=== PATIENT | male | born 1945 | race Caucasian/White ===

== ENCOUNTER 2016-09-25 14:49 | Emergency (ER) | payer OTHER ==
--- NOTE | 2016-09-25 14:59 | CPEKG ---
Heart Rate: 70 RR Interval: 857 P-R Interval: 128 QRSD Interval: 78 QT Interval: 392 QTC Interval: 423 P [place]: -23 QRS [place]: -27 T Wave [place]: -24 EKG Severity - BORDERLINE ECG - EKG Impression: SINUS RHYTHM Electronically Signed By: Francisco Armstrong 25-Sep-2016 16:04:28
[2016-09-25 15:03] VITALS: PULSE 71; TEMP 98.2
[2016-09-25 15:18] LABS: % IMMATURE GRANULYOCYTES 0.6 % (0.0-1.1); ABSOLUTE IMMATURE GRANULOCYTES 0.08 10^3/uL (0.00-0.10); ADD DIFF? NO; ADD MORPH? NO; ADD SCAN? NO; ATYPICAL LYMPHOCYTE FLAG 0 (0-99); FRAGMENT RBC FLAG 0 (0-99); HEMATOCRIT 48.2 % (40.0-51.0); LEFT SHIFT FLG 0 (0-99); LIPEMIA HEMOLYSIS FLAG 80 (0-99); MEAN CELL HEMOGLOBIN 28.7 pg (27.9-34.1); MEAN CELL HEMOGLOBIN CONCENTR. 33.2 g/dL (32.4-36.7); MEAN CELL VOLUME 86.4 fL (81.5-99.8); MEAN PLATELET VOLUME 11.6 fL (8.7-11.7); PLATELET CLUMPS FLAG 10 (0-99); PLATELET COUNT 186 10^3/uL (150-400); RED BLOOD CELL COUNT 5.58 10^6/uL (4.40-6.38); RED CELL DISTRIBUTION WIDTH 13.3 % (11.5-15.2)
[2016-09-25 15:51] LABS: ANION GAP 14 mEq/L (8-16); CALCIUM 9.2 mg/dL (8.5-10.4); CARBON DIOXIDE 22 mEq/l (22-31); CHLORIDE 100 mEq/L (97-110); CREATININE 2.5 mg/dL (0.7-1.3); GLOMERULAR FILTRATION RATE 26; GLUCOSE 184 mg/dL (70-100); POTASSIUM 4.5 mEq/L (3.5-5.2); SODIUM 136 mEq/L (134-144)
[2016-09-25 16:02] LABS: TROPONIN I 0.025 ng/mL (0-0.034)
--- NOTE | 2016-09-25 16:06 | EDPHY ---
H & P Stated Complaint: DYSPNEA Time Seen by Provider: 09/25/16 15:09 HPI/ROS: CHIEF COMPLAINT: Dyspnea, upper trapezius pain, fever, chills, nausea HISTORY OF PRESENT ILLNESS: The patient presents to the ED with complaints of mild dyspnea, upper thoracic pain, subjective fevers, chills and nausea. The patient's symptoms all began fairly abruptly at 1 o'clock this afternoon. The patient reports he has had this happen episodically 5-10 times over the past 10 years. He reports that he has sought a diagnosis of these symptoms but reportedly no obvious etiology has been found. The patient's past medical history is most significant significant for coronary artery disease with a stent last year. The patient does have a history of chronic BPH. He denies any dysuria but does have chronic frequency. He denies an acute cough, he denies focal numbness or weakness. He denies fall or trauma. The patient complains of a moderate pain in his upper thoracic spine which is reproducible. REVIEW OF SYSTEMS: A comprehensive 10 point review of systems is otherwise negative aside from elements mentioned in the history of present illness. Source: Patient Exam Limitations: No limitations - Personal History Current Tetanus Diphtheria and Acellular Pertussis (TDAP): Yes - Medical/Surgical History Hx Asthma: Yes Hx Chronic Respiratory Disease: Yes Hx Diabetes: Yes Hx Cardiac Disease: No Hx Renal Disease: No Hx Cirrhosis: No Hx Alcoholism: No Hx HIV/AIDS: No Hx Splenectomy or Spleen Trauma: No Other PMH: Cervical disc disease, DM, empysema, gout, htn, hyperlipidemia, ptsd , BPH, TIA CVA, OA, STENTS,CAD, BELLS PALSY. - Social History Smoking Status: Former smoker - Physical Exam Exam: General Appearance: Alert, no distress Eyes: Pupils equal and round no pallor or injection ENT, Mouth: Mucous membranes moist Respiratory: There are no retractions, lungs are clear to auscultation Cardiovascular: Regular rate and rhythm Gastrointestinal: Abdomen is soft and nontender, no masses, bowel sounds normal Neurological: A&O, normal motor function, normal sensory exam, normal cranial nerves Skin: Warm and dry, no rashes Musculoskeletal: Tenderness to palpation noted in the upper thoracic spine Extremities: symmetrical, full range of motion Constitutional: Initial Vital Signs Temperature (C) 36.8 C 09/25/16 15:00 Heart Rate 71 09/25/16 15:00 Respiratory Rate 20 09/25/16 15:00 Blood Pressure 124/80 H 09/25/16 15:00 O2 Sat (%) 97 09/25/16 15:00 O2 Delivery Mode Room Air O2 (L/minute) 2 Allergies/Adverse Reactions: glipizide Allergy (Intermediate, Verified 04/18/16 10:02) Other-Enter Comments lisinopril Allergy (Intermediate, Verified 04/18/16 10:02) Other-Enter Comments Home Medications: Medication Instructions Recorded Acetaminophen [Tylenol ES 500 mg 500 - 1,000 mg PO TID PRN 03/29/16 (*)] Albuterol [Proventil Inhaler HFA 2 puffs IH Q4 PRN 03/29/16 (*)] Aspirin [Aspirin 81mg (*)] 81 mg PO DAILY 03/29/16 Budesonide/Formoterol 160/4.5 2 puffs IH BID 03/29/16 [Symbicort 160-4.5 Mcg Inh (*)] Carboxymethylcellulose 1% [Refresh 1 drops EACHEYE QID PRN 03/29/16 Celluvisc (*)] Cholecalciferol Vit D3 [Vitamin D3 1,000 units PO DAILY 03/29/16 (*)] Clopidogrel Bisulfate [Plavix (*)] 75 mg PO DAILY 03/29/16 Cyanocobalamin [Vitamin B12 (*)] 1,000 mcg PO BID 03/29/16 Herbals/Supplements -Info Only 1 ea PO DAILY 03/29/16 Lidocaine HCl [Lidocaine HCl 4% 1 angelika TP BID PRN 03/29/16 Topical Soln (*)] Losartan Potassium [Cozaar 25 mg 25 mg PO DAILY 03/29/16 (*)] Metoprolol Tartrate [Lopressor 25 25 mg PO BID 03/29/16 mg (*)] Nitroglycerin [Nitrostat 0.4 mg 0.4 mg SL Q5M PRN 03/29/16 (*)] PARoxetine HCL [Paxil 30mg (*)] 30 mg PO DAILY 03/29/16 Tamsulosin HCl [Flomax 0.4 MG (*)] 0.4 mg PO BIDMEAL 03/29/16 Vanicream [Vanicream (*)] 1 angelika TP PRN PRN 07/21/16 Allopurinol [Allopurinol 300 MG 300 mg PO DAILY #0 tab 04/01/16 (RX)] Atorvastatin Calcium [Lipitor 40 80 mg PO DAILY #0 tab 04/01/16 mg (*)] levOFLOXACIN [levAQUIN (*)] 750 mg PO Q2D #2 tab 04/01/16 predniSONE [Deltasone] 20 mg PO DAILY #2 tablet 04/01/16 predniSONE [prednisone 20mg (RX)] 3 tab PO DAILY #15 tab 04/18/16 Medical Decision Making - Diagnostics EKG Interpretation: EKG: Complete interpretation has been separately recorded in the [email or web address] archive. Summary impression: Sinus rhythm Imaging: Chest x-ray PA lateral: Images reviewed by myself, negative for pneumonia, emphysema is noted. ED Course/Re-evaluation: The patient presents to the ED with a diverse constellation of symptoms including thoracic pain, chills, diaphoresis and generalized weakness. Additionally patient has had some mild abdominal pain. The patient reports he has had episodic bouts of the symptoms over the years without obvious working diagnosis. Patient was noted to be afebrile in the emergency department. The patient has a normal EKG. The patient's troponin is normal. The patient is noted to have chronic renal failure with a baseline creatinine of 2.5. The patient's urinalysis demonstrates no evidence of an obvious infection. The patient's laboratory studies are within normal limits. The patient had multiple examinations by myself in the ED. He remains afebrile. The patient has no obvious disease noted on his chest x-ray. At this point time I do feel the patient can safely be discharged home. I am see no obvious emergent explanation of his symptoms. He has no vital sign abnormalities, has a normal neurologic examination, benign abdominal examination and an unremarkable EKG and cardiac tests. - Data Points Laboratory Results: Laboratory Results 09/25/16 15:00 09/25/16 15:00 09/25/16 09/25/16 17:35 15:00 WBC 13.14 H 10^3/uL (3.80-9.50) RBC 5.58 10^6/uL (4.40-6.38) Hgb 16.0 g/dL (13.7-17.5) Hct 48.2 % (40.0-51.0) MCV 86.4 fL (81.5-99.8) MCH 28.7 pg (27.9-34.1) MCHC 33.2 g/dL (32.4-36.7) RDW 13.3 % (11.5-15.2) Plt Count 186 10^3/uL (150-400) MPV 11.6 fL (8.7-11.7) Neut % (Auto) 72.9 % (39.3-74.2) Lymph % (Auto) 15.2 % (15.0-45.0) [place] % (Auto) 7.8 % (4.5-13.0) Eos % (Auto) 2.5 % (0.6-7.6) Baso % (Auto) 1.0 % (0.3-1.7) Nucleat RBC Rel Count 0.0 % (0.0-0.2) Absolute Neuts (auto) 9.57 H 10^3/uL (1.70-6.50) Absolute Lymphs (auto) 2.00 10^3/uL (1.00-3.00) Absolute Monos (auto) 1.03 H 10^3/uL (0.30-0.80) Absolute Eos (auto) 0.33 10^3/uL (0.03-0.40) Absolute Basos (auto) 0.13 H 10^3/uL (0.02-0.10) Absolute Nucleated RBC 0.00 10^3/uL (0-0.01) Immature Gran % 0.6 % (0.0-1.1) Immature Gran # 0.08 10^3/uL (0.00-0.10) Sodium 136 mEq/L (134-144) Potassium 4.5 mEq/L (3.5-5.2) Chloride 100 mEq/L (97-110) Carbon Dioxide 22 mEq/l (22-31) Anion Gap 14 mEq/L (8-16) BUN 27 H mg/dL (7-23) Creatinine 2.5 H mg/dL (0.7-1.3) Estimated GFR 26 Glucose 184 H mg/dL (70-100) Calcium 9.2 mg/dL (8.5-10.4) Troponin I 0.025 ng/mL (0-0.034) Urine Color YELLOW Urine Appearance CLEAR Urine pH 5.0 (5.0-7.5) Ur Specific [place] 1.015 (1.002-1.030) Urine Protein NEGATIVE (NEGATIVE) Urine Ketones NEGATIVE (NEGATIVE) Urine Blood NEGATIVE (NEGATIVE) Urine Nitrate NEGATIVE (NEGATIVE) Urine Bilirubin NEGATIVE (NEGATIVE) Urine Urobilinogen NEGATIVE EU (0.2-1.0) Ur Leukocyte Esterase NEGATIVE (NEGATIVE) Ur Culture Indicated? NOT INDICATED (NI) Urine Glucose NEGATIVE (NEGATIVE) Departure - Departure Disposition: Home, Routine, Self-Care Clinical Impression: Chills, Dehydration Condition: Good Instructions: Chronic Kidney Disease (ED) Additional Instructions: 1. Please return to the ED for worsening symptoms, high fever, difficulty breathing or other concerns. 2. Workup in the emergency department today demonstrates no evidence of a heart attack, pneumonia, abnormality of your blood testing or other obvious explanation of your symptoms. 3. Please follow up as scheduled with your primary care provider for a recheck in the next 1-2 days.
--- NOTE | 2016-09-25 16:07 | DX ---
CHEST, AP and Lateral HISTORY: Weakness, dyspnea COMPARISON: April 18, 2016 FINDINGS: Inspiratory phase is decreased. Chronic or recurrent perihilar bronchial wall thickening an d moderately prominent lung volumes are again present and suggest underlying COPD/airways disease. Th ere is no focal infiltrate or consolidation. There is no adenopathy or mass lesion. There is no pleur al effusion or pneumothorax. Bones are unremarkable for age. EKG leads overlie the chest. Impression: COPD/emphysema. No evidence for pneumonia.
[2016-09-25 17:52] LABS: COLOR YELLOW; LEUKOCYTE ESTERASE,URINE NEGATIVE (NEGATIVE); NITRITE,URINE NEGATIVE (NEGATIVE)
[2016-09-25 18:21] VITALS: BP 132/88; RESP 18; O2SAT 94
== END 2016-09-25 18:21 | disposition home or self-care (01) ==
LOC: EDUNIT#
DX: E86.0 Dehydration (principal); R68.83 Chills (without fever); J45.909 Unspecified asthma, uncomplicated; E11.9 Type 2 diabetes mellitus without complications; I10 Essential (primary) hypertension; I25.10 Atherosclerotic heart disease of native coronary artery without angina pectoris; Z79.82 Long term (current) use of aspirin; Z87.891 Personal history of nicotine dependence; Z86.73 Personal history of transient ischemic attack (TIA), and cerebral infarction without residual deficits; Z95.5 Presence of coronary angioplasty implant and graft

== ENCOUNTER 2017-04-09 12:58 | Emergency (ER) | payer OTHER ==
[2017-04-09 13:08] VITALS: BP 104/81; PULSE 67; RESP 24; TEMP 97.5; O2SAT 97
== END 2017-04-09 14:11 | disposition left against medical advice (07) ==
DX: Z53.21 Procedure and treatment not carried out due to patient leaving prior to being seen by health care provider (principal)

== ENCOUNTER 2017-04-13 14:25 | Inpatient (IN) | payer OTHER ==
--- NOTE | 2017-04-13 14:51 | EDPHY ---
H & P Stated Complaint: here recently, c/o recurrent sx: dizzy, RAZO, SOB, sweats, neck & back pain HPI/ROS: HPI CHIEF COMPLAINT: Multiple complaints HISTORY OF PRESENT ILLNESS: This patient is 71-year-old male significant past medical history for coronary artery disease with stent, chronic kidney disease, baseline creatinine 2.5, hypertension, COPD not on oxygen, history of a CVA, TIA , carotid artery occlusion presents emergency room with multiple complaints. He states for the past 3-5 years he has had chronic neck pain back pain and arm pain. Additionally ports chronic shortness of breath. He does have underlying COPD, emphysema and asthma however does not wear oxygen. He is an avid marijuana smoker. He states also he has felt very lightheaded recently. The reason that he came into the emergency room is a combination of all these things which includes shortness of breath, lightheadedness and chronic pain. He denies any new chest pain. Denies nausea vomiting. He does report diaphoresis earlier today. States he has had this constellation of symptoms multiple times over the past few years and nobody can tell him what is wrong. Past Medical History: Chronic kidney disease, diabetes, coronary artery disease , hypertension, COPD, CVA, TIA, carotid disease Past Surgical History: PTCA Social History: Denies daily use of tobacco or alcohol, does smoke marijuana Family History: Noncontributory ROS REVIEW OF SYSTEMS: A comprehensive 10 point review of systems is otherwise negative aside from elements mentioned in the history of present illness. Exam Constitutional appears well nontoxic, triage nursing summary reviewed, vital signs reviewed, awake/alert. Eyes normal conjunctivae and sclera, EOMI, PERRLA. HENT normal inspection, atraumatic, moist mucus membranes, no epistaxis, neck supple/ no meningismus, no raccoon eyes. Respiratory clear to auscultation bilaterally, normal breath sounds, no respiratory distress, no wheezing. Cardiovascular rate normal, regular rhythm, no murmur, no edema, distal pulses normal. Gastrointestinal soft, non-tender, no rebound, no guarding, normal bowel sounds, no distension, no pulsatile mass. Genitourinary no CVA tenderness. Musculoskeletal no midline vertebral tenderness, full range of motion, no calf swelling, no tenderness of extremities, no meningismus, good pulses, neurovascularly intact. Skin pink, warm, & dry, no rash, skin atraumatic. Neurologic awake, alert and oriented x 3, AAOx3, moves all 4 extremities equally, motor intact, sensory intact, CN II-XII intact, normal cerebellar, normal vision, normal speech. Psychiatric normal mood/affect. Heme/Lymph/Immune no lymphadenopathy. 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 Re-evaluation: EKG interpretation by me on record in [employer] system. Impression time of EKG 153, sinus rhythm 57 borderline T-wave abnormalities lead to 3 AVF. Otherwise unremarkable EKG no other acute ischemic change appreciated. Specifically no ST elevation. I did compare his EKG to old EKG dated 09/25/2016 and it is unremarkable no acute new changes. 1720: On re-examination at this time this patient tells me feels much better. He states the great improvement was from the DuoNeb breathing treatment. Tells me his pain is well controlled. On re-examination he denies any significant chest pain or shortness of breath. He states that he feels well enough to go home. I did review his blood work, x-ray and EKG with him. I did explain that he has emphysematous changes COPD on his x-ray. I do recommend he has close follow up with pulmonology. I do recommend that he may need supplemental oxygen to make him feel better. He has not had an oxygen requirement here but is on 2 L nasal cannula feeling better. Denies chest pain at this time. Plan will be to repeat troponin EKG at these are normal and he remained stable and feels well I will allow her to go home. However return precautions given specifically understands return emergency room if develops worsening shortness of breath, chest pain. ED x-ray chest two view: COPD. No infiltrate. Image interpreted by myself. EKG interpretation by me on record in [employer] system. Impression time of EKG 184, this is sinus rhythm rate of 54, borderline T-wave abnormality seen in lead 3 AVF. Flattening in lead 2. Otherwise unremarkable EKG. Unchanged from previous EKG today. And unchanged from previous EKG noted 09/25/2016 1939: I did go reassess this patient at [facility] RNs request. The patient reports to me that he is feeling dehydrated and dizzy and having generalized weakness. The patient is requesting to be admitted to the hospital. Patient does not feel safe going home. Given this I will allow him to be admitted to the hospital. Reason for admission is debility, generalized weakness. I have no evidence that he is having acute event. Specifically no cardiac event. Spoke with Dr. Mondragon who agrees to admit this patient. Reason for admission generalized weakness, and dyspnea. Source: Patient - Personal History Current Tetanus/Diphtheria Vaccine: Unsure Current Tetanus Diphtheria and Acellular Pertussis (TDAP): Unsure - Medical/Surgical History Hx Asthma: Yes Hx Chronic Respiratory Disease: Yes Hx Diabetes: Yes Hx Cardiac Disease: No Hx Renal Disease: No Hx Cirrhosis: No Hx Alcoholism: No Hx HIV/AIDS: No Hx Splenectomy or Spleen Trauma: No Other PMH: Cervical disc disease, DM, empysema, gout, htn, hyperlipidemia, ptsd , BPH, TIA CVA, OA, STENTS,CAD, BELLS PALSY. - Social History Smoking Status: Former smoker Constitutional: Initial Vital Signs Temperature (C) 36.3 C 04/13/17 14:30 Heart Rate 66 04/13/17 14:30 Respiratory Rate 16 04/13/17 14:30 Blood Pressure 122/96 H 04/13/17 14:30 O2 Sat (%) 98 04/13/17 14:30 O2 Delivery Mode Room Air Allergies/Adverse Reactions: glipizide Allergy (Intermediate, Verified 04/13/17 14:30) Other-Enter Comments lisinopril Allergy (Intermediate, Verified 04/13/17 14:30) Other-Enter Comments Home Medications: Medication Instructions Recorded Albuterol [Proventil Inhaler HFA 2 puffs IH Q4 PRN 03/29/16 (*)] Aspirin [Aspirin 81mg (*)] 81 mg PO DAILY 03/29/16 Budesonide/Formoterol 160/4.5 2 puffs IH BID 03/29/16 [Symbicort 160-4.5 Mcg Inh (*)] Carboxymethylcellulose 1% [Refresh 1 drops EACHEYE QID PRN 03/29/16 Celluvisc (*)] Cholecalciferol Vit D3 [Vitamin D3 1,000 units PO DAILY 03/29/16 (*)] Clopidogrel Bisulfate [Plavix (*)] 75 mg PO DAILY 03/29/16 Cyanocobalamin [Vitamin B12 (*)] 1,000 mcg PO BID 03/29/16 Lidocaine HCl [Lidocaine HCl 4% 1 angelika TP BID PRN 03/29/16 Topical Soln (*)] Losartan Potassium [Cozaar 25 mg 25 mg PO DAILY 03/29/16 (*)] Metoprolol Tartrate [Lopressor 25 25 mg PO BID 03/29/16 mg (*)] PARoxetine HCL [Paxil 30mg (*)] 30 mg PO DAILY 03/29/16 Tamsulosin HCl [Flomax 0.4 MG (*)] 0.4 mg PO BIDMEAL 03/29/16 Vanicream [Vanicream (*)] 1 angelika TP PRN PRN 03/29/16 Atorvastatin Calcium [Lipitor 40 80 mg PO DAILY #0 tab 04/01/16 mg (*)] Medical Decision Making - Diagnostics Imaging Results: Imaging Impressions Chest X-Ray 04/13/17 15:03 Impression: Query COPD/emphysema with no superimposed acute abnormality identified. - Data Points Laboratory Results: Laboratory Results 04/13/17 14:45 04/13/17 14:45 04/13/17 04/13/17 04/13/17 18:45 14:45 14:45 WBC RBC Hgb Hct MCV MCH MCHC RDW Plt Count MPV Neut % (Auto) Lymph % (Auto) [place] % (Auto) Eos % (Auto) Baso % (Auto) Nucleat RBC Rel Count Absolute Neuts (auto) Absolute Lymphs (auto) Absolute Monos (auto) Absolute Eos (auto) Absolute Basos (auto) Absolute Nucleated RBC Immature Gran % Immature Gran # PT 15.9 SEC H SEC (12.0-15.0) INR 1.27 H (0.83-1.16) APTT 31.4 SEC SEC (23.0-38.0) D-Dimer < 0.27 ug/mLFEU ug/mLFEU (0.00-0.50) Sodium 138 mEq/L mEq/L (134-144) Potassium 4.3 mEq/L mEq/L (3.5-5.2) Chloride 107 mEq/L mEq/L (97-110) Carbon Dioxide 15 mEq/l L mEq/l (22-31) Anion Gap 16 mEq/L mEq/L (8-16) BUN 39 mg/dL H mg/dL (7-23) Creatinine 2.4 mg/dL H mg/dL (0.7-1.3) Estimated GFR 27 Glucose 166 mg/dL H mg/dL (70-100) Calcium 10.0 mg/dL mg/dL (8.5-10.4) Magnesium 1.9 mg/dL mg/dL (1.6-2.3) Total Bilirubin 1.0 mg/dL mg/dL (0.1-1.4) Conjugated Bilirubin 0.4 mg/dL mg/dL (0.0-0.5) Unconjugated Bilirubin 0.6 mg/dL mg/dL (0.0-1.1) AST 31 IU/L IU/L (17-59) ALT 49 IU/L IU/L (21-72) Alkaline Phosphatase 52 IU/L IU/L (38-126) Creatine Kinase 193 IU/L IU/L (0-224) CK-MB (CK-2) Fraction 3.69 ng/mL H ng/mL (0-3.19) CK-MB (CK-2) % 1.9 % % (0.0-4.0) Creatine Kinase Interp NEGATIVE (NEGATIVE) Troponin I 0.016 ng/mL ng/mL 0.014 ng/mL ng/mL (0-0.034) (0-0.034) NT-Pro-B Natriuret Pep 270 pg/mL H pg/mL (0-125) Total Protein 7.4 g/dL g/dL (6.3-8.2) Albumin 4.4 g/dL g/dL (3.5-5.0) Lipase 255.0 IU/L IU/L (23-300) 04/13/17 14:45 WBC 12.98 10^3/uL H 10^3/uL (3.80-9.50) RBC 5.85 10^6/uL 10^6/uL (4.40-6.38) Hgb 17.0 g/dL g/dL (13.7-17.5) Hct 49.9 % % (40.0-51.0) MCV 85.3 fL fL (81.5-99.8) MCH 29.1 pg pg (27.9-34.1) MCHC 34.1 g/dL g/dL (32.4-36.7) RDW 13.7 % % (11.5-15.2) Plt Count 181 10^3/uL 10^3/uL (150-400) MPV 11.8 fL H fL (8.7-11.7) Neut % (Auto) 74.2 % % (39.3-74.2) Lymph % (Auto) 16.2 % % (15.0-45.0) [place] % (Auto) 6.2 % % (4.5-13.0) Eos % (Auto) 1.5 % % (0.6-7.6) Baso % (Auto) 1.1 % % (0.3-1.7) Nucleat RBC Rel Count 0.0 % % (0.0-0.2) Absolute Neuts (auto) 9.65 10^3/uL H 10^3/uL (1.70-6.50) Absolute Lymphs (auto) 2.10 10^3/uL 10^3/uL (1.00-3.00) Absolute Monos (auto) 0.80 10^3/uL 10^3/uL (0.30-0.80) Absolute Eos (auto) 0.19 10^3/uL 10^3/uL (0.03-0.40) Absolute Basos (auto) 0.14 10^3/uL H 10^3/uL (0.02-0.10) Absolute Nucleated RBC 0.00 10^3/uL 10^3/uL (0-0.01) Immature Gran % 0.8 % % (0.0-1.1) Immature Gran # 0.10 10^3/uL 10^3/uL (0.00-0.10) PT INR APTT D-Dimer Sodium Potassium Chloride Carbon Dioxide Anion Gap BUN Creatinine Estimated GFR Glucose Calcium Magnesium Total Bilirubin Conjugated Bilirubin Unconjugated Bilirubin AST ALT Alkaline Phosphatase Creatine Kinase CK-MB (CK-2) Fraction CK-MB (CK-2) % Creatine Kinase Interp Troponin I NT-Pro-B Natriuret Pep Total Protein Albumin Lipase Medications Given: Discontinued Medications Albuterol/Ipratropium (Duoneb) 3 ml IH EDNOW ONE Stop: 04/13/17 15:13 Last Admin: 04/13/17 15:21 Dose: 3 ml Sodium Chloride (Ns) 1,000 mls @ 0 mls/hr IV ONCE ONE; Wide Open PRN Reason: Protocol Stop: 04/13/17 15:04 Last Admin: 04/13/17 15:09 Dose: 1,000 mls Morphine Sulfate (Morphine) 4 mg IVP EDNOW ONE Stop: 04/13/17 15:04 Last Admin: 04/13/17 15:10 Dose: 4 mg Ondansetron HCl (Zofran) 4 mg IVP EDNOW ONE Stop: 04/13/17 15:04 Last Admin: 04/13/17 15:09 Dose: 4 mg Departure - Departure Disposition: [facility] Inpatient Acute Clinical Impression: Dyspnea Qualifiers: Dyspnea type: unspecified Qualified Code(s): R06.00 - Dyspnea, unspecified Condition: Good Instructions: Emphysema (ED), COPD (Chronic Obstructive Pulmonary Disease) (ED) Additional Instructions: 1. Return immediately to the emergency room if develops worsening symptoms includes chest pain, shortness of breath or you do not feel well. 2. I do recommend he follow up with pulmonology please call their for a follow- up appointment. Referrals: CATHLEEN BOYD MD [Other] - As per Instructions Can Ferraro MD [Medical Doctor] - As per Instructions
[2017-04-13] MEDS ORDERED: NS 1,000 ML IV ONE ×2 (15:03→19:38)
[2017-04-13] MEDS ORDERED: ONDANSETRON 4 MG/2 ML VIAL IVP ONE (15:03)
[2017-04-13] MEDS ORDERED: IPRATROPIUM/ALBUTEROL 3 ML DEYVIAL IH ONE (15:12)
[2017-04-13 15:26] LABS: % IMMATURE GRANULYOCYTES 0.8 % (0.0-1.1); ADD DIFF? NO; ADD MORPH? NO; ADD SCAN? NO; ATYPICAL LYMPHOCYTE FLAG 0 (0-99); FRAGMENT RBC FLAG 0 (0-99); HEMATOCRIT 49.9 % (40.0-51.0); LEFT SHIFT FLG 0 (0-99); LIPEMIA HEMOLYSIS FLAG 90 (0-99); MEAN CELL HEMOGLOBIN 29.1 pg (27.9-34.1); MEAN CELL HEMOGLOBIN CONCENTR. 34.1 g/dL (32.4-36.7); MEAN CELL VOLUME 85.3 fL (81.5-99.8); MEAN PLATELET VOLUME 11.8 fL (8.7-11.7); PLATELET CLUMPS FLAG 0 (0-99); PLATELET COUNT 181 10^3/uL (150-400); RED BLOOD CELL COUNT 5.85 10^6/uL (4.40-6.38); RED CELL DISTRIBUTION WIDTH 13.7 % (11.5-15.2)
[2017-04-13 15:27] LABS: ALANINE AMINOTRANSFERASE 49 IU/L (21-72); ALBUMIN 4.4 g/dL (3.5-5.0); ALKALINE PHOSPHATASE 52 IU/L (38-126); ANION GAP 16 mEq/L (8-16); ASPARTATE AMINOTRANSFERASE 31 IU/L (17-59); BILIRUBIN-CONJUGATED 0.4 mg/dL (0.0-0.5); BILIRUBIN-UNCONJUGATED 0.6 mg/dL (0.0-1.1); CARBON DIOXIDE 15 mEq/l (22-31); CHLORIDE 107 mEq/L (97-110); CREATININE 2.4 mg/dL (0.7-1.3); GLOMERULAR FILTRATION RATE 27; GLUCOSE 166 mg/dL (70-100); MAGNESIUM 1.9 mg/dL (1.6-2.3); POTASSIUM 4.3 mEq/L (3.5-5.2); SODIUM 138 mEq/L (134-144); TOTAL PROTEIN 7.4 g/dL (6.3-8.2)
--- NOTE | 2017-04-13 15:36 | CPEKG ---
Heart Rate: 57 RR Interval: 1053 P-R Interval: 152 QRSD Interval: 80 QT Interval: 428 QTC Interval: 417 P [place]: 67 QRS [place]: -24 T Wave [place]: -19 EKG Severity - BORDERLINE ECG - EKG Impression: SINUS RHYTHM EKG Impression: BORDERLINE LEFT AXIS DEVIATION EKG Impression: BORDERLINE T ABNORMALITIES, INFERIOR LEADS Electronically Signed By: Vick Wray 16-Apr-2017 06:11:25
[2017-04-13 15:38] LABS: INR 1.27 (0.83-1.16); PROTIME(PATIENT) 15.9 SEC (12.0-15.0)
[2017-04-13 15:39] LABS: APTT 31.4 SEC (23.0-38.0); TROPONIN I 0.014 ng/mL (0-0.034)
[2017-04-13 15:43] LABS: CK-MB INTERPRETATION NEGATIVE (NEGATIVE); CREATINE KINASE-MB FRACTION 3.69 ng/mL (0-3.19)
--- NOTE | 2017-04-13 18:47 | CPEKG ---
Heart Rate: 54 RR Interval: 1111 P-R Interval: 156 QRSD Interval: 76 QT Interval: 436 QTC Interval: 414 P [place]: 59 QRS [place]: -32 T Wave [place]: -21 EKG Severity - BORDERLINE ECG - EKG Impression: SINUS RHYTHM EKG Impression: LEFT AXIS DEVIATION EKG Impression: BORDERLINE T ABNORMALITIES, INFERIOR LEADS Electronically Signed By: Vick Wray 16-Apr-2017 06:11:18
[2017-04-13] MEDS ORDERED: ONDANSETRON DISINTEGRATING 4 MG TAB PO PRN (21:00)
[2017-04-13] MEDS ORDERED: ONDANSETRON 4 MG/2 ML VIAL IVP PRN (21:00)
[2017-04-13] MEDS ORDERED: PROMETHAZINE HCL 25 MG/ML INJ IVP PRN (21:00)
[2017-04-13] MEDS ORDERED: oxyCODONE IR 5 MG TAB PO PRN (21:00)
[2017-04-13] MEDS ORDERED: ALBUTEROL 3 ML DEYVIAL IH PRN (21:00)
[2017-04-13] MEDS: IPRATROPIUM/ALBUTEROL 3 ML DEYVIAL IH SCH (22:21)
[2017-04-13 22:35] LABS: C-REACTIVE PROTEIN 6.2 mg/L (<10.0)
[2017-04-13] MEDS ORDERED: CARBOXYMETHYLCELLULOSE 1% 0.4 ML DROPERETTE EACHEYE PRN (22:36)
[2017-04-13] MEDS ORDERED: VANICREAM CREAM TP PRN (22:36)
[2017-04-13] MEDS ORDERED: ALBUTEROL 200 PUFFS/18 GM MDI IH PRN (22:36)
[2017-04-13 22:40] LABS: SEDIMENTATION RATE 5 MM/HR (0-20)
[2017-04-13] MEDS ORDERED: D10W 250 ML PRN HYPOGLYCEMIA IV (22:51)
[2017-04-13] MEDS ORDERED: D50W 25 GM/50 ML SYR IVP PRN (22:51)
[2017-04-13 23:00] LABS: COLOR YELLOW; LEUKOCYTE ESTERASE,URINE NEGATIVE (NEGATIVE); NITRITE,URINE NEGATIVE (NEGATIVE)
--- NOTE | 2017-04-13 23:44 | GHP ---
[f rep st] HISTORY AND PHYSICAL DATE OF ADMISSION: 04/13/2017 CHIEF COMPLAINT: Generalized weakness, sweats, dizziness. HISTORY: This is a 71-year-old man, who has a past medical history that includes coronary artery di sease, status post stenting, chronic kidney disease, and COPD, who presents with complaints of gener alized weakness, diaphoresis, dehydration, and dizziness. The patient notes he has had ongoing issu es with all of these symptoms in various combinations for about the last 3 years. He states he has been seen in this ER, as well as at the [facility] and several other [place] [facility], and has had 6 hosp ital admissions for these symptoms without any clear etiology. He notes that initially on arrival i n the ER, after receiving some fluids, he felt better, but then the symptoms came back worse than be fore. He does note that the main issues that he experiences are dizziness, along with what he descr ibes as a cold sweat. He will often have neck and back pain and sometimes leg cramping along with t his. He does have some anxiety that contributes to this. He notes that these bouts occur at least every several months and are debilitating, but even in between, he does not feel completely back to normal and notes that he has had issues with ongoing chronic and significant fatigue and shortness o f breath. He states at least on some of these occasions, his blood pressure has been lower than his usual bloo d pressure. He has not had any chest pain. He has not had any cough. He has not had fevers that pradeep aguilar is aware of. He has not had any recent changes in his medications. He has not had an actual nenita ting, although he has come close to fainting and felt his symptoms improve when he lays down on the ground. PAST MEDICAL HISTORY: 1. Coronary artery disease, status post stenting. 2. Chronic kidney disease. Baseline creatinine around 2.2. 3. COPD. 4. Hypertension. 5. Diabetes. 6. Hyperlipidemia. 7. Arthritis. 8. Gout. 9. PTSD. 10. BPH. 11. TIA. PAST SURGICAL HISTORY: Include stents and detached retina repair. FAMILY HISTORY: Brother with an IA at age 69. Father with 3 CVAs beginning somewhere in his late 5 0s. Mother with diabetes and coronary artery disease. SOCIAL HISTORY: Patient has been twice. He is currently single. He lives with 2 roommate s. He smoked for approximately 12 pack years tobacco, but has been smoking marijuana since 1966 paul ly. He denies alcohol use. He is a [employer] . He has 1 daughter. He is originally from [place]. REVIEW OF SYSTEMS: The 10-point review of systems obtained negative except as per HPI. HOME MEDICATIONS: 1. Vitamin B12. 2. Albuterol. 3. Vanicream. 4. Flomax. 5. Paxil. 6. Metoprolol. 7. Losartan. 8. Clopidogrel. 9. Cholecalciferol. 10. Carboxymethylcellulose. 11. Symbicort. 12. Atorvastatin. 13. Aspirin. 14. Apixaban. ALLERGIES: Include glipizide and lisinopril. PHYSICAL EXAMINATION: VITAL SIGNS: BP 144/80, heart rate 62, respiratory rate 18, O2 sat 94% on 3 L, temperature is 36.3. GENERAL APPEARANCE: This is an obese male. He is awake and aler t. He is in no acute distress. EYES: Anicteric. HENT: Oropharynx is clear. He has significant soft tissue around his neck. CARDIOVASCULAR: Regular rate and rhythm, no MRG. PULMONARY: CTA apolinar aterally, though somewhat distant breath sounds. ABDOMEN: Obese, soft, nontender, nondistended. E XTREMITIES: No clubbing, cyanosis, or edema. SKIN: Warm, dry, well perfused. NEURO/PSYCH: Orien kaylee and appropriate, pleasant. CLINICAL DATA: Labs reviewed. Significant for white blood cell count of 12.98, hematocrit 49.9, pl atelets of 181. Coags notable for an INR of 1.27. Chemistry: BUN of 39 and creatinine of 2.4, glu cose of 166. ProBNP 270. Troponin is 0.014. Chest x-ray, personally reviewed and interpreted, shows COPD without any acute findings. No pneumon ia. EKG, personally reviewed and interpreted, shows sinus rhythm, borderline left axis deviation, inferi or T-wave inversions. ASSESSMENT AND PLAN: This is a 71-year-old man with multiple medical issues including coronary yvrose ry disease, chronic kidney disease, diabetes and chronic obstructive pulmonary disease, who presents with multiple complaints including generalized weakness, diaphoresis, concerns for dehydration, and near-syncope. 1. Generalized malaise, fatigue, dizziness, etc. Patient presents with a constellation of sort of nonspecific complaints. He notes this has been going on on-and-off for the last 3 years. Initial w orkup is relatively benign including vital signs and initial lab studies. Unclear if this could rep resent some sort of recurrent vasovagal type episode, especially given near-syncope that improves wi th lying down and association with cold sweats. Also could consider some sort of more insidious pro cess like adrenal insufficiency, low vitamin B12, hypothyroidism. I will check a.m. cortisol, as we ll as B12 and TSH. He does have a chronic leukocytosis, so another consideration would be for some kind of occult blood malignancy, though he does not have any other abnormal cell counts persistently . I will obtain a manual diff in the morning. Another consideration would be possibly for untreate d sleep apnea as he does have body habitus that would certainly be suggestive of this. I will obtai n a nocturnal oximetry study tonight and did recommend a formal sleep study. Will also obtain an ec hocardiogram. 2. Coronary artery disease. Again, patient is status post PCI of the 1st diagonal of the LAD. Thi s was performed in 2016. Will monitor on telemetry and obtain serial troponins and an echocardiogra m. I do not suspect that his presentation is consistent with acute coronary syndrome, though again, it is so nonspecific, it is hard to tell. 3. Leukocytosis. Again as per above, this has been a chronic issue for him. Will obtain a manual diff in the morning. Consider hematology consultation if this is abnormal. 4. Acute kidney injury on chronic kidney disease. Does seem to have a usual baseline creatinine cl oser to 2.2 and presenting with it elevated to 2.4 with concurrent developed elevation of BUN to 39. He does state that he feels he is dehydrated and perhaps that is accurate. Will continue IV fluid s overnight. Will hold his losartan for now. 5. Hypertension. Blood pressure here has been well controlled. Will continue metoprolol, but hold his losartan given acute kidney injury as above. 6. Benign prostatic hypertrophy. Continue Flomax. This could be causing some of the patient's sym ptoms, though again, he has not been hypotensive here. Will monitor for any bouts of hypotension th at might coincide with his symptoms. 7. Chronic obstructive pulmonary disease, without real evidence of acute exacerbation. He does not have any significant wheeze or hypoxia on exam. Will treat with DuoNeb, albuterol p.r.n., and Symb icort. 8. Diabetes. He is not currently on any hypoglycemic agents. Will check hemoglobin A1c and monito r his sugars while in-house. Query if this could be contributing to his presenting symptoms; perhap s he is having intermittent hypoglycemic episodes. 9. Obesity. Recommend lifestyle modification. 10. Disposition. Observation status. Patient likely need less than 48 hours stay for evaluation a nd management of above. Patient is new to my care. Old records reviewed and summarized as per HPI and past medical history. Care plan reviewed with ER physician, including plans for workup of multiple somewhat nonspecific complaints. /[id number]/STEPHANIEL
[2017-04-14] MEDS: BUDESONIDE/FORMOTEROL 160/4.5 60 PUFFS/MDI IH SCH ×3 (00:30→21:29)
[2017-04-14] MEDS: IPRATROPIUM/ALBUTEROL 3 ML DEYVIAL IH SCH ×4 (05:17→21:29)
[2017-04-14] MEDS: ACETAMINOPHEN 325 MG TAB PO PRN ×2 (05:28→21:02)
[2017-04-14] MEDS: NS 1,000 ML IV SCH ×2 (05:31→15:25)
[2017-04-14 08:11] LABS: % IMMATURE GRANULYOCYTES 0.6 % (0.0-1.1); ABSOLUTE IMMATURE GRANULOCYTES 0.08 10^3/uL (0.00-0.10); ADD DIFF? NO; ADD MORPH? NO; ADD SCAN? NO; ATYPICAL LYMPHOCYTE FLAG 0 (0-99); FRAGMENT RBC FLAG 0 (0-99); HEMATOCRIT 45.2 % (40.0-51.0); HEMOGLOBIN 14.9 g/dL (13.7-17.5); LEFT SHIFT FLG 0 (0-99); LIPEMIA HEMOLYSIS FLAG 80 (0-99); MEAN CELL HEMOGLOBIN 28.8 pg (27.9-34.1); MEAN CELL VOLUME 87.3 fL (81.5-99.8); MEAN PLATELET VOLUME 11.2 fL (8.7-11.7); PLATELET CLUMPS FLAG 0 (0-99); PLATELET COUNT 135 10^3/uL (150-400); RED BLOOD CELL COUNT 5.18 10^6/uL (4.40-6.38); RED CELL DISTRIBUTION WIDTH 13.9 % (11.5-15.2)
[2017-04-14 08:34] LABS: ANION GAP 11 mEq/L (8-16); CALCIUM 8.8 mg/dL (8.5-10.4); CARBON DIOXIDE 18 mEq/l (22-31); CHLORIDE 109 mEq/L (97-110); CREATININE 2.2 mg/dL (0.7-1.3); GLOMERULAR FILTRATION RATE 30; GLUCOSE 143 mg/dL (70-100); MAGNESIUM 1.8 mg/dL (1.6-2.3); POTASSIUM 4.8 mEq/L (3.5-5.2); SODIUM 138 mEq/L (134-144)
[2017-04-14 08:46] LABS: TROPONIN I 0.014 ng/mL (0-0.034)
[2017-04-14] MEDS ORDERED: LOSARTAN POTASSIUM 25 MG TAB PO SCH (09:00)
[2017-04-14 09:04] LABS: CORTISOL-AM 4.4 ug/dL (4.5-22.7)
[2017-04-14] MEDS: INSULIN LISPRO 100 UNIT/ML SC SCH ×3 (09:05→18:18)
[2017-04-14] MEDS: ASPIRIN 81 MG CHEWABLE TAB PO SCH (09:06)
[2017-04-14] MEDS: CLOPIDOGREL BISULFATE 75 MG TAB PO SCH (09:06)
[2017-04-14] MEDS: CHOLECALCIFEROL VIT D3 1,000 UNITS TAB PO SCH (09:06)
[2017-04-14] MEDS: TAMSULOSIN HCL 0.4 MG CAP PO SCH (09:06)
[2017-04-14] MEDS: CYANO/VITAMIN B12 1000 MCG TAB PO SCH ×2 (09:07→21:01)
[2017-04-14] MEDS: ATORVASTATIN CALCIUM 40 MG TAB PO SCH (09:07)
[2017-04-14] MEDS: METOPROLOL TARTRATE 25 MG TAB PO SCH ×2 (09:07→21:00)
[2017-04-14 09:40] LABS: LARGE PLATELETS PRESENT; PLATELET ESTIMATE DECREASED (ADEQ)
--- NOTE | 2017-04-14 16:11 | ECHO ---
[id number] + + [address] : : [place] [address] : : [phone] + + Adult Echocardiographic Report + -----+ :Name: DIANE KNOX HStudy Date: 04/14/2017 01:39 PM : : Hospital Admission Number: [id number] Location : 385: :: 1945 Gender: Male Height: 69 in : :Age: 71 yrs Race: WH Weight: 231 lb : :Reason For Study: Chronic fatigue/SOB/question CHF : : BSA: 2.2 meters2 : :History: stent : + -----+ MMode/2D Measurements \T\ Calculations IVSd: 0.83 cm LVIDd: 5.3 cm EDV(Teich): 134.4 ml Ao root diam: 3.8 cm LVPWd: 0.86 cm LA dimension: 4.5 cm Normal Measurement Values: + + :LVIDd (3.5-5.7cm) IVSd (0.6-1.1cm) LVPWd (0.6-1.1cm) Aortic Root (2.0-3.7cm)Left Atrium (1.5-4.0cm): :LV Vol(d) (76-115ml) LV Vol(s) (29-48ml) Ejec Fraction (50-65%)PV Tyson (0.6- 1.2m/s) TV Tyson (0.4-1.0m/s) : :MV E Tyson (0.8-1.0m/s)MV A Tyson (0.3-1.0m/s)LVOT Tyson (0.7-1.2m/s) Asc Ao Tyson ( 0.9-1.8m/s) : + + Doppler Measurements \T\ Calculations MV E max tyson: 72.6 cm/sec Ao V2 max: 116.7 cm/sec MV A max tyson: 62.7 cm/sec Ao max P.5 mmHg MV E/A: 1.2 Left Ventricle The left ventricle is normal in size. There is normal left ventricular wall thickness. Ejection Fraction = 70-75%. Left ventricular systolic function is normal. There is Doppler evidence for diastolic dysfunction. No regional wall motion abnormalities noted. Right Ventricle The right ventricle is normal in size and function. The right ventricular systolic function is normal. Atria The left atrium is mildly dilated. Right atrial size is normal. Mitral Valve The mitral valve is normal in structure and function. There is mild mitral regurgitation. Tricuspid Valve Normal tricuspid valve. There is trace tricuspid regurgitation. Aortic Valve The aortic valve is trileaflet. The aortic valve opens well. There is no aortic stenosis. There is no aortic insufficiency. Pulmonic Valve The pulmonic valve is not well visualized. There is no pulmonic valvular regurgitation. Great Vessels The aortic root is normal size. Pericardium/Pleural There is no pericardial effusion. There is a fat pad seen. Conclusion A complete two-dimensional transthoracic echocardiogram was performed (2D, M-mode, Doppler and color flow Doppler). (1) Left ventricular systolic ejection fraction was normal (70-75%) - normal wall motion (2) No left ventricular hypertrophy (3) Diastolic dysfunction was present (4) Normal right ventricular size and function (5) Mild dilation to the left atrium with normal right atrial dimensions (6) Mild mitral regurgitation (7) Trileaflet aortic valve without sclerosis or appreciable insufficiency (8) Physiologic tricuspid regurgitation (9) Poor visualization of the pulmonic valve (10) In comparison to prior echocardiogram from 2016, there has been improvement in LVEF noted (from 50% to current 75%). Final Reading Physician: Pina Mena signed on 04/14/2017 04:10 PM Ordering Physician: Jean-Pierre Mondragon Performed By: Brigitte Steele, MARY ELLENCS
--- NOTE | 2017-04-14 19:38 | HOSPPROG ---
Hospitalist Progress Note Assessment/Plan: The patient is a male with PMH CKD, COPD, DM who was admitted for generalized weakness and dizziness. He has been admitted multiple times to hospitals throughout the [place] area for the same issue over the last 3 years with no known cause of symptoms. ASSESSMENT/PLAN: Generalized weakness, persistent Dizziness, improved CKD, baseline creatinine 2.2 COPD CAD, status post stent Non anion gap Metabolic Acidosis, mild Hypertension Diabetes mellitus type 2 Hyperlipidemia Arthritis Gout PTSD BPH History of TIA -labs have been unremarkable, except for a slightly low cortisol this morning. -symptoms seem to be improving with IV fluid hydration. Patient is still weak today, observe overnight. -a.m. cortisol was slightly low today. Suspect adrenal insufficiency. Would recommend ACTH stimulation test. -Reviewed labs and tests w/ pt. -Hemoglobin A1c level pending. -Query RTA - check UAG, urine pH. VTE prophylaxis: SCDs Code Status: Full code Status: Changing from obs to Inpatient for greater than 2 midnight stay. [facility] in [facility] 1-2 days. ____ SUBJECTIVE: Today the patient feels about 30 to 40% better after having received IV fluids. OBJECTIVE: Physical Exam: General: The patient is an obese male who is alert and in no acute distress. HEENT: normocephalic, extraocular movements intact, conjunctivae clear. Mucous membranes moist. Neck: trachea midline, no visible masses. CV: +S1/S2, RRR, no MRG. Resp: unlabored, CTAB no RRW. Abd: soft and nondistended. Bowel sounds present. Musculoskeletal: Normal muscle tone/bulk. Neuro: cranial nerves II XII grossly intact. Intact gross motor and sensory function. Psych: Appropriate mood and appropriate affect. Skin: No pallor. No petechiae. Heme/lymph: No peripheral edema at bilateral lower extremity. Labs/Imaging/Other Tests: Personally reviewed/interpreted. Echo: LVEF 70-75%, diastolic dysfunction. CXR: Hyperinflated lungs, no pneumonia. EKG: no acute ischemia. Objective: Vital Signs Temp Pulse Resp BP Pulse Ox 36.5 C 65 18 119/59 L 95 04/14/17 16:00 04/14/17 16:00 04/14/17 16:00 04/14/17 16:00 04/14/17 16:00 Laboratory Results 04/14/17 06:00 04/14/17 06:00 04/13/17 04/14/17 04/15/17 05:59 05:59 05:59 Intake Total 2400 1200 Output Total 775 1000 Balance 1625 200 PT 15.9 SEC (12.0-15.0) H 04/13/17 14:45 INR 1.27 (0.83-1.16) H 04/13/17 14:45 ICD10 Worksheet Patient Problems: Problems Problem Status Onset Dyspnea Acute Chest pain Acute Chronic Disease Mgmt/Transitional Care Acute Exacerbation of asthma Acute History of coronary artery disease Acute Pneumonia Acute Renal insufficiency Acute
[2017-04-14 21:49] LABS: RANDOM URINE POTASSIUM 26.3 mEq/L (0.5-35.0)
[2017-04-15 02:40] LABS: HEMOGLOBIN A1C 7.4 % (4.0-6.0)
[2017-04-15] MEDS: NS 1,000 ML IV SCH (05:34)
[2017-04-15 05:41] LABS: HEMATOCRIT 46.3 % (40.0-51.0); HEMOGLOBIN 15.3 g/dL (13.7-17.5); MEAN CELL HEMOGLOBIN 28.9 pg (27.9-34.1); MEAN CELL VOLUME 87.4 fL (81.5-99.8); RED BLOOD CELL COUNT 5.3 10^6/uL (4.40-6.38); RED CELL DISTRIBUTION WIDTH 13.7 % (11.5-15.2)
[2017-04-15] MEDS: IPRATROPIUM/ALBUTEROL 3 ML DEYVIAL IH SCH ×2 (05:53→11:44)
[2017-04-15 05:58] LABS: ANION GAP 9 mEq/L (8-16); CALCIUM 9.3 mg/dL (8.5-10.4); CARBON DIOXIDE 18 mEq/l (22-31); CHLORIDE 108 mEq/L (97-110); GLOMERULAR FILTRATION RATE 33; GLUCOSE 127 mg/dL (70-100); MAGNESIUM 1.9 mg/dL (1.6-2.3); POTASSIUM 4.6 mEq/L (3.5-5.2); SODIUM 135 mEq/L (134-144)
[2017-04-15] MEDS ORDERED: COSYNTROPIN 0.25 MG/2 ML SYRINGE IVP ONE (06:00)
[2017-04-15 06:25] LABS: CORTISOL-AM 10.8 ug/dL (4.5-22.7)
[2017-04-15] MEDS: INSULIN LISPRO 100 UNIT/ML SC SCH ×2 (08:54→12:33)
[2017-04-15] MEDS ORDERED: MAGNESIUM OXIDE 400 MG TAB PO SCH (09:00)
[2017-04-15] MEDS: METOPROLOL TARTRATE 25 MG TAB PO SCH (09:05)
[2017-04-15] MEDS: CYANO/VITAMIN B12 1000 MCG TAB PO SCH (09:06)
[2017-04-15] MEDS: CHOLECALCIFEROL VIT D3 1,000 UNITS TAB PO SCH (09:06)
[2017-04-15] MEDS: ATORVASTATIN CALCIUM 40 MG TAB PO SCH (09:06)
[2017-04-15] MEDS: TAMSULOSIN HCL 0.4 MG CAP PO SCH (09:06)
[2017-04-15] MEDS: CLOPIDOGREL BISULFATE 75 MG TAB PO SCH (09:06)
[2017-04-15] MEDS: ASPIRIN 81 MG CHEWABLE TAB PO SCH (09:06)
[2017-04-15 11:14] VITALS: BP 146/79; TEMP 98.3; O2SAT 94
--- NOTE | 2017-04-15 11:21 | PDDCSUM ---
Discharge Summary Discharge Summary: DISCHARGE SUMMARY FOLLOW-UP ITEMS: Repeat creatinine BUN and lytes and CBC prior to follow-up appointment DATE OF ADMISSION: 04/13/17 DATE OF DISCHARGE: 04/15/2017 DISCHARGE DIAGNOSES: 1. Acute on chronic generalized weakness 2. Chronic kidney disease stage 3 3. Metabolic acidosis 4. Chronic hypertension 5. Diabetes mellitus type 2 with hyperglycemia CONSULTATIONS: None PROCEDURES / IMAGING: Echocardiogram demonstrating diastolic dysfunction, no focal wall motion abnormalities, ejection fraction 70%, normal right ventricle CHIEF COMPLAINT: Acute generalized weakness with dizziness and shortness of breath SUBJECTIVE: Patient is feeling well at time of discharge, his spirits are up lifted after of great conversation about pizza PHYSICAL EXAM ON DISCHARGE: Systolic blood pressure is 120-150, heart rate is 70, afebrile overnight, satting well on room air, lungs are clear to auscultation bilaterally without any crackles or wheezes, heart rhythm is regular without any significant murmurs , no lower extremity edema, abdomen is soft nontender nondistended LABS ON DISCHARGE: Creatinine 2, serum bicarb 18, potassium 4.6, hemoglobin A1c 7.4%, white blood count 69063, hemoglobin 15.3 HOSPITAL COURSE BY PROBLEM: 1. Acute on chronic generalized weakness. Patient presented with a vague constellation of weakness, dizziness, shortness of breath, symptoms which she has been experiencing for the past several years and has been hospitalized at what he reports as 5 institutions with unrevealing workup. He reports that he has had a normal stress test, and his echocardiogram on this presentation demonstrates no significant abnormalities. The exact etiology is somewhat unclear and there may be an anxiety or mood component, as the patient's symptoms seemed to improve after engaging in more positive, up lifting interactions. I recommend that his primary care office consider screening for mental health issues and providing him with therapy support. He may also require more aggressive management of his chronic medical issues including diabetes, hypertension, chronic kidney disease. It should also be noted the patient has leukocytosis which does not appear to be infection related, and the patient may benefit from an outpatient Hematology evaluation to ensure he does not have a hematopoetic disorder. At the time of discharge, the patient was safely ambulating and he had a normal cosyntropin stim test. 2. Chronic kidney disease stage 3. Patient's serum creatinine level fluctuated somewhat during this hospitalization, his baseline creatinine is around 2.2, and he was discharged with a creatinine level of 2.0. Given his degree of renal dysfunction as well as metabolic acidosis, I decided to discontinue his ARB and initiate an alternative blood pressure medication which would have less renal interaction. This can be reconsidered through his primary care provider office and I would recommend outpatient nephrology referral. 3. Metabolic acidosis. Mild, non anion gap, most likely secondary to chronic kidney disease. 4. Chronic hypertension. As noted above, continued on home beta-jason, discontinue ARB, initiated low-dose amlodipine, recommend outpatient follow-up primary care provider office. 5. Diabetes mellitus with hyperglycemia. Patient currently receiving glycemic agents, recommend outpatient counseling and initiation of insulin, receive lispro during this hospitalization. Hemoglobin A1c 7.4%, chronic kidney disease precluding use of metformin and sulfonylureas. DISCHARGE MEDICATIONS: Please see official discharge medication reconciliation sheet in chart , discontinuation of ARB, initiation of amlodipine 2.5 mg daily, initiation of magnesium supplement. DISCHARGE INSTRUCTIONS: Please follow up with primary care provider office. TIME SPENT: Greater than 30 minutes were spent on direct patient care, as well as discharge planning and preparation.
[2017-04-15] MEDS: BUDESONIDE/FORMOTEROL 160/4.5 60 PUFFS/MDI IH SCH (11:44)
[2017-04-15 11:51] VITALS: PULSE 68; RESP 18
== END 2017-04-15 13:11 | disposition home or self-care (01) | DRG 948 ==
LOC: INTOOBSV 19:48 → F3E 20:55 → OBSVTOIN 04-14 19:54
PROVIDERS: ADMIT Internal Medicine; ATTEND Internal Medicine
DX: R53.1 Weakness (principal); R06.00 Dyspnea, unspecified; R42 Dizziness and giddiness; N17.9 Acute kidney failure, unspecified; E87.2 Acidosis; N18.3 Chronic kidney disease, stage 3 (moderate); E11.65 Type 2 diabetes mellitus with hyperglycemia; E11.22 Type 2 diabetes mellitus with diabetic chronic kidney disease; I12.9 Hypertensive chronic kidney disease with stage 1 through stage 4 chronic kidney disease, or unspecified chronic kidney disease; J44.9 Chronic obstructive pulmonary disease, unspecified; F12.90 Cannabis use, unspecified, uncomplicated; M50.30 Other cervical disc degeneration, unspecified cervical region; E78.5 Hyperlipidemia, unspecified; F43.10 Post-traumatic stress disorder, unspecified; E66.9 Obesity, unspecified; M19.90 Unspecified osteoarthritis, unspecified site; N40.0 Benign prostatic hyperplasia without lower urinary tract symptoms; D72.829 Elevated white blood cell count, unspecified; I25.10 Atherosclerotic heart disease of native coronary artery without angina pectoris; I65.29 Occlusion and stenosis of unspecified carotid artery; Z68.33 Body mass index [BMI] 33.0-33.9, adult; Z95.5 Presence of coronary angioplasty implant and graft; Z86.73 Personal history of transient ischemic attack (TIA), and cerebral infarction without residual deficits; Z82.49 Family history of ischemic heart disease and other diseases of the circulatory system
CPT/HCPCS: 82607-90; 96374; 97116-GP; 97161-GP; 97166-GO; G0378; J0834; J1815; J2405

== ENCOUNTER 2017-09-21 15:54 | Inpatient (IN) | payer OTHER ==
--- NOTE | 2017-09-21 16:24 | CPEKG ---
Heart Rate: 68 RR Interval: 882 P-R Interval: 156 QRSD Interval: 72 QT Interval: 404 QTC Interval: 430 P Rutherford: 41 QRS Rutherford: -29 T Wave Rutherford: -10 EKG Severity - BORDERLINE ECG - EKG Impression: SINUS RHYTHM EKG Impression: BORDERLINE LEFT AXIS DEVIATION EKG Impression: BORDERLINE T ABNORMALITIES, INFERIOR LEADS Electronically Signed By: Katie Ramos 21-Sep-2017 23:12:04
[2017-09-21 16:50] LABS: PLATELET COUNT 154 10^3/uL (150-400)
--- NOTE | 2017-09-21 16:56 | EDPHY ---
HPI/HX/ROS/PE/MDM Narrative: CHIEF COMPLAINT: Dizziness, shortness of breath HISTORY OF PRESENT ILLNESS: The patient is an anticoagulated (Eliquis) 72 y/o male with a history of atrial fibrillation, cardiac stent placed following a myocardial infarction in January 2016 , cardiac stents, and kidney issues complaining of dizziness, headache, and shortness of breath, onset today. Reports the development of dizziness, headache, and shortness of breath rather abruptly several hours ago. Symptoms lasted for an hour. Currently states he feels dizzy when he sits up and has a headache. He denies any shortness of breath currently. He denies any chest pain. He describes his dizziness as feeling as though he may faint. He denies vomiting or other associated symptoms. He also feels he may dehydrated as he hasn't been drinking much. He reports regular marijuana use. No fever, chills, chest pain, palpitations, vomiting, diarrhea, urinary complaints, lightheadedness. REVIEW OF SYSTEMS: Aside from elements discussed in the HPI, a comprehensive 10-point review of systems was reviewed and is negative. PAST MEDICAL HISTORY: Atrial fibrillation, heart attack, cardiac stents, kidney issues SOCIAL HISTORY: Lives with 2 roommate, marijuana user, retired, VITAL SIGNS: Reviewed by me. Not tachycardic, tachypneic, or hypoxic. GENERAL: Well-developed, well-nourished, resting comfortably in no respiratory distress. HEENT: Atraumatic. Eyes: No icterus, no injection. Mouth: moist mucous membranes. No erythema or lesions. Neck: supple with no adenopathy. LUNGS: Clear to auscultation bilaterally, no wheezes, rhonchi or rales. CARDIAC: Regular rate and rhythm, no rubs, murmurs or gallops. ABDOMEN: Soft, nontender, nondistended, bowel sounds normal. BACK: No CVA tenderness. EXTREMITIES: No trauma. No edema. Range of motion is normal throughout. NEURO: Alert and oriented, grossly nonfocal. SKIN: Warm and dry, no rash. PSYCHIATRIC: Normal mentation, no agitation. ED Course: The patient presents with dizziness, shortness of breath, and headache onset today. Plan for labs, EKG, 1 L fluid, and influenza test. His EKG is sinus rhythm. His creatinine is 2.1 which is baseline. His labs also indicate a very minimally positive D-dimer. Due to his kidney function I cannot CT him. Patient's chest x-ray does demonstrate left basilar atelectasis. Although the patient's laboratory evaluation is largely unremarkable in quite reassuring with the exception of the elevated D-dimer, patient will be admitted to the hospital for further evaluation of his abrupt onset of dizziness and shortness of breath. Acute coronary syndrome or pulmonary emboli remain in the differential at this time. I have spoken to the hospitalist service and they agree to admit him. The patient agrees to this course of action. MDM: Differential diagnosis for the patient's shortness of breath was considered including but not limited to pulmonary infectious processes, COPD exacerbation, pulmonary emboli, pulmonary edema, congestive heart failure, and cardiac causes. Differential diagnosis of the patient's dizziness was considered including but not limited to peripheral and central causes of vertigo, cardiac arrhythmias, cardiac ischemia, electrolyte disturbances, neurologic causes, orthostatic causes including dehydration, and blood loss. - Data Points Imaging Results: Imaging Impressions Chest X-Ray 09/21/17 16:40 Impression: Airways disease and minimal left basilar atelectasis. Imaging: I viewed and interpreted images myself Laboratory Results: Laboratory Results 09/21/17 16:42 09/21/17 16:42 09/21/17 09/21/17 09/21/17 17:10 16:42 16:42 WBC RBC Hgb Hct MCV MCH MCHC RDW Plt Count MPV Neut % (Auto) Lymph % (Auto) [place] % (Auto) Eos % (Auto) Baso % (Auto) Nucleat RBC Rel Count Absolute Neuts (auto) Absolute Lymphs (auto) Absolute Monos (auto) Absolute Eos (auto) Absolute Basos (auto) Absolute Nucleated RBC Immature Gran % Immature Gran # D-Dimer 0.51 ug/mLFEU H ug/mLFEU (0.00-0.50) Sodium 139 mEq/L mEq/L (135-145) Potassium 4.6 mEq/L mEq/L (3.5-5.2) Chloride 105 mEq/L mEq/L (97-110) Carbon Dioxide 21 mEq/l L mEq/l (22-31) Anion Gap 13 mEq/L mEq/L (8-16) BUN 16 mg/dL mg/dL (7-23) Creatinine 2.1 mg/dL H mg/dL (0.7-1.3) Estimated GFR 31 Glucose 172 mg/dL H mg/dL (70-100) Calcium 9.3 mg/dL mg/dL (8.5-10.4) Troponin I 0.013 ng/mL ng/mL (0.000-0.034) Nasal Influenza A PCR NEGATIVE FOR FLU A (NEGATIVE) Nasal Influenza B PCR NEGATIVE FOR FLU B (NEGATIVE) 09/21/17 16:42 WBC 10.41 10^3/uL H 10^3/uL (3.80-9.50) RBC 5.15 10^6/uL 10^6/uL (4.40-6.38) Hgb 15.1 g/dL g/dL (13.7-17.5) Hct 43.7 % % (40.0-51.0) MCV 84.9 fL fL (81.5-99.8) MCH 29.3 pg pg (27.9-34.1) MCHC 34.6 g/dL g/dL (32.4-36.7) RDW 13.8 % % (11.5-15.2) Plt Count 154 10^3/uL 10^3/uL (150-400) MPV 10.9 fL fL (8.7-11.7) Neut % (Auto) 74.5 % H % (39.3-74.2) Lymph % (Auto) 15.9 % % (15.0-45.0) [place] % (Auto) 6.5 % % (4.5-13.0) Eos % (Auto) 1.7 % % (0.6-7.6) Baso % (Auto) 0.9 % % (0.3-1.7) Nucleat RBC Rel Count 0.0 % % (0.0-0.2) Absolute Neuts (auto) 7.76 10^3/uL H 10^3/uL (1.70-6.50) Absolute Lymphs (auto) 1.65 10^3/uL 10^3/uL (1.00-3.00) Absolute Monos (auto) 0.68 10^3/uL 10^3/uL (0.30-0.80) Absolute Eos (auto) 0.18 10^3/uL 10^3/uL (0.03-0.40) Absolute Basos (auto) 0.09 10^3/uL 10^3/uL (0.02-0.10) Absolute Nucleated RBC 0.00 10^3/uL 10^3/uL (0-0.01) Immature Gran % 0.5 % % (0.0-1.1) Immature Gran # 0.05 10^3/uL 10^3/uL (0.00-0.10) D-Dimer Sodium Potassium Chloride Carbon Dioxide Anion Gap BUN Creatinine Estimated GFR Glucose Calcium Troponin I Nasal Influenza A PCR Nasal Influenza B PCR Medications Given: Oxycodone/Acetaminophen (Percocet 5/325) 1 - 2 tab PO Q4 PRN PRN Reason: Pain, Severe Able to Take PO Stop: 10/01/17 21:48 Last Admin: 09/21/17 22:08 Dose: 1 tab General Time Seen by Provider: 09/21/17 16:09 Initial Vital Signs: Initial Vital Signs Temperature (C) 37.0 C 09/21/17 15:59 Heart Rate 76 09/21/17 15:59 Respiratory Rate 16 09/21/17 15:59 Blood Pressure 132/98 H 09/21/17 15:59 O2 Sat (%) 96 09/21/17 15:59 O2 Delivery Mode Room Air Allergies/Adverse Reactions: glipizide Allergy (Intermediate, Verified 05/28/17 07:18) Other-Enter Comments lisinopril Allergy (Intermediate, Verified 05/28/17 07:18) Other-Enter Comments Home Medications: Medication Instructions Recorded Albuterol [Proventil Inhaler HFA 2 puffs IH Q4-6PRN PRN 03/29/16 (*)] Aspirin [Aspirin 81mg (*)] 81 mg PO DAILY 03/29/16 Budesonide/Formoterol 160/4.5 2 puffs IH BID 03/29/16 [Symbicort 160-4.5 Mcg Inh (*)] Carboxymethylcellulose 1% [Refresh 1 drops EACHEYE QID PRN 03/29/16 Celluvisc (*)] Cholecalciferol Vit D3 [Vitamin D3 1,000 units PO DAILY 03/29/16 (*)] Cyanocobalamin [Vitamin B12 (*)] 1,000 mcg PO DAILY 03/29/16 PARoxetine HCL [Paxil 30mg (*)] 30 mg PO DAILY 03/29/16 Tamsulosin HCl [Flomax 0.4 MG (*)] 0.4 mg PO DAILY 03/29/16 Apixaban [Eliquis] 5 mg PO BID 04/13/17 amLODIPine BESYLATE [Norvasc 2.5 2.5 mg PO DAILY #30 tab 04/15/17 mg (*)] oxyCODONE/APAP 5/325 [Percocet 1 tab PO Q4-6PRN PRN 05/28/17 5/325 (*)] Atorvastatin Calcium [Lipitor 80 80 mg PO DAILY 09/21/17 mg] Docusate Sodium [Colace 100 MG (*)] 100 mg PO BID PRN 09/21/17 Metoprolol Succinate Xr [Toprol Xl 25 mg PO DAILY 09/21/17 25 mg (*)] Departure - Departure Disposition: [facility] Inpatient Acute Clinical Impression: Dizziness, Elevated d-dimer Dyspnea Qualifiers: Dyspnea type: shortness of breath Qualified Code(s): R06.02 - Shortness of breath Condition: Fair Report Scribed for: Katie Ramos Report Scribed by: Christine Rodriguez Date of Report: 09/21/17 Time of Report: 16:56 Physician Review and Approval Statement: Portions of this note were transcribed by a biomedical engineer. I personally performed a history, physical exam, medical decision making, and confirmed accuracy of information the transcribed note.
[2017-09-21] MEDS: OXYCODONE/APAP 5/325 TAB PO PRN (22:08)
[2017-09-21] MEDS ORDERED: ACETAMINOPHEN 325 MG TAB PO PRN (22:27)
[2017-09-21] MEDS ORDERED: ONDANSETRON 4 MG/2 ML VIAL IVP PRN (22:27)
--- NOTE | 2017-09-21 22:48 | PDGENHP ---
History and Physical - Chief Complaint dizziness - History of Present Illness Source-patient provides history appears reliable. His EMR was reviewed and case discussed with accepting provider. HPI-this is a pleasant 72-year-old gentleman with past medical history significant for AFib, CAD with history FL in 01/2016, CKD stage 3, DM 2 diet controlled, BPH, HLD, gout, OA, PTSD related to service who presents to the emergency department today with complaints of sudden onset of dizziness. Patient has had several illnesses occur in the last several days. Patient reports his he has had diarrhea for the last 3 days without any nausea, vomiting , melena or hematochezia. He has also had several dental extractions yesterday with declined oral intake and hydration. Patient denies any chest pain palpable , palpitations. Patient reports that he did develop some shortness of breath with the episode of dizziness however once this resolved shortness of breath also improved. Patient denies any recent head injury, patient does note he sustained a fall in July with a fractured patella on the left and multiple strains in this neck and shoulder. He denies any presyncope, changes in vision. Patient denies any fevers or chills. He denies any vertiginous symptoms. Patient reports his symptoms started approximately 230-3 p.m. and lasted for approximately 3 hr. He also developed a right frontal headache without changes in vision or focal weakness. History Information - Allergies/Home Medication List Allergies/Adverse Reactions: glipizide Allergy (Intermediate, Verified 05/28/17 07:18) Other-Enter Comments lisinopril Allergy (Intermediate, Verified 05/28/17 07:18) Other-Enter Comments Home Medications: Albuterol [Proventil Inhaler HFA (*)] 2 puffs IH Q4-6PRN PRN 03/29/16 [Last Taken 05/26/17] Aspirin [Aspirin 81mg (*)] 81 mg PO DAILY 03/29/16 [Last Taken 09/21/17] Budesonide/Formoterol 160/4.5 [Symbicort 160-4.5 Mcg Inh (*)] 2 puffs IH BID [Last Taken 09/21/17] Carboxymethylcellulose 1% [Refresh Celluvisc (*)] 1 drops EACHEYE QID PRN [Last Taken Unknown] Cholecalciferol Vit D3 [Vitamin D3 (*)] 1,000 units PO DAILY 03/29/16 [Last Taken 05/26/17] Cyanocobalamin [Vitamin B12 (*)] 1,000 mcg PO DAILY 03/29/16 [Last Taken ] PARoxetine HCL [Paxil 30mg (*)] 30 mg PO DAILY 03/29/16 [Last Taken 09/21/17] Tamsulosin HCl [Flomax 0.4 MG (*)] 0.4 mg PO DAILY 03/29/16 [Last Taken 09:00] Apixaban [Eliquis] 5 mg PO BID 04/13/17 [Last Taken 09/21/17] oxyCODONE/APAP 5/325 [Percocet 5/325 (*)] 1 tab PO Q4-6PRN PRN 05/28/17 [Last Taken 09/21/17] Atorvastatin Calcium [Lipitor 80 mg] 80 mg PO DAILY 09/21/17 [Last Taken ] Docusate Sodium [Colace 100 MG (*)] 100 mg PO BID PRN 09/21/17 [Last Taken 09/21] Metoprolol Succinate Xr [Toprol Xl 25 mg (*)] 25 mg PO DAILY 09/21/17 [Last Taken 09/21/17] I have personally reviewed and updated: family history, medical history, social history, surgical history - Past Medical History Additional medical history: Atrial fibrillation, CAD with [place] 01/2016, CKD stage 3 baseline creatinine 2.0-2.2, daily marijuana use, history MRSA 2010, COPD, PTSD, DM 2 diet controlled, BPH, HLD, gout, LINDA, history TIA - Surgical History Additional surgical history: Cardiac cath with stent, dental extraction, hip injections x4, detached retina repair, cataract extraction with lens placement on the right - Family History Additional family history: Mother-dm 2, HTN, CAD. Son-bipolar disorder - Social History Smoking Status: Never smoked Alcohol Use: None Drug Use: Marijuana (Daily) Additional social history: Patient lives with 2 male roommates. He he is retired . Cor status is full. Patient desires his daughter Emily Feliz to act as proxy if needed. Review of Systems Review of Systems: ROS: 10pt was reviewed & negative except for what was stated in HPI & below Constitutional: Denies: chills, diaphoresis, fever EENMT: Reports: nose congestion, other. Denies: blurred vision, eye pain Cardiac: Reports: lightheadedness. Denies: chest pain, edema, palpitations, syncope Respiratory: Reports: shortness of breath (with dizziness). Denies: cough, orthopnea Gastrointestinal: Reports: diarrhea (2-3 days. no melena/hematochezia. ), nausea. Denies: vomitting, abdominal pain Genitourinary: Reports: frequency. Denies: dysuria, flank pain, hematuria Muscolosketal: Reports: joint pain (knee L), muscle pain Skin: Reports: lesions (multiple small scabbed sores on arms/legs. pt reports hx MRSA.) Neurological: Reports: headache, other (PTSD). Denies: emotional problems, numbness, tingling Hematologic/Lymphatic: Reports: easy bruising. Denies: easy bleeding Physical Exam Physical Exam: Selected Entries 09/21/17 15:59 Blood Pressure Automatic Method Heart Rate 76 Respiratory 16 Rate O2 Sat (%) 96 Temperature (C) 37.0 C Blood Pressure 132/98 H Mean Arterial 109 H Pressure (MAP) O2 Delivery Room Air Mode Temperature Oral Source Temp Pulse Resp BP Pulse Ox 36.4 C 64 16 132/76 H 96 09/21/17 21:09 09/21/17 21:09 09/21/17 21:09 09/21/17 21:09 09/21/17 21:09 Constitutional: no apparent distress, obese Ears, Nose, Mouth, Throat: poor dentition, dry mucous membranes, No no oral mucosal ulcers Cardiovascular: regular rate and rhythym, no murmur, rub, or gallop, No edema Peripheral Pulses: 1+: dorsalis-pedis (R), dorsalis-pedis (L) Respiratory: no respiratory distress, no rales or rhonchi, clear to auscultation Gastrointestinal: normoactive bowel sounds, soft, non-tender abdomen, no palpable masses, other (Obese abdomen), No distension Skin: warm, normal color, other (Multiple small scabbed lesions to arms and legs scattered. No surrounding erythema or exudates.), No rash Musculoskeletal: no muscle tenderness, joint tenderness (Left knee), generalized weakness Neurologic: AAOx3, other (Grossly nonfocal exam), No facial droop Psychiatric: interacting appropriately, not anxious, not encephalopathic, thought process linear, No poor insight, No poor judgement, No poor memory Lab Data & Imaging Review 09/21/17 16:42 09/22/17 03:53 WBC 10.41 10^3/uL (3.80-9.50) H 09/21/17 16:42 RBC 5.15 10^6/uL (4.40-6.38) 09/21/17 16:42 Hgb 15.1 g/dL (13.7-17.5) 09/21/17 16:42 Hct 43.7 % (40.0-51.0) 09/21/17 16:42 MCV 84.9 fL (81.5-99.8) 09/21/17 16:42 MCH 29.3 pg (27.9-34.1) 09/21/17 16:42 MCHC 34.6 g/dL (32.4-36.7) 09/21/17 16:42 RDW 13.8 % (11.5-15.2) 09/21/17 16:42 Plt Count 154 10^3/uL (150-400) 09/21/17 16:42 MPV 10.9 fL (8.7-11.7) 09/21/17 16:42 Neut % (Auto) 74.5 % (39.3-74.2) H 09/21/17 16:42 Lymph % (Auto) 15.9 % (15.0-45.0) 09/21/17 16:42 [place] % (Auto) 6.5 % (4.5-13.0) 09/21/17 16:42 Eos % (Auto) 1.7 % (0.6-7.6) 09/21/17 16:42 Baso % (Auto) 0.9 % (0.3-1.7) 09/21/17 16:42 Nucleat RBC Rel Count 0.0 % (0.0-0.2) 09/21/17 16:42 Absolute Neuts (auto) 7.76 10^3/uL (1.70-6.50) H 09/21/17 16:42 Absolute Lymphs (auto) 1.65 10^3/uL (1.00-3.00) 09/21/17 16:42 Absolute Monos (auto) 0.68 10^3/uL (0.30-0.80) 09/21/17 16:42 Absolute Eos (auto) 0.18 10^3/uL (0.03-0.40) 09/21/17 16:42 Absolute Basos (auto) 0.09 10^3/uL (0.02-0.10) 09/21/17 16:42 Absolute Nucleated RBC 0.00 10^3/uL (0-0.01) 09/21/17 16:42 Immature Gran % 0.5 % (0.0-1.1) 09/21/17 16:42 Immature Gran # 0.05 10^3/uL (0.00-0.10) 09/21/17 16:42 D-Dimer 0.51 ug/mLFEU (0.00-0.50) H 09/21/17 16:42 Sodium 139 mEq/L (135-145) 09/21/17 16:42 Potassium 4.6 mEq/L (3.5-5.2) 09/21/17 16:42 Chloride 105 mEq/L (97-110) 09/21/17 16:42 Carbon Dioxide 21 mEq/l (22-31) L 09/21/17 16:42 Anion Gap 13 mEq/L (8-16) 09/21/17 16:42 BUN 16 mg/dL (7-23) 09/21/17 16:42 Creatinine 2.1 mg/dL (0.7-1.3) H 09/21/17 16:42 Estimated GFR 31 09/21/17 16:42 Glucose 172 mg/dL (70-100) H 09/21/17 16:42 Calcium 9.3 mg/dL (8.5-10.4) 09/21/17 16:42 Troponin I 0.013 ng/mL (0.000-0.034) 09/21/17 16:42 Nasal Influenza A PCR NEGATIVE FOR FLU A (NEGATIVE) 09/21/17 17:10 Nasal Influenza B PCR NEGATIVE FOR FLU B (NEGATIVE) 09/21/17 17:10 Imaging Review: AP and Lateral Chest Indication: Chest Pain. Comparison: Two-view chest dated May 28, 2017 Findings: Lungs are clear except for minimal linear atelectasis in left base and diffuse peribronchial thickening. No pneumothorax, edema, airspace consolidation or effusion. Heart size upper normal for AP technique. Impression: Airways disease and minimal left basilar atelectasis. Visualized and Interpreted Chest x-ray results: Yes EKG Interpretation: Positive for: normal sinsus rhythm EKG additional interpertation: NSR 60s, T-wave inversions inferior leads. No acute ST elevations. QTC 430. Compared to EKG from 07/29/2017, unchanged. Assessment & Plan Assessment: Assessment-pleasant 72-year-old gentleman with multiple medical issues including CAD status post stent, DM 2, HLD, HTN, AFib, CKD stage 3 who presents to ED with complaints of sudden onset of dizziness Plan- Dizziness (Acute) - patient with a history of recurrent dizziness however he does report this seems a little different as he had does not develop any diaphoresis. Previous workup has been nondiagnostic however on this admission appears patient is dehydrated with some slight low blood pressures in setting of recent gastrointestinal viral syndrome with diarrhea and decreased oral intake status post dental extraction. Patient received reports he received IV fluids in the emergency department and his blood pressures have improved. Patient is able to tolerate p. o. and will encourage oral hydration with but monitoring ins and outs. Patient reports that his dizziness has resolved at this time. He denies any vertiginous type symptoms. He has no focal deficits on exam. We will check orthostatics. Hypotension - improved after IV fluids and oral supplementation. Will continue to encourage patient to increase oral intake as much as possible. Dehydration - as above. CKD stage 3 - patient's baseline creatinine 2.0-2.2 and is within this limit. Will continue to monitor BMP with continued oral hydration. Dyspnea (Acute) - patient denies any acute symptoms at this time he reports that he was feeling dizzy and subsequently had shortness of breath and anxiety. Patient's D-dimer is slightly elevated however his Wells score is 0 and there is a low suspicion for DVT or PE. Patient is additionally on Eliquis. Elevated d-dimer (Acute) - as above. Chronic medical problems DM 2 diet controlled - ADA diet has been ordered. Will check Accu-Cheks and put patient on a low-dose sliding scale as needed. AFib - rate is controlled at this time and patient currently in sinus rhythm. Once med rec is available continue patient's Toprol and apixaban CAD - continue beta-jason and statin patient with allergy to Wilbert inhibitor PTSD - stable continue Paxil COPD - p.r.n. nebulizer. No evidence of exacerbation at this time. Marijuana use BPH - continue tamsulosin. Will check plan to check postvoid residuals. Patient reports that he feels like he is not emptying his bladder entirely and having some incontinence which could be overflow. HLD - continue statin when med list available Gout - without exacerbation at this time patient without any allopurinol or antiuremic agents. Osteoarthritis - supportive care Hem mobilization. FEN-patient reports he received IV fluids in the emergency department. He is tolerating p.o. and has tolerated 250 mL at bedside since arrival to the floor. We will continue to encourage oral hydration. Prophylaxis SCDs as tolerated. Heparin if patient should stay additional day. COR status full. Patient desires daughter Emily Feliz act as proxy if needed. Dispo-patient admitted to observation on PCU floor for close cardiac monitoring. Will continue to encourage oral hydration, check orthostatics and if patient's symptoms remain resolved anticipate discharge home in a.m.
[2017-09-22] MEDS ORDERED: D50W 25 GM/50 ML VIAL IVP PRN (01:40)
[2017-09-22] MEDS ORDERED: ALBUTEROL 60 PUFFS/8 GM MDI IH PRN ×2 (11:29→13:14)
[2017-09-22] MEDS ORDERED: CARBOXYMETHYLCELLULOSE 1% 0.4 ML DROPERETTE EACHEYE PRN (11:29)
[2017-09-22] MEDS ORDERED: DOCUSATE SODIUM 100 MG CAP PO PRN (11:29)
[2017-09-22] MEDS ORDERED: NON-FORMULARY NEW DRUG (Atorvastatin Calcium [Lipitor 80 Mg] 80 MG) PO SCH (11:30)
[2017-09-22] MEDS: OXYCODONE/APAP 5/325 TAB PO PRN ×2 (12:18→20:30)
[2017-09-22] MEDS ORDERED: NS 1,000 ML IV ONE (13:08)
[2017-09-22] MEDS: BUDESONIDE/FORMOTEROL 160/4.5 60 PUFFS/MDI IH SCH ×2 (14:07→15:53)
[2017-09-22] MEDS: CYANO/VITAMIN B12 1000 MCG TAB PO SCH (14:33)
[2017-09-22] MEDS: ASPIRIN 81 MG CHEWABLE TAB PO SCH (14:33)
[2017-09-22] MEDS: CHOLECALCIFEROL VIT D3 1,000 UNITS TAB PO SCH (14:33)
--- NOTE | 2017-09-22 16:29 | HOSPPROG ---
Hospitalist Progress Note Assessment/Plan: # acute orthostatic hypotension- patient presented with gastrointestinal illness and diarrhea prior to presentation Systolic blood pressure dropped 50 mm Hg from lying down to standing this a.m. Oxygen saturations 95% on room air- EKG (personally reviewed and interpreted ) no acute ischemia - NS bolus 1 L now - hold beta-jason - hold tamsulosin - follow vitals overnight # CKD- creatinine 2.0 appears baseline # orthopedic injury/chronic pain- continue PT OT - continue p.r.n. pain meds at home dosing # hypertension- as above holding meds as vital signs stabilize # coronary artery disease- no chest pain complaints - continue aspirin, statin and beta-jason # prophylaxis-Eliquis # diet cardiac # disposition greater than 2 midnights as patient requires ongoing vital sign monitoring and fluid resuscitation for orthostatic hypotension I have discussed case with the RN we will initiate IV fluids now and monitor patient's vial signs overnight Subjective: Feels exhausted Objective: Vital Signs Temp Pulse Resp BP Pulse Ox 36.9 C 63 13 122/70 H 98 09/22/17 15:29 09/22/17 15:29 09/22/17 15:29 09/22/17 15:29 09/22/17 15:29 Laboratory Results 09/22/17 03:53 09/21/17 09/22/17 09/23/17 05:59 05:59 05:59 Intake Total 300 740 Output Total 750 425 Balance -450 315 - Physical Exam Constitutional: no apparent distress Eyes: anicteric sclera Ears, Nose, Mouth, Throat: moist mucous membranes Cardiovascular: regular rate and rhythym, systolic murmur Respiratory: no respiratory distress, no rales or rhonchi Gastrointestinal: normoactive bowel sounds Genitourinary: no bladder fullness Skin: warm Musculoskeletal: No asymmetric calves Neurologic: AAOx3 Psychiatric: interacting appropriately Lymph, Heme, Immunologic: no cervical LAD ICD10 Worksheet Patient Problems: Problems Problem Status Onset Dizziness Acute Dyspnea Acute Elevated d-dimer Acute Chest pain Acute Chronic Disease Mgmt/Transitional Care Acute Exacerbation of asthma Acute History of coronary artery disease Acute Lightheaded Acute Pneumonia Acute Renal insufficiency Acute
--- NOTE | 2017-09-22 16:52 | PDMN ---
Medical Necessity Medical necessity: C/M review: est. > 2 MN LOS for eval and TX of acute orthostatic hypotension requiring IV fluids, ongoing cardiac monitoring, vital sign monitoring, hold beta-jason, hold tamsulosin, acute inpt PT/OT, comorbid gastrointestinal illness and diarrnea prior to this admission, chronic kidney disease, orthopedic injury / chronic pain, hypertension, CAD per 09/22/2017 Hospitalist progress note.
[2017-09-22] MEDS: APIXABAN 5 MG TAB PO SCH (20:31)
[2017-09-23] MEDS: OXYCODONE/APAP 5/325 TAB PO PRN (05:02)
[2017-09-23] MEDS ORDERED: METOPROLOL SUCCINATE XR 25 MG TAB PO SCH (09:00)
[2017-09-23] MEDS ORDERED: TAMSULOSIN HCL 0.4 MG CAP PO SCH (09:00)
[2017-09-23] MEDS ORDERED: ATORVASTATIN CALCIUM 40 MG TAB PO SCH (09:00)
--- NOTE | 2017-09-23 09:59 | ASMTCMCOM ---
CM Note CM Note Notes: Chart reviewed. Discussed patient with RN. Patient is current with [facility] . Also [facility]. Will need resumption of HHC services at discharge. Address verified CM to follow. Date Signed: 09/23/2017 09:58 AM Electronically Signed By:Soni Santillan RN
[2017-09-23 10:25] VITALS: BP 143/91; TEMP 98.3
[2017-09-23] MEDS: CHOLECALCIFEROL VIT D3 1,000 UNITS TAB PO SCH (10:58)
[2017-09-23] MEDS: CYANO/VITAMIN B12 1000 MCG TAB PO SCH (10:59)
[2017-09-23] MEDS: ASPIRIN 81 MG CHEWABLE TAB PO SCH (10:59)
[2017-09-23] MEDS: APIXABAN 5 MG TAB PO SCH (10:59)
[2017-09-23] MEDS: BUDESONIDE/FORMOTEROL 160/4.5 60 PUFFS/MDI IH SCH (11:00)
[2017-09-23 11:18] VITALS: O2SAT 94
[2017-09-23 12:20] VITALS: PULSE 98; RESP 18
--- NOTE | 2017-09-23 18:33 | GDS ---
[f rep st] DISCHARGE SUMMARY DISCHARGE DIAGNOSES: Include: 1. Dizziness secondary to orthostatic hypotension. 2. Orthostatic hypotension secondary to acute gastrointestinal illness with diarrhea. 3. Chronic kidney disease. 4. Type 2 diabetes. HISTORY OF PRESENT ILLNESS: A 72-year-old male with a history of stage 4 kidney disease who presents with complaints of dizziness. For details of the patient's initial presentation, please see the his tory and physical dated 09/22/2017. CONSULTATIVE SERVICES: None. PROCEDURES: None. HOSPITAL COURSE: By issue: 1. Acute dizziness. Patient had positive orthostatic hypotension upon hospital admission. Suspect this was related to his preceding diarrheal and gastrointestinal illness in the home. Patient receiv ed fluid resuscitation with normal saline. Had improvement in his vital sign abnormalities. Patient is being discharged home tolerating normal p.o. intake, to continue with his home nursing and physic al therapy. 2. Chronic kidney disease stage 4. Patient's renal function remained stable during this hospital st ay. He will continue to follow in the outpatient setting with his nephrology team. 3. Type 2 diabetes. Patient was continued on his home medications. Glycemic control remained neha l during this hospital stay. MEDICATIONS AT TIME OF DISPOSITION: Please reference med rec printed on 09/23/2017. Of note, elsa charles had no changes made to his medication regimen during the stay. FOLLOWUP APPOINTMENTS: Include with his outpatient PCP at the [facility], mabel Sotelo, in the next 2-3 weeks for standard post-disposition followup and vital sign checks. Patient is to continue with his home nursi ng visits 3 times a week as well as his home PT twice a week. I spent greater than 30 minutes in the planning and coordination of this discharge. /[id number]/MODL
--- NOTE | 2017-09-24 12:44 | ASDISCHSUM ---
Discharge Information Plan Status:Home with Home Health Medically Cleared to Leave:09/22/2017 Discharge Date:09/23/2017 02:55 PM CM D/C Disposition: ADT D/C Disposition:[id number] Projected Discharge Date:09/23/2017 11:00 AM Transportation at D/C: Discharge Delay Reason: Follow-Up Date:09/23/2017 11:00 AM Discharge Slot: Final Diagnosis: Placement Information Referral Type:*Home Health Care Services Referral ID:[id number] Provider Name:[facility]/Sumeet Degroot Address 1:[address] Address [address] City:[place] Selection Factors: State:[place] Patient Contact Information Contact Name:SINA Relationship:Daughter Address: Work Phone: City:[place] Alternate Phone: State/Zip Code:[place] Email: Financial Information Financial Class: Primary Plan Desc:MEDICARE INPATIENT Primary Plan Number:[id number] Secondary Plan Desc: Secondary Plan Number: Assessment Information [facility] CM Progress Note CM Note CM Note Notes: Chart reviewed. Discussed patient with RN. Patient is [facility] with [facility] . [facility] Will need resumption of HHC services at discharge. Address verified CM to follow. Date Signed: 09/23/2017 09:58 AM Electronically Signed By:Soni Santillan RN Intervention Information
== END 2017-09-23 14:55 | disposition home health service (06) | DRG 312 ==
LOC: F2W 20:43 → OBSVTOIN 09-22 13:07
PROVIDERS: ADMIT Internal Medicine; ATTEND Internal Medicine
DX: I95.1 Orthostatic hypotension (principal); I25.10 Atherosclerotic heart disease of native coronary artery without angina pectoris; N18.4 Chronic kidney disease, stage 4 (severe); E11.9 Type 2 diabetes mellitus without complications; J44.9 Chronic obstructive pulmonary disease, unspecified; G47.33 Obstructive sleep apnea (adult) (pediatric); F43.10 Post-traumatic stress disorder, unspecified; I48.91 Unspecified atrial fibrillation; M10.9 Gout, unspecified; N40.0 Benign prostatic hyperplasia without lower urinary tract symptoms; E78.5 Hyperlipidemia, unspecified; F12.90 Cannabis use, unspecified, uncomplicated; Z86.14 Personal history of Methicillin resistant Staphylococcus aureus infection; I25.2 Old myocardial infarction; Z95.5 Presence of coronary angioplasty implant and graft
CPT/HCPCS: 97161-GP; 97166-GO; 97530-GO; 97535-GO; G0378; G8978-GP-CI; G8979-GP-CI; G8980-GP-CI; G8987-GO-CJ; G8988-GO-CI; G8989-GO-CI; J2405

== ENCOUNTER 2017-10-11 23:57 | Emergency (ER) | payer OTHER ==
[2017-10-12] MEDS ORDERED: GABAPENTIN 300 MG CAP PO SCH
[2017-10-12 00:02] VITALS: RESP 16
--- NOTE | 2017-10-12 00:07 | EDPHY ---
H & P Stated Complaint: chronic left hip pain Time Seen by Provider: 10/12/17 00:02 HPI/ROS: HPI: This is a 72-year-old male presents with Chief Complaint: Out of meds, scheduled hip replacement Location: Left hip Quality: Pain Duration: Chronic Signs and Symptoms: No bleeding, no radiation, no numbness, no weakness, no tingling, no incontinence, +decreased range of motion, no swelling, + pain Timing: Acute on chronic Severity: Moderate to severe Context: Patient has a history atrial fibrillation on Eliquis, type 2 diet controlled DM, cervical DDD, left hip osteoarthritis presents with complaints of acute on chronic left hip pain that is moderate to severe, constant in nature , worse with ambulation for the last 2-3 days. He reports that he is scheduled for hip replacement on 10/24/17 at the [facility], he has been taking Percocet 5 /325 mg 1 tab every 6 hr for the last several months. He does admit that over the last 1-2 days he has been increasing the Percocet frequency to every 4 hr without relief. He called his [place] primary care provider earlier in the week and supposedly they sent him new medication which will either arrive Saturday or Saturday. Patient denies any paresthesias/incontinence/weakness. Reports that the pain is so bad that he has not been able to eat today. Patient drove himself to the emergency room today. History . Modifying Factors: Percocet, minimal relief Comment: Chart review shows that patient was admitted on 09/22/2017 for the same complaint of dizziness at that time. Echocardiogram performed on 2016 shows EF of 70-75% with mild diastolic dysfunction of note this echocardiogram improved from the one taken 2016. ROS: see HPI Constitutional: No fever, no chills, no weight loss Eyes: No blurred vision Respiratory: No shortness of breath, no cough Cardiovascular: No chest pain Gastrointestinal: No nausea, no vomiting no diarrhea Genitourinary: No dysuria, + urinary frequency Extremities: No myalgias Neurologic: No weakness, no numbness Skin: No rashes Hematologic: No bruising, no bleeding MEDICAL/SURGICAL/SOCIAL HISTORY: Medical/surgical history: Cervical disc disease, DM type 2 diet controlled, emphysema, gout, htn, hyperlipidemia, ptsd, BPH, TIA CVA, OA, cardiac STENTS, atrial fibrillation, CAD with MD 01/2016, chronic kidney disease stage 3 baseline creatinine 2 point noted 2.2, daily marijuana use, history MRSA 2010, COPD, BELLS PALSY, LINDA, history TIA Social history: Retired. Patient lives with 2 male roommates. Full code status. CONSTITUTIONAL: Untidy, irritable, obese elderly white male, awake and alert, no obvious distress HEENT: Atraumatic and normocephalic, PERRL, EOMI. Tympanic membranes clear. Oropharynx clear, poor dentition, no exudate and moist pink mucosa. Airway patent. No lymphadenopathy. No meningismus. Cardiovascular: Normal S1/S2, regular rate, regular rhythm, without murmur rub or gallop. PULMONARY/CHEST: Symmetrical and nontender. Clear to auscultation bilaterally. Good air movement. No accessory muscle usage. ABDOMEN: Soft, protuberant, nondistended, nontender, no rebound, no guarding, no peritoneal signs, no masses or organomegaly. No CVAT. EXTREMITIES: 2/2 DP and PT pulses, strength 5/5, left HIP: Flexion to 100, extension to 90, hyper extension to 15, abduction to 30. No Pain with internal rotation and external rotation. Moderate tenderness over greater trochanter. no deformities, no clubbing, no cyanosis or edema. NEUROLOGICAL: no focal neuro deficits. GCS 15. Ambulatory without deficit. SKIN: Warm and dry, no erythema. no rash. Good capillary refill. Source: Patient, Old records Exam Limitations: No limitations - Personal History Current Tetanus/Diphtheria Vaccine: Unsure Current Tetanus Diphtheria and Acellular Pertussis (TDAP): Unsure - Medical/Surgical History Hx Asthma: Yes Hx Chronic Respiratory Disease: Yes Hx Diabetes: Yes Hx Cardiac Disease: No Hx Renal Disease: No Hx Cirrhosis: No Hx Alcoholism: No Hx HIV/AIDS: No Hx Splenectomy or Spleen Trauma: No Other PMH: Cervical disc disease, DM, empysema, gout, htn, hyperlipidemia, ptsd , BPH, TIA CVA, OA, STENTS,CAD, BELLS PALSY. - Social History Smoking Status: Current some day smoker Constitutional: Initial Vital Signs Temperature (C) 36.2 C 10/11/17 23:59 Heart Rate 90 10/11/17 23:59 Respiratory Rate 16 10/11/17 23:59 Blood Pressure 162/110 H 10/11/17 23:59 O2 Sat (%) 97 10/11/17 23:59 O2 Delivery Mode Room Air Allergies/Adverse Reactions: glipizide Allergy (Intermediate, Verified 10/11/17 23:57) Other-Enter Comments lisinopril Allergy (Intermediate, Verified 10/11/17 23:57) Other-Enter Comments Home Medications: Medication Instructions Recorded Albuterol [Proventil Inhaler HFA 2 puffs IH Q4-6PRN PRN 03/29/16 (*)] Aspirin [Aspirin 81mg (*)] 81 mg PO DAILY 03/29/16 Budesonide/Formoterol 160/4.5 2 puffs IH BID 03/29/16 [Symbicort 160-4.5 Mcg Inh (*)] Carboxymethylcellulose 1% [Refresh 1 drops EACHEYE QID PRN 03/29/16 Celluvisc (*)] Cholecalciferol Vit D3 [Vitamin D3 1,000 units PO DAILY 03/29/16 (*)] Cyanocobalamin [Vitamin B12 (*)] 1,000 mcg PO DAILY 03/29/16 PARoxetine HCL [Paxil 30mg (*)] 30 mg PO DAILY 03/29/16 Tamsulosin HCl [Flomax 0.4 MG (*)] 0.4 mg PO DAILY 03/29/16 Apixaban [Eliquis] 5 mg PO BID 04/13/17 amLODIPine BESYLATE [Norvasc 2.5 2.5 mg PO DAILY #30 tab 04/15/17 mg (*)] oxyCODONE/APAP 5/325 [Percocet 1 tab PO Q4-6PRN PRN 05/28/17 5/325 (*)] Atorvastatin Calcium [Lipitor 80 80 mg PO DAILY 09/21/17 mg] Docusate Sodium [Colace 100 MG (*)] 100 mg PO BID PRN 09/21/17 Metoprolol Succinate Xr [Toprol Xl 25 mg PO DAILY 09/21/17 25 mg (*)] Gabapentin [Neurontin 300 MG (*)] 300 mg PO HS #6 cap 10/12/17 Medical Decision Making - Diagnostics EKG Interpretation: 12 lead EKG: Indication: Dizziness Poor EKG INTERPRETATION: No acute ischemic changes. IVCD The 12 lead EKG was interpreted by myself and with attending. ED Course/Re-evaluation: Left hip x-ray, lumbar spine x-ray, EKG, urinalysis, labs, IV fluids, IV medications ordered Patient has a history of recurrent dizziness; previous workups have been nondiagnostic. No signs of vertigo. No neurological deficits. Given 1 mg Dilaudid x 2 and IV Valium 5 mg with adequate relief of pain. No signs of neurovascular compromise/tenting of skin/compartment syndrome/ extremities and joints examined above and below area of concern and are neurovascularly intact. 1255: Labs reviewed; creatinine 2.2~ baseline, glucose 168; Left hip x-ray my read shows mild degenerative changes Lumbar sacral x-ray shows mild scoliosis and degenerative disc disease 0135: Reassessed patient. Sleeping for the last 45 min. Reports pain moderately improved. Patient called [place] nursing hotline while I was in the room. It was confirmed that patient received a prescription on Saturday for Neurontin 100 mg at bedtime. It is scheduled to arrive at his house on Saturday. Patient given 300 mg of Neurontin and Rx for same. Ambulatory without deficits at discharge. This patient was seen under the supervision of my secondary supervising physician. I evaluated care for this patient independently. Discussed this patient with Dr. Doty who did not see the patient. Differential Diagnosis: Differential diagnosis includes but is not limited to lumbar degenerative disc disease, lumbar radiculopathy, left hip osteoarthritis primary, out of pain medications. - Data Points Laboratory Results: Laboratory Results 10/12/17 00:23 10/12/17 00:23 10/12/17 10/12/17 10/12/17 00:23 00:23 00:23 WBC 9.69 10^3/uL H 10^3/uL (3.80-9.50) RBC 5.43 10^6/uL 10^6/uL (4.40-6.38) Hgb 15.7 g/dL g/dL (13.7-17.5) Hct 45.8 % % (40.0-51.0) MCV 84.3 fL fL (81.5-99.8) MCH 28.9 pg pg (27.9-34.1) MCHC 34.3 g/dL g/dL (32.4-36.7) RDW 14.2 % % (11.5-15.2) Plt Count 183 10^3/uL 10^3/uL (150-400) MPV 11.3 fL fL (8.7-11.7) Neut % (Auto) 61.3 % % (39.3-74.2) Lymph % (Auto) 24.5 % % (15.0-45.0) Monona % (Auto) 7.4 % % (4.5-13.0) Eos % (Auto) 4.6 % % (0.6-7.6) Baso % (Auto) 1.7 % % (0.3-1.7) Nucleat RBC Rel Count 0.0 % % (0.0-0.2) Absolute Neuts (auto) 5.94 10^3/uL 10^3/uL (1.70-6.50) Absolute Lymphs (auto) 2.37 10^3/uL 10^3/uL (1.00-3.00) Absolute Monos (auto) 0.72 10^3/uL 10^3/uL (0.30-0.80) Absolute Eos (auto) 0.45 10^3/uL H 10^3/uL (0.03-0.40) Absolute Basos (auto) 0.16 10^3/uL H 10^3/uL (0.02-0.10) Absolute Nucleated RBC 0.00 10^3/uL 10^3/uL (0-0.01) Immature Gran % 0.5 % % (0.0-1.1) Immature Gran # 0.05 10^3/uL 10^3/uL (0.00-0.10) PT 14.6 SEC SEC (12.0-15.0) INR 1.12 (0.83-1.16) APTT 29.5 SEC SEC (23.0-38.0) Sodium 143 mEq/L mEq/L (135-145) Potassium 4.3 mEq/L mEq/L (3.5-5.2) Chloride 107 mEq/L mEq/L (97-110) Carbon Dioxide 18 mEq/l L mEq/l (22-31) Anion Gap 18 mEq/L H mEq/L (8-16) BUN 24 mg/dL H mg/dL (7-23) Creatinine 2.2 mg/dL H mg/dL (0.7-1.3) Estimated GFR 30 Glucose 168 mg/dL H mg/dL (70-100) Calcium 9.5 mg/dL mg/dL (8.5-10.4) Total Bilirubin 0.5 mg/dL mg/dL (0.1-1.4) AST 19 IU/L IU/L (17-59) ALT 33 IU/L IU/L (21-72) Alkaline Phosphatase 49 IU/L IU/L (38-126) Troponin I 0.017 ng/mL ng/mL (0.000-0.034) Total Protein 6.8 g/dL g/dL (6.3-8.2) Albumin 4.1 g/dL g/dL (3.5-5.0) Medications Given: Discontinued Medications Dexamethasone (Decadron Injection) 8 mg IVP EDNOW ONE Stop: 10/12/17 00:10 Last Admin: 10/12/17 01:07 Dose: Not Given Diazepam (Valium) 5 mg IVP EDNOW ONE Stop: 10/12/17 00:10 Last Admin: 10/12/17 00:54 Dose: 5 mg Hydromorphone HCl (Dilaudid) 1 mg IVP EDNOW ONE Stop: 10/12/17 00:11 Last Admin: 10/12/17 00:33 Dose: 1 mg Sodium Chloride (Ns) 1,000 mls @ 0 mls/hr IV EDNOW ONE; Wide Open PRN Reason: Protocol Stop: 10/12/17 01:10 Last Admin: 10/12/17 01:15 Dose: 1,000 mls Departure - Departure Disposition: Home, Routine, Self-Care Clinical Impression: Chronic left hip pain, Degenerative lumbar disc, Has run out of medications Condition: Good Instructions: Chronic Pain (ED) Additional Instructions: Please take all medications as prescribed. Drink plenty of fluids to prevent dehydration. Follow diabetic diet. Take gabapentin 300 mg at bedtime. Referrals: PCP Not In,Dictionary [Medical Doctor] - As per Instructions Prescriptions: Gabapentin [Neurontin 300 MG (*)] 300 mg PO HS #6 cap
[2017-10-12] MEDS ORDERED: DEXAMETHASONE 4 MG/ML VIAL IVP ONE (00:09)
[2017-10-12] MEDS ORDERED: DIAZEPAM 10 MG/2 ML SYR IVP ONE (00:09)
[2017-10-12] MEDS ORDERED: HYDROmorphONE/DILAUDID 1 MG/ML INJ IVP ONE ×2 (00:10→01:46)
--- NOTE | 2017-10-12 00:42 | CPEKG ---
Heart Rate: 77 RR Interval: 779 P-R Interval: 147 QRSD Interval: 86 QT Interval: 388 QTC Interval: 440 P Frontier: 0 QRS Frontier: 10 T Wave Frontier: 55 EKG Severity - OTHERWISE NORMAL ECG - EKG Impression: SINUS RHYTHM EKG Impression: VENTRICULAR PREMATURE COMPLEX EKG Impression: LOW VOLTAGE IN FRONTAL LEADS Electronically Signed By: Vick Wray 16-Oct-2017 17:28:46
[2017-10-12 00:59] LABS: INR 1.12 (0.83-1.16); PROTIME(PATIENT) 14.6 SEC (12.0-15.0)
[2017-10-12 01:02] LABS: PLATELET COUNT 183 10^3/uL (150-400)
[2017-10-12] MEDS ORDERED: NS 1,000 ML IV ONE (01:09)
[2017-10-12] MEDS ORDERED: GABAPENTIN 300 MG CAP PO ONE (01:56)
[2017-10-12 03:35] VITALS: PULSE 74; TEMP 97.9; O2SAT 92
[2017-10-12 04:17] VITALS: BP 151/63
== END 2017-10-12 04:15 | disposition home or self-care (01) ==
DX: M25.552 Pain in left hip (principal); G89.29 Other chronic pain; M51.36 Other intervertebral disc degeneration, lumbar region; F17.200 Nicotine dependence, unspecified, uncomplicated; I10 Essential (primary) hypertension; E11.9 Type 2 diabetes mellitus without complications; E86.9 Volume depletion, unspecified; J44.9 Chronic obstructive pulmonary disease, unspecified; Z79.82 Long term (current) use of aspirin; Z86.73 Personal history of transient ischemic attack (TIA), and cerebral infarction without residual deficits
CPT/HCPCS: 72100; 73502; 93005; 96361; 96374; 96375; 96376; 99285; J1100; J1170

== ENCOUNTER 2017-10-19 14:00 | Emergency (ER) | payer OTHER ==
[2017-10-19 14:07] VITALS: TEMP 97.9
[2017-10-19] MEDS ORDERED: HYDROmorphONE/DILAUDID 1 MG/ML INJ IM ONE (15:35)
--- NOTE | 2017-10-19 15:40 | EDPHY ---
H & P Stated Complaint: fell at home, left LE pain Time Seen by Provider: 10/19/17 15:27 HPI/ROS: CHIEF COMPLAINT: Left knee and sanderson pain HISTORY OF PRESENT ILLNESS: Patient is a 72-year-old [facility] patient who has a history of atrial fibrillation on Eliquis as well as type 2 diabetes and degenerative disc disease with left hip osteoarthritis. He is scheduled to have hip replacement on the of this month at the [facility]. He states that he stood up to use the urinal today when his knee gave out and he fell onto his left knee. He complains primarily of pain over his left knee and sanderson. No significant deformity although he also holds it partially flexed. The no obvious external wounds or lacerations. He denies syncope. He also complains of persistent left hip pain but states that is unchanged from baseline. He denies hitting his head or neck. He was seen here 1 week ago complaining of hip pain at that time had an x-ray of his hip and sacrum that were negative and was treated initially with Dilaudid and then Neurontin. REVIEW OF SYSTEMS: Constitutional: denies: chills, fever, recent illness, recent injury EENTM: denies: blurred vision, double vision, nose congestion Respiratory: denies: cough, shortness of breath Cardiac: denies: chest pain, irregular heart rate, lightheadedness, palpitations Gastrointestinal/Abdominal: denies: abdominal pain, diarrhea, nausea, vomiting, blood streaked stools Genitourinary: denies: dysuria, frequency, hematuria, pain Musculoskeletal: Left leg pain Skin: denies: lesions, rash, jaundice, bruising Neurological: denies: headache, numbness, paresthesia, tingling, dizziness, weakness Hematologic/Lymphatic: denies: blood clots, easy bleeding, easy bruising Immunologic/allergic: denies: HIV/AIDS, transplant EXAM: GENERAL: Well-appearing, well-nourished and in no acute distress. HEAD: Atraumatic, normocephalic. EYES: Pupils equal round and reactive to light, extraocular movements intact, sclera anicteric, conjunctiva are normal. ENT: TMs normal, nares patent, oropharynx clear without exudates. Moist mucous membranes. NECK: Normal range of motion, supple without lymphadenopathy or JVD. LUNGS: Breath sounds clear to auscultation bilaterally and equal. No wheezes rales or rhonchi. HEART: Regular rate and rhythm without murmurs, rubs or gallops. ABDOMEN: Soft, nontender, normoactive bowel sounds. No guarding, no rebound. No masses appreciated. Dermatitis to left scrotum near area of wet underwear. Foul-smelling urine. BACK: No CVA tenderness, no spinal tenderness, step-offs or deformities EXTREMITIES: Left knee held partially flex, no obvious deformity or swelling. Tenderness anteriorly and over sanderson. No erythema. Hold sip partially flexed. States that his pain is a baseline. NEUROLOGICAL: Cranial nerves II through XII grossly intact. Normal speech, normal gait. 5/5 strength, normal movement in all extremities, normal sensation PSYCH: Normal mood, normal affect. SKIN: Warm, dry, normal turgor, no visible rashes or lesions. Source: Patient Exam Limitations: No limitations - Personal History Current Tetanus/Diphtheria Vaccine: Yes Current Tetanus Diphtheria and Acellular Pertussis (TDAP): Yes Tetanus Vaccine Date: < 10 years - Medical/Surgical History Hx Asthma: Yes Hx Chronic Respiratory Disease: Yes Hx Diabetes: Yes Hx Cardiac Disease: No Hx Renal Disease: No Hx Cirrhosis: No Hx Alcoholism: No Hx HIV/AIDS: No Hx Splenectomy or Spleen Trauma: No Other PMH: Cervical disc disease, DM, empysema, gout, htn, hyperlipidemia, ptsd , BPH, TIA CVA, OA, STENTS,CAD, BELLS PALSY. - Family History Significant Family History: No pertinent family hx - Social History Smoking Status: Current some day smoker Alcohol Use: Sober Drug Use: None Constitutional: Initial Vital Signs Temperature (C) 36.6 C 10/19/17 14:04 Heart Rate 122 H 10/19/17 14:04 Respiratory Rate 20 10/19/17 14:04 Blood Pressure 120/97 H 10/19/17 14:04 O2 Sat (%) 98 10/19/17 14:04 O2 Delivery Mode Room Air Allergies/Adverse Reactions: glipizide Allergy (Intermediate, Verified 10/19/17 14:04) Other-Enter Comments lisinopril Allergy (Intermediate, Verified 10/19/17 14:04) Other-Enter Comments Home Medications: Medication Instructions Recorded Albuterol [Proventil Inhaler HFA 2 puffs IH Q4-6PRN PRN 03/29/16 (*)] Aspirin [Aspirin 81mg (*)] 81 mg PO DAILY 03/29/16 Budesonide/Formoterol 160/4.5 2 puffs IH BID 03/29/16 [Symbicort 160-4.5 Mcg Inh (*)] Carboxymethylcellulose 1% [Refresh 1 drops EACHEYE QID PRN 03/29/16 Celluvisc (*)] Cholecalciferol Vit D3 [Vitamin D3 1,000 units PO DAILY 03/29/16 (*)] Cyanocobalamin [Vitamin B12 (*)] 1,000 mcg PO DAILY 03/29/16 PARoxetine HCL [Paxil 30mg (*)] 30 mg PO DAILY 03/29/16 Apixaban [Eliquis] 5 mg PO BID 04/13/17 amLODIPine BESYLATE [Norvasc 2.5 2.5 mg PO DAILY #30 tab 04/15/17 mg (*)] oxyCODONE/APAP 5/325 [Percocet 1 tab PO Q4-6PRN PRN 05/28/17 5/325 (*)] Atorvastatin Calcium [Lipitor 80 80 mg PO DAILY 09/21/17 mg] Docusate Sodium [Colace 100 MG (*)] 100 mg PO BID PRN 09/21/17 Metoprolol Succinate Xr [Toprol Xl 25 mg PO DAILY 09/21/17 25 mg (*)] Gabapentin [Neurontin 300 MG (*)] 300 mg PO TID 10/19/17 HYDROmorphone HCL [Dilaudid 2 mg 2 mg PO Q4HRS PRN tab 10/19/17 (*)] Nystatin Powder [Mycostatin Powder] 1 angelika TP TID powder 10/19/17 Medical Decision Making - Diagnostics Imaging: Discussed imaging studies w/ hollow core door frame assembler Radiologist ED Course/Re-evaluation: 5:15 p.m. the patient has reassuring knee x-rays however hip is still pending. The patient had to stop in urinate. Patient is unable to bear weight in his left leg. He had to be wheeled in a wheelchair. He has not been able to take care of activities of daily living. He smells like urine. He has a dermatitis from wet urine on his scrotum. I think that the patient needs admission for failure to thrive and hopefully hip replacement. I will contact the [facility] for possible transfer. The 6:00 p.m. I discussed the case with Dr. Graham buenrostro who will admit to the medical floor. We will consult Trauma and Ortho. 7:[address] scan does not reveal any pubic ramus or sacral fractures. I informed Dr. Buenrostro who is currently admitting. 7:50 p.m. I received a call back from the [facility] doctor Juve who accepted the patient in transfer however she is unsure whether not the EMS service will transport because they previously been unable to transferred due to weather. 8:30 p.m. the patient was accepted to the [facility] and the ambulance service can transport. Transfer paperwork completed. Differential Diagnosis: Partial list of the Differential diagnosis considered include but were not limited to; knee injury, hip injury, arthritis, failure to thrive, dermatitis and although unlikely based on the history and physical exam, I also considered cellulitis, sepsis, dislocation, vascular injury, syncope. - Data Points Laboratory Results: Laboratory Results 10/19/17 17:27 10/19/17 17:27 Medications Given: Discontinued Medications Hydromorphone HCl (Dilaudid) 1 mg IM EDNOW ONE Stop: 10/19/17 15:36 Last Admin: 10/19/17 15:42 Dose: 1 mg Hydromorphone HCl (Dilaudid) 0.5 mg IVP EDNOW ONE Stop: 10/19/17 17:13 Last Admin: 10/19/17 17:56 Dose: 0.5 mg Hydromorphone HCl (Dilaudid) 2 mg PO Q4HRS PRN PRN Reason: Pain, Severe Able to Take PO Stop: 10/29/17 18:10 Last Admin: 10/19/17 21:47 Dose: 2 mg Hydromorphone HCl (Dilaudid) 0.2 - 1 mg IVP Q2 PRN PRN Reason: Pain, Severe Unable to Take PO Stop: 10/29/17 18:10 Last Admin: 10/19/17 20:53 Dose: 1 mg Sodium Chloride (Ns) 1,000 mls @ 0 mls/hr IV ONCE ONE; Wide Open PRN Reason: Protocol Stop: 10/19/17 17:13 Last Admin: 10/19/17 17:57 Dose: 1,000 mls Departure - Departure Disposition: [facility] Clinical Impression: Failure to thrive in adult, Left hip pain Condition: Fair Referrals: ADRIANA RAYMOND [Other] - As per Instructions
[2017-10-19] MEDS ORDERED: NS 1,000 ML IV ONE (17:12)
[2017-10-19] MEDS ORDERED: HYDROmorphONE/DILAUDID 1 MG/ML INJ IVP ONE (17:12)
[2017-10-19 17:36] LABS: PLATELET COUNT 164 10^3/uL (150-400)
[2017-10-19 17:48] LABS: INR 1.12 (0.83-1.16); PROTIME(PATIENT) 14.6 SEC (12.0-15.0)
[2017-10-19] MEDS ORDERED: HYDROmorphONE/DILAUDID 2 MG TAB PO PRN (18:11)
[2017-10-19] MEDS ORDERED: ACETAMINOPHEN 325 MG TAB PO PRN (18:11)
[2017-10-19] MEDS ORDERED: ONDANSETRON DISINTEGRATING 4 MG TAB PO PRN (18:11)
[2017-10-19] MEDS ORDERED: ONDANSETRON 4 MG/2 ML VIAL IVP PRN (18:11)
[2017-10-19] MEDS ORDERED: NS 1,000 ML IV SCH (18:15)
--- NOTE | 2017-10-19 19:20 | PDGENHP ---
History and Physical - Chief Complaint Acute fall - History of Present Illness Primary care provider: mabel CONNOLLY HPI: 72-year-old male presenting with acute fall characterized as mechanical, secondary to weakness localized to his knees, resulting in trauma to the left anterior knee with subsequent associated pain. The patient reports that he has been debilitated secondary to pain over the past several weeks, with pain levels ranging between 9 and 10, somewhat alleviated by oral oxycodone, which he is receiving from the [facility]. The pain is located in the left hip, left knee, and has been a chronic issue throughout most of 2016, resulting in an 8-9 week SNF with rehab stay in July in August 2017, then subsequent discharge and rehospitalization at [facility] in mid September 2017. The patient has followed up with his primary care provider since that time, and has been scheduled for an outpatient orthopedic consultation to consider a left hip surgery, with the consultation scheduled for 10/24/2017. Whether not the patient will actually get a surgery is to be determined. The patient reports that he has had resultant reduced mobility, secondary to his pain and lower extremity weakness. This has led to difficulties with self- care, difficulty ambulating to the bathroom, difficulty accessing food and water. On the day of presentation, after the patient's fall, his home health aide recognized that there was a problem and brought him to the emergency department. History Information - Allergies/Home Medication List Allergies/Adverse Reactions: glipizide Allergy (Intermediate, Verified 10/19/17 14:04) Other-Enter Comments lisinopril Allergy (Intermediate, Verified 10/19/17 14:04) Other-Enter Comments Home Medications: Albuterol [Proventil Inhaler HFA (*)] 2 puffs IH Q4-6PRN PRN 03/29/16 [Last Taken 05/26/17] Aspirin [Aspirin 81mg (*)] 81 mg PO DAILY 03/29/16 [Last Taken 09/21/17] Budesonide/Formoterol 160/4.5 [Symbicort 160-4.5 Mcg Inh (*)] 2 puffs IH BID [Last Taken 09/21/17] Carboxymethylcellulose 1% [Refresh Celluvisc (*)] 1 drops EACHEYE QID PRN [Last Taken Unknown] Cholecalciferol Vit D3 [Vitamin D3 (*)] 1,000 units PO DAILY 03/29/16 [Last Taken 05/26/17] Cyanocobalamin [Vitamin B12 (*)] 1,000 mcg PO DAILY 03/29/16 [Last Taken ] PARoxetine HCL [Paxil 30mg (*)] 30 mg PO DAILY 03/29/16 [Last Taken 09/21/17] Tamsulosin HCl [Flomax 0.4 MG (*)] 0.4 mg PO DAILY 03/29/16 [Last Taken 09:00] Apixaban [Eliquis] 5 mg PO BID 04/13/17 [Last Taken 09/21/17] oxyCODONE/APAP 5/325 [Percocet 5/325 (*)] 1 tab PO Q4-6PRN PRN 05/28/17 [Last Taken 09/21/17] Atorvastatin Calcium [Lipitor 80 mg] 80 mg PO DAILY 09/21/17 [Last Taken ] Docusate Sodium [Colace 100 MG (*)] 100 mg PO BID PRN 09/21/17 [Last Taken 09/21] Metoprolol Succinate Xr [Toprol Xl 25 mg (*)] 25 mg PO DAILY 09/21/17 [Last Taken 09/21/17] I have personally reviewed and updated: family history, medical history, social history, surgical history - Past Medical History Additional medical history: Atrial fibrillation, CAD with CT 01/2016, CKD stage 4 baseline creatinine 2.0-2.4, daily marijuana use, history MRSA 2010, COPD, PTSD, DM 2 diet controlled, BPH, HLD, gout, LINDA, history TIA, patient with what he describes as "mysterious illness" resulting in generalized weakness and debility, 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 Son-bipolar disorder - Social History Smoking Status: Current some day smoker Alcohol Use: Sober Drug Use: None Additional social history: Patient lives with 2 male roommates. He he is retired . Cor status is full. Patient desires his daughter Emily Feliz to act as proxy if needed. Review of Systems Review of Systems: ROS: 10pt was reviewed & negative except for what was stated in HPI & below Constitutional: Reports: weakness Muscolosketal: Reports: joint pain (Left knee left hip) Skin: Reports: other (Erythematous skin lesions in the groin, lower extremities) Physical Exam Physical Exam: Temp Pulse Resp BP Pulse Ox 36.6 C 98 16 120/97 H 96 10/19/17 14:04 10/19/17 17:10 10/19/17 17:10 10/19/17 14:04 10/19/17 17:10 Constitutional: no apparent distress, chronically ill appearing, obese, uncomfortable, unkempt, other (malodorus), No not in pain (Moderate) Eyes: PERRL, anicteric sclera, EOMI Ears, Nose, Mouth, Throat: hearing normal, other (Tacky mucous membranes) Cardiovascular: irregularly irregular, edema (Trace bilateral lower extremities) , No systolic murmur, No tachycardia Respiratory: no respiratory distress, no rales or rhonchi, clear to auscultation Gastrointestinal: normoactive bowel sounds, soft, non-tender abdomen, no palpable masses, distension (Mild) Skin: other (Scattered ulcerations bilateral lower extremities, right greater than left, with some surrounding erythema, dense, blanchable excoriation in the groin area) Musculoskeletal: other (Painful extension of left lower extremity, no tenderness to palpation over the left knee, tenderness to palpation over the left hip) Neurologic: AAOx3, sensation intact bilaterally, No weakness (Motor 5/5 bilateral lower extremities) Psychiatric: not encephalopathic, thought process linear, anxious, No agitated Lab Data & Imaging Review 10/19/17 17:27 10/19/17 17: WBC 13.90 10^3/uL (3.80-9.50) H 10/19/17 17: RBC 5.67 10^6/uL (4.40-6.38) 10/19/17 17:27 Hgb 16.5 g/dL (13.7-17.5) 10/19/17 17: Hct 47.9 % (40.0-51.0) 10/19/17 17: MCV 84.5 fL (81.5-99.8) 10/19/17 17: MCH 29.1 pg (27.9-34.1) 10/19/17: MCHC 34.4 g/dL (32.4-36.7) 10/19/17: RDW 13.9 % (11.5-15.2) 10/19/17: Plt Count 164 10^3/uL (150-400) 10/19/17 MPV 11.4 fL (8.7-11.7) 10/19/17: Neut % (Auto) 77.6 % (39.3-74.2) H 10/19/17: Lymph % (Auto) 12.5 % (15.0-45.0) L 10/19/17: Finney % (Auto) 6.7 % (4.5-13.0) 10/19/17: Eos % (Auto) 1.9 % (0.6-7.6) 10/19/17: Baso % (Auto) 0.7 % (0.3-1.7) 10/19/17: Nucleat RBC Rel Count 0.0 % (0.0-0.2) 10/19/17: Absolute Neuts (auto) 10.79 10^3/uL (1.70-6.50) H 10/19/17: Absolute Lymphs (auto) 1.74 10^3/uL (1.00-3.00) 10/19/17: Absolute Monos (auto) 0.93 10^3/uL (0.30-0.80) H 10/19/17: Absolute Eos (auto) 0.26 10^3/uL (0.03-0.40) 10/19/17: Absolute Basos (auto) 0.10 10^3/uL (0.02-0.10) 10/19/17: Absolute Nucleated RBC 0.00 10^3/uL (0-0.01) 10/19/17: Immature Gran % 0.6 % (0.0-1.1) 10/19/17:27 Immature Gran # 0.08 10^3/uL (0.00-0.10) 10/19/17 17:27 PT 14.6 SEC (12.0-15.0) 10/19/17 17:27 INR 1.12 (0.83-1.16) 10/19/17 17:27 APTT 31.0 SEC (23.0-38.0) 10/19/17 17:27 Sodium 136 mEq/L (135-145) 10/19/17 17: Potassium 4.0 mEq/L (3.5-5.2) 10/19/17 17: Chloride 102 mEq/L (97-110) 10/19/17: Carbon Dioxide 21 mEq/l (22-31) L 10/19/17: Anion Gap 13 mEq/L (8-16) 10/19/17 17:27 BUN 26 mg/dL (7-23) H 10/19/17 17: Creatinine 2.0 mg/dL (0.7-1.3) H 10/19/17: Estimated GFR 33 10/19/17 17: Glucose 127 mg/dL (70-100) H 10/19/17 17: Calcium 9.7 mg/dL (8.5-10.4) 10/19/17 17:27 Visualized and Interpreted imaging results: Yes Interpretation: Tib-fib x-ray demonstrating no fracture Visualized and Interpreted EKG results: Yes EKG additional interpertation: 10/12/2017 EKG within normal sinus mechanism Assessment & Plan Assessment: 72-year-old male presenting with acute mechanical fall resulting in acute on chronic left knee and left hip pain Plan: 1. Osteoarthritis. Acute worsening of chronic pain located in the left knee and left hip, no evidence of fracture on x-ray -pain is limiting mobility at home, resulting in failure to thrive and inability to safely ambulate -patient reports inadequate pain relief with oxycodone or hydrocodone, he has responded well to Dilaudid, provide as needed oral and IV with bowel regiment -PT and OT evaluations -suspect the patient will be unsafe to ambulate and care for self at home, would recommend alf facility placement and follow up with his outpatient [facility] orthopedic consultation on 10/24/2017 -given that he has no acute fracture, no indication for orthopedics consultation for surgery at our facility 2. Fall. Acute, discussed with Dr. Mahendra Elliott, he reports to me that the patient's CT demonstrates no overt pelvic fracture -continue to work with physical and occupational therapy 3. Pressure injury. Present on admission, patient with excoriations in his groin area along his underwear waistband, nystatin powder, pain control, wound care appreciated 4. Chronic kidney disease stage 4. Baseline creatinine 2.0-2.4, continue to monitor urine output, weight, creatinine level -reviewed outside records including 09/23/[address] Hilda Dominguez, she reports the patient was hospitalized for orthostasis in the setting of diarrhea, continue to monitor for hypovolemia this patient is particularly susceptible based on my experiences with him in the past -patient's rapid AFib on presentation and poor access to fluids and solids on the day of presentation puts him at risk for acute kidney injury, give IV fluids overnight, stop tomorrow if tolerating oral intake 5. Chronic pain with continuous opiate dependency. Patient reports long history of opiate use for osteoarthritic pains, in the past we have tried to reduce his opiate dependency given that most likely resulted in weakness, constipation, general debility, but this has been unsuccessful at the present time patient is requesting adequate pain control for his acute on chronic pain -continue as needed oral Dilaudid, avoid mixing in other opiates -continue to utilize gabapentin given the likely neuropathic component 6. Chronic leukocytosis. Acute worsening, review of outside records demonstrates baseline white blood cell count 9 1000-10,000, most recently 10, 400 on 09/21/2017, unclear etiology -check for acute causes of recent rise, get respiratory viral panel, get urinalysis -continue to monitor white blood cell count daily -if worsening, get blood cultures given his skin lesions -hold on antibiotics at this time 7. Paroxysmal atrial fibrillation. Presumed acute rapid ventricular response on presentation secondary to pain in hypovolemia, has improved with IV fluids -monitor on telemetry on med surge, get EKG if experiencing rapid ventricular response -continue Eliquis once reconciled 8. Coronary artery disease. Chronic, continue home medications once reconciled 9. LINDA. CPAP at night 10. Diabetes mellitus type 2. Chronic, continue medications Diet. Diabetic Prophylaxis. High risk patient, on Eliquis Code. Full per patient, his daughter Emily is [place] POA Disposition. Anticipated discharge is uncertain this time, anticipated length stay is greater than 48 hr warranting inpatient admission status for acute mechanical fall in the setting of acute on chronic osteoarthritis rendering the patient unable to safely ambulate, unable to safely care for self, in the setting of high risk comorbid AFib, chronic kidney disease, coronary artery disease, general debility.
[2017-10-19] MEDS: HYDROmorphONE/DILAUDID 1 MG/ML INJ IVP PRN ×2 (19:42→20:53)
[2017-10-19 19:47] VITALS: RESP 18
--- NOTE | 2017-10-19 19:54 | PDMN ---
Medical Necessity Medical necessity: C/M review: est. > 2 MN LOS for eval and TX of acute worsening of chronic pain in the left knee and left hip - osteoarthritis, pain is limiting mobility at home resulting in failure to thrive, new inability to safely ambulate or care for self at home, requiring planned Wound care consult, IV fluids, pain management with Dilaudid, cardiac monitoring, acute inpt PT/OT, comorbid fall just prior to this admission, pressure injury present on admission - excoriations in groin area along underware waist band, chronic kidney stage 4, chronic pain with continuous opiate dependency, chronic leukocytosis, paroxysmal atrial fibrillation, CAD, obstructive sleep apnea with nocturnal CPAP, type 2 diabetes, history of HI 01/2016, COPD, PTSD, BPH, hyperlipidemia, gout, TIA per H/P.
[2017-10-19 20:41] VITALS: PULSE 91
[2017-10-19] MEDS ORDERED: NYSTATIN POWDER 15 GM BTL TP SCH (22:00)
[2017-10-19 22:17] VITALS: BP 174/97; O2SAT 97
[2017-10-19] MEDS ORDERED: CARBOXYMETHYLCELLULOSE 1% 0.4 ML DROPERETTE EACHEYE PRN (23:19)
[2017-10-19] MEDS ORDERED: ALBUTEROL 60 PUFFS/8 GM MDI IH PRN (23:19)
[2017-10-19] MEDS ORDERED: DOCUSATE SODIUM 100 MG CAP PO PRN (23:19)
[2017-10-19] MEDS ORDERED: BUDESONIDE/FORMOTEROL 80/4.5 60 PUFFS/MDI IH SCH (23:30)
[2017-10-19] MEDS ORDERED: APIXABAN 5 MG TAB PO SCH (23:30)
[2017-10-20] MEDS ORDERED: CHOLECALCIFEROL VIT D3 1,000 UNITS TAB PO SCH (09:00)
[2017-10-20] MEDS ORDERED: ATORVASTATIN CALCIUM 40 MG TAB PO SCH (09:00)
[2017-10-20] MEDS ORDERED: ASPIRIN 81 MG CHEWABLE TAB PO SCH (09:00)
[2017-10-20] MEDS ORDERED: CYANO/VITAMIN B12 1000 MCG TAB PO SCH (09:00)
[2017-10-20] MEDS ORDERED: GABAPENTIN 300 MG CAP PO SCH (09:00)
[2017-10-20] MEDS ORDERED: METOPROLOL SUCCINATE XR 25 MG TAB PO SCH (09:00)
--- NOTE | 2017-10-20 10:14 | ASMTCMCOM ---
CM Note CM Note Notes: LATE ENTRY: Spoke with patient during ED visit. Patient presented to the ED from home for left hip and tib/fib pain after a mechanical fall due to weakness and pain in left leg. Patient recently discharged from [facility] 09/23/17 and has homecare through [facility] ). Patient also had other homecare PT through the [facility]. Patient reportedly has a left hip replacement consult scheduled for 10/24/17 at the [facility]. Patient accepted at the [facility] and was transferred to the [facility] last night. Patient has chronic pain due to OA and opiate dependency. Pt seen in the ED 10/11/17 for uncontrolled pain and for being out of his pain meds because he was taking them more frequently than prescribed in order to control his pain. Patient has a daughter Emily Feliz who lives in [place]. CM available for further assistance if needed. Date Signed: 10/20/2017 10:13 AM Electronically Signed By:Patito Deleon RN
--- NOTE | 2017-10-20 10:19 | ASDISCHSUM ---
Discharge Information Plan Status:Acute Transfer Medically Cleared to Leave: Discharge Date: D/C Disposition:[facility] D/C Disposition:[facility] Projected Discharge Date: Transportation at D/C:ALS/BLS Discharge Delay Reason: Follow-Up Date: Discharge Slot: Final Diagnosis: Placement Information Patient Contact Information Contact Name:SINA Relationship:Daughter Address: Work Phone: City:[place] Alternate Phone: State/Zip Code:[place] Email: Financial Information Financial Class:Medicare Primary Plan Desc:MEDICARE INPATIENT Primary Plan Number:[id number] Secondary Plan Desc: Secondary Plan Number: Assessment Information [facility] CM Progress Note CM Note CM Note Notes: LATE ENTRY: Spoke with patient during ED visit. Patient presented to the ED from home for left hip and tib/fib pain after a mechanical fall due to weakness and pain in left leg. Patient recently discharged from [facility] 09/23/17 and has homecare through [facility] ([phone]). Patient also had other homecare PT through the [facility]. Patient reportedly has a left hip replacement consult scheduled for 10/24/17 at the [facility]. Patient accepted at the [facility] and was transferred to the [facility] last night. Patient has chronic pain due to OA and opiate dependency. Pt seen in the ED 10/11/17 for uncontrolled pain and for being out of his pain meds because he was taking them more frequently than prescribed in order to control his pain. Patient has a daughter Emily Feliz who lives in [place]. CM available for further assistance if needed. Date Signed: 10/20/2017 10:13 AM Electronically Signed By:Patito Deleon RN LACE FRANCOISE Length of stay for Answers: Less than 1 day current admission Acuity / Level of Answers: Yes Care: Did the patient have an inpatient admission? Comorbidities - select Answers: Chronic pulmonary disease all that apply Diabetes (uncontrolled or controlled) History of falls Moderate or severe liver or renal disease Opioid dependence / Chronic pain Other Notes: Coronary Artery Disease # of Emergency department Answers: 5-8 visits in the last 6 months Social determinants Answers: Lack of community resources and/or lack of social support (no pcp, lives alone, transportation, rosalinda d) Score: 26 Date Signed: 10/20/2017 10:16 AM Electronically Signed By:Patito Deleon RN Intervention Information
== END 2017-10-19 22:17 | disposition short-term general hospital (02) ==
LOC: UNDOADMIN 18:11
DX: M16.12 Unilateral primary osteoarthritis, left hip (principal); M25.562 Pain in left knee; R62.7 Adult failure to thrive; J45.909 Unspecified asthma, uncomplicated; I10 Essential (primary) hypertension; E11.9 Type 2 diabetes mellitus without complications; F17.200 Nicotine dependence, unspecified, uncomplicated; Z86.73 Personal history of transient ischemic attack (TIA), and cerebral infarction without residual deficits; Z79.82 Long term (current) use of aspirin; Z79.01 Long term (current) use of anticoagulants
CPT/HCPCS: 96374; J1170

== ENCOUNTER 2018-01-14 12:33 | Inpatient (IN) | payer OTHER ==
[2018-01-14] MEDS ORDERED: NS 1,000 ML IV ONE ×2 (13:12→14:16)
--- NOTE | 2018-01-14 13:14 | EDPHY ---
H & P Stated Complaint: pt has multiple complaints, MRSA sores, blood in stool Time Seen by Provider: 01/14/18 13:14 HPI/ROS: HPI CHIEF COMPLAINT: Multiple complaints HISTORY OF PRESENT ILLNESS: Patient is a 72-year-old male, history of AFib and coronary artery disease, chronic kidney disease, COPD presents emergency room with multiple complaints. He complains mainly of left knee pain and left hip pain from a recent fall. States he has fallen multiple times over the past 2-3 days. Additionally reports that he has worsening sores on his right leg. Additionally he reports black stool. Additionally states he a shortness of breath. He denies any chest pain. Denies headache. States he has chronic pain all over. However his left knee and left hip for worsens falling. Denies fever denies abdominal pain. Past Medical History: History of AFib on Eliquis, coronary artery disease, chronic kidney disease, COPD, recent pneumonia Past Surgical History: No recent surgery Social History: Lives locally. Family History: Noncontributory ROS REVIEW OF SYSTEMS: A comprehensive 10 point review of systems is otherwise negative aside from elements mentioned in the history of present illness. Exam Constitutional elderly and frail, poor hygiene, triage nursing summary reviewed , vital signs reviewed, awake/alert. Eyes normal conjunctivae and sclera, EOMI, PERRLA. HENT normal inspection, atraumatic, moist mucus membranes, no epistaxis, neck supple/ no meningismus, no raccoon eyes. Respiratory clear to auscultation bilaterally, normal breath sounds, no respiratory distress, no wheezing. Cardiovascular rate normal, regular rhythm, no murmur, no edema, distal pulses normal. Gastrointestinal soft, non-tender, no rebound, no guarding, normal bowel sounds, no distension, no pulsatile mass. Genitourinary no CVA tenderness. Musculoskeletal no midline vertebral tenderness, full range of motion, no calf swelling, no tenderness of extremities, no meningismus, good pulses, neurovascularly intact. Skin pink, warm, & dry, no rash, skin atraumatic. Neurologic awake, alert and oriented x 3, AAOx3, moves all 4 extremities equally, motor intact, sensory intact, CN II-XII intact, normal cerebellar, normal vision, normal speech. Psychiatric normal mood/affect. Heme/Lymph/Immune no lymphadenopathy. Differential Diagnosis: Includes but is not limited to in a particular order acute GI bleed, dehydration, electrolyte disturbance, infection, bacteremia, sepsis, worsening chronic right leg wounds, trauma to the right hip or right knee from a fall, COPD, Medical Decision Making: Plan for this patient due to his multiple complaints will need x-rays of his left hip and left knee, chest x-ray, blood work including type and screen, blood cultures, lactic, and re-evaluate. Re-evaluation: Rectal exam performed. Thu fire support specialist at bedside. Shows brown stool not black. No significant blood on gross exam. EKG interpretation by me on record in [employer] system. Impression time of EKG 1328, sinus rhythm rate of [address] elevation no ST depression no significant T-wave abnormalities 1418: Patient's extensive excoriations to the right leg. Additionally patient patient complained of left hip pain and left knee pain from fall. Blood work has been reviewed is stable. He is Hemoccult positive on exam. X-ray of the left knee, x-ray of the left hip negative for acute traumatic injury interpreted by myself. X-ray of the chest does not show focal pneumonia. 1443: Plan will be for admission for blood in stool. Multitude of other complaints including shortness of breath, and chronic pain. Will consult the hospitalist service for admission. 1459: Spoke with Dr. Min Mccain. Consult for GI bleed. Will see and evaluate the patient. Elevated lactic acid due to dehydration. Not sepsis. There is no evidence of sepsis on exam or diagnosis of sepsis. Lactic acid is elevated due to dehydration. Source: Patient - Personal History Current Tetanus Diphtheria and Acellular Pertussis (TDAP): Unsure Tetanus Vaccine Date: < 10 years - Medical/Surgical History Hx Asthma: Yes Hx Chronic Respiratory Disease: Yes Hx Diabetes: Yes Hx Cardiac Disease: Yes Hx Renal Disease: No Hx Cirrhosis: No Hx Alcoholism: No Hx HIV/AIDS: No Hx Splenectomy or Spleen Trauma: No Other PMH: Cervical disc disease, DM, empysema, gout, htn, hyperlipidemia, ptsd , BPH, TIA CVA, OA, STENTS,CAD, BELLS PALSY. - Social History Smoking Status: Current some day smoker Constitutional: Initial Vital Signs Temperature (C) 36.7 C 01/14/18 12:44 Heart Rate 90 01/14/18 12:44 Respiratory Rate 18 01/14/18 12:44 Blood Pressure 115/74 01/14/18 12:44 O2 Sat (%) 97 01/14/18 12:44 O2 Delivery Mode Room Air Allergies/Adverse Reactions: glipizide Allergy (Intermediate, Verified 10/19/17 14:04) Other-Enter Comments lisinopril Allergy (Intermediate, Verified 10/19/17 14:04) Other-Enter Comments Home Medications: Medication Instructions Recorded Albuterol [Proventil Inhaler HFA 2 puffs IH Q4 PRN 03/29/16 (*)] Aspirin [Aspirin 81mg (*)] 81 mg PO DAILY 03/29/16 Budesonide/Formoterol 160/4.5 2 puffs IH BID 03/29/16 [Symbicort 160-4.5 Mcg Inh (*)] Carboxymethylcellulose 1% [Refresh 1 drops EACHEYE QID PRN 03/29/16 Celluvisc (*)] Cholecalciferol Vit D3 [Vitamin D3 1,000 units PO DAILY 03/29/16 (*)] Cyanocobalamin [Vitamin B12 (*)] 1,000 mcg PO DAILY 03/29/16 PARoxetine HCL [Paxil 30mg (*)] 30 mg PO DAILY 03/29/16 Apixaban [Eliquis] 5 mg PO BID 04/13/17 oxyCODONE/APAP 5/325 [Percocet 1 tab PO Q4 PRN 05/28/17 5/325 (*)] Atorvastatin Calcium [Lipitor 80 80 mg PO DAILY 09/21/17 mg] Metoprolol Succinate Xr [Toprol Xl 25 mg PO DAILY 09/21/17 25 mg (*)] Gabapentin [Neurontin 300 MG (*)] 300 mg PO TID 10/19/17 Acetaminophen [Tylenol ES 500 mg 1,000 mg PO HS 12/08/17 (*)] Terbinafine HCl [LamISIL AT Cream 1 angelika TP BID 12/08/17 (*)] morphINE SR [Ms Contin/Oramorph 15 15 mg PO HS 12/08/17 mg (*)] Medical Decision Making - Data Points Laboratory Results: Laboratory Results 01/14/18 13:35 01/14/18 13:35 Microbiology Results: MICROBIOLOGY 01/14/18 14:10 Blood Blood Culture - Preliminary Gram Positive Cocci Clusters 01/14/18 14:10 Blood Blood Panel (PCR) - Final Staph Coagulase Negative Medications Given: Acetaminophen (Tylenol) 1,[address] [facility] Stop: 07/13/18 20:59 Last Admin: 01/14/18 21:10 Dose: Not Given Aspirin (Aspirin) 81 mg PO DAILY INO Stop: 07/14/18 08:59 Last Admin: 01/15/18 08:24 Dose: 81 mg Atorvastatin Calcium (Lipitor) 80 mg PO DAILY INO Stop: 07/14/18 08:59 Last Admin: 01/15/18 08:25 Dose: 80 mg Budesonide/Formoterol Fumarate (Symbicort 160-4.5 Mcg Inhaler) 2 puffs IH BID IN[facility] Stop: 07/13/18 20:59 Last Admin: 01/15/18 09:43 Dose: 2 puffs Cholecalciferol (Vitamin D) 1,[address] [facility] Stop: 07/14/18 08:59 Last Admin: 01/15/18 08:24 Dose: 1,000 units Diclofenac Sodium (Diclofenac Sodium 1% Gel) [address] [facility] Stop: 07/14/18 15:59 Last Admin: 01/15/18 16:18 Dose: 4 gm Metoprolol Succinate (Toprol Xl) [address] [facility] Stop: 07/14/18 08:59 Last Admin: 01/15/18 08:24 Dose: 25 mg Morphine Sulfate (Ms Contin/Oramorph) [address] [facility] Stop: 01/24/18 20:59 Last Admin: 01/14/18 21:09 Dose: 15 mg Oxycodone HCl (Oxycodone Ir) 5 - 10 mg PO Q3HRS PRN PRN Reason: Pain, Severe Able to Take PO Stop: 01/24/18 16:06 Last Admin: 01/15/18 16:19 Dose: 10 mg Oxycodone/Acetaminophen (Percocet 5/325) 1 tab PO Q4 PRN PRN Reason: Pain, Severe Stop: 01/24/18 16:08 Last Admin: 01/14/18 17:54 Dose: 1 tab Paroxetine HCl (Paxil) [address] [facility] Stop: 07/14/18 08:59 Last Admin: 01/15/18 08:25 Dose: 30 mg Terbinafine HCl (Lamisil At) [address] [facility] Stop: 02/13/18 20:59 Last Admin: 01/15/18 15:26 Dose: 1 angelika Vitamin B Complex (Vitamin B12) 1,000 mcg PO DAILY [facility] Stop: 07/14/18 08:59 Last Admin: 01/15/18 08:24 Dose: 1,000 mcg Discontinued Medications Gabapentin (Neurontin) 300 mg PO TID INO Stop: 07/13/18 21:59 Last Admin: 01/15/18 15:24 Dose: 300 mg Sodium Chloride (Ns) 1,000 mls @ 0 mls/hr IV EDNOW ONE; Wide Open PRN Reason: Protocol Stop: 01/14/18 13:13 Last Admin: 01/14/18 14:06 Dose: 1,000 mls Sodium Chloride (Ns) 1,000 mls @ 0 mls/hr IV ONCE ONE PRN Reason: Wide Open Stop: 01/14/18 14:17 Last Admin: 01/14/18 14:47 Dose: 1,000 mls Pantoprazole Sodium (Protonix) 80 mg IVP EDNOW ONE Stop: 01/14/18 14:45 Last Admin: 01/14/18 14:52 Dose: 80 mg Departure - Departure Disposition: [facility] Inpatient Acute Clinical Impression: Skin excoriation, FTT (failure to thrive) in adult, Generalized weakness GIB (gastrointestinal bleeding) Qualifiers: GI bleed type/associated pathology: unspecified gastrointestinal hemorrhage type Qualified Code(s): K92.2 - Gastrointestinal hemorrhage, unspecified Chronic pain Qualifiers: Chronic pain type: other chronic pain Qualified Code(s): G89.29 - Other chronic pain Condition: Fair
--- NOTE | 2018-01-14 13:30 | CPEKG ---
Heart Rate: 80 RR Interval: 750 P-R Interval: 162 QRSD Interval: 78 QT Interval: 360 QTC Interval: 416 P [place]: 52 QRS [place]: -20 T Wave [place]: 13 EKG Severity - OTHERWISE NORMAL ECG - EKG Impression: SINUS RHYTHM EKG Impression: ATRIAL PREMATURE COMPLEX EKG Impression: BORDERLINE LEFT AXIS DEVIATION Electronically Signed By: Barrett Doty 14-Jan-2018 20:56:21
[2018-01-14 13:45] LABS: PLATELET COUNT 193 10^3/uL (150-400)
[2018-01-14 13:54] LABS: INR 1.44 (0.83-1.16); PROTIME(PATIENT) 17.7 SEC (12.0-15.0)
[2018-01-14] MEDS ORDERED: PANTOPRAZOLE SODIUM 40 MG VIAL IVP ONE (14:44)
[2018-01-14] MEDS ORDERED: ACETAMINOPHEN 325 MG TAB PO PRN (16:07)
[2018-01-14] MEDS ORDERED: ONDANSETRON DISINTEGRATING 4 MG TAB PO PRN (16:07)
[2018-01-14] MEDS ORDERED: PROMETHAZINE HCL 25 MG/ML INJ IVP PRN (16:07)
[2018-01-14] MEDS ORDERED: ONDANSETRON 4 MG/2 ML VIAL IVP PRN (16:07)
[2018-01-14] MEDS ORDERED: ALBUTEROL 60 PUFFS/8 GM MDI IH PRN (16:09)
[2018-01-14] MEDS ORDERED: CARBOXYMETHYLCELLULOSE 1% 0.4 ML DROPERETTE EACHEYE PRN (16:09)
[2018-01-14] MEDS ORDERED: OXYCODONE/APAP 5/325 TAB PO PRN (16:09)
--- NOTE | 2018-01-14 17:25 | ASMTCMCOM ---
CM Note CM Note Notes: Pt presented to the ED through triage with his caregiver, Amrita, through [facility] ([phone], non-skilled HC) for SOB, rectal bleeding, neck pain, and left hip & knee pain related to recent falls at home. Pt lives alone in a private home and has had several falls in the past few weeks. Pt primarily receives his care through the [facility] but states he has not been happy w/their services for the last year. Pt recently admitted to [facility] on 12/08/17 for PNA, COPD exacerbation, and was [facility] 12[facility]13/17 w[facility]. Pt was also recently seen in the ED [facility]. Pt was supposed to have an ortho consult on 10/22/17 and discuss hip surgery options but pt states due to his various skin scabs and sores (pt has history of MRSA), the ortho MD won't do surgery unless the sores heal. Patient states he has a wound care appointment through the [facility] later this week to have the sores reassessed and treated. Pt states he was discharged from the [facility] in December to [facility] in [place] ([phone]) and then d/c'd from [facility] w/[facility] ([phone]) sometime in the last couple of weeks. Spoke w/ Josephine, Employee'S Representative at [facility] and she says pt has been receiving PT at home but they were going to add on an RN and OT today. Josephine also says they've been providing HC services to the patient since 2016. Pt gave verbal permission to contact his daughter, Emily ([phone]) who lives in [place]. This CM spoke w/Emily and updated her of pt's status and admission. Emily says she would like to continue to be updated but was unable to write down the hospital's phone number at the time. Please contact Emily with any updates. It is not clear whether pt has actually completed [facility] paperwork but per chart review, Emily has been considered proxy in the past. Pt to be evaluated for GI bleed. Exact DC needs unknown, anticipate pt might need SNF placement. CM to follow. Date Signed: 01/14/2018 05:25 PM Electronically Signed By:Patito Deleon RN
--- NOTE | 2018-01-14 17:28 | ASMTLACE ---
FRANCOISE Acuity / Level of Answers: Yes Care: Did the patient have an inpatient admission? Comorbidities - select Answers: Chronic pulmonary disease all that apply History of falls Moderate or severe liver or renal disease Opioid dependence / Chronic pain Other Notes: OA # of Emergency department Answers: 5-8 visits in the last 6 months Score: 21 Date Signed: 01/14/2018 05:27 PM Electronically Signed By:Patito Deleon RN
--- NOTE | 2018-01-14 17:52 | PDGENHP ---
History and Physical - Chief Complaint weakness - History of Present Illness 72 [facility] M [facility] presenting with c/o weakness and inability to care for himself. Patient has had several ED visits and hospitalizations here recently largely for weakness but also for hip and knee pain. He has stated in the past that there was a plan for intervention per the [facility] but apparently that has been deferred due to the chronic lower extremity wounds he has and that the plan was to defer surgery until those are gone. He also has complaints of dark and tarry stools recently, as well as shortness of breath and frequent falls. His main complaint is that he feels he was released from his most recent stay at a skilled nursing too early. He states he essentially cannot walk at all anymore and has a caregiver three times a week that he is dependent on to eat and get out of bed. He has not had fever or chills, he denies cough, he has not had chest pain, or syncope. History Information - Allergies/Home Medication List Allergies/Adverse Reactions: glipizide Allergy (Intermediate, Verified 10/19/17 14:04) Other-Enter Comments lisinopril Allergy (Intermediate, Verified 10/19/17 14:04) Other-Enter Comments Home Medications: Albuterol [Proventil Inhaler HFA (*)] 2 puffs IH Q4 PRN 03/29/16 [Last Taken 04/26] Aspirin [Aspirin 81mg (*)] 81 mg PO DAILY 03/29/16 [Last Taken 01/14/18] Budesonide/Formoterol 160/4.5 [Symbicort 160-4.5 Mcg Inh (*)] 2 puffs IH BID [Last Taken 01/14/18] Carboxymethylcellulose 1% [Refresh Celluvisc (*)] 1 drops EACHEYE QID PRN [Last Taken Unknown] Cholecalciferol Vit D3 [Vitamin D3 (*)] 1,000 units PO DAILY 03/29/16 [Last Taken 12/08/17] Cyanocobalamin [Vitamin B12 (*)] 1,000 mcg PO DAILY 03/29/16 [Last Taken ] PARoxetine HCL [Paxil 30mg (*)] 30 mg PO DAILY 03/29/16 [Last Taken 01/07/18] Apixaban [Eliquis] 5 mg PO BID 04/13/17 [Last Taken 01/14/18] oxyCODONE/APAP 5/325 [Percocet 5/325 (*)] 1 tab PO Q4 PRN 05/28/17 [Last Taken 01/07/18] Atorvastatin Calcium [Lipitor 80 mg] 80 mg PO DAILY 09/21/17 [Last Taken ] Metoprolol Succinate Xr [Toprol Xl 25 mg (*)] 25 mg PO DAILY 09/21/17 [Last Taken 01/14/18] Gabapentin [Neurontin 300 MG (*)] 300 mg PO TID 10/19/17 [Last Taken 12/08/17 09 :00] Acetaminophen [Tylenol ES 500 mg (*)] 1,000 mg PO HS 12/08/17 [Last Taken ] Terbinafine HCl [LamISIL AT Cream (*)] 1 angelika TP BID 12/08/17 [Last Taken Unknown ] morphINE SR [Ms Contin/Oramorph 15 mg (*)] 15 mg PO HS 12/08/17 [Last Taken 04/26] I have personally reviewed and updated: family history, medical history, social history, surgical history - Past Medical History coronary artery disease, diabetes type 2 (diet controlled), hypertension, hyperlipidemia, psychiatric history (ptsd/anxiety) Additional medical history: Atrial fibrillation, CAD with KS 01/2016, CKD stage 4 baseline creatinine 2.0-2.4, daily marijuana use, history MRSA 2010, COPD, PTSD, DM 2 diet controlled, BPH, HLD, gout, LINDA, history TIA, patient with what he describes as "mysterious illness" resulting in generalized weakness and debility, 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 Son-bipolar disorder - Social History Smoking Status: Current some day smoker Alcohol Use: Rarely Drug Use: None Additional social history: Patient lives with 2 male roommates. He he is retired . Cor status is full. Patient desires his daughter Emily Feliz to act as proxy if needed. Review of Systems Review of Systems: ROS: 10pt was reviewed & negative except for what was stated in HPI & below Physical Exam Physical Exam: Temp Pulse Resp BP Pulse Ox 37.0 C 83 20 121/75 H 97 01/14/18 17:01 01/14/18 17:01 01/14/18 17:01 01/14/18 17:01 01/14/18 17:01 Constitutional: no apparent distress, chronically ill appearing, unkempt Eyes: PERRL, anicteric sclera Ears, Nose, Mouth, Throat: moist mucous membranes, hearing normal Cardiovascular: regular rate and rhythym, no murmur, rub, or gallop, edema Respiratory: no respiratory distress, no rales or rhonchi, clear to auscultation Gastrointestinal: normoactive bowel sounds, soft, non-tender abdomen Genitourinary: no bladder tenderness Skin: warm, abrasion, other (excoriations on right lower extremity) Musculoskeletal: no muscle tenderness, generalized weakness Neurologic: AAOx3 Psychiatric: interacting appropriately, not anxious, not encephalopathic Lab Data & Imaging Review 01/14/18 13:35 01/14/18 13:35 WBC 14.22 10^3/uL (3.80-9.50) H 01/14/18 13:35 RBC 4.77 10^6/uL (4.40-6.38) 01/14/18 13:35 Hgb 13.9 g/dL (13.7-17.5) 01/14/18 13:35 Hct 40.8 % (40.0-51.0) 01/14/18 13:35 MCV 85.5 fL (81.5-99.8) 01/14/18 13:35 MCH 29.1 pg (27.9-34.1) 01/14/18 13:35 MCHC 34.1 g/dL (32.4-36.7) 01/14/18 13:35 RDW 13.3 % (11.5-15.2) 01/14/18 13:35 Plt Count 193 10^3/uL (150-400) 01/14/18 13:35 MPV 10.5 fL (8.7-11.7) 01/14/18 13:35 Neut % (Auto) 80.6 % (39.3-74.2) H 01/14/18 13:35 Lymph % (Auto) 8.1 % (15.0-45.0) L 01/14/18 13:35 [place] % (Auto) 10.2 % (4.5-13.0) 01/14/18 13:35 Eos % (Auto) 0.1 % (0.6-7.6) L 01/14/18 13:35 Baso % (Auto) 0.5 % (0.3-1.7) 01/14/18 13:35 Nucleat RBC Rel Count 0.0 % (0.0-0.2) 01/14/18 13:35 Absolute Neuts (auto) 11.46 10^3/uL (1.70-6.50) H 01/14/18 13:35 Absolute Lymphs (auto) 1.15 10^3/uL (1.00-3.00) 01/14/18 13:35 Absolute Monos (auto) 1.45 10^3/uL (0.30-0.80) H 01/14/18 13:35 Absolute Eos (auto) 0.02 10^3/uL (0.03-0.40) L 01/14/18 13:35 Absolute Basos (auto) 0.07 10^3/uL (0.02-0.10) 01/14/18 13:35 Absolute Nucleated RBC 0.00 10^3/uL (0-0.01) 01/14/18 13:35 Immature Gran % 0.5 % (0.0-1.1) 01/14/18 13:35 Immature Gran # 0.07 10^3/uL (0.00-0.10) 01/14/18 13:35 PT 17.7 SEC (12.0-15.0) H 01/14/18 13:35 INR 1.44 (0.83-1.16) H 01/14/18 13:35 APTT 34.7 SEC (23.0-38.0) 01/14/18 13:35 VBG Lactic Acid 3.1 mmol/L (0.7-2.1) H 01/14/18 13:35 Sodium 136 mEq/L (135-145) 01/14/18 13:35 Potassium 4.4 mEq/L (3.5-5.2) 01/14/18 13:35 Chloride 99 mEq/L (97-110) 01/14/18 13:35 Carbon Dioxide 23 mEq/l (22-31) 01/14/18 13:35 Anion Gap 14 mEq/L (8-16) 01/14/18 13:35 BUN 27 mg/dL (7-23) H 01/14/18 13:35 Creatinine 2.2 mg/dL (0.7-1.3) H 01/14/18 13:35 Estimated GFR 30 01/14/18 13:35 Glucose 133 mg/dL (70-100) H 01/14/18 13:35 Calcium 9.3 mg/dL (8.5-10.4) 01/14/18 13:35 Total Bilirubin 1.5 mg/dL (0.1-1.4) H 01/14/18 13:35 Conjugated Bilirubin 0.4 mg/dL (0.0-0.5) 01/14/18 13:35 Unconjugated Bilirubin 1.1 mg/dL (0.0-1.1) 01/14/18 13:35 AST 21 IU/L (17-59) 01/14/18 13:35 ALT 28 IU/L (21-72) 01/14/18 13:35 Alkaline Phosphatase 56 IU/L (38-126) 01/14/18 13:35 Troponin I 0.026 ng/mL (0.000-0.034) 01/14/18 13:35 Total Protein 6.8 g/dL (6.3-8.2) 01/14/18 13:35 Albumin 3.8 g/dL (3.5-5.0) 01/14/18 13:35 Lipase 64 IU/L (23-300) 01/14/18 13:35 Urine Color YELLOW 01/14/18 17:18 Urine Appearance CLEAR 01/14/18 17:18 Urine pH 7.0 (5.0-7.5) 01/14/18 17:18 Ur Specific [place] 1.012 (1.002-1.030) 01/14/18 17:18 Urine Protein NEGATIVE (NEGATIVE) 01/14/18 17:18 Urine Ketones NEGATIVE (NEGATIVE) 01/14/18 17:18 Urine Blood NEGATIVE (NEGATIVE) 01/14/18 17:18 Urine Nitrate NEGATIVE (NEGATIVE) 01/14/18 17:18 Urine Bilirubin NEGATIVE (NEGATIVE) 01/14/18 17:18 Urine Urobilinogen 4.0 EU (0.2-1.0) H 01/14/18 17:18 Ur Leukocyte Esterase NEGATIVE (NEGATIVE) 01/14/18 17:18 Urine Glucose NEGATIVE (NEGATIVE) 01/14/18 17:18 Stool Occult Bld Scrn POSITIVE (NEGATIVE) H 01/14/18 13:38 Patient ABO/Rh AB POSITIVE 01/14/18 14:10 Antibody Screen NEGATIVE 01/14/18 14:10 Visualized and Interpreted Chest x-ray results: Yes Chest X-Ray results: no infiltrate Visualized and Interpreted EKG results: Yes EKG Interpretation: Positive for: normal sinsus rhythm Assessment & Plan Assessment: Chronic pain (Acute) GIB (gastrointestinal bleeding) (Acute) Skin excoriation (Acute) 72 yo M with MMI including chronic pain, CKD, CAD presenting with generalized weakness and deconditioning along with melena # generalized weakness: suspect this represents adult onset failure to thrive, patient with increasing ER/hospital visits and failing after being released from 6 weeks in SNF. It sounds as though he is now essentially unable to care for himself at home independently. Will ask pt/ot/cm to get involved but suspect patient will require placement. # melena: patient describing dark tarry stools and hemoccult positive stool in ER, GI consulted. H/h stable, no e/o HD instability at this point. # ckd: at baseline, continue to monitor # chronic pain with continuous opiate use and dependency: will continue op regimen, issues largely related to knee and hip that is being managed at [facility]. Pt/ot as above. # skin lesions: multiple areas of excoriation in various stages of healing on left lower leg and left arm, no clear e/o superinfection though several wounds are a bit erythematous. Will ask wound care to evaluate, no abx for now other than topical. # ptsd/anxiety: contributing to his difficulty in caring for himself, currently behaviorally well controlled # DM2: diet controlled, monitoring # IP status, given that patient is no longer safe to live independently and that his decline is multifactorial suspect he will require > 48 hours stay in house Pateint new to my care. Old records reviewed and summarized as above. Care plan including likely need for placement reviewed with ER doctor.
[2018-01-14] MEDS ORDERED: APIXABAN 5 MG TAB PO SCH (21:00)
[2018-01-14] MEDS: ACETAMINOPHEN 500 MG TAB PO SCH ×2 (21:08→21:10)
[2018-01-14] MEDS: GABAPENTIN 300 MG CAP PO SCH (21:09)
[2018-01-14] MEDS: morphINE SR 15 MG TAB PO SCH (21:09)
[2018-01-14] MEDS: oxyCODONE IR 5 MG TAB PO PRN (21:10)
[2018-01-14] MEDS ORDERED: HEPARIN 5,000 UNIT/0.5 ML SYR SC SCH (22:00)
[2018-01-14] MEDS: BUDESONIDE/FORMOTEROL 160/4.5 60 PUFFS/MDI IH SCH (22:03)
[2018-01-14] MEDS: TERBINAFINE 30 GM CRTUBE TP SCH (22:59)
[2018-01-15] MEDS: oxyCODONE IR 5 MG TAB PO PRN ×4 (01:47→22:12)
[2018-01-15 05:40] LABS: PLATELET COUNT 139 10^3/uL (150-400)
[2018-01-15] MEDS: ASPIRIN 81 MG CHEWABLE TAB PO SCH (08:24)
[2018-01-15] MEDS: CYANO/VITAMIN B12 1000 MCG TAB PO SCH (08:24)
[2018-01-15] MEDS: CHOLECALCIFEROL VIT D3 1,000 UNITS TAB PO SCH (08:24)
[2018-01-15] MEDS: METOPROLOL SUCCINATE XR 25 MG TAB PO SCH (08:24)
[2018-01-15] MEDS: GABAPENTIN 300 MG CAP PO SCH ×3 (08:24→20:59)
[2018-01-15] MEDS: ATORVASTATIN CALCIUM 40 MG TAB PO SCH (08:25)
--- NOTE | 2018-01-15 09:24 | HOSPPROG ---
Hospitalist Progress Note Assessment/Plan: Mr Feliz is a 72 y/o male who presented w weakness and inability to care for himself. He has been seen at the ED several times for this in addition has c/o hip and knee pain. Today is my first encounter w the patient, chart reviewed. *generalized weakness, overal FTT -PT and OT to see *left hip pain, left knee pain -imaging shows nothing acute -is on long acting pain medications which he says helps -trial of Voltaren cream *positive blood cx -suspect this is a contaminant from skin joelle *Melena -reviewed his care with Dr Mccain -no indication at this time for procedures -will monitor *CKD stage 4 *skin lesions (POA)/mainly on his r leg -wound care to see -says this is 'jungle rot' from being out in the moisture *PTSD, anxiety *DM 2 -diet controlled *atrial fib -on Eliquis *Cannibis use *Plan: spoke w CM about plan of care. He would benefit from a SNF for strengthening. He lives with two other men in his house and there isn't much support for Dustin. Will await and see how he does w the therapies. Subjective: Dustin said his knee is hurting, he has trouble walking, has jungle rot on his right leg. Objective: Vital Signs Temp Pulse Resp BP Pulse Ox 36.6 C 73 18 149/73 H 91 L 01/15/18 07:29 01/15/18 08:24 01/15/18 07:29 01/15/18 08:24 01/15/18 07:29 Laboratory Results 01/15/18 05:02 01/15/18 05:02 01/14/18 01/15/18 01/16/18 05:59 05:59 05:59 Intake Total 2500 Output Total 450 Balance 2050 PT 17.7 SEC (12.0-15.0) H 01/14/18 13:35 INR 1.44 (0.83-1.16) H 01/14/18 13:35 - Physical Exam Constitutional: chronically ill appearing, unkempt, No not in pain Eyes: PERRL Ears, Nose, Mouth, Throat: hearing normal Cardiovascular: regular rate and rhythym Respiratory: no respiratory distress Skin: other (multiple scabs and healing wounds on his right leg that are scattered, do not have any purulence, red and scabbed.) Musculoskeletal: muscular tenderness (left knee area), generalized weakness Neurologic: AAOx3 Psychiatric: interacting appropriately ICD10 Worksheet Patient Problems: Problems Problem Status Onset Chronic pain Acute GIB (gastrointestinal bleeding) Acute Skin excoriation Acute Acute bronchitis Acute Chest pain Acute Chronic Disease Mgmt/Transitional Care Acute Dehydration Acute Dizziness Acute Dyspnea Acute Elevated d-dimer Acute Exacerbation of asthma Acute Failure to thrive in adult Acute History of coronary artery disease Acute Left hip pain Acute Lightheaded Acute Pneumonia Acute Renal insufficiency Acute
[2018-01-15] MEDS: BUDESONIDE/FORMOTEROL 160/4.5 60 PUFFS/MDI IH SCH ×2 (09:43→21:09)
--- NOTE | 2018-01-15 12:05 | PDMN ---
Medical Necessity Medical necessity: est los>2mn for melena, skin lesions w/erythema, generalized weakness, suspected FTT w/increasing ED/hospital visits and failing s/p 6 wk SNF stay; unsafe at home with inability to care for self ; admit for GI consult , PT/OT, CM involvement; comorbid CKD, chronic pain, opiate dependence, PTSD, anxiety, DM2, CAD; per order and H&P 01/14/18
--- NOTE | 2018-01-15 12:27 | GCON ---
[f rep st] CONSULTATION REFERRING PHYSICIAN: Jean-Pierre Mondragon MD CHIEF COMPLAINT: Weakness, blood in stool. HISTORY OF PRESENT ILLNESS: I have been asked to see this 72-year-old gentleman in consultation by Dr. Mondragon, for weakness and blood in stool. The patient is normally seen at the [facility]. However, he has been in the emergency department several times and has had several hospitalizations, mostly due to weakness. He has had chronic pain of his hip and knee. He did have a hard bowel movement with some reddish blood. He had no associated dizziness or lightheadedness. He does have a remote history of GI bleeding from a diverticular bleed. He does take aspirin on a regular basis. He was hemodynamically stable in the emergency department. The patient was admitted for further management. He does have a history of COPD, chronic atrial fibrillation on anticoagulation, as well as diabetes and hypertension and hyperlipidemia. He has also posttraumatic stress disorder and anxiety. PAST MEDICAL HISTORY: Remarkable for atrial fibrillation, on chronic anticoagulation; coronary disease, status post MA, 2016; chronic kidney disease , stage 4, elevated creatinine of 2 to 2.4; history of MRSA; COPD; posttraumatic stress disorder; diabetes mellitus, diet controlled; BPH; hyperlipidemia; gout; obstructive sleep apnea; prior TIA. SURGICAL HISTORY: Remarkable for cardiac cath with stents, dental extraction, hip injections, detached retina, and cataract surgery. FAMILY HISTORY: Mother had diabetes mellitus type 2, hypertension, coronary artery disease. Son has bipolar disorder. Otherwise, negative as it pertains to chief complaint. SOCIAL HISTORY: He is a smoker. Drinks rare alcohol. Patient lives with 2 roommates. Retired . MEDICATIONS: Albuterol, aspirin, furosemide, Symbicort, vitamin D3, B12, Paxil , Eliquis 5 mg b.i.d., oxycodone, atorvastatin, metoprolol, gabapentin, acetaminophen, Lamisil cream, morphine SR. REVIEW OF SYSTEMS: Negative for 10 systems other than mentioned in the HPI. PHYSICAL EXAM: VITAL SIGNS: 122/71, respiratory rate 16, heart rate of 92, 93 % on room air, 37.1. GENERAL: A very pleasant gentleman, in no acute distress. HEENT: Normocephalic, atraumatic. EOMI. NECK: Supple. No cervical adenopathy. Mucous membranes moist. No thyromegaly. LUNGS: Clear. CARDIAC: Normal S1, S2. ABDOMEN: Soft, benign. No hepatosplenomegaly. Nontender. EXTREMITIES: Without clubbing, cyanosis, edema. NEURO: Nonfocal. SKIN: Warm, dry, intact. PSYCH: Alert and oriented x3 with normal affect. LABORATORY DATA: Hemoglobin of 12.12, hematocrit 35.5. PT of 17.7, INR of 1.44. Serum chemistries: Serum sodium 135, creatinine of 2.0, BUN of 25, AST of 21, ALT of 28, alkaline phosphatase 56. IMPRESSION: A 72-year-old gentleman with multiple medical problems, coronary disease, hypertension, diabetes mellitus, COPD. Patient on chronic anticoagulation for atrial fibrillation. The patient had 1 episode of hard stool with red blood. On digital rectal exam in the ER, he had no evidence of blood. He has had no recurrent evidence of bleeding. He has been hemodynamically stable. RECOMMENDATIONS: 1. Would observe in the hospital. 2. Serial H and H. 3. Would not proceed with endoscopic evaluation at this time. Please call with any changes. Thank you for letting me participate in the care of this patient. /[id number]/MODL MTDD
[2018-01-15] MEDS: TERBINAFINE 30 GM CRTUBE TP SCH ×2 (15:26→20:59)
[2018-01-15] MEDS: DICLOFENAC SODIUM 1% 100 GM GEL TP SCH ×2 (16:18→21:00)
--- NOTE | 2018-01-15 16:29 | ASMTCMCOM ---
CM Note CM Note Notes: Per PT, patient may need SNF upon discharge. He has been to [facility] in [place] in the past, and when I spoke to him, he agreed to a referral there. I sent this, and we will await their response. Date Signed: 01/15/2018 04:28 PM Electronically Signed By:Frieda Goldsmith RN
--- NOTE | 2018-01-15 17:26 | WOCRNPDOC ---
WOCRN Advanced Assessment Note - Skin Integrity Problem, Advanced Assess Right Leg Dressing Type: Open to Air Exudate Amount: Scant Exudate Characteristic(s): Serosanguinous Mona Wound Tissue: Erythema, Scarred Wound Bed Constitution: Scab Skin Integrity Problem Comment: Patient with greater than 30 partial and full thickness wounds on right leg from picking. They are all in different stages of healing and there are a plethora of scarred areas from previous wounds. The only way for the wounds to heal is for the patient to stop scratching and picking at them. Can wrap legs while patient is in hospital but unless he follows up outpatient and can stop picking then the wounds will continue. Will have nurses wrap with roll gauze to keep patient from picking. Wound care will sign off.
[2018-01-15] MEDS: morphINE SR 15 MG TAB PO SCH (20:59)
[2018-01-15] MEDS: ACETAMINOPHEN 500 MG TAB PO SCH (20:59)
[2018-01-16] MEDS: oxyCODONE IR 5 MG TAB PO PRN ×4 (02:08→20:27)
[2018-01-16] MEDS: DICLOFENAC SODIUM 1% 100 GM GEL TP SCH ×4 (06:06→20:30)
[2018-01-16] MEDS: ATORVASTATIN CALCIUM 40 MG TAB PO SCH (08:09)
[2018-01-16] MEDS: CHOLECALCIFEROL VIT D3 1,000 UNITS TAB PO SCH (08:10)
[2018-01-16] MEDS: ASPIRIN 81 MG CHEWABLE TAB PO SCH (08:10)
[2018-01-16] MEDS: CYANO/VITAMIN B12 1000 MCG TAB PO SCH (08:10)
[2018-01-16] MEDS: METOPROLOL SUCCINATE XR 25 MG TAB PO SCH (08:10)
[2018-01-16] MEDS: GABAPENTIN 300 MG CAP PO SCH ×2 (08:10→20:27)
[2018-01-16] MEDS: TERBINAFINE 30 GM CRTUBE TP SCH ×2 (08:11→20:30)
[2018-01-16] MEDS: BUDESONIDE/FORMOTEROL 160/4.5 60 PUFFS/MDI IH SCH ×2 (08:33→21:21)
--- NOTE | 2018-01-16 15:00 | HOSPPROG ---
Hospitalist Progress Note Assessment/Plan: Hospitalist Progress Note Assessment/Plan: Mr Feliz is a 72 y/o male who presented w weakness and inability to care for himself. He has been seen at the ED several times for this in addition has c/o hip and knee pain. Today is my first encounter w the patient, chart reviewed. Reviewed case with SW. *generalized weakness, overall FTT -PT and OT to see -rec SNF *left hip pain, left knee pain -imaging shows nothing acute -is on long acting pain medications which he says helps -trial of Voltaren cream *positive blood cx -suspect this is a contaminant from skin joelle *Melena -no indication at this time for procedures -will monitor *CKD stage 4 -at baseline *skin lesions (POA)/mainly on his r leg -wound care to see -says this is 'jungle rot' from being out in the moisture *PTSD, anxiety *DM 2 -diet controlled *atrial fib -on Eliquis *Cannibis use *Plan: spoke w DYLAN about plan of care. Will DC to SNF in am. He lives with two other men in his house and there isn't much support for Dustin. Subjective: Doesn't feel well. Minimal interaction. Objective: Vital Signs Temp Pulse Resp BP Pulse Ox 37.1 C 60 18 95/60 L 98 01/16/18 14:46 01/16/18 14:46 01/16/18 14:46 01/16/18 14:46 01/16/18 14:46 Laboratory Results 01/15/18 05:02 01/16/18 04:50 01/15/18 01/16/18 01/17/18 05:59 05:59 05:59 Intake Total 2500 1760 Output Total 450 1050 400 Balance 2050 710 -400 PT 17.7 SEC (12.0-15.0) H 01/14/18 13:35 INR 1.44 (0.83-1.16) H 01/14/18 13:35 - Physical Exam Constitutional: not in pain, chronically ill appearing, cachectic Eyes: PERRL, anicteric sclera, EOMI Ears, Nose, Mouth, Throat: moist mucous membranes, hearing normal, ears appear normal Cardiovascular: No JVD, No tachycardia, No edema Respiratory: no respiratory distress, no rales or rhonchi, clear to auscultation Gastrointestinal: normoactive bowel sounds, No tenderness, No ascites Skin: warm, normal color, No mottled Musculoskeletal: normal joint ROM, no joint effusions, generalized weakness Neurologic: AAOx3 Psychiatric: not anxious, not encephalopathic, poor insight, poor judgement ICD10 Worksheet Patient Problems: Problems Problem Status Onset Chest pain Acute Dyspnea Acute History of coronary artery disease Acute Pneumonia Acute Renal insufficiency Acute Chronic Disease Mgmt/Transitional Care Acute Exacerbation of asthma Acute Lightheaded Acute Dizziness Acute Elevated d-dimer Acute Failure to thrive in adult Acute Left hip pain Acute Acute bronchitis Acute Dehydration Acute GIB (gastrointestinal bleeding) Acute Chronic pain Acute Skin excoriation Acute Generalized weakness Acute
[2018-01-16] MEDS: morphINE SR 15 MG TAB PO SCH (20:27)
[2018-01-16] MEDS: ACETAMINOPHEN 500 MG TAB PO SCH (20:29)
[2018-01-17] MEDS: oxyCODONE IR 5 MG TAB PO PRN ×3 (05:19→20:35)
[2018-01-17] MEDS: DICLOFENAC SODIUM 1% 100 GM GEL TP SCH ×4 (05:19→20:36)
[2018-01-17] MEDS: CHOLECALCIFEROL VIT D3 1,000 UNITS TAB PO SCH (08:29)
[2018-01-17] MEDS: GABAPENTIN 300 MG CAP PO SCH ×2 (08:29→20:34)
[2018-01-17] MEDS: METOPROLOL SUCCINATE XR 25 MG TAB PO SCH (08:29)
[2018-01-17] MEDS: ATORVASTATIN CALCIUM 40 MG TAB PO SCH (08:29)
[2018-01-17] MEDS: ASPIRIN 81 MG CHEWABLE TAB PO SCH (08:29)
[2018-01-17] MEDS: CYANO/VITAMIN B12 1000 MCG TAB PO SCH (08:29)
[2018-01-17] MEDS: TERBINAFINE 30 GM CRTUBE TP SCH ×2 (08:30→20:36)
[2018-01-17] MEDS: BUDESONIDE/FORMOTEROL 160/4.5 60 PUFFS/MDI IH SCH ×2 (08:54→21:03)
--- NOTE | 2018-01-17 11:31 | HOSPPROG ---
Hospitalist Progress Note Assessment/Plan: Hospitalist Progress Note Assessment/Plan: Mr Feliz is a 72 y/o male who presented w weakness and inability to care for himself. He has been seen at the ED several times for this in addition has c/o hip and knee pain. Reviewed case with NANO. *generalized weakness, overall FTT -PT and OT to see -rec SNF *left hip pain, left knee pain -imaging shows nothing acute -consider an ortho consult for knee pain -is on long acting pain medications which he says helps -trial of Voltaren cream *positive blood cx -suspect this is a contaminant from skin joelle *Melena -no indication at this time for procedures -will monitor *CKD stage 4 -at baseline *skin lesions (POA)/mainly on his r leg -wound care to see -says this is 'jungle rot' from being out in the moisture *PTSD, anxiety *DM 2 -diet controlled *atrial fib -on Eliquis *Cannibis use *Plan: spoke w DYLAN about plan of care. Will DC to SNF when arranged. He lives with two other men in his house and there isn't much support for Dustin. Subjective: Up in chair. Still having knee pain. Desn't want to go to a SNF. Objective: Vital Signs Temp Pulse Resp BP Pulse Ox 36.9 C 77 16 121/66 H 98 01/17/18 07:46 01/17/18 08:58 01/17/18 08:58 01/17/18 08:29 01/17/18 08:58 Laboratory Results 01/15/18 05:02 01/16/18 04:50 01/16/18 01/17/18 01/18/18 05:59 05:59 05:59 Intake Total 1760 400 Output Total 1050 700 Balance 710 -300 PT 17.7 SEC (12.0-15.0) H 01/14/18 13:35 INR 1.44 (0.83-1.16) H 01/14/18 13:35 - Physical Exam Constitutional: appears nourished, chronically ill appearing, uncomfortable Eyes: PERRL, anicteric sclera, EOMI Ears, Nose, Mouth, Throat: moist mucous membranes, hearing normal, ears appear normal Cardiovascular: No JVD, No tachycardia, No edema Respiratory: no respiratory distress, no rales or rhonchi Gastrointestinal: No tenderness, No ascites Skin: warm, normal color Musculoskeletal: no joint effusions, joint tenderness, pain with ROM, muscular tenderness, generalized weakness Neurologic: AAOx3 Psychiatric: not anxious, not encephalopathic, poor insight, poor judgement, poor memory ICD10 Worksheet Patient Problems: Problems Problem Status Onset Chest pain Acute Dyspnea Acute History of coronary artery disease Acute Pneumonia Acute Renal insufficiency Acute Chronic Disease Mgmt/Transitional Care Acute Exacerbation of asthma Acute Lightheaded Acute Dizziness Acute Elevated d-dimer Acute Failure to thrive in adult Acute Left hip pain Acute Acute bronchitis Acute Dehydration Acute GIB (gastrointestinal bleeding) Acute Chronic pain Acute Skin excoriation Acute Generalized weakness Acute
--- NOTE | 2018-01-17 15:33 | ASMTCMCOM ---
CM Note CM Note Notes: Received call from Mikey, they cannot take pt back at [facility]. They state pt made inappropriate sexual comments to staff and in dining zeng would make inappropriate jokes that made other patients uncomfortable. CM noted that while in hospital their have been none of these incidents but they still are declining pt. CM discussed matter with pt, he was surprised at this, he did not know he had said anything wrong. Or that other people were uncomfortable. CM gave feed back and told pt that more SNF referrals have been sent out. DC Plan: SNF Date Signed: 01/17/2018 03:32 PM Electronically Signed By:Payton Finley RN
[2018-01-17] MEDS: ACETAMINOPHEN 500 MG TAB PO SCH (20:34)
[2018-01-17] MEDS: APIXABAN 5 MG TAB PO SCH (20:35)
[2018-01-17] MEDS: morphINE SR 15 MG TAB PO SCH (20:35)
[2018-01-18] MEDS: oxyCODONE IR 5 MG TAB PO PRN ×4 (04:19→20:47)
[2018-01-18] MEDS: DICLOFENAC SODIUM 1% 100 GM GEL TP SCH ×4 (04:20→20:48)
[2018-01-18] MEDS: CHOLECALCIFEROL VIT D3 1,000 UNITS TAB PO SCH (10:14)
[2018-01-18] MEDS: APIXABAN 5 MG TAB PO SCH ×2 (10:14→20:46)
[2018-01-18] MEDS: METOPROLOL SUCCINATE XR 25 MG TAB PO SCH (10:15)
[2018-01-18] MEDS: ASPIRIN 81 MG CHEWABLE TAB PO SCH (10:15)
[2018-01-18] MEDS: CYANO/VITAMIN B12 1000 MCG TAB PO SCH (10:16)
[2018-01-18] MEDS: GABAPENTIN 300 MG CAP PO SCH ×2 (10:16→20:46)
[2018-01-18] MEDS: ATORVASTATIN CALCIUM 40 MG TAB PO SCH (10:16)
[2018-01-18] MEDS: BUDESONIDE/FORMOTEROL 160/4.5 60 PUFFS/MDI IH SCH ×2 (11:23→20:58)
[2018-01-18] MEDS: TERBINAFINE 30 GM CRTUBE TP SCH ×2 (11:24→20:48)
[2018-01-18] MEDS ORDERED: POLYETHYLENE GLYCOL 3350 17 GM PKT PO PRN (14:49)
[2018-01-18] MEDS ORDERED: MAGNESIUM HYDROXIDE 30 ML UDCUP PO PRN (14:49)
[2018-01-18] MEDS ORDERED: BISACODYL 10 MG SUPP PR PRN (14:49)
[2018-01-18] MEDS ORDERED: LACTULOSE 20 GM/30 ML UDCUP PO PRN (14:49)
--- NOTE | 2018-01-18 16:13 | HOSPPROG ---
Hospitalist Progress Note Assessment/Plan: # weakness, FTT - multifactorial - cont work with PT/OT - currently recommending SNF but he declines this; will follow here another day to see if he improves enough to go home # L hip/knee pain - L knee effusion - he has an outpatient f/u with Dr Beach - cont morphine # +BCx - likely contaminant # melena - does not need colonoscopy # CKD stage 4, baseline SCr 2.0 - stable # LE skin lesions likely d/t patient picking - wrap legs to prevent picking # PTSD, anxiety - paxil # DM2 - no meds # a-fib - on eliquis, metop # CAD - asa/statin/BB # HLD - lipitor # COPD without exacerbation - symbicort Subjective: very resistant to going to SNF; discussed with case managment Objective: Vital Signs Temp Pulse Resp BP Pulse Ox 36.6 C 69 16 115/58 L 98 01/18/18 15:17 01/18/18 15:17 01/18/18 15:17 01/18/18 15:17 01/18/18 15:17 Laboratory Results 01/15/18 05:02 01/16/18 04:50 01/17/18 01/18/18 01/19/18 05:59 05:59 05:59 Intake Total 400 0 Output Total 700 300 Balance -300 -300 PT 17.7 SEC (12.0-15.0) H 01/14/18 13:35 INR 1.44 (0.83-1.16) H 01/14/18 13:35 - Time Spent With Patient Time Spent with Patient: greater than 35 minutes Time Spent with Patient: Greater than 35 minutes spent on this patients care, greater than 50% of time spent counseling, educating, and coordinating care regarding the above mentioned plan. - Physical Exam Constitutional: no apparent distress, appears nourished Eyes: anicteric sclera Ears, Nose, Mouth, Throat: hearing normal Respiratory: no respiratory distress ICD10 Worksheet Patient Problems: Problems Problem Status Onset Chest pain Acute Dyspnea Acute History of coronary artery disease Acute Pneumonia Acute Renal insufficiency Acute Chronic Disease Mgmt/Transitional Care Acute Exacerbation of asthma Acute Lightheaded Acute Dizziness Acute Elevated d-dimer Acute Failure to thrive in adult Acute Left hip pain Acute Acute bronchitis Acute Dehydration Acute GIB (gastrointestinal bleeding) Acute Chronic pain Acute Skin excoriation Acute Generalized weakness Acute
--- NOTE | 2018-01-18 16:25 | ASMTCMCOM ---
CM Note CM Note Notes: Spoke with Donell at [facility], CM relayed the reason that he was denied back at [facility], d/t sexually inappropriate conversations with staff and sexually inappropriate jokes with others at communal meals that made them uncomfortable. Pasrr level II received back from Patito Lopez and faxed to . Discussed w/MD, pt otherwise medicallly stable and ready for dc. DC Plan: SNF Date Signed: 01/18/2018 10:35 AM Electronically Signed By:Payton Finley RN
--- NOTE | 2018-01-18 17:24 | ASMTCMCOM ---
DYLAN Note CM Note Notes: Met with pt again regarding SNF, he refuses to go, stating "they can keep me there for a year if they want to." DYLAN advised pt that according to , he could sign a waiver to leave and Medicare would still cover stay but if he left before the doctor could put in an order then no, it would not be covered. Pt still refuses, wants to go home. DYLAN spoke w/Lual at [facility] [phone], they provide 10hrs of hc per week, she states if CM can call pt's PCP at the [facility] to get more hours. PCP # [phone] ext. [phone], pt did not have name. DYLAN discussed with , that it would be best if pt discharged on Saturday to be able to put caregivers in place, please call Lula as soon as possible regarding dc, she will try and get someone to be available on Saturday, otherwises they are not scheduled to be there until Saturday. DC Plan: Home w/[facility] Date Signed: 01/18/2018 05:24 PM Electronically Signed By:Payton Finley RN
[2018-01-18] MEDS: ACETAMINOPHEN 500 MG TAB PO SCH (20:45)
[2018-01-18] MEDS: morphINE SR 15 MG TAB PO SCH (20:46)
[2018-01-18] MEDS: SENNOSIDES/DOCUSATE SODIUM TAB PO SCH (20:46)
[2018-01-19] MEDS: oxyCODONE IR 5 MG TAB PO PRN ×3 (04:55→14:06)
[2018-01-19] MEDS: DICLOFENAC SODIUM 1% 100 GM GEL TP SCH ×4 (04:56→21:58)
[2018-01-19] MEDS: TERBINAFINE 30 GM CRTUBE TP SCH ×4 (09:00→21:57)
[2018-01-19] MEDS: BUDESONIDE/FORMOTEROL 160/4.5 60 PUFFS/MDI IH SCH ×2 (09:46→21:56)
[2018-01-19] MEDS: SENNOSIDES/DOCUSATE SODIUM TAB PO SCH ×2 (09:47→21:54)
[2018-01-19] MEDS: METOPROLOL SUCCINATE XR 25 MG TAB PO SCH (09:47)
[2018-01-19] MEDS: GABAPENTIN 300 MG CAP PO SCH ×2 (09:49→21:53)
[2018-01-19] MEDS: APIXABAN 5 MG TAB PO SCH ×2 (09:49→21:53)
[2018-01-19] MEDS: ASPIRIN 81 MG CHEWABLE TAB PO SCH (09:49)
[2018-01-19] MEDS: CHOLECALCIFEROL VIT D3 1,000 UNITS TAB PO SCH (09:49)
[2018-01-19] MEDS: ATORVASTATIN CALCIUM 40 MG TAB PO SCH (09:49)
[2018-01-19] MEDS: CYANO/VITAMIN B12 1000 MCG TAB PO SCH (09:49)
--- NOTE | 2018-01-19 10:19 | HOSPPROG ---
Hospitalist Progress Note Assessment/Plan: 72M presents with weakness, FTT. Was not able to care for self at home. Multiple admissions and ED visits this year, had been sent to SNF. Sent home after last admit. Overall is improving with PT/OT here. # weakness, FTT - multifactorial - cont work with PT/OT - currently recommending SNF but he declines this; will follow here another day to see if he improves enough to go home # L hip/knee pain - L knee effusion - [facility]; he reports that he had significant improvement when he did PT previously - cont morphine - does not have insurance to cover [facility] # +BCx - likely contaminant # melena - does not need colonoscopy (was reviewed with GI previously) # CKD stage 4, baseline SCr 2.0 - stable # LE skin lesions likely d/t patient picking - wrap legs to prevent picking # PTSD, anxiety - paxil # DM2 - no meds # a-fib - on eliquis, metop # CAD - asa/statin/BB # HLD - lipitor # COPD without exacerbation - symbicort # dispo - should be ready for dc tomorrow; deciding on SNF vs home with HC; CM involved; if going home, CM will [facility] to [facility] at [facility] Subjective: feels stronger today; considering SNF vs home Objective: Vital Signs Temp Pulse Resp BP Pulse Ox 36.5 C 62 18 115/73 93 01/19/18 07:53 01/19/18 09:47 01/19/18 07:53 01/19/18 09:47 01/19/18 07:53 Laboratory Results 01/15/18 05:02 01/16/18 04:50 01/18/18 01/19/18 01/20/18 05:59 05:59 05:59 Intake Total 0 500 Output Total 300 Balance -300 500 PT 17.7 SEC (12.0-15.0) H 01/14/18 13:35 INR 1.44 (0.83-1.16) H 01/14/18 13:35 - Physical Exam Constitutional: no apparent distress, appears nourished Cardiovascular: regular rate and rhythym, no murmur, rub, or gallop Respiratory: no respiratory distress, no rales or rhonchi, clear to auscultation Gastrointestinal: normoactive bowel sounds, soft, non-tender abdomen, no palpable masses ICD10 Worksheet Patient Problems: Problems Problem Status Onset Chest pain Acute Dyspnea Acute History of coronary artery disease Acute Pneumonia Acute Renal insufficiency Acute Chronic Disease Mgmt/Transitional Care Acute Exacerbation of asthma Acute Lightheaded Acute Dizziness Acute Elevated d-dimer Acute Failure to thrive in adult Acute Left hip pain Acute Acute bronchitis Acute Dehydration Acute GIB (gastrointestinal bleeding) Acute Chronic pain Acute Skin excoriation Acute Generalized weakness Acute
[2018-01-19] MEDS: ACETAMINOPHEN 500 MG TAB PO SCH (21:53)
[2018-01-19] MEDS: morphINE SR 15 MG TAB PO SCH (21:53)
[2018-01-19 23:38] VITALS: BP 119/64
[2018-01-20] MEDS: oxyCODONE IR 5 MG TAB PO PRN (03:13)
[2018-01-20] MEDS: DICLOFENAC SODIUM 1% 100 GM GEL TP SCH ×2 (05:32→08:11)
[2018-01-20] MEDS: ATORVASTATIN CALCIUM 40 MG TAB PO SCH (08:09)
[2018-01-20] MEDS: ASPIRIN 81 MG CHEWABLE TAB PO SCH (08:09)
[2018-01-20] MEDS: METOPROLOL SUCCINATE XR 25 MG TAB PO SCH (08:10)
[2018-01-20] MEDS: CYANO/VITAMIN B12 1000 MCG TAB PO SCH (08:10)
[2018-01-20] MEDS: GABAPENTIN 300 MG CAP PO SCH (08:10)
[2018-01-20] MEDS: SENNOSIDES/DOCUSATE SODIUM TAB PO SCH (08:10)
[2018-01-20] MEDS: APIXABAN 5 MG TAB PO SCH (08:10)
[2018-01-20] MEDS: CHOLECALCIFEROL VIT D3 1,000 UNITS TAB PO SCH (08:10)
[2018-01-20] MEDS: TERBINAFINE 30 GM CRTUBE TP SCH (08:11)
[2018-01-20] MEDS: BUDESONIDE/FORMOTEROL 160/4.5 60 PUFFS/MDI IH SCH (09:42)
--- NOTE | 2018-01-20 10:01 | HOSPPROG ---
Hospitalist Progress Note Assessment/Plan: Mr Feliz is a 72 y/o male who presented w weakness and inability to care for himself. He has been seen at the ED several times for this in addition has c/o hip and knee pain. *generalized weakness, overall FTT -PT and OT recommending SNF *left hip pain, left knee pain (effusion) -imaging shows nothing acute -is on long acting pain medications which he says helps -trial of Voltaren cream *positive blood cx -suspect this is a contaminant from skin joelle *Melena -reviewed his care with Dr Mccain -no indication at this time for procedures -will monitor *CKD stage 4 *skin lesions (POA)/mainly on his r leg -from pciking *PTSD, anxiety *DM 2 -diet controlled *atrial fib -on Eliquis + metoprolol *cad -ASA,statin, b jason *Cannibis use *Plan: dc to SNF for strengthening, he is agreeable to this Subjective: Dustin has no complaints. Objective: Vital Signs Temp Pulse Resp BP Pulse Ox 36.5 C 58 L 23 H 119/64 91 L 01/20/18 08:00 01/20/18 08:10 01/20/18 08:00 01/20/18 08:10 01/20/18 08:00 Laboratory Results 01/15/18 05:02 01/16/18 04:50 01/19/18 01/20/18 01/21/18 05:59 05:59 05:59 Intake Total 500 0 Output Total 850 Balance -350 0 PT 17.7 SEC (12.0-15.0) H 01/14/18 13:35 INR 1.44 (0.83-1.16) H 01/14/18 13:35 - Physical Exam Constitutional: no apparent distress, appears nourished, not in pain Eyes: PERRL Ears, Nose, Mouth, Throat: hearing normal Cardiovascular: regular rate and rhythym Respiratory: no respiratory distress Gastrointestinal: normoactive bowel sounds Skin: warm Neurologic: AAOx3 Psychiatric: interacting appropriately ICD10 Worksheet Patient Problems: Problems Problem Status Onset Chronic pain Acute Failure to thrive in adult Acute GIB (gastrointestinal bleeding) Acute Generalized weakness Acute Skin excoriation Acute Acute bronchitis Acute Chest pain Acute Chronic Disease Mgmt/Transitional Care Acute Dehydration Acute Dizziness Acute Dyspnea Acute Elevated d-dimer Acute Exacerbation of asthma Acute History of coronary artery disease Acute Left hip pain Acute Lightheaded Acute Pneumonia Acute Renal insufficiency Acute
--- NOTE | 2018-01-20 10:52 | PDIAF ---
- Diagnosis Diagnosis: FTT, weakness,right leg wounds Code Status: Full Code - Medication Management Discharge Medications: Medications to Continue on Transfer Albuterol [Proventil Inhaler HFA (*)] 2 puffs IH Q4 PRN 03/29/16 [Last Taken 04/26] Aspirin [Aspirin 81mg (*)] 81 mg PO DAILY 03/29/16 [Last Taken 01/14/18] Budesonide/Formoterol 160/4.5 [Symbicort 160-4.5 Mcg Inh (*)] 2 puffs IH BID [Last Taken 01/14/18] Carboxymethylcellulose 1% [Refresh Celluvisc (*)] 1 drops EACHEYE QID PRN [Last Taken Unknown] Cholecalciferol Vit D3 [Vitamin D3 (*)] 1,000 units PO DAILY 03/29/16 [Last Taken 12/08/17] Cyanocobalamin [Vitamin B12 (*)] 1,000 mcg PO DAILY 03/29/16 [Last Taken ] PARoxetine HCL [Paxil 30mg (*)] 30 mg PO DAILY 03/29/16 [Last Taken 01/07/18] Apixaban [Eliquis] 5 mg PO BID 04/13/17 [Last Taken 01/14/18] oxyCODONE/APAP 5/325 [Percocet 5/325 (*)] 1 tab PO Q4 PRN 05/28/17 [Last Taken 01/07/18] Atorvastatin Calcium [Lipitor 80 mg] 80 mg PO DAILY 09/21/17 [Last Taken ] Metoprolol Succinate Xr [Toprol Xl 25 mg (*)] 25 mg PO DAILY 09/21/17 [Last Taken 01/14/18] Gabapentin [Neurontin 300 MG (*)] 300 mg PO TID 10/19/17 [Last Taken 12/08/17 09 :00] Acetaminophen [Tylenol ES 500 mg (*)] 1,000 mg PO HS 12/08/17 [Last Taken ] Terbinafine HCl [LamISIL AT Cream (*)] 1 angelika TP BID 12/08/17 [Last Taken Unknown ] morphINE SR [Ms Contin/Oramorph 15 mg (*)] 15 mg PO HS 12/08/17 [Last Taken 04/26] Acetaminophen [Tylenol 325mg (*)] 650 mg PO Q4HRS PRN tab 01/20/18 [Last Taken Unknown] Diclofenac Sodium 1% [Voltaren Gel (*)] 4 gm TP QID gel 01/20/18 [Last Taken Unknown] Polyethylene Glycol 3350 [Miralax 17 gm (*)] 17 gm PO DAILY PRN pkt 01/20/18 [ Last Taken Unknown] Sennosides/Docusate Sodium [Senokot-S] 1 - 2 tab PO BID tab 01/20/18 [Last Taken Unknown] Discharge Medications: Refer to the Discharge Home Medication list for PRN reason. PICC Care - Routine: N/A - Orders Services needed: Physical Therapy, Occupational Therapy Isolation Type: None Diet Recommendation: no restrictions on diet Diet Texture: Regular Texture Diet Wound Care Instructions: keep right leg covered, patient picks at his wounds - Follow Up Care Current Providers and Referrals: ANDRY RAYMOND [Other] - As per Instructions
--- NOTE | 2018-01-20 12:18 | GDS ---
[f rep st] DISCHARGE SUMMARY DISCHARGE DIAGNOSES: 1. Generalized weakness, overall failure to thrive. 2. Left hip pain, left knee with an effusion. 3. Positive blood culture. 4. Melena. 5. Chronic kidney disease, stage IV. 6. Skin lesions present on admission. 7. Posttraumatic stress disorder anxiety. 8. Diabetes type 2. 9. Atrial fibrillation. 10. Coronary artery disease. 11. Cannabis use. HISTORY OF PRESENT ILLNESS: Briefly, the patient is a 72-year-old male who presented to the emergenc y room with weakness and inability to care for himself. He had been in the emergency room several ti mes for this. He also was complaining of hip and knee pain. Imaging was performed, which showed not zachery acute. HOSPITAL COURSE: 1. Generalized weakness. Overall failure to thrive. He is willing to go to a halfway facil it to get rehab and get stronger. This was recommended by Physical Therapy and Occupational Therapy . 2. Left hip pain, left knee pain with a noted effusion. His imaging showed nothing acute. He is on long-acting MS Contin at night which helps with this pain. He has done well with the Voltaren cream . 3. False-positive blood culture contaminant for skin joelle. 4. Melena. I reviewed his care with Gastroenterology. No indication at this time for any type of p rocedure. 5. Chronic kidney disease. This is stable. He is at stage IV. 6. Skin lesions, mainly on his right leg. This is from picking at his leg. 7. PTSD, anxiety, stable. 8. Diabetes type 2, diet controlled. 9. Atrial fibrillation on Eliquis and metoprolol. 10. Coronary artery disease, on aspirin, statin, and beta jason. 11. Cannabis use done in the outpatient setting. DISCHARGE CONDITION: Stable. VITAL SIGNS: Blood pressure is 119/64, respiratory rate is 20, pulse is 58, temperature is 36.5 Cels ius, O2 sats on room air 91%. MEDICATIONS AT DISCHARGE: Please see the EMR. There have been no significant changes to his home re [facility]. DISCHARGE INSTRUCTIONS: 1. To continue physical therapy and occupational therapy with the goal of getting him back home. 2. Recommended that he receive home care once he returns to give him continued support. Greater than 30 minutes discharging and coordinating the patient's care. /[id number]/MODL
--- NOTE | 2018-01-22 13:42 | ASDISCHSUM ---
Discharge Information Plan Status:SNF Medically Cleared to Leave:01/20/2018 Discharge Date:01/20/2018 03:24 PM CM D/C Disposition: ADT D/C Disposition:[facility] Facility Projected Discharge Date:01/20/2018 11:00 AM Transportation at D/C: Discharge Delay Reason: Follow-Up Date:01/20/2018 11:00 AM Discharge Slot: Final Diagnosis: Placement Information Referral Type:*Long-Term/SNF Referral ID:[id number] Provider Name:[facility] Address 1:[address] Address 2: City:[place] Selection Factors: State:[place] Patient Contact Information Contact Name:SINA Relationship:Daughter Address: Work Phone: City:[place] Alternate Phone: [facility]/Zip Code:[place] Email: Financial Information Financial Class:Medicare Primary Plan Desc:MEDICARE INPATIENT Primary Plan Number:[id number] Secondary Plan Desc: Secondary Plan Number: Assessment Information [facility] CM Progress Note CM Note CM Note Notes: Pt presented to the ED through triage with his caregiver, Amrita, through [facility] ([phone], non-skilled HC) for SOB, rectal bleeding, neck pain, and left hip & knee pain related to recent falls at home. Pt lives alone in a private home and has had several falls in the past few weeks. [facility] not been [facility]their services for the last year. Pt recently admitted to [facility] on 12/08/17 for PNA, COPD exacerbation, and was discharged 12/13/17 w/HC [facility]. Pt was also recently seen in the ED [facility]. Pt was supposed to have an ortho consult on 10/22/17 and discuss hip surgery options but pt states due to his various skin scabs and sores (pt has history of MRSA), the ortho MD won't do surgery unless the sores heal. Patient states he has a wound care appointment through the [facility] later this week to have the sores reassessed and treated. Pt states he was discharged [facility] in December to [facility] in [place] ([phone]) and then d/c'd from [facility] home w/[facility] ([phone]) sometime in the last couple of weeks. Spoke w/ Josephine, Tobacco Sweeper at [facility] and she says pt has been receiving PT at home but they were going to add on an RN and OT today. Josephine also says they've been providing HC services to the patient since 2016. Pt gave verbal permission to contact his daughter, Emily ([phone]) who lives in [place]. This CM spoke Oni and updated her of pt's status and admission. Emily says she would like to continue to be updated but was unable to write down the hospital's phone number at the time. Please contact Emily with any updates. [facility] but per chart review, Emily has been considered proxy in the past. Pt to be evaluated for GI bleed. Exact DC needs unknown, anticipate pt might need SNF placement. CM to follow. Date Signed: 01/14/2018 05:25 PM Electronically Signed By:Patito Deleon RN [facility] Acuity / Level of Answers: Yes Care: Did the patient have an inpatient admission? Comorbidities - select Answers: Chronic pulmonary disease all that apply History of falls Moderate or severe liver or renal disease Opioid dependence / Chronic pain Other Notes: OA # of Emergency department Answers: 5-8 visits in the last 6 months Score: 21 Date Signed: 01/14/2018 05:27 PM Electronically Signed By:Patito Deleon RN [facility] Progress Note CM Note CM Note Notes: Per PT, patient may need SNF upon discharge. He has been to [facility] in [place] in the past, and when I spoke to him, he agreed to a referral there. I sent this, and we will await their response. Date Signed: 01/15/2018 04:28 PM Electronically Signed By:Frieda Goldsmith RN [facility] DYLAN Progress Note CM Note DYLAN Note Notes: Received call from Mikey, they cannot take pt back at [facility]. They state pt made inappropriate sexual comments to staff and in dining zeng would make inappropriate jokes that made other patients uncomfortable. DYLAN noted that while in hospital their have been none of these incidents but they still are declining pt. DYLAN discussed matter with pt, he was surprised at this, he did not know he had said anything wrong. Or that other people were uncomfortable. CM gave feed back and told pt that more SNF referrals have been sent out. DC Plan: SNF Date Signed: 01/17/2018 03:32 PM Electronically Signed By:Payton Finley RN [facility] DYLAN Progress Note CM Note CM Note Notes: Spoke with Donell at [facility], DYLAN relayed the reason that he was denied back at [facility], d/t sexually inappropriate conversations with staff and sexually inappropriate jokes with others at communal meals that made them uncomfortable. Pasrr level II received back from Patito Lopez and faxed to . Discussed w/MD, pt otherwise medicallly stable and ready for dc. DC Plan: SNF Date Signed: 01/18/2018 10:35 AM Electronically Signed By:Payton Finley RN [facility] DYLAN Progress Note CM Note CM Note Notes: Met with pt again regarding SNF, he refuses to go, stating "they can keep me there for a year if they want to." DYLAN advised pt that according to , he could sign a waiver to leave and Medicare would still cover stay but if he left before the doctor could put in an order then no, it would not be covered. Pt still refuses, wants to go home. DYLAN spoke w/Lula at [facility] [phone], they provide 10hrs of hc per week, she states if CM can call pt's PCP at the [facility] to get more hours. PCP # [phone] ext. [phone], pt did not have name. DYLAN discussed with , that it would be best if pt discharged on Saturday to be able to put caregivers in place, please call Lula as soon as possible regarding dc, she will try and get someone to be available on Saturday, otherwises they are not scheduled to be there until Saturday. DC Plan: Home w/[facility] Date Signed: 01/18/2018 05:24 PM Electronically Signed By:Payton Finley RN Case Management Discharge Plan Note Case Management Discharge Discharge Order Complete? Answers: Yes Patient to Obtain Answers: Other Notes: [facility] Medications Transportation Arranged Answers: Other Notes: [facility] Transport will Pick (Date 01/20/2018 02:45 PM & Time) EMTALA Complete Answers: No Case Management Transport Answers: Yes Form Complete Faxed Final Orders Answers: Yes Agency/Facility Transfer Answers: Yes Report Printed & Faxed to Receiving Agency Family Notified Answers: No Discharge Comments Notes: CM spoke w/ ISADORA Manzo and Elizabeth Brooke NP regarding d/c POC. Pt is being discharged today. CM met w/ pt for dispo planning. Pt is agreeable to going to [facility]. DC orders sent to [facility]. CM provided ISADORA Manzo w/ phone number to give report. CM available for changes. Plan: [facility] Date Signed: 01/20/2018 11:00 AM Electronically Signed By:TASHA Deshpande Intervention Information Intervention Type:Locating Emergency Contact Date of Service:01/14/2018 05:28 PM Patient Type:Observation Staff Member:ISADORA Deleon [place] Hours:0.25 Discipline:Sales Expert Severity: Comment: Intervention Type:Post Acute Communication Date of Service:01/14/2018 05:28 PM Patient Type:Observation Staff Member:ISADORA Deleon [place] Hours:0.5 Discipline:Sales Expert Severity: Comment: Intervention Type:*IM-Signed Date of Service:01/20/2018 11:43 AM Patient Type:Inpatient Staff Member:Tammi Shah Hours: Discipline: Severity: Comment:
== END 2018-01-20 15:24 | DRG 641 ==
LOC: OBSVTOIN 15:31 → F3E 16:49
PROVIDERS: ADMIT Internal Medicine; ATTEND Internal Medicine
DX: R62.7 Adult failure to thrive (principal); K92.1 Melena; F11.20 Opioid dependence, uncomplicated; I12.9 Hypertensive chronic kidney disease with stage 1 through stage 4 chronic kidney disease, or unspecified chronic kidney disease; N18.4 Chronic kidney disease, stage 4 (severe); R53.1 Weakness; M25.462 Effusion, left knee; M25.552 Pain in left hip; M25.562 Pain in left knee; F43.10 Post-traumatic stress disorder, unspecified; E11.9 Type 2 diabetes mellitus without complications; I48.91 Unspecified atrial fibrillation; I25.10 Atherosclerotic heart disease of native coronary artery without angina pectoris; F12.90 Cannabis use, unspecified, uncomplicated; J44.9 Chronic obstructive pulmonary disease, unspecified; E78.5 Hyperlipidemia, unspecified; G89.29 Other chronic pain; Z79.01 Long term (current) use of anticoagulants
CPT/HCPCS: 96374; 97116-GP; 97162-GP; 97166-GO; 97530-GO; 97530-GP; 97535-GO; G8978-GP-CM; G8979-GP-CJ; G8987-GO-CL; G8988-GO-CJ

== ENCOUNTER 2018-08-25 02:49 | Inpatient (IN) | payer OTHER ==
--- NOTE | 2018-08-25 02:52 | EDPHY ---
H & P Time Seen by Provider: 08/25/18 02:52 HPI/ROS: HPI CHIEF COMPLAINT: Multiple complaints. Including dry mouth, "I feel dehydrated ", chest pain, lightheaded HISTORY OF PRESENT ILLNESS: 73-year-old male, history of multiple medical problems including AFib, coronary artery disease with stent, chronic kidney disease, obesity, presents emergency room by private vehicle he drove himself to the emergency room, complaining of not feeling well. Patient reports that he has had very dry mouth recently, feeling dehydrated, lightheadedness, additionally reports that he has some intermittent left-sided chest discomfort. Describes it as sharp stabbing. Very brief episodes. Feels globally weak. No fever. He has not had any vomiting or diarrhea. No abdominal pain. No shortness of breath. Patient does not have current chest pain at this time. Past Medical History: Medical history significant failure to thrive, chronic kidney disease, melena, PTSD, coronary artery disease, AFib, diabetes Past Surgical History: Denies any recent surgery Social History: Smokes marijuana regularly, denies illicit drugs or alcohol. Family History: Noncontributory ROS REVIEW OF SYSTEMS: 10 Systems were reviewed and negative with the exception of the elements mentioned in the history of present illness. Exam Constitutional nontoxic triage nursing summary reviewed, vital signs reviewed, awake/alert. Vital signs at triage reviewed. Eyes normal conjunctivae and sclera, EOMI, PERRLA. HENT normal inspection, atraumatic, moist mucus membranes, no epistaxis, neck supple/ no meningismus, no raccoon eyes. Respiratory clear to auscultation bilaterally, normal breath sounds, no respiratory distress, no wheezing. Cardiovascular rate normal, regular rhythm, no murmur, no edema, distal pulses normal. Gastrointestinal soft, non-tender, no rebound, no guarding, normal bowel sounds, no distension, no pulsatile mass. Genitourinary no CVA tenderness. Musculoskeletal no midline vertebral tenderness, full range of motion, no calf swelling, no tenderness of extremities, no meningismus, good pulses, neurovascularly intact. Skin pink, warm, & dry, no rash, skin atraumatic. Neurologic awake, alert and oriented x 3, AAOx3, moves all 4 extremities equally, motor intact, sensory intact, CN II-XII intact, normal cerebellar, normal vision, normal speech. Psychiatric normal mood/affect. Heme/Lymph/Immune no lymphadenopathy. Differential Diagnosis: Includes but is not limited to in a particular order: Dehydration electrolyte disturbance, failure to thrive, worsening kidney disease , coronary artery disease, ACS, pneumonia, infection, bacteremia Medical Decision Making: Plan for this patient IV establishment IV fluid bolus , chest x-ray, EKG, troponin, basic electrolytes. Re-evaluation: EKG interpretation by me on record in [employer] system. Time of EKG 3:14 a.m. , sinus rhythm rate of 68, no signs of acute ischemia. When I compare this to his old EKG dated January 14, 2018 is similar morphology. No acute change visualized. Cardiovascular risk factors include his age, hypertension, coronary artery disease with stents, obesity X-ray of the chest reviewed one-view cardiomegaly. Otherwise unremarkable. Patient has a multitude of complaints which include generalized weakness, feeling dehydrated, dry mouth, lightheadedness, and very infrequent chest pain. Patient's EKG is unchanged nonischemic from his previous EKG chest x-ray reviewed. No evidence of failure. Labs reviewed negative troponin. Creatinine at baseline. Plan for patient given he states that he is weak and does not feel well will admit today in the hospital service for generalized weakness failure to thrive, chest pain Spoke with Dr. Earl agrees to admit Source: Patient, Family - Personal History Tetanus Vaccine Date: < 10 years - Medical/Surgical History Hx Asthma: Yes Hx Chronic Respiratory Disease: Yes Hx Diabetes: Yes Hx Cardiac Disease: Yes Hx Renal Disease: No Hx Cirrhosis: No Hx Alcoholism: No Hx HIV/AIDS: No Hx Splenectomy or Spleen Trauma: No Other PMH: Cervical disc disease, DM, empysema, gout, htn, hyperlipidemia, ptsd , BPH, TIA CVA, OA, STENTS,CAD, BELLS PALSY. - Social History Smoking Status: Former smoker Constitutional: Initial Vital Signs Temperature (C) 36.2 C 08/25/18 02:52 Heart Rate 72 08/25/18 02:52 Respiratory Rate 18 08/25/18 02:52 Blood Pressure 138/91 H 08/25/18 02:52 O2 Sat (%) 98 08/25/18 02:52 O2 Delivery Mode Room Air Allergies/Adverse Reactions: glipizide Allergy (Intermediate, Verified 08/25/18 02:55) Other-Enter Comments lisinopril Allergy (Intermediate, Verified 08/25/18 02:55) Other-Enter Comments Home Medications: Medication Instructions Recorded Albuterol [Proventil Inhaler HFA 2 puffs IH Q4 PRN 03/29/16 (*)] Aspirin [Aspirin 81mg (*)] 81 mg PO DAILY 03/29/16 Budesonide/Formoterol 160/4.5 2 puffs IH BID 03/29/16 [Symbicort 160-4.5 Mcg Inh (*)] Carboxymethylcellulose 1% [Refresh 1 drops EACHEYE QID PRN 03/29/16 Celluvisc (*)] Cholecalciferol Vit D3 [Vitamin D3 1,000 units PO DAILY 03/29/16 (*)] Cyanocobalamin [Vitamin B12 (*)] 1,000 mcg PO DAILY 03/29/16 PARoxetine HCL [Paxil 30mg (*)] 30 mg PO DAILY 03/29/16 Apixaban [Eliquis] 5 mg PO BID 04/13/17 Atorvastatin Calcium [Lipitor 80 80 mg PO DAILY 09/21/17 mg] Metoprolol Succinate Xr [Toprol Xl 25 mg PO DAILY 09/21/17 25 mg (*)] Gabapentin [Neurontin 300 MG (*)] 300 mg PO TID 10/19/17 Acetaminophen [Tylenol ES 500 mg 1,000 mg PO HS 12/08/17 (*)] Terbinafine HCl [LamISIL AT Cream 1 angelika TP BID 12/08/17 (*)] Acetaminophen [Tylenol 325mg (*)] 650 mg PO Q4HRS PRN tab 01/20/18 Diclofenac Sodium 1% [Voltaren Gel 1 angelika TP QID 08/25/18 (*)] Sennosides/Docusate Sodium 1 tab PO DAILY 08/25/18 [Senokot-S] Tamsulosin HCl [Flomax 0.4 MG (*)] 0.4 mg PO BID 08/25/18 Medical Decision Making - Data Points Laboratory Results: Laboratory Results 08/25/18 03:12 08/25/18 03:12 Medications Given: Acetaminophen (Tylenol) 650 mg PO Q4HRS PRN PRN Reason: Pain, Mild/Fever, Can Take PO Stop: 02/21/19 06:11 Last Admin: 08/25/18 20:19 Dose: 650 mg Apixaban (Eliquis) 5 mg PO BID INO Stop: 02/21/19 08:59 Last Admin: 08/25/18 20:08 Dose: 5 mg Aspirin (Aspirin) 81 mg PO DAILY INO Stop: 02/21/19 08:59 Last Admin: 08/25/18 08:41 Dose: 81 mg Atorvastatin Calcium (Lipitor) 80 mg PO DAILY INO Stop: 02/21/19 08:59 Last Admin: 08/25/18 08:41 Dose: 80 mg Budesonide/Formoterol Fumarate (Symbicort 160-4.5 Mcg Inhaler) 2 puffs IH BID INO Stop: 02/21/19 08:59 Last Admin: 08/25/18 20:01 Dose: 2 puffs Cholecalciferol (Vitamin D) 1,000 units PO DAILY INO Stop: 02/21/19 08:59 Last Admin: 08/25/18 08:41 Dose: 1,000 units Diclofenac Sodium (Diclofenac Sodium 1% Gel) 1 gm TP QID INO Stop: 02/21/19 11:59 Last Admin: 08/25/18 20:13 Dose: 1 gm Gabapentin (Neurontin) 300 mg PO TID INO Stop: 02/21/19 08:59 Last Admin: 08/25/18 22:15 Dose: 300 mg Sodium Chloride (Ns) 1,000 mls @ 50 mls/hr IV CONT INO Stop: 02/21/19 06:14 Last Admin: 08/25/18 12:06 Dose: 1,000 mls Metoprolol Succinate (Toprol Xl) 25 mg PO DAILY INO Stop: 02/21/19 08:59 Last Admin: 08/25/18 08:41 Dose: 25 mg Paroxetine HCl (Paxil) 30 mg PO DAILY INO Stop: 02/21/19 08:59 Last Admin: 08/25/18 08:41 Dose: 30 mg Senna/Docusate Sodium (Senokot-S) 1 tab PO DAILY INO Stop: 02/21/19 08:59 Last Admin: 08/25/18 08:41 Dose: 1 tab Tamsulosin HCl (Flomax) 0.4 mg PO BID [facility] Stop: 02/21/19 08:59 Last Admin: 08/25/18 20:08 Dose: 0.4 mg Terbinafine HCl (Lamisil At) 1 angelika TP BID INO Stop: 09/24/18 08:59 Last Admin: 08/25/18 20:14 Dose: 1 angelika Vitamin B Complex (Vitamin B12) 1,000 mcg PO DAILY INO Stop: 02/21/19 08:59 Last Admin: 08/25/18 08:41 Dose: 1,000 mcg Discontinued Medications Acetaminophen (Tylenol) 1,000 mg PO EDNOW ONE Stop: 08/25/18 03:41 Last Admin: 08/25/18 03:42 Dose: 1,000 mg Sodium Chloride (Ns) 1,000 mls @ 0 mls/hr IV EDNOW ONE; Wide Open PRN Reason: Protocol Stop: 08/25/18 03:09 Last Admin: 08/25/18 03:21 Dose: 1,000 mls Point of Care Test Results: Chemistry 08/25/18 03:17 POC Troponin I 0.01 ng/mL ng/mL (0.00-0.08) Departure - Departure Disposition: [facility] Acute Clinical Impression: Generalized weakness, Dehydration Chest pain Qualifiers: Chest pain type: unspecified Qualified Code(s): R07.9 - Chest pain, unspecified Condition: Fair
[2018-08-25] MEDS ORDERED: NS 1,000 ML IV ONE (03:08)
[2018-08-25 03:23] LABS: PLATELET COUNT 199 10^3/uL (150-400)
[2018-08-25 03:32] LABS: INR 1.1 (0.83-1.16); PROTIME(PATIENT) 14.4 SEC (12.0-15.0)
[2018-08-25] MEDS ORDERED: ACETAMINOPHEN 500 MG TAB PO ONE (03:40)
[2018-08-25] MEDS ORDERED: ONDANSETRON DISINTEGRATING 4 MG TAB PO PRN (06:12)
[2018-08-25] MEDS ORDERED: ONDANSETRON 4 MG/2 ML VIAL IVP PRN (06:12)
[2018-08-25] MEDS ORDERED: NS 1,000 ML IV SCH (06:15)
--- NOTE | 2018-08-25 08:09 | PDGENHP ---
History and Physical - Chief Complaint generalized weakness, dehydration, lightheadedness - History of Present Illness Source-patient provides history is fair history fen. EMR was reviewed and case discussed with ED provider. Patient known to our service for multiple admissions for for failure to thrive and generalized weakness HPI - this is a pleasant 73-year-old gentleman with a past medical history significant for atrial fibrillation on Eliquis, CAD status post stent, CKD stage 4 baseline creatinine 2.0-2.4, HTN, HLD, obesity BMI 33.5, chronic failure to thrive, COPD, BPH, gout, LINDA, PTSD, dm 2 and chronic low back pain due to spinal stenosis presents emergency department today with multiple complaints including concerns for dehydration, nausea, lightheadedness. Patient also noted to ED provider that he had a few episodes of sharp fleeting stabbing left-sided chest pain that lasted but just a few seconds. Patient denies any associated shortness of breath, palpitations, diaphoresis. He denies any fevers chills. He has not had any vomiting or diarrhea. No dysuria hematuria. Patient reports generalized weakness. He is primarily wheelchair dependent. He has also noted increased per this on his chronic extremity wounds. Patient has been scratching persistently but has not noted any increasing erythema or drainage. History Information - Allergies/Home Medication List Allergies/Adverse Reactions: glipizide Allergy (Intermediate, Verified 08/25/18 02:55) Other-Enter Comments lisinopril Allergy (Intermediate, Verified 08/25/18 02:55) Other-Enter Comments Home Medications: Albuterol [Proventil Inhaler HFA (*)] 2 puffs IH Q4 PRN 03/29/16 [Last Taken 04/26] Aspirin [Aspirin 81mg (*)] 81 mg PO DAILY 03/29/16 [Last Taken 08/24/18] Budesonide/Formoterol 160/4.5 [Symbicort 160-4.5 Mcg Inh (*)] 2 puffs IH BID [Last Taken 08/24/18 09:00] Carboxymethylcellulose 1% [Refresh Celluvisc (*)] 1 drops EACHEYE QID PRN [Last Taken Unknown] Cholecalciferol Vit D3 [Vitamin D3 (*)] 1,000 units PO DAILY 03/29/16 [Last Taken 08/24/18] Cyanocobalamin [Vitamin B12 (*)] 1,000 mcg PO DAILY 03/29/16 [Last Taken ] PARoxetine HCL [Paxil 30mg (*)] 30 mg PO DAILY 03/29/16 [Last Taken 08/24/18] Apixaban [Eliquis] 5 mg PO BID 04/13/17 [Last Taken 08/24/18] Atorvastatin Calcium [Lipitor 80 mg] 80 mg PO DAILY 09/21/17 [Last Taken ] Metoprolol Succinate Xr [Toprol Xl 25 mg (*)] 25 mg PO DAILY 09/21/17 [Last Taken 08/24/18] Gabapentin [Neurontin 300 MG (*)] 300 mg PO TID 10/19/17 [Last Taken 08/24/18 21 :00] Acetaminophen [Tylenol ES 500 mg (*)] 1,000 mg PO HS 12/08/17 [Last Taken ] Terbinafine HCl [LamISIL AT Cream (*)] 1 angelika TP BID 12/08/17 [Last Taken ] Diclofenac Sodium 1% [Voltaren Gel (*)] 1 angelika TP QID 08/25/18 [Last Taken ] Sennosides/Docusate Sodium [Senokot-S] 1 tab PO DAILY 08/25/18 [Last Taken 08/24] Tamsulosin HCl [Flomax 0.4 MG (*)] 0.4 mg PO BID 08/25/18 [Last Taken 08/24/18 09:00] I have personally reviewed and updated: family history, medical history, social history, surgical history - Past Medical History coronary artery disease, diabetes type 2 (diet controlled), hypertension, hyperlipidemia, psychiatric history (ptsd/anxiety) Additional medical history: Atrial fibrillation, CAD with NV 01/2016, CKD stage 4 baseline creatinine 2.0-2.4, daily marijuana use, history MRSA 2010, COPD, PTSD, DM 2 diet controlled, BPH, HLD, gout, LINDA, history TIA, patient with what he describes as "mysterious illness" resulting in generalized weakness and debility, 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 Son-bipolar disorder - Social History Smoking Status: Former smoker Alcohol Use: None Drug Use: Marijuana (History of) Additional social history: Patient lives with 2 male roommates. He he is retired . Cor status is full. Patient desires his daughter Emily Feliz to act as proxy if needed. Review of Systems Review of Systems: ROS: 10pt was reviewed & negative except for what was stated in HPI & below Constitutional: Reports: malaise, weakness (Generalized). Denies: chills, fever , recent illness, weight loss EENMT: Reports: no symptoms Cardiac: Reports: chest pain, edema (Mild lower extremity stable), lightheadedness, other (See HPI). Denies: palpitations, syncope Respiratory: Reports: no symptoms Gastrointestinal: Reports: nausea. Denies: vomitting, black stools, rectal bleeding, abdominal pain, constipation, diarrhea Genitourinary: Reports: no symptoms Muscolosketal: Reports: back pain (Lumbar spine), joint pain Skin: Reports: rash Neurological: Reports: weakness (General weakness). Denies: headache Hematologic/Lymphatic: Reports: no symptoms Immunologic/Allergy: Reports: no symptoms Physical Exam Physical Exam: Selected Entries 08/25/18 02:52 Blood Pressure Automatic Method Heart Rate 72 Respiratory 18 Rate O2 Sat (%) 98 Temperature (C) 36.2 C Blood Pressure 138/91 H Mean Arterial 106 H Pressure (MAP) O2 Delivery Room Air Mode Temperature Oral Source Temp Pulse Resp BP Pulse Ox 37.2 C 78 18 133/68 H 94 08/25/18 07:29 08/25/18 07:29 08/25/18 07:29 08/25/18 07:29 08/25/18 07:29 Constitutional: no apparent distress, chronically ill appearing, obese, unkempt (Patient with poor general hygiene. strong body odor), other (NAD. Pleasant elderly gentleman is lying quietly on side. Appears quite fatigued but awake and interactive.) Eyes: PERRL (Decreased reactivity light bilaterally but symmetric.), anicteric sclera, EOMI Ears, Nose, Mouth, Throat: no oral mucosal ulcers, poor dentition, dry mucous membranes Cardiovascular: regular rate and rhythym, edema (Trace lower extremity), No tachycardia Peripheral Pulses: 1+: dorsalis-pedis (R), dorsalis-pedis (L) Respiratory: no respiratory distress, no rales or rhonchi, clear to auscultation , reduced air movement (Decreased inspiratory effort. Diminished breath sounds bibasilarly.), No expiratory wheeze, No inspiratory crackles, No respiratory distress Gastrointestinal: normoactive bowel sounds, soft, non-tender abdomen, no palpable masses, other (Obese abdomen), No ascites, No guarding, No rebound, No distension Genitourinary: no bladder tenderness, No bueno in urethra Skin: warm, normal color, rash (Diffuse nummular hypertrophic scabbed lesions on the right greater than left lower extremity bilateral arms. Abrasions present. New no sores on his abdomen or back.) Musculoskeletal: no muscle tenderness, generalized weakness Neurologic: AAOx3, weakness (Generalized weakness.), No facial droop Psychiatric: interacting appropriately, not anxious, not encephalopathic, thought process linear, depressed, flat affect, No suicidal ideation Lab Data & Imaging Review 08/25/18 03:12 08/25/18 03:12 WBC 11.80 10^3/uL (3.80-9.50) H 08/25/18 03:12 RBC 5.51 10^6/uL (4.40-6.38) 08/25/18 03:12 Hgb 15.7 g/dL (13.7-17.5) 08/25/18 03:12 Hct 47.1 % (40.0-51.0) 08/25/18 03:12 MCV 85.5 fL (81.5-99.8) 08/25/18 03:12 MCH 28.5 pg (27.9-34.1) 08/25/18 03:12 MCHC 33.3 g/dL (32.4-36.7) 08/25/18 03:12 RDW 14.5 % (11.5-15.2) 08/25/18 03:12 Plt Count 199 10^3/uL (150-400) 08/25/18 03:12 MPV 11.0 fL (8.7-11.7) 08/25/18 03:12 Neut % (Auto) 64.8 % (39.3-74.2) 08/25/18 03:12 Lymph % (Auto) 20.6 % (15.0-45.0) 08/25/18 03:12 Owen % (Auto) 8.0 % (4.5-13.0) 08/25/18 03:12 Eos % (Auto) 5.0 % (0.6-7.6) 08/25/18 03:12 Baso % (Auto) 1.2 % (0.3-1.7) 08/25/18 03:12 Nucleat RBC Rel Count 0.0 % (0.0-0.2) 08/25/18 03:12 Absolute Neuts (auto) 7.65 10^3/uL (1.70-6.50) H 08/25/18 03:12 Absolute Lymphs (auto) 2.43 10^3/uL (1.00-3.00) 08/25/18 03:12 Absolute Monos (auto) 0.94 10^3/uL (0.30-0.80) H 08/25/18 03:12 Absolute Eos (auto) 0.59 10^3/uL (0.03-0.40) H 08/25/18 03:12 Absolute Basos (auto) 0.14 10^3/uL (0.02-0.10) H 08/25/18 03:12 Absolute Nucleated RBC 0.00 10^3/uL (0-0.01) 08/25/18 03:12 Immature Gran % 0.4 % (0.0-1.1) 08/25/18 03:12 Immature Gran # 0.05 10^3/uL (0.00-0.10) 08/25/18 03:12 PT 14.4 SEC (12.0-15.0) 08/25/18 03:12 INR 1.10 (0.83-1.16) 08/25/18 03:12 APTT 31.0 SEC (23.0-38.0) 08/25/18 03:12 Sodium 139 mEq/L (135-145) 08/25/18 03:12 Potassium 4.9 mEq/L (3.5-5.2) 08/25/18 03:12 Chloride 107 mEq/L (97-110) 08/25/18 03:12 Carbon Dioxide 21 mEq/l (22-31) L 08/25/18 03:12 Anion Gap 11 mEq/L (6-14) 08/25/18 03:12 BUN 34 mg/dL (7-23) H 08/25/18 03:12 Creatinine 2.1 mg/dL (0.7-1.3) H 08/25/18 03:12 Estimated GFR 31 08/25/18 03:12 Glucose 128 mg/dL (70-100) H 08/25/18 03:12 Calcium 8.9 mg/dL (8.5-10.4) 08/25/18 03:12 Magnesium 1.8 mg/dL (1.6-2.3) 08/25/18 03:12 Total Bilirubin 0.6 mg/dL (0.1-1.4) 08/25/18 03:12 Conjugated Bilirubin 0.3 mg/dL (0.0-0.5) 08/25/18 03:12 Unconjugated Bilirubin 0.3 mg/dL (0.0-1.1) 08/25/18 03:12 AST 21 IU/L (17-59) 08/25/18 03:12 ALT 25 IU/L (21-72) 08/25/18 03:12 Alkaline Phosphatase 52 IU/L (38-126) 08/25/18 03:12 POC Troponin I 0.01 ng/mL (0.00-0.08) 08/25/18 03:17 NT-Pro-B Natriuret Pep 569 pg/mL (0-125) H 08/25/18 03:12 Total Protein 6.6 g/dL (6.3-8.2) 08/25/18 03:12 Albumin 3.7 g/dL (3.5-5.0) 08/25/18 03:12 Urine Color YELLOW 08/25/18 04:17 Urine Appearance CLEAR 08/25/18 04:17 Urine pH 7.0 (5.0-7.5) 08/25/18 04:17 Ur Specific [place] 1.013 (1.002-1.030) 08/25/18 04:17 Urine Protein NEGATIVE (NEGATIVE) 08/25/18 04:17 Urine Ketones NEGATIVE (NEGATIVE) 08/25/18 04:17 Urine Blood NEGATIVE (NEGATIVE) 08/25/18 04:17 Urine Nitrate NEGATIVE (NEGATIVE) 08/25/18 04:17 Urine Bilirubin NEGATIVE (NEGATIVE) 08/25/18 04:17 Urine Urobilinogen 4.0 EU (0.2-1.0) H 08/25/18 04:17 Ur Leukocyte Esterase 2+ (NEGATIVE) H 08/25/18 04:17 Urine RBC 1-3 /hpf (0-3) 08/25/18 04:17 Urine WBC 10-15 /hpf (0-3) H 08/25/18 04:17 Ur Epithelial Cells TRACE /lpf (NONE-1+) 08/25/18 04:17 Urine Glucose NEGATIVE (NEGATIVE) 08/25/18 04:17 Imaging Review: Portable Chest, Single View 3:16 AM Indication: Chest Pain Comparison: Two-view chest dated January 10, 2018 Findings: The hypoventilated lungs are clear except for moderate diffuse peribronchial thickening. No pneumothorax, edema, airspace consolidation or effusion. Heart size is normal. Impression: Hypoventilation and moderate airways disease. Dictated By: Juanjose Chew MD Visualized and Interpreted Chest x-ray results: Yes Chest X-Ray results: no infiltrate EKG additional interpertation: Normal sinus rhythm in the 60s. Pac. Lad. T- wave flattening inversion lead to AVF. Stable compared to previous EKGs. No acute ST changes. QTC of 413. Assessment & Plan Assessment: this is a pleasant 73-year-old gentleman with a past medical history significant for atrial fibrillation on Eliquis, CAD status post stent, CKD stage 4 baseline creatinine 2.0-2.4, HTN, HLD, obesity BMI 33.5, chronic failure to thrive, COPD, BPH, gout, LINDA, PTSD, dm 2 and chronic low back pain due to spinal stenosis presents emergency department today with multiple complaints #Chest pain (Acute) - suspect this be noncardiac in etiology although patient with multiple risk factors and previous history of CAD and stenting suspect this is mostly musculoskeletal or pleuritic in nature.. Currently does not have any chest pain. Will trend troponins. Monitor on telemetry. #Dehydration (Acute) - continue some gentle IV fluid hydration. Patient's creatinine is close to baseline. Clinically appears dry. Patient reports that he has had decreased appetite over the last several weeks. He has been mostly just eating soups due to having no upper teeth. He reports poor oral hydration. Blood pressures are adequate at this time. #Generalized weakness (Acute) - patient with longstanding history of failure to thrive overall poor physical conditioning. Patient is primarily wheelchair bound. He is due to have lumbar surgery in September for spinal stenosis. PT OT has been consulted. Patient will get high dehydration as noted above. #nausea without vomiting - p.r.n. Zofran. #chronic extremity wounds - patient admits to pruritus and continued itching/ sometimes picking. wound care consulted. Chronic medical issues #Dm 2 - diet control. ADA diet. #Atrial fibrillation - patient currently normal sinus rhythm. Continue his Eliquis. Continue metoprolol. #CAD - continue beta-jason and statin. #PTSD - continue Paxil #COPD - albuterol p.r.n.. No evidence of exacerbation at this time. Patient with poor inspiratory lung volumes on exam. #BPH - continue tamsulosin. no complaints of retension #HLD - continue statin #gout - no exacerbation. #osteoarthritis/spinal stenosis - supportive care. PT/OT. mobilize as tolerated. pt wheel chair at bedside. FEN - IVF for gentle IVF hydration as noted above. encourage po hydration. electrolyte monitoring and replacement as needed. PPx - on eliquis. no SCds due to chronic wounds. COR - FULL. daughter proxy. Dispo - Patient admitted to observation status at this time pending reassessment after IVF hydration.
[2018-08-25] MEDS ORDERED: CARBOXYMETHYLCELLULOSE 1% 0.4 ML DROPERETTE EACHEYE PRN (08:23)
[2018-08-25] MEDS ORDERED: ALBUTEROL 60 PUFFS/8 GM MDI IH PRN (08:23)
[2018-08-25] MEDS: APIXABAN 5 MG TAB PO SCH ×2 (08:41→20:08)
[2018-08-25] MEDS: CYANO/VITAMIN B12 1000 MCG TAB PO SCH (08:41)
[2018-08-25] MEDS: ATORVASTATIN CALCIUM 40 MG TAB PO SCH (08:41)
[2018-08-25] MEDS: ASPIRIN 81 MG CHEWABLE TAB PO SCH (08:41)
[2018-08-25] MEDS: GABAPENTIN 300 MG CAP PO SCH ×3 (08:41→22:15)
[2018-08-25] MEDS: METOPROLOL SUCCINATE XR 25 MG TAB PO SCH (08:41)
[2018-08-25] MEDS: CHOLECALCIFEROL VIT D3 1,000 UNITS TAB PO SCH (08:41)
[2018-08-25] MEDS: SENNOSIDES/DOCUSATE SODIUM TAB PO SCH (08:41)
[2018-08-25] MEDS: TAMSULOSIN HCL 0.4 MG CAP PO SCH ×2 (08:41→20:08)
[2018-08-25] MEDS: BUDESONIDE/FORMOTEROL 160/4.5 60 PUFFS/MDI IH SCH ×2 (09:12→20:01)
[2018-08-25] MEDS: TERBINAFINE 30 GM CRTUBE TP SCH ×2 (12:07→20:14)
[2018-08-25] MEDS: DICLOFENAC SODIUM 1% 100 GM GEL TP SCH ×3 (12:07→20:13)
[2018-08-25] MEDS: ACETAMINOPHEN 325 MG TAB PO PRN ×2 (14:20→20:19)
--- NOTE | 2018-08-25 14:22 | WOCRNPDOC ---
WOCRN Advanced Assessment Note - Skin Integrity Problem, Advanced Assess Generalized Excoriation Dressing Type: Open to Air Exudate Amount: Minimal Exudate Color: Reddish/Yellow Exudate Characteristic(s): Dried, Serosanguinous Integumentary Issue Intervention: Visualized Under Dressing (no dressing present ) Mona Wound Tissue: Swollen, Excoriated, Scarred Mona Wound Swelling: Mild Wound Bed Color: [place], Red Wound Bed Constitution: Red/[place] - Non Granular Tissue Site Measurement - Head-to-Toe Length X Width X Depth (cm): size varies from 0.2x0.2x0.1 to 0.6x0.8x0.2. multiple partial thickness openings all over, with more on right leg and left arm than other body parts Skin Integrity Problem Comment: Patient has diffuse multiple partial thickness openings all over his body, with his right leg and left arm presenting with more than other areas. Patient also has scars in similar size and shape presenting in the same regions on his body. Patient states that the wounds started appearing about 13 months ago, and that the wounds begin as being "itchy " until he scratches them open. Patient also reports that he has a tendency to reopen wounds that have scabbed over. Patient may benefit from topical steroid cream or moisturizing cream to reduce itchiness, and evaluation for dermatillomania. Wound care will not follow.
--- NOTE | 2018-08-25 14:23 | ASMTCMCOM ---
CM Note CM Note Notes: Patient - well known to [facility] - admitted for chest pain, generalized weakness and FTT. His last admisson was in January 2018 and he d/c'ed to [facility]. Patient lives independently with roommates. He has caregiving 4 hrs/day 3days/week with [facility] [phone] (ordered by the [place]). Patient says that he has PT/OT as well, but he's not sure who the agency is. I contacted the [place] [facility] line ([phone]) to inquire and had to leave a message. Therapy evals pending; d/c needs TBD. Case Managment will follow. Date Signed: 08/25/2018 01:05 PM Electronically Signed By:Frieda Goldsmith RN
--- NOTE | 2018-08-25 16:06 | HOSPPROG ---
Hospitalist Progress Note Assessment/Plan: Diagnoses: * weakness, nausea, * mild acute on chronic renal failure * mild pyuria * has ruled out for [place] * elevated wbc At this time the patient has some improvement in his symptoms but is still tired and weak No nausea, vomiting, chest pain, dyspnea, fever symptoms here No abdominal pain Vitals have been stable Repeat CBCs shows normalization of white blood cell count, stable hemoglobin The etiology of this episode is unclear. I suspect that may be infectious but there is no definite finding there. He does have some pyuria but no definite symptoms though he may have trouble interpreting symptoms of a UTI Plans: * Continue current management but will slow his high V fluids a bit * Repeat renal function labs in the morning * Follow for signs of any infection or otherwise * Will repeat his UA tomorrow after he is better hydrated and if still pyuria re -evaluate symptoms and consider getting a culture * Fall risk precaution * PT and OT * DVT prophylaxis Objective: Vital Signs Temp Pulse Resp BP Pulse Ox 36.4 C 63 19 137/71 H 94 08/25/18 11:50 08/25/18 11:50 08/25/18 11:50 08/25/18 11:50 08/25/18 11:50 08/24/18 08/25/18 08/26/18 06:59 06:59 06:59 Intake Total 1000 Output Total 400 500 Balance 600 -500 PT 14.4 SEC (12.0-15.0) 08/25/18 03:12 INR 1.10 (0.83-1.16) 08/25/18 03:12 ICD10 Worksheet Patient Problems: Problems Problem Status Onset Chest pain Acute Dehydration Acute Generalized weakness Acute Acute bronchitis Acute Chronic Disease Mgmt/Transitional Care Acute Chronic pain Acute Dizziness Acute Dyspnea Acute Elevated d-dimer Acute Exacerbation of asthma Acute Failure to thrive in adult Acute GIB (gastrointestinal bleeding) Acute History of coronary artery disease Acute Left hip pain Acute Lightheaded Acute Pneumonia Acute Renal insufficiency Acute Skin excoriation Acute
[2018-08-25 16:30] LABS: PLATELET COUNT 155 10^3/uL (150-400)
[2018-08-26] MEDS: DICLOFENAC SODIUM 1% 100 GM GEL TP SCH ×4 (05:21→20:09)
--- NOTE | 2018-08-26 06:56 | CPEKG ---
Test Reason : OPEN Blood Pressure : / mmHG Vent. Rate : 068 BPM Atrial Rate : 071 BPM P-R Int : 156 ms QRS Dur : 080 ms QT Int : 388 ms P-R-T Axes : 034 -29 026 degrees QTc Int : 413 ms Sinus rhythm Atrial premature complexes in couplets Borderline left axis deviation Confirmed by Barrett Doty ([id number]) on 08/26/2018 6:55:45 AM Referred By: Confirmed By:Barrett Doty
[2018-08-26] MEDS: METOPROLOL SUCCINATE XR 25 MG TAB PO SCH (08:58)
[2018-08-26] MEDS: TERBINAFINE 30 GM CRTUBE TP SCH ×2 (08:58→20:09)
[2018-08-26] MEDS: SENNOSIDES/DOCUSATE SODIUM TAB PO SCH (08:58)
[2018-08-26] MEDS: ATORVASTATIN CALCIUM 40 MG TAB PO SCH (08:58)
[2018-08-26] MEDS: CYANO/VITAMIN B12 1000 MCG TAB PO SCH (08:58)
[2018-08-26] MEDS: ASPIRIN 81 MG CHEWABLE TAB PO SCH (08:58)
[2018-08-26] MEDS: CHOLECALCIFEROL VIT D3 1,000 UNITS TAB PO SCH (09:02)
[2018-08-26] MEDS: TAMSULOSIN HCL 0.4 MG CAP PO SCH ×2 (09:02→20:07)
[2018-08-26] MEDS: GABAPENTIN 300 MG CAP PO SCH ×3 (09:02→21:44)
[2018-08-26] MEDS: APIXABAN 5 MG TAB PO SCH ×2 (09:02→20:07)
[2018-08-26] MEDS: BUDESONIDE/FORMOTEROL 160/4.5 60 PUFFS/MDI IH SCH ×2 (09:24→20:59)
[2018-08-26] MEDS ORDERED: SODIUM CL NASAL 45 ML BTL EACHNARE PRN (11:52)
--- NOTE | 2018-08-26 13:28 | HOSPPROG ---
Hospitalist Progress Note Assessment/Plan: DIAGNOSES: * weakness, nausea, vomiting, nasal congestion and high white blood cell count suggesting possible viral illness * dehydration * significant deconditioning, generalized weakness, gait instability, acute on chronic * ? chest pain; has ruled out [place] -does have known history of coronary disease with stenting of LAD 2015 -no current heart failure or arrhythmia * mild acute on chronic renal failure * mild pyuria has resolved and no urinary symptoms so suspect is insignificant PLANS: * Gentle hydration * Check respiratory pathogen panel * Fall risk precaution * PT and OT * Will set up for Lexiscan stress tomorrow * DVT prophylaxis * needs probably 1-2 more days to regain his strength before being discharge SUBJECTIVE: States he feels a bit better today, less nausea and is eating No shortness of breath but complains of significant nasal congestion and occasional sneeze No angina type symptoms or other chest discomfort, no abdominal or back pain Still quite weak OBJECTIVE Vitals reviewed: Intermittent mild hypertension, no fevers otherwise stable Irrigator Sprinkling System, my review: Sinus Exam: alert oriented relaxed skin warm dry color ok resps not labored lungs diminished but otherwise clear BSs heart regular abd soft nondistended nontender, bowel sounds present limbs warm, no edema iv site ok Lab data: Repeat metabolic panel with slight improvement in renal function which is pretty much at his baseline Otherwise unremarkable Liver panel normal Repeat urinalysis now showing no evidence of pyuria or other abnormalities of concern Objective: Vital Signs Temp Pulse Resp BP Pulse Ox 36.5 C 60 16 141/77 H 96 08/26/18 12:00 08/26/18 12:00 08/26/18 12:00 08/26/18 12:00 08/26/18 12:00 Laboratory Results 08/25/18 16:15 08/26/18 04:02 08/25/18 08/26/18 08/27/18 06:59 06:59 06:59 Intake Total 1000 1430 Output Total 400 1850 Balance 600 -420 PT 14.4 SEC (12.0-15.0) 08/25/18 03:12 INR 1.10 (0.83-1.16) 08/25/18 03:12 - Time Spent With Patient Time Spent with Patient: greater than 25 minutes Time Spent with Patient: Greater than 25 minutes spent on this patients care, greater than 50% of time spent counseling, educating, and coordinating care regarding the above mentioned plan. ICD10 Worksheet Patient Problems: Problems Problem Status Onset Chest pain Acute Dehydration Acute Generalized weakness Acute Acute bronchitis Acute Chronic Disease Mgmt/Transitional Care Acute Chronic pain Acute Dizziness Acute Dyspnea Acute Elevated d-dimer Acute Exacerbation of asthma Acute Failure to thrive in adult Acute GIB (gastrointestinal bleeding) Acute History of coronary artery disease Acute Left hip pain Acute Lightheaded Acute Pneumonia Acute Renal insufficiency Acute Skin excoriation Acute
--- NOTE | 2018-08-26 16:20 | ASMTCMCOM ---
CM Note CM Note Notes: Spoke with pt in the room during rounds and after. Therapies are recommending HC v SNF and pt is refusing SNF at this time as he anticipates having spinal surgery in the near future and will need his covered SNF days at that time. Pt receives unskilled care through the [place] with [facility] ([phone]) and home therapies through a different agency who's name he can't remember. [facility] with [facility] to determine name of agency. Pt's PCP is Pravin CAMERON [phone]. [place] [facility] is [phone]. No response yet. [facility] notified that he is currently inpatient. D/C Plan: Home with [facility] Agency TBD Date Signed: 08/26/2018 04:19 PM Electronically Signed By:Stella Cabrera
[2018-08-27] MEDS: DICLOFENAC SODIUM 1% 100 GM GEL TP SCH ×4 (06:09→21:46)
[2018-08-27] MEDS ORDERED: REGADENOSON 0.4 MG/5 ML SYR IVP ONE (09:08)
[2018-08-27] MEDS: CYANO/VITAMIN B12 1000 MCG TAB PO SCH (10:51)
[2018-08-27] MEDS: METOPROLOL SUCCINATE XR 25 MG TAB PO SCH (10:51)
[2018-08-27] MEDS: GABAPENTIN 300 MG CAP PO SCH ×3 (10:51→21:39)
[2018-08-27] MEDS: TAMSULOSIN HCL 0.4 MG CAP PO SCH ×2 (10:51→21:39)
[2018-08-27] MEDS: CHOLECALCIFEROL VIT D3 1,000 UNITS TAB PO SCH (10:51)
[2018-08-27] MEDS: SENNOSIDES/DOCUSATE SODIUM TAB PO SCH (10:51)
[2018-08-27] MEDS: ASPIRIN 81 MG CHEWABLE TAB PO SCH (10:52)
[2018-08-27] MEDS: APIXABAN 5 MG TAB PO SCH ×2 (10:52→21:39)
[2018-08-27] MEDS: ATORVASTATIN CALCIUM 40 MG TAB PO SCH (10:52)
[2018-08-27] MEDS: BUDESONIDE/FORMOTEROL 160/4.5 60 PUFFS/MDI IH SCH ×2 (11:11→22:00)
[2018-08-27] MEDS: TERBINAFINE 30 GM CRTUBE TP SCH ×2 (12:34→21:50)
[2018-08-27] MEDS ORDERED: GUAIFENESIN/DM 10 ML UDCUP PO PRN (13:25)
--- NOTE | 2018-08-27 13:45 | PDCARST ---
CAR Stress Test Results Type of Stress Test: Lexiscan stress test Indication: cp Description of Procedure: After informed consent was obtained, pt was established to ECG, blood pressure, HR and oximetry monitoring. STRESS EKG AND HEMODYNAMIC DATA. Resting heart rate: 58 BPM. Resting ECG: SR. Resting blood pressure: 154/90 mmHg. O2 saturation at rest: 95. Peak heart rate: 85 BPM. Peak blood pressure: 156/90 mmHg. Arrhythmias: none. Symptoms: The patient experienced no typical symptoms of angina during stress or recovery. Stress/Infusion ECG: No change in rhythm with no significant ST/T wave changes. Stress/infusion O2 saturation: 95 Impression: Uneventful Lexiscan infusion. Conclusion: Await nuclear images.
--- NOTE | 2018-08-27 14:19 | HOSPPROG ---
Hospitalist Progress Note Assessment/Plan: DIAGNOSES: * weakness, nausea, vomiting, nasal congestion and high white blood cell count suggesting possible viral illness * dehydration * significant deconditioning, generalized weakness, gait instability, acute on chronic * ? chest pain -does have known history of coronary disease with stenting of LAD 2015 -no current heart failure or arrhythmia, Troponin/EKG negative - Lexiscan performed today, some diagnostic compromise because of motion rtifact, equivocal whether there is mild degree of inferior wall ischemic change, due to patient being currently symptoms free will hold off on further evaluation, if symptoms recur or worsen will further evaluate * mild acute on chronic renal failure * mild pyuria has resolved and no urinary symptoms so suspect is insignificant * Peribronchial Thickening seen on admission CXR, viral bronchitis likely PLANS: * Gentle hydration * Fall risk precaution * PT and OT * DVT prophylaxis * needs probably 1 more day to regain his strength before being discharge Subjective: Pateint reports no chest pain this morning, reports congestion Objective: Vital Signs Temp Pulse Resp BP Pulse Ox 36.9 C 66 18 137/66 H 97 08/27/18 11:33 08/27/18 11:33 08/27/18 11:33 08/27/18 11:33 08/27/18 11:33 Microbiology 08/26/18 12:10 Respiratory Panel (PCR) - Final Nasal, Sinus - Swab No Organism Detected By Pcr Laboratory Results 08/25/18 16:15 08/26/18 04:02 08/26/18 08/27/18 08/28/18 05:59 05:59 05:59 Intake Total 1805 550 Output Total 1850 1275 200 Balance -45 -725 -200 PT 14.4 SEC (12.0-15.0) 08/25/18 03:12 INR 1.10 (0.83-1.16) 08/25/18 03:12 - Physical Exam Constitutional: unkempt Eyes: PERRL Ears, Nose, Mouth, Throat: moist mucous membranes Cardiovascular: regular rate and rhythym Respiratory: no respiratory distress Gastrointestinal: normoactive bowel sounds Skin: warm Neurologic: AAOx3 Psychiatric: interacting appropriately ICD10 Worksheet Patient Problems: Problems Problem Status Onset Chest pain Acute Dehydration Acute Generalized weakness Acute Acute bronchitis Acute Chronic Disease Mgmt/Transitional Care Acute Chronic pain Acute Dizziness Acute Dyspnea Acute Elevated d-dimer Acute Exacerbation of asthma Acute Failure to thrive in adult Acute GIB (gastrointestinal bleeding) Acute History of coronary artery disease Acute Left hip pain Acute Lightheaded Acute Pneumonia Acute Renal insufficiency Acute Skin excoriation Acute
--- NOTE | 2018-08-27 15:06 | ASMTCMCOM ---
CM Note CM Note Notes: Pts case discussed in tx rounds. [facility]. Updates sent to [facility]. Pt will continue to receive skilled and unskilled HC services at time of d/c. CM to follow. Date Signed: 08/27/2018 03:06 PM Electronically Signed By:TASHA Deshpande
--- NOTE | 2018-08-27 16:04 | PDMN ---
Medical Necessity Medical necessity: [facility] General Admission: 73 yo presents w/ acute CP, dehydration, generalized weakness and nausea. Initially OBS for workup but cont w/ weakness and gait instability. Suspect infectious in nature. Nuc stress test performed to eval CP. Cont on TELE monitoring. PT/OT following up for weakness/gait instability. Cont monitoring labs as WBC elevated and creat elevated on admit. Meets [facility] [place] status for general admission for cardiac monitoring beyond scope of obs care, multiple comorbidities. Hx atrial fibrillation on Eliquis, CAD status post stent, CKD stage 4 baseline creatinine 2.0-2.4, HTN, HLD, obesity BMI 33.5, chronic failure to thrive, COPD, BPH, gout , LINDA, PTSD, dm 2 and chronic low back pain due to spinal stenosis. Change to IP status 08/27/18 @1423 per MD order
[2018-08-28] MEDS: DICLOFENAC SODIUM 1% 100 GM GEL TP SCH ×2 (06:09→10:31)
[2018-08-28] MEDS: METOPROLOL SUCCINATE XR 25 MG TAB PO SCH (08:38)
[2018-08-28] MEDS: APIXABAN 5 MG TAB PO SCH (08:38)
[2018-08-28] MEDS: ASPIRIN 81 MG CHEWABLE TAB PO SCH (08:38)
[2018-08-28] MEDS: GABAPENTIN 300 MG CAP PO SCH (08:38)
[2018-08-28] MEDS: CYANO/VITAMIN B12 1000 MCG TAB PO SCH (08:38)
[2018-08-28] MEDS: ATORVASTATIN CALCIUM 40 MG TAB PO SCH (08:38)
[2018-08-28] MEDS: CHOLECALCIFEROL VIT D3 1,000 UNITS TAB PO SCH (08:38)
[2018-08-28] MEDS: TAMSULOSIN HCL 0.4 MG CAP PO SCH (08:38)
[2018-08-28] MEDS: SENNOSIDES/DOCUSATE SODIUM TAB PO SCH (08:39)
[2018-08-28] MEDS: TERBINAFINE 30 GM CRTUBE TP SCH (08:41)
[2018-08-28] MEDS: BUDESONIDE/FORMOTEROL 160/4.5 60 PUFFS/MDI IH SCH (09:50)
[2018-08-28 12:04] VITALS: BP 129/77
[2018-08-28] MEDS ORDERED: CEPACOL LOZENGE PO PRN (13:14)
--- NOTE | 2018-08-28 13:16 | PDIAF ---
- Diagnosis Code Status: Full Code - Medication Management Discharge Medications: electronically signed and located in the Home Medication List. - Orders Services needed: Registered Nurse, Physical Therapy, Occupational Therapy Isolation Type: None - Follow Up Care Current Providers and Referrals: NONE *PRIMARY CARE P,. [Primary Care Provider] - As per Instructions
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
--- NOTE | 2018-08-28 13:55 | ASMTDCNOTE ---
Case Management Discharge Discharge Order Complete? Answers: Yes Patient to Obtain Answers: Independently Medications Transportation Arranged Answers: Family/Friends EMTALA Complete Answers: No Case Management Transport Answers: No Form Complete Faxed Final Orders Answers: Yes Agency/Facility Transfer Answers: Yes Report Printed & Faxed to Receiving Agency Family Notified Answers: No Discharge Comments Notes: Pts case discussed in tx rounds. Pt is being d/c'd today. DC orders sent to [facility]. [facility] No other needs at this time. CM available for changes. Plan: [facility]; PT, OT, RN w/ [facility] Date Signed: 08/28/2018 01:54 PM Electronically Signed By:TASHA Deshpande
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
--- NOTE | 2018-08-28 14:12 | PDDCSUM ---
Discharge Summary Discharge Summary: Date of Admission: 08/27/2018 Date of Discharge: 08/28/2018 Procedures: MPS Followup: PCP DIAGNOSES: * weakness, nausea, vomiting, nasal congestion and high white blood cell count suggesting possible viral illness * dehydration * significant deconditioning, generalized weakness, gait instability, acute on chronic * Chest pain -does have known history of coronary disease with stenting of LAD 2016 -no current heart failure or arrhythmia, Troponin/EKG negative - Lexiscan performed, some diagnostic compromise because of motion artifact, equivocal whether there is mild degree of inferior wall ischemic change, due to patient being currently symptoms free will hold off on further evaluation, if symptoms recur or worsen will further evaluate * mild acute on chronic renal failure * mild pyuria has resolved and no urinary symptoms so suspect is insignificant * Peribronchial Thickening seen on admission CXR, viral bronchitis likely Time spent on discharge was >35 minutes with >50% of time spent on patient education and counseling
== END 2018-08-28 14:31 | disposition home health service (06) | DRG 202 ==
LOC: F2W 04:59 → OBSVTOIN 08-27 15:43
PROVIDERS: ADMIT Family Medicine; ATTEND Family Medicine
DX: J20.8 Acute bronchitis due to other specified organisms (principal); N17.9 Acute kidney failure, unspecified; E86.0 Dehydration; R11.2 Nausea with vomiting, unspecified; R09.81 Nasal congestion; R26.9 Unspecified abnormalities of gait and mobility; I25.10 Atherosclerotic heart disease of native coronary artery without angina pectoris; I48.91 Unspecified atrial fibrillation; N18.9 Chronic kidney disease, unspecified; E66.9 Obesity, unspecified; E11.9 Type 2 diabetes mellitus without complications; J44.9 Chronic obstructive pulmonary disease, unspecified; N40.0 Benign prostatic hyperplasia without lower urinary tract symptoms; Z68.33 Body mass index [BMI] 33.0-33.9, adult; Z79.01 Long term (current) use of anticoagulants; Z95.5 Presence of coronary angioplasty implant and graft
CPT/HCPCS: 84484-ER; 97116-GP; 97162-GP; 97165-GO; 97530-GO; 97530-GP; 97535-GO; A9500; G0378; G8978-GP-CK; G8979-GP-CJ; G8987-GO-CK; G8988-GO-CI; G8989-GO-CI; J2785

== ENCOUNTER 2018-11-12 11:27 | Inpatient (IN) | payer OTHER ==
--- NOTE | 2018-11-12 12:22 | EDPHY ---
H & P Time Seen by Provider: 11/12/18 12:04 HPI/ROS: CHIEF COMPLAINT: Multiple complaints HISTORY OF PRESENT ILLNESS: Patient is a 73-year-old male who has multiple complaints. Patient states he initially became ill 1 2 months ago. Since that time he has been having intermittent shortness of breath, coughing, body aches and feeling weak. He has been seen at the [facility] multiple times. He was treated with medication as an outpatient but he does not feel this was an antibiotic. He was seen at the [facility] yesterday. He was told he was dehydrated. He reports that he had a head CT which was negative. He was given 2 L of fluid and felt better. He was ultimately discharged home. He states once returning home he began to feel ill once again. He now complains of mild shortness of breath and coughing. He has been sneezing. He has body aches. He feels fatigued. No nausea or vomiting. Patient has a mild sore throat which is been chronic REVIEW OF SYSTEMS: 10 systems were reveiwed and are negative with the exception of the elements mentioned in the history of present illness. Past Medical/Surgical History: Includes cervical disc disease, diabetes, emphysema, gout, hypertension, hyperlipidemia, PTSD, BPH, TIA, CVA, coronary artery disease, Arenas's palsy Social history: Patient does not smoke or use alcohol Smoking Status: Former smoker Physical Exam: Vitals noted GENERAL: No acute distress, alert. HEENT: Eyes normal to inspection, normal pharynx, no signs of dehydration. NECK: Normal, supple. RESPIRATORY: Clear to auscultation bilaterally, no rales, rhonchi or wheezing. CVS: Regular rate and rhythm, no rubs, murmurs, or gallops. ABDOMEN: Soft, nontender, nondistended, no organomegaly. Benign BACK: Normal to inspection, no CVA tenderness. SKIN: Patient has multiple lesions around his body. These are roughly she 0.5- 1 cm in length. There circular. There are nontender. There is no signs of cellulitis. No warmth or erythema. No hives. Warm, dry. No pallor. EXTREMITIES: No pedal edema, no calf tenderness, no Homans sign or cords, no joint swelling. NEURO/PSYCH: Alert and oriented, normal mood and affect, normal motor sensory exam. No obvious cranial nerve deficit. Constitutional: Initial Vital Signs Temperature (C) 36.3 C 11/12/18 11:33 Heart Rate 72 11/12/18 11:33 Respiratory Rate 22 H 11/12/18 11:33 Blood Pressure 181/115 H 11/12/18 11:33 O2 Sat (%) 96 11/12/18 11:33 O2 Delivery Mode Room Air Allergies/Adverse Reactions: glipizide Allergy (Intermediate, Verified 08/25/18 02:55) Other-Enter Comments lisinopril Allergy (Intermediate, Verified 08/25/18 02:55) Other-Enter Comments Home Medications: Medication Instructions Recorded Albuterol [Proventil Inhaler HFA 2 puffs IH Q4 PRN 03/29/16 (*)] Aspirin [Aspirin 81mg (*)] 81 mg PO DAILY 03/29/16 Budesonide/Formoterol 160/4.5 2 puffs IH BID 03/29/16 [Symbicort 160-4.5 Mcg Inh (*)] Carboxymethylcellulose 1% [Refresh 1 drops EACHEYE QID PRN 03/29/16 Celluvisc (*)] Cholecalciferol Vit D3 [Vitamin D3 1,000 units PO DAILY 03/29/16 (*)] Cyanocobalamin [Vitamin B12 (*)] 1,000 mcg PO DAILY 03/29/16 PARoxetine HCL [Paxil 30mg (*)] 30 mg PO DAILY 03/29/16 Apixaban [Eliquis] 5 mg PO BID 04/13/17 Atorvastatin Calcium [Lipitor 80 80 mg PO DAILY 09/21/17 mg] Metoprolol Succinate Xr [Toprol Xl 25 mg PO DAILY 09/21/17 25 mg (*)] Gabapentin [Neurontin 300 MG (*)] 300 mg PO TID 10/19/17 Acetaminophen [Tylenol ES 500 mg 1,000 mg PO HS 12/08/17 (*)] Terbinafine HCl [LamISIL AT Cream 1 angelika TP BID 12/08/17 (*)] Acetaminophen [Tylenol 325mg (*)] 650 mg PO Q4HRS PRN tab 01/20/18 Diclofenac Sodium 1% [Voltaren Gel 1 angelika TP QID 08/25/18 (*)] Sennosides/Docusate Sodium 1 tab PO DAILY 08/25/18 [Senokot-S] Tamsulosin HCl [Flomax 0.4 MG (*)] 0.4 mg PO BID 08/25/18 Benzocaine/Menthol 15/ [Cepacol 1 ea PO PRN PRN lozenge 08/28/18 Lozenge] guaiFENesin/DEXTROMETHORPHAN 10 ml PO Q4HRS PRN ml 08/28/18 [Robitussin Dm Oral Liquid (*)] Medical Decision Making - Diagnostics Imaging Results: Imaging Impressions Chest X-Ray 11/12/18 12:23 Impression: Mild perihilar bronchitis, with no focal infiltrate. There is some minimal diskoid subsegmental atelectasis versus linear scar at the left lung base. ED Course/Re-evaluation: In the emergency department discussed possible etiologies with the patient. I answered all his questions. IV was placed. Laboratory studies were obtained. Patient given normal saline 1 L IV for hydration. EKG shows normal sinus rhythm, normal rate, normal axis, normal intervals. There are no ST or T-wave abnormalities. EKG is normal as interpreted by me. The patient is a white count 10. Chemistry panel is pending. Urine is negative. Patient's chemistry panel is notable for slightly elevated creatinine. This is consistent with her previous values. Patient was noted to be hyponatremic with a sodium 133. Lipase was elevated in the 600s. His flu swab was negative. His strep screen was negative. I rechecked the patient while here. He was stable. He continued to feel weak and dizzy. He felt as though he could not be safely discharged home. He was in the emergency department twice previously at the [facility] for the same condition and is failing home treatment. I discussed case with Dr. Mondragon. She will admit the patient. Differential Diagnosis: My differential includes but is not limited to influenza, strep throat, viral illness, dehydration, electrolyte abnormality, sugar abnormality, bacteremia, sepsis, pneumonia, bronchitis - Data Points Laboratory Results: Laboratory Results 11/12/18 12:25 11/12/18 12:25 11/12/18 11/12/18 11/12/18 Unknown 12:30 12:25 WBC RBC Hgb Hct MCV MCH MCHC RDW Plt Count MPV Neut % (Auto) Lymph % (Auto) Edgar % (Auto) Eos % (Auto) Baso % (Auto) Nucleat RBC Rel Count Absolute Neuts (auto) Absolute Lymphs (auto) Absolute Monos (auto) Absolute Eos (auto) Absolute Basos (auto) Absolute Nucleated RBC Immature Gran % Immature Gran # Sodium Potassium Chloride Carbon Dioxide Anion Gap BUN Creatinine Estimated GFR Glucose Calcium Total Bilirubin Conjugated Bilirubin Unconjugated Bilirubin AST ALT Alkaline Phosphatase Total Protein Albumin Lipase Urine Color PALE YELLOW Urine Appearance CLEAR Urine pH 7.0 (5.0-7.5) Ur Specific [place] 1.008 (1.002-1.030) Urine Protein NEGATIVE (NEGATIVE) Urine Ketones NEGATIVE (NEGATIVE) Urine Blood NEGATIVE (NEGATIVE) Urine Nitrate NEGATIVE (NEGATIVE) Urine Bilirubin NEGATIVE (NEGATIVE) Urine Urobilinogen NEGATIVE EU EU (0.2-1.0) Ur Leukocyte Esterase NEGATIVE (NEGATIVE) Urine RBC NONE SEEN /hpf /hpf (0-3) Urine WBC 1-3 /hpf /hpf (0-3) Ur Epithelial Cells NONE SEEN /lpf /lpf (NONE-1+) Urine Glucose NEGATIVE (NEGATIVE) Nasal Influenza A PCR NEGATIVE FOR FLU A (NEGATIVE) Nasal Influenza B PCR NEGATIVE FOR FLU B (NEGATIVE) Group A Strep Screen NEGATIVE (NEGATIVE) Group A Strep DNA Pending 11/12/18 11/12/18 12:25 12:25 WBC 10.70 10^3/uL H 10^3/uL (3.80-9.50) RBC 5.66 10^6/uL 10^6/uL (4.40-6.38) Hgb 16.1 g/dL g/dL (13.7-17.5) Hct 47.7 % % (40.0-51.0) MCV 84.3 fL fL (81.5-99.8) MCH 28.4 pg pg (27.9-34.1) MCHC 33.8 g/dL g/dL (32.4-36.7) RDW 13.9 % % (11.5-15.2) Plt Count 159 10^3/uL 10^3/uL (150-400) MPV 11.0 fL fL (8.7-11.7) Neut % (Auto) 74.4 % H % (39.3-74.2) Lymph % (Auto) 15.1 % % (15.0-45.0) Edgar % (Auto) 6.4 % % (4.5-13.0) Eos % (Auto) 2.9 % % (0.6-7.6) Baso % (Auto) 0.8 % % (0.3-1.7) Nucleat RBC Rel Count 0.0 % % (0.0-0.2) Absolute Neuts (auto) 7.96 10^3/uL H 10^3/uL (1.70-6.50) Absolute Lymphs (auto) 1.62 10^3/uL 10^3/uL (1.00-3.00) Absolute Monos (auto) 0.68 10^3/uL 10^3/uL (0.30-0.80) Absolute Eos (auto) 0.31 10^3/uL 10^3/uL (0.03-0.40) Absolute Basos (auto) 0.09 10^3/uL 10^3/uL (0.02-0.10) Absolute Nucleated RBC 0.00 10^3/uL 10^3/uL (0-0.01) Immature Gran % 0.4 % % (0.0-1.1) Immature Gran # 0.04 10^3/uL 10^3/uL (0.00-0.10) Sodium 133 mEq/L L mEq/L (135-145) Potassium 4.3 mEq/L mEq/L (3.5-5.2) Chloride 104 mEq/L mEq/L (97-110) Carbon Dioxide 20 mEq/l L mEq/l (22-31) Anion Gap 9 mEq/L mEq/L (6-14) BUN 21 mg/dL mg/dL (7-23) Creatinine 2.0 mg/dL H mg/dL (0.7-1.3) Estimated GFR 33 Glucose 146 mg/dL H mg/dL (70-100) Calcium 9.4 mg/dL mg/dL (8.5-10.4) Total Bilirubin 1.1 mg/dL mg/dL (0.1-1.4) Conjugated Bilirubin 0.4 mg/dL mg/dL (0.0-0.5) Unconjugated Bilirubin 0.7 mg/dL mg/dL (0.0-1.1) AST 24 IU/L IU/L (17-59) ALT 33 IU/L IU/L (21-72) Alkaline Phosphatase 56 IU/L IU/L (38-126) Total Protein 6.6 g/dL g/dL (6.3-8.2) Albumin 3.8 g/dL g/dL (3.5-5.0) Lipase 624 IU/L H IU/L (23-300) Urine Color Urine Appearance Urine pH Ur Specific [place] Urine Protein Urine Ketones Urine Blood Urine Nitrate Urine Bilirubin Urine Urobilinogen Ur Leukocyte Esterase Urine RBC Urine WBC Ur Epithelial Cells Urine Glucose Nasal Influenza A PCR Nasal Influenza B PCR Group A Strep Screen Group A Strep DNA Medications Given: Discontinued Medications Sodium Chloride (Ns) 1,000 mls @ 0 mls/hr IV EDNOW ONE; Wide Open PRN Reason: Protocol Stop: 11/12/18 12:24 Last Admin: 11/12/18 13:04 Dose: 1,000 mls Departure - Departure Disposition: [facility] Inpatient Acute Clinical Impression: Weakness, Hyponatremia, Dizziness Condition: Good Referrals: [facility] [Other] - As per Instructions
[2018-11-12] MEDS ORDERED: NS 1,000 ML IV ONE (12:23)
[2018-11-12 13:13] LABS: PLATELET COUNT 159 10^3/uL (150-400)
[2018-11-12] MEDS ORDERED: ACETAMINOPHEN 325 MG TAB PO PRN (15:10)
[2018-11-12] MEDS ORDERED: HYDROCODONE/APAP 5/325 TAB PO PRN (15:10)
[2018-11-12] MEDS ORDERED: ONDANSETRON 4 MG/2 ML VIAL IVP PRN (15:10)
[2018-11-12] MEDS ORDERED: ALBUTEROL 3 ML DEYVIAL IH PRN (15:10)
[2018-11-12] MEDS ORDERED: ONDANSETRON DISINTEGRATING 4 MG TAB PO PRN (15:10)
[2018-11-12] MEDS ORDERED: HYDROmorphONE/DILAUDID 1 MG/ML INJ IVP PRN (15:10)
[2018-11-12] MEDS ORDERED: PROMETHAZINE HCL 25 MG/ML INJ IVP PRN (15:10)
--- NOTE | 2018-11-12 15:40 | PDGENHP ---
History and Physical - Chief Complaint "sick for 2 months" - History of Present Illness 73 [facility] M [facility] w[facility] including CKD, COPD, a fib, DM2, chronic pain in the left hip and knee reportedly due for spinal stenosis and having issues with getting surgery for this that has reportedly been planned for the last two years but still not scheduled presenting with multiple complaints including dizziness, weakness, nausea, headache and continued severe left hip and knee pain. Patient is very distressed about the situation with the [facility] and this is the predominant subject of our conversation. He notes that he was never truly convinced that his hip and knee hurt due to his back, but regardless he was finally scheduled for back surgery in September, but due to being hospitalized here in August, he missed his pre operative appointment and therefore his surgery was canceled. There was an initial plan to reschedule for November but that was canceled for unclear reasons, and he has been told he would be put into the 'choice program' which would allow him to schedule his surgery anywhere , but despite multiple phone calls, this is still not set up. He asks me to speak to his ex , Yue, over the phone, who also states that she has concerns that he is declining rapidly and that despite [facility] , to various ER's and his PCP no one has determined what is wrong with him, why he is so weak and getting weaker and what is actually wrong with him. She states he continually is told he has a virus, but that he never gets better. She is also concerned that emotionally he is not doing well. She feels he is depressed due to being so ill and weak for so long and that he is here alone and has no one really in his life. She lives in [place] where he is from [facility] as well. Patient denies depression but states he is just sick of being sick. He denies chest or abdominal pain, he is not currently nauseated but has had this on and off, has had some diarrhea recently but not today. While I am speaking with him in the room he is noticed to be having intermittent rigors, he denies being cold, he states this has been happening recently and he is not sure why. History Information - Allergies/Home Medication List Allergies/Adverse Reactions: glipizide Allergy (Intermediate, Verified 08/25/18 02:55) Other-Enter Comments lisinopril Allergy (Intermediate, Verified 08/25/18 02:55) Other-Enter Comments Home Medications: Albuterol [Proventil Inhaler HFA (*)] 2 puffs IH Q4 PRN 03/29/16 [Last Taken 04/26] Aspirin [Aspirin 81mg (*)] 81 mg PO DAILY 03/29/16 [Last Taken 08/24/18] Budesonide/Formoterol 160/4.5 [Symbicort 160-4.5 Mcg Inh (*)] 2 puffs IH BID [Last Taken 08/24/18 09:00] Carboxymethylcellulose 1% [Refresh Celluvisc (*)] 1 drops EACHEYE QID PRN [Last Taken Unknown] Cholecalciferol Vit D3 [Vitamin D3 (*)] 1,000 units PO DAILY 03/29/16 [Last Taken 08/24/18] Cyanocobalamin [Vitamin B12 (*)] 1,000 mcg PO DAILY 03/29/16 [Last Taken ] PARoxetine HCL [Paxil 30mg (*)] 30 mg PO DAILY 03/29/16 [Last Taken 08/24/18] Apixaban [Eliquis] 5 mg PO BID 04/13/17 [Last Taken 08/24/18] Atorvastatin Calcium [Lipitor 80 mg] 80 mg PO DAILY 09/21/17 [Last Taken ] Metoprolol Succinate Xr [Toprol Xl 25 mg (*)] 25 mg PO DAILY 09/21/17 [Last Taken 08/24/18] Gabapentin [Neurontin 300 MG (*)] 300 mg PO TID 10/19/17 [Last Taken 08/24/18 21 :00] Acetaminophen [Tylenol ES 500 mg (*)] 1,000 mg PO HS 12/08/17 [Last Taken ] Terbinafine HCl [LamISIL AT Cream (*)] 1 angelika TP BID 12/08/17 [Last Taken ] Diclofenac Sodium 1% [Voltaren Gel (*)] 1 angelika TP QID 08/25/18 [Last Taken ] Sennosides/Docusate Sodium [Senokot-S] 1 tab PO DAILY 08/25/18 [Last Taken 08/24] Tamsulosin HCl [Flomax 0.4 MG (*)] 0.4 mg PO BID 08/25/18 [Last Taken 08/24/18 09:00] I have personally reviewed and updated: family history, medical history, social history, surgical history - Past Medical History atrial fibrillation, coronary artery disease, cataracts, COPD, diabetes type 2 ( diet controlled), GI bleed, hypertension, hyperlipidemia, psychiatric history ( ptsd/anxiety), TIA Additional medical history: CKD stage 4 baseline creatinine 2.0-2.4. daily marijuana use. history MRSA 2010. BPH. gout. LINDA. chronic pain to left hip/ knee. chronic back pain due to spinal stenosis. prior chronic narcotic use and dependency now off. "mysterious illness" resulting in generalized weakness and debility. 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 Son-bipolar disorder - Social History Smoking Status: Former smoker Alcohol Use: Rarely Drug Use: Marijuana Additional social history: Patient lives with 2 male roommates. He he is retired . Cor status is full. Patient desires his daughter Emily Feliz to act as proxy if needed. Ex- Yue Feliz lives in [place], involved in his care Review of Systems Review of Systems: ROS: 10pt was reviewed & negative except for what was stated in HPI & below Physical Exam Physical Exam: Temp Pulse Resp BP Pulse Ox 36.3 C 66 16 150/93 H 97 11/12/18 11:33 11/12/18 12:56 11/12/18 12:56 11/12/18 12:56 11/12/18 12:56 Constitutional: chronically ill appearing, unkempt Eyes: PERRL, anicteric sclera Ears, Nose, Mouth, Throat: moist mucous membranes, poor dentition Cardiovascular: regular rate and rhythym, no murmur, rub, or gallop, edema Respiratory: reduced air movement, inspiratory crackles Gastrointestinal: normoactive bowel sounds, soft, non-tender abdomen Genitourinary: no bladder tenderness Skin: warm, abrasion, rash Musculoskeletal: joint tenderness (left hip/knee), generalized weakness Neurologic: AAOx3 Psychiatric: not encephalopathic, anxious Lab Data & Imaging Review 11/12/18 12:25 11/12/18 12:25 WBC 10.70 10^3/uL (3.80-9.50) H 11/12/18 12:25 RBC 5.66 10^6/uL (4.40-6.38) 11/12/18 12:25 Hgb 16.1 g/dL (13.7-17.5) 11/12/18 12:25 Hct 47.7 % (40.0-51.0) 11/12/18 12:25 MCV 84.3 fL (81.5-99.8) 11/12/18 12:25 MCH 28.4 pg (27.9-34.1) 11/12/18 12:25 MCHC 33.8 g/dL (32.4-36.7) 11/12/18 12:25 RDW 13.9 % (11.5-15.2) 11/12/18 12:25 Plt Count 159 10^3/uL (150-400) 11/12/18 12:25 MPV 11.0 fL (8.7-11.7) 11/12/18 12:25 Neut % (Auto) 74.4 % (39.3-74.2) H 11/12/18 12:25 Lymph % (Auto) 15.1 % (15.0-45.0) 11/12/18 12:25 [place] % (Auto) 6.4 % (4.5-13.0) 11/12/18 12:25 Eos % (Auto) 2.9 % (0.6-7.6) 11/12/18 12:25 Baso % (Auto) 0.8 % (0.3-1.7) 11/12/18 12:25 Nucleat RBC Rel Count 0.0 % (0.0-0.2) 11/12/18 12:25 Absolute Neuts (auto) 7.96 10^3/uL (1.70-6.50) H 11/12/18 12:25 Absolute Lymphs (auto) 1.62 10^3/uL (1.00-3.00) 11/12/18 12:25 Absolute Monos (auto) 0.68 10^3/uL (0.30-0.80) 11/12/18 12:25 Absolute Eos (auto) 0.31 10^3/uL (0.03-0.40) 11/12/18 12:25 Absolute Basos (auto) 0.09 10^3/uL (0.02-0.10) 11/12/18 12:25 Absolute Nucleated RBC 0.00 10^3/uL (0-0.01) 11/12/18 12:25 Immature Gran % 0.4 % (0.0-1.1) 11/12/18 12:25 Immature Gran # 0.04 10^3/uL (0.00-0.10) 11/12/18 12:25 Sodium 133 mEq/L (135-145) L 11/12/18 12:25 Potassium 4.3 mEq/L (3.5-5.2) 11/12/18 12:25 Chloride 104 mEq/L (97-110) 11/12/18 12:25 Carbon Dioxide 20 mEq/l (22-31) L 11/12/18 12:25 Anion Gap 9 mEq/L (6-14) 11/12/18 12:25 BUN 21 mg/dL (7-23) 11/12/18 12:25 Creatinine 2.0 mg/dL (0.7-1.3) H 11/12/18 12:25 Estimated GFR 33 11/12/18 12:25 Glucose 146 mg/dL (70-100) H 11/12/18 12:25 Calcium 9.4 mg/dL (8.5-10.4) 11/12/18 12:25 Total Bilirubin 1.1 mg/dL (0.1-1.4) 11/12/18 12:25 Conjugated Bilirubin 0.4 mg/dL (0.0-0.5) 11/12/18 12:25 Unconjugated Bilirubin 0.7 mg/dL (0.0-1.1) 11/12/18 12:25 AST 24 IU/L (17-59) 11/12/18 12:25 ALT 33 IU/L (21-72) 11/12/18 12:25 Alkaline Phosphatase 56 IU/L (38-126) 11/12/18 12:25 Total Protein 6.6 g/dL (6.3-8.2) 11/12/18 12:25 Albumin 3.8 g/dL (3.5-5.0) 11/12/18 12:25 Lipase 624 IU/L (23-300) H 11/12/18 12:25 Urine Color PALE YELLOW 11/12/18 12:30 Urine Appearance CLEAR 11/12/18 12:30 Urine pH 7.0 (5.0-7.5) 11/12/18 12:30 Ur Specific [place] 1.008 (1.002-1.030) 11/12/18 12:30 Urine Protein NEGATIVE (NEGATIVE) 11/12/18 12:30 Urine Ketones NEGATIVE (NEGATIVE) 11/12/18 12:30 Urine Blood NEGATIVE (NEGATIVE) 11/12/18 12:30 Urine Nitrate NEGATIVE (NEGATIVE) 11/12/18 12:30 Urine Bilirubin NEGATIVE (NEGATIVE) 11/12/18 12:30 Urine Urobilinogen NEGATIVE EU (0.2-1.0) 11/12/18 12:30 Ur Leukocyte Esterase NEGATIVE (NEGATIVE) 11/12/18 12:30 Urine RBC NONE SEEN /hpf (0-3) 11/12/18 12:30 Urine WBC 1-3 /hpf (0-3) 11/12/18 12:30 Ur Epithelial Cells NONE SEEN /lpf (NONE-1+) 11/12/18 12:30 Urine Glucose NEGATIVE (NEGATIVE) 11/12/18 12:30 Nasal Influenza A PCR NEGATIVE FOR FLU A (NEGATIVE) 11/12/18 12:25 Nasal Influenza B PCR NEGATIVE FOR FLU B (NEGATIVE) 11/12/18 12:25 Group A Strep Screen NEGATIVE (NEGATIVE) 11/12/18 12:25 Visualized and Interpreted Chest x-ray results: Yes Chest X-Ray results: other (mild perihilar bronchitis, atelectasis vs scarring) Visualized and Interpreted EKG results: Yes EKG Interpretation: Positive for: normal sinsus rhythm Assessment & Plan Assessment: Dizziness (Acute) Generalized weakness (Acute) Hyponatremia (Acute) 73 yo M with MMI including DM2, CKD, COPD, chronic pain and chronic debilitation presenting with multiple complaints including n/dizziness and worsening weakness and concerns that he is not safe at home # n/dizziness/URI sxs/diarrhea: patient with multiple complaints that are not all clearly related and that he and his ex state have been present x months , initial lab eval relatively benign and exam non focal. Had head CT at [place] yesterday reportedly that was normal. Will plan to get respiratory PCR, blood cultures particularly given rigors, UA/cx if indicated, GI panel if diarrhea recurs. Monitoring on tele, serial trops, echo in am if none recently # acute on chronic left knee/hip/back pain: complicated story and patient has been dealing with this for quite some time--reports scheduled for surgery at [place] and surgery canceled as per HPI. Requested records including imaging from [place]. Will need to have CM involved and try to determine if surgery can be completed here if indicated given his ongoing issues. Will check ESR/CRP in case some sort of poly-inflammatory condition contributing. He is reluctant to use opiates again for pain as he did not like the way he felt when he was on them-- he states the [place] sends him morphine every week still even though he does not use it. # generalized weakness: patient now largely wheelchair bound. He states he has been in 4 different rehabs over the last year and although he continues to fail at home, he is not eager to return to rehab. Ex states she feels very strongly that is what is needed and would like to be involved in these conversations. PT/OT/CM. # anxiety/depression: with hx of PTSD and per worsening long standing depression likely contributing to above, will ask for psychiatric resource nurse eval as well as spiritual eval. # CKD: at baseline # COPD: without e/o acute exacerbation, continue op meds and prn albuterol nebs # DM2: diet controlled, will monitor # skin lesions: patient reports that no one knows what it is from at the [place], also stated in the past it was due to 'jungle rot', unclear if he has some psychogenic excoriations contributing, will ask for wound care eval # a fib: currently in SR, continue home medications once confirmed what he is taking as he admits to some med non compliance, he was previously on AC # IP status, given lack of safety at home and multiple concerns he will require > 48 hour stay, will need CM/PT/OT evaluation Patient new to my care. Old records reviewed and summarized as above. Care plan reviewed with ER doctor as above. Further hx obtained from ex over the phone. Korey Jimenez's ex , requests to be updated and involved in his care plan, her phone number is [phone]
[2018-11-12] MEDS: oxyCODONE IR 5 MG TAB PO PRN (18:12)
[2018-11-12] MEDS ORDERED: SENNOSIDES/DOCUSATE SODIUM TAB PO PRN (18:25)
[2018-11-12] MEDS ORDERED: CARBOXYMETHYLCELLULOSE 1% 0.4 ML DROPERETTE EACHEYE PRN (18:25)
[2018-11-12] MEDS ORDERED: ALBUTEROL 60 PUFFS/8 GM MDI IH PRN (18:25)
[2018-11-12] MEDS: NS 1,000 ML IV SCH (18:37)
[2018-11-12] MEDS ORDERED: LORazepam 0.5 MG TAB PO PRN (20:56)
[2018-11-12] MEDS ORDERED: LORazepam 2 MG/ML INJ IVP ONE (20:56)
[2018-11-12] MEDS: APIXABAN 5 MG TAB PO SCH (21:12)
[2018-11-12] MEDS: GABAPENTIN 300 MG CAP PO SCH (21:12)
[2018-11-12] MEDS: TERBINAFINE 30 GM CRTUBE TP SCH (21:12)
[2018-11-12] MEDS: BUDESONIDE/FORMOTEROL 160/4.5 60 PUFFS/MDI IH SCH (22:22)
[2018-11-13 05:32] LABS: PLATELET COUNT 140 10^3/uL (150-400)
[2018-11-13] MEDS: NS 1,000 ML IV SCH (06:34)
[2018-11-13] MEDS: oxyCODONE IR 5 MG TAB PO PRN ×2 (07:24→21:13)
[2018-11-13] MEDS: CEPACOL LOZENGE PO PRN ×3 (07:24→21:14)
[2018-11-13] MEDS: TERBINAFINE 30 GM CRTUBE TP SCH ×3 (07:30→21:07)
--- NOTE | 2018-11-13 08:41 | HOSPPROG ---
Hospitalist Progress Note Assessment/Plan: 73 yo M with MMI including DM2, CKD, COPD, chronic pain and chronic debilitation presenting with multiple complaints including n/dizziness and worsening weakness and concerns that he is not safe at home. First encounter, chart reviewed. *nausea, dizziness, URI symptoms, diarrhea -respiratory PCR is negative -blood cx pending -vss #Generalized weakness -wheelchair bound -falls frequently at home and does not want to return to the SNF -reviewed echocardiogram and see nothing acute *acute on chronic left knee, hip and back pain -was to have back surgery at the OR -sed rate and CRP are stable -will evaluate his records from OR *anxiety, depression, hx of PTSD -ask Payton Owens to see -spiritual evaluation *CKD -reviewed his past medical records and at baseline *COPD -no s/sx of exacerbation *DM2 -diet controlled *skin lesions -patient told admitting provider this was "jungle rot" *afib -in sinus -had been on OAC *plan; updated Yue Feliz Korey's ex , her phone number is [phone], She is encouraging him to get in [place], encouraged her to talk w Korey about being his MPOA, he has no-one here who is able to support him. Subjective: Korey says everything overall is bothering him, is dizzy, has nausea, has weakness, poor appetite, back hurts w activity. Objective: Vital Signs Temp Pulse Resp BP Pulse Ox 36.4 C 74 16 163/86 H 97 11/13/18 08:00 11/13/18 08:00 11/13/18 08:00 11/13/18 08:00 11/13/18 08:00 Microbiology 11/12/18 19:40 Respiratory Panel (PCR) - Final Nasal, Sinus - Swab No Organism Detected By Pcr Laboratory Results 11/13/18 04:36 11/13/18 04:26 11/12/18 11/13/18 11/14/18 05:59 05:59 05:59 Intake Total 1500 Output Total 1150 Balance 350 - Physical Exam Constitutional: appears nourished, uncomfortable Eyes: PERRL Ears, Nose, Mouth, Throat: hearing normal Cardiovascular: regular rate and rhythym, no murmur, rub, or gallop Respiratory: no respiratory distress Gastrointestinal: other (round, + bowel sounds) Skin: warm Musculoskeletal: generalized weakness Neurologic: AAOx3 Psychiatric: anxious ICD10 Worksheet Patient Problems: Problems Problem Status Onset Dizziness Acute Generalized weakness Acute Hyponatremia Acute Acute bronchitis Acute Chest pain Acute Chronic Disease Mgmt/Transitional Care Acute Chronic pain Acute Dehydration Acute Dyspnea Acute Elevated d-dimer Acute Exacerbation of asthma Acute Failure to thrive in adult Acute GIB (gastrointestinal bleeding) Acute History of coronary artery disease Acute Left hip pain Acute Lightheaded Acute Pneumonia Acute Renal insufficiency Acute Skin excoriation Acute
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
--- NOTE | 2018-11-13 09:06 | ASMTCMCOM ---
CM Note CM Note Notes: Pt is a 73 y/o man admitted for shortness of breath, coughing/sneezing and pain in entire body. Therapies have been ordered and awaiting recommendations. Needs are TBD at this time. Wound care is following. Pt previously living independently prior to coming to the hospital. CM to follow. Plan: TBD Date Signed: 11/13/2018 09:05 AM Electronically Signed By:TASHA Deshpande
[2018-11-13] MEDS: GABAPENTIN 300 MG CAP PO SCH ×2 (09:20→21:07)
[2018-11-13] MEDS: CYANO/VITAMIN B12 1000 MCG TAB PO SCH (09:21)
[2018-11-13] MEDS: APIXABAN 5 MG TAB PO SCH ×2 (09:21→21:07)
[2018-11-13] MEDS: ASPIRIN 81 MG CHEWABLE TAB PO SCH (09:21)
[2018-11-13] MEDS: TAMSULOSIN HCL 0.4 MG CAP PO SCH (09:22)
[2018-11-13] MEDS: METOPROLOL SUCCINATE XR 25 MG TAB PO SCH (09:23)
[2018-11-13] MEDS: ATORVASTATIN CALCIUM 40 MG TAB PO SCH (09:24)
[2018-11-13] MEDS: CHOLECALCIFEROL VIT D3 1,000 UNITS TAB PO SCH (09:24)
[2018-11-13] MEDS: BUDESONIDE/FORMOTEROL 160/4.5 60 PUFFS/MDI IH SCH ×2 (09:37→21:45)
--- NOTE | 2018-11-13 11:41 | PDMN ---
Medical Necessity Medical necessity: Change to IP, as of 11/12/18, per MD & MCG M-152; est los >2 mn for eval/tx of dizziness w/worsening weakness, nausea, diarrhea, URI symptoms , skin lesions & acute on chronic knee/hip/back pain; admit for further workup/ monitoring, therapies & CM consult for dc planning; hx CKD, COPD, AFIB, diabetes , wc bound
--- NOTE | 2018-11-13 14:13 | ECHO ---
[email or web address] [address] Main: [phone] Echocardiography Examination Transthoracic Name: DIANE KNOX MR#: [id number] Study Date: 11/13/2018 Study Time: 06:00 AM Date of : 1945 Age: 73 year(s) Height: 175.3 cm (69 in.) Weight: 92.53 kg (204 lb.) BSA: 2.08 m2 Gender: Male Examination: Echo Indication: Near syncope Image Quality: Contrast: Requested by: ?? BP: / Heart Rate: Rhythm: Indication: Near syncope Procedure Staff Referring Physician: Lab Coordinator: Brigitte Steele RDCS Reading Physician: Sandeep Traore MD Requesting Provider: Indication: Near syncope Measurements Chambers AV/MV Label Value Normal Value Label Value Normal Value IVSd, 2D 0.9 cm (0.6cm - 1.1cm) AV PGmean 3 mmHg LVDd, 2D 5.2 cm (4.2cm - 5.9cm) MV A Vmax 0.55 m/s LVDs, 2D 3.1 cm (2.1cm - 4cm) MV E' lateral 0.06 m/s LVEF, 2D 71 % (54% - 74%) MV E' mean 0.06 m/s LVEF, BP 76 % (55% - 70%) MV E' septal 0.07 m/s LVEF, MOD2 79 % (55% - 70%) MV E Vmax 0.7 m/s LVEF, MOD4 73 % (55% - 70%) MV E/A 1.27 LVPWd, 2D 1 cm (0.6cm - 1cm) MV E/E' lateral 11.5 LA Area, A2C 15.1 cm2 (0cm2 - 20cm2) MV E/E' mean 10.77 LA Volume, A2C 37 ml (18ml - 58ml) MV E/E' septal 10.7 (0.45 - 1.25) LADs, 2D 3.9 cm (3cm - 4cm) Additional Vessels Label Value Normal Value AoAsc 3.5 cm AoRoot, 2D 3.5 cm (1.4cm - 2.6cm) AoRoot, MM 3.6 cm (2.2cm - 3.7cm) Conclusions Patient: DIANE KNOX Study Date: 11/13/2018 Page 1 of 3 06:00 AM Left Ventricle: Left ventricle is normal in size. Normal global systolic left ventricular function. Mitral Valve: Moderate mitral regurgitation. There is mild mitral calcification. Aortic Valve: Trivial aortic regurgitation is present. There is no aortic stenosis. The aortic valve is trileaflet. Pericardium: No pericardial effusion. Findings Left Ventricle: Left ventricle is normal in size. Normal global systolic left ventricular function. Left ventricle wall thickness is normal. There is no regional wall motion abnormalities. Left ventricular diastolic function parameters are normal. IVS: The septum is intact. Right Ventricle: Normal size right ventricle. Right ventricular wall thickness is normal. Right ventricular systolic function is normal. Pulmonary artery pressure normal. Left Atrium: The left atrium is normal in size. Right Atrium: The right atrium is normal in size. Mitral Valve: Moderate mitral regurgitation. No mitral valve stenosis. There is mild mitral calcification. Aortic Valve: Aortic leaflets exhibit normal cuspal separation. Trivial aortic regurgitation is present. There is no aortic stenosis. The aortic valve is trileaflet. Tricuspid Valve: Tricuspid valve leaflets are normal in appearance and function. Trivial tricuspid regurgitation. Pulmonic Valve: Pulmonic valve is poorly visualized. No pulmonic valve regurgitation is evident. There is no pulmonic valve stenosis. Aorta: The aorta is normal. The aortic root size in M-mode measures 3.6 cm. The aortic root size in 2D measures 3.5 cm. The ascending aorta measures 3.5 cm. Aorta Measurements AoRoot, MM is 3.6 cm. AoRoot, 2D is 3.5 cm. Pulmonary Artery: The pulmonary artery morphology appears normal. IVC: The inferior vena cava is normal in size and course. Pericardium: A pericardial fat pad is present. No pericardial effusion. No pleural effusion present. Exam Details Procedure Ordered: Echo Patient: DIANE KNOX Study Date: 11/13/2018 Page 2 of 3 06:00 AM (No Signature Object) Patient: DIANE KNOX Study Date: 11/13/2018 Page 3 of 3 06:00 AM [id number]
--- NOTE | 2018-11-13 14:26 | ASMTCMCOM ---
CM Note CM Note Notes: CM spoke to Donell at [facility] about this pt. Latoniaantonietta reports that pt has been there in the past and has been non compliant. Parishsumit reports that she will bring it to her admin and let CM know. CM met w/ pt and he reports that he has been trying to get back surgery since 2013. CM spoke to Robin at the [facility] (P#: [phone]). Robin reports that CM should speak to Lissy Brooke, an RN (P#: [phone]). CM spoke to a RN and she reports that pt has been referred to [facility] to have back surgery through a facility that takes [employer]. CM spoke to [facility] (P#: [phone]) and they report that [facility] and a [facility] consult for [facility] to proceed forward. DYLAN called the referring line (P#: [phone] extension [phone]) and left a msg requesting for a order/surgeon consult. Elizabeth may consult neurosurgery tomorrow. CM to follow. Plan: TBD Date Signed: 11/13/2018 02:20 PM Electronically Signed By:TASHA Deshpande
--- NOTE | 2018-11-13 15:03 | ASMTCMCOM ---
DYLAN Note DYLAN Note Notes: DYLAN spoke to Rm at the [facility]. Rm will submit the auth to [facility]. Rm reports that it takes Henna Garza about 24-48 hours to get auth. DYLAN to follow. Date Signed: 11/13/2018 03:02 PM Electronically Signed By:TASHA Deshpande
--- NOTE | 2018-11-13 15:48 | CPEKG ---
Test Reason : OPEN Blood Pressure : / mmHG Vent. Rate : 064 BPM Atrial Rate : 064 BPM P-R Int : 153 ms QRS Dur : 082 ms QT Int : 404 ms P-R-T Axes : 046 -25 005 degrees QTc Int : 417 ms Sinus rhythm Borderline left axis deviation Confirmed by Jaqui Castillo ([id number]) on 11/13/2018 3:48:01 PM Referred By: Jaqui Castillo Confirmed By:Jaqui Castillo
[2018-11-14] MEDS: CEPACOL LOZENGE PO PRN ×3 (02:35→11:21)
[2018-11-14] MEDS: CHOLECALCIFEROL VIT D3 1,000 UNITS TAB PO SCH (09:05)
[2018-11-14] MEDS: ATORVASTATIN CALCIUM 40 MG TAB PO SCH (09:05)
[2018-11-14] MEDS: TAMSULOSIN HCL 0.4 MG CAP PO SCH (09:06)
[2018-11-14] MEDS: METOPROLOL SUCCINATE XR 25 MG TAB PO SCH (09:06)
[2018-11-14] MEDS: oxyCODONE IR 5 MG TAB PO PRN (09:07)
[2018-11-14] MEDS: CYANO/VITAMIN B12 1000 MCG TAB PO SCH (09:07)
[2018-11-14] MEDS: ASPIRIN 81 MG CHEWABLE TAB PO SCH (09:07)
[2018-11-14] MEDS: APIXABAN 5 MG TAB PO SCH ×2 (09:07→20:22)
[2018-11-14] MEDS: GABAPENTIN 300 MG CAP PO SCH ×2 (09:07→20:22)
[2018-11-14] MEDS: BUDESONIDE/FORMOTEROL 160/4.5 60 PUFFS/MDI IH SCH ×2 (09:50→20:51)
[2018-11-14] MEDS: TERBINAFINE 30 GM CRTUBE TP SCH ×3 (11:15→20:22)
--- NOTE | 2018-11-14 12:33 | HOSPPROG ---
Hospitalist Progress Note Assessment/Plan: 73 yo M with MMI including DM2, CKD, COPD, chronic pain and chronic debilitation presenting with multiple complaints including n/dizziness and worsening weakness and concerns that he is not safe at home. *nausea, dizziness, URI symptoms, diarrhea -respiratory PCR is negative -blood cx pending -vss, orthostatic are stable -for dizziness will order meclizine #Generalized weakness -wheelchair bound -falls frequently at home and does not want to return to the SNF -reviewed echocardiogram and see nothing acute -per his ex he is still driving *acute on chronic left knee, hip and back pain -was to have back surgery at the [place] -sed rate and CRP are stable -will evaluate his records from [place] *anxiety, depression, hx of PTSD -ask Payton Roman to see -spiritual evaluation *CKD -reviewed his past medical records and at baseline *COPD -no s/sx of exacerbation *DM2 -diet controlled *skin lesions -patient told admitting provider this was "jungle rot" *afib -in sinus -had been on OAC *plan; Yue FelizKorey's ex , her phone number is [phone] (she likes to be updated) home health outreach coordinator has sent requests for records from [place], but they have not arrived. Dustin said he won't go to a SNF, has been to multiple facilities and wants to go home. Says he is feeling stronger, has requested for CM to look into the choice program and see if he qualifies. He would like back surgery here if possible, doesn't want an MRI just yet, he is [facility] Subjective: Dustin said he is feeling better today. Objective: Vital Signs Temp Pulse Resp BP Pulse Ox 36.4 C 68 16 117/85 H 88 L 11/14/18 11:29 11/14/18 11:29 11/14/18 11:29 11/14/18 11:29 11/14/18 11:29 Microbiology 11/12/18 19:40 Respiratory Panel (PCR) - Final Nasal, Sinus - Swab No Organism Detected By Pcr Laboratory Results 11/13/18 04:36 11/13/18 04:26 11/13/18 11/14/18 11/15/18 05:59 05:59 05:59 Intake Total 1500 500 Output Total 1150 1000 Balance 350 -500 - Physical Exam Constitutional: appears nourished, chronically ill appearing, obese Eyes: PERRL Ears, Nose, Mouth, Throat: hearing normal Cardiovascular: regular rate and rhythym Respiratory: no respiratory distress Skin: warm, other (mulitple skin lesions on his r upper arm area) Musculoskeletal: generalized weakness Neurologic: AAOx3 Psychiatric: interacting appropriately ICD10 Worksheet Patient Problems: Problems Problem Status Onset Dizziness Acute Generalized weakness Acute Hyponatremia Acute Acute bronchitis Acute Chest pain Acute Chronic Disease Mgmt/Transitional Care Acute Chronic pain Acute Dehydration Acute Dyspnea Acute Elevated d-dimer Acute Exacerbation of asthma Acute Failure to thrive in adult Acute GIB (gastrointestinal bleeding) Acute History of coronary artery disease Acute Left hip pain Acute Lightheaded Acute Pneumonia Acute Renal insufficiency Acute Skin excoriation Acute
[2018-11-14] MEDS: MECLIZINE HCL 12.5 MG TAB PO PRN (13:00)
[2018-11-14] MEDS ORDERED: BUFFERED SALT EYE WASH,STERILE 118 ML OPHT.BTL EACHEYE PRN (14:49)
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
[2018-11-15] MEDS: BUDESONIDE/FORMOTEROL 160/4.5 60 PUFFS/MDI IH SCH ×2 (08:00→21:42)
[2018-11-15] MEDS: CYANO/VITAMIN B12 1000 MCG TAB PO SCH (09:01)
[2018-11-15] MEDS: ASPIRIN 81 MG CHEWABLE TAB PO SCH (09:01)
[2018-11-15] MEDS: APIXABAN 5 MG TAB PO SCH ×2 (09:01→20:20)
[2018-11-15] MEDS: METOPROLOL SUCCINATE XR 25 MG TAB PO SCH (09:02)
[2018-11-15] MEDS: GABAPENTIN 300 MG CAP PO SCH ×2 (09:02→20:20)
[2018-11-15] MEDS: TAMSULOSIN HCL 0.4 MG CAP PO SCH (09:02)
[2018-11-15] MEDS: ATORVASTATIN CALCIUM 40 MG TAB PO SCH (09:03)
[2018-11-15] MEDS: CHOLECALCIFEROL VIT D3 1,000 UNITS TAB PO SCH (09:03)
[2018-11-15] MEDS: MECLIZINE HCL 12.5 MG TAB PO PRN (09:04)
[2018-11-15] MEDS: CEPACOL LOZENGE PO PRN ×3 (09:05→20:20)
[2018-11-15] MEDS: TERBINAFINE 30 GM CRTUBE TP SCH ×3 (09:06→20:19)
--- NOTE | 2018-11-15 11:29 | HOSPPROG ---
Hospitalist Progress Note Assessment/Plan: 73 yo M with MMI including DM2, CKD, COPD, chronic pain and chronic debilitation presenting with multiple complaints including n/dizziness and worsening weakness and concerns that he is not safe at home. *nausea, dizziness, URI symptoms, diarrhea -respiratory PCR is negative -blood cx no growth -vss, orthostatic are stable -meclizine has helped #Generalized weakness -wheelchair bound -falls frequently at home and does not want to return to the SNF -reviewed echocardiogram and see nothing acute -per his ex he is still driving *acute on chronic left knee, hip and back pain -was to have back surgery at the [place] -sed rate and CRP are stable -able to ambulate w a walker *anxiety, depression, hx of PTSD -ask Payton Roman to see -spiritual evaluation *CKD -reviewed his past medical records and at baseline *COPD -no s/sx of exacerbation *DM2 -diet controlled *skin lesions -patient told admitting provider this was "jungle rot" *afib -in sinus -had been on OAC *plan; Dustin wants to stay another night in the hospital, but not really needing acute care. Encouraged him to re-evaluate going to a SNF. CM had offered this to him yesterday, but he declined. Says he is weak but stronger. [facility] . He now is reconsidering going to a SNF, appreciate CM working w him. Records from [place] have not arrived, multiple requests.Korey Jimenez's ex , her phone number is [phone] (she likes to be updated) Subjective: Dustin is feeling stronger, and better today. Objective: Vital Signs Temp Pulse Resp BP Pulse Ox 36.4 C 68 12 137/88 H 94 11/15/18 07:17 11/15/18 09:02 11/15/18 08:01 11/15/18 09:02 11/15/18 08:01 Laboratory Results 11/13/18 04:36 11/15/18 04:17 11/14/18 11/15/18 11/16/18 05:59 05:59 06:59 Intake Total 500 Output Total 1000 550 Balance -500 -550 - Physical Exam Constitutional: chronically ill appearing, obese Eyes: PERRL Ears, Nose, Mouth, Throat: hearing normal Respiratory: no respiratory distress Skin: warm Musculoskeletal: generalized weakness Neurologic: AAOx3 Psychiatric: interacting appropriately ICD10 Worksheet Patient Problems: Problems Problem Status Onset Dizziness Acute Generalized weakness Acute Hyponatremia Acute Acute bronchitis Acute Chest pain Acute Chronic Disease Mgmt/Transitional Care Acute Chronic pain Acute Dehydration Acute Dyspnea Acute Elevated d-dimer Acute Exacerbation of asthma Acute Failure to thrive in adult Acute GIB (gastrointestinal bleeding) Acute History of coronary artery disease Acute Left hip pain Acute Lightheaded Acute Pneumonia Acute Renal insufficiency Acute Skin excoriation Acute
[2018-11-15] MEDS: oxyCODONE IR 5 MG TAB PO PRN ×2 (13:19→20:20)
--- NOTE | 2018-11-15 15:08 | ASMTCMCOM ---
CM Note CM Note Notes: Pt waffled back and forth several times with CM and hospitalist regarding SNF placement which is the hospital's recommendation. Cog eval ordered because pt appeared to not remember lipscomb aspects of discharge plan conversation with hospitalist and CM, so pt will not discharge until Saturday. [facility] accepted patient for short term rehab as did [facility]. Pt wanted to know if he can leave [facility] whenever he wants. CM and hospitalist explained very clearly that pt would need to follow the rules at [facility], including no marijuana use, and participate in the program until rehab MD discharged him. [facility] agreed to provide transportation to [place] for pt's appointment on Saturday. Pt understands that if he leaves [facility] AMA, he may be charged the bill as medicare will not reimburse. If pt discharges home with [facility], please also notify [facility] - private duty care paid for by the [place]. Discharge orders for them can be faxed to . See CM note 3/ for details on [facility] Auth (through [place]) for pt's spinal surgery. Pt has phone number to follow up with [facility] on his own. D/C Plan: [facility] with [facility] Date Signed: 11/15/2018 03:07 PM Electronically Signed By:Stella Cabrera
[2018-11-16] MEDS: oxyCODONE IR 5 MG TAB PO PRN ×2 (04:13→08:57)
[2018-11-16] MEDS: CEPACOL LOZENGE PO PRN ×2 (04:14→08:57)
[2018-11-16] MEDS: BUDESONIDE/FORMOTEROL 160/4.5 60 PUFFS/MDI IH SCH (07:41)
[2018-11-16 08:21] VITALS: BP 137/74
[2018-11-16] MEDS: ATORVASTATIN CALCIUM 40 MG TAB PO SCH (08:47)
[2018-11-16] MEDS: APIXABAN 5 MG TAB PO SCH (08:47)
[2018-11-16] MEDS: CYANO/VITAMIN B12 1000 MCG TAB PO SCH (08:48)
[2018-11-16] MEDS: CHOLECALCIFEROL VIT D3 1,000 UNITS TAB PO SCH (08:48)
[2018-11-16] MEDS: TAMSULOSIN HCL 0.4 MG CAP PO SCH (08:48)
[2018-11-16] MEDS: METOPROLOL SUCCINATE XR 25 MG TAB PO SCH (08:48)
[2018-11-16] MEDS: GABAPENTIN 300 MG CAP PO SCH (08:48)
[2018-11-16] MEDS: ASPIRIN 81 MG CHEWABLE TAB PO SCH (08:48)
--- NOTE | 2018-11-16 08:48 | HOSPPROG ---
Hospitalist Progress Note Assessment/Plan: 73 yo M with MMI including DM2, CKD, COPD, chronic pain and chronic debilitation presenting with multiple complaints including n/dizziness and worsening weakness and concerns that he is not safe at home. *nausea, dizziness, URI symptoms, diarrhea -respiratory PCR is negative -blood cx no growth -vss, orthostatic are stable -meclizine has helped -symptoms have resolved #Generalized weakness -wheelchair bound -falls frequently at home and does not want to return to the SNF -reviewed echocardiogram and see nothing acute -per his ex he is still driving *acute on chronic left knee, hip and back pain -was to have back surgery at the [place] -sed rate and CRP are stable -able to ambulate w a walker *anxiety, depression, hx of PTSD -ask Payton Owens to see -spiritual evaluation *CKD -reviewed his past medical records and at baseline *COPD -no s/sx of exacerbation *DM2 -diet controlled *skin lesions -patient told admitting provider this was "jungle rot" *afib -in sinus -had been on OAC *plan: Dustin has declined SNF, wants to go home, feels well. Has an appt at the [place] this . Subjective: Dustin feels fine, wants to go home Objective: Vital Signs Temp Pulse Resp BP Pulse Ox 36.3 C 60 14 137/74 H 94 11/16/18 08:00 11/16/18 08:00 11/16/18 08:00 11/16/18 08:00 11/16/18 08:00 Laboratory Results 11/13/18 04:36 11/15/18 04:17 11/15/18 11/16/18 11/17/18 04:59 05:59 05:59 Intake Total Output Total Balance - Physical Exam Constitutional: appears nourished, not in pain Eyes: PERRL Ears, Nose, Mouth, Throat: hearing normal Cardiovascular: regular rate and rhythym, no murmur, rub, or gallop Respiratory: no respiratory distress Skin: warm Musculoskeletal: generalized weakness Neurologic: AAOx3 Psychiatric: interacting appropriately ICD10 Worksheet Patient Problems: Problems Problem Status Onset Dizziness Acute Generalized weakness Acute Hyponatremia Acute Acute bronchitis Acute Chest pain Acute Chronic Disease Mgmt/Transitional Care Acute Chronic pain Acute Dehydration Acute Dyspnea Acute Elevated d-dimer Acute Exacerbation of asthma Acute Failure to thrive in adult Acute GIB (gastrointestinal bleeding) Acute History of coronary artery disease Acute Left hip pain Acute Lightheaded Acute Pneumonia Acute Renal insufficiency Acute Skin excoriation Acute
--- NOTE | 2018-11-16 08:53 | PDIAF ---
- Diagnosis Diagnosis: generalized weakness, back pain, knee pain, dizziness Code Status: Full Code - Medication Management Discharge Medications: electronically signed and located in the Home Medication List. - Orders Services needed: Home Care, Registered Nurse, Physical Therapy, Occupational Therapy Home Care Face to Face: I certify that this patient was under my care and that I had the required [id number] encounter meeting the encounter requirements on the discharge day. My findings support the fact that the patient is homebound as defined in Home Care Face to Face Continued: CMS Chapter 7 Medicare Benefits Manual 30.1.1 , The condition of the patient is such that there exists a normal inability to leave home and consequently, leaving home would require a considerable and taxing effort. Isolation Type: None Diet Recommendation: no restrictions on diet Diet Texture: Regular Texture Diet Additional Instructions: Call [facility] at [phone] to follow up on the referral for spine surgery. They should have a response on your request for authorization submitted by the [facility] by Saturday afternoon or Saturday. Meclizine is a medication you can buy over the counter to help with dizziness. Good luck at [facility] appt at the [facility]. - Follow Up Care Current Providers and Referrals: [facility]ADM SHOWELL [Other] - As per Instructions
[2018-11-16] MEDS: TERBINAFINE 30 GM CRTUBE TP SCH (09:43)
--- NOTE | 2018-11-16 10:45 | ASMTDCNOTE ---
"Case Management Discharge Discharge Order Complete? Answers: Yes Patient to Obtain Answers: Independently Medications Transportation Arranged Answers: Other Notes: Independently Faxed Final Orders Answers: Yes Notes: To [facility] via [facility] [facility] [employer] Agency/Facility Transfer Answers: Yes Notes: To [facility] via [employer] Report Printed & Faxed to Receiving Agency Family Notified Answers: No Discharge Comments Notes: CM met with patient prior to discharge. Patient confirms he is opting to discharge home with [facility] RN/PT/OT. Patient states he has caregivers M/W/F with [facility]. He states he will drive himself home today, his car is in the hospital parking lot. His plan is to go home and sleep today. CM asked about follow up, he states he will follow up with Dr. Suárez [facility] the [facility] and stated he has the information to address the surgery with the [facility]. Patient shared frustration with VA support being strained at the location in [place]. CM described IM, delivered patient copy, CM placed signed receipt in back of chart. CM available to support if any further CM needs arise. Date Signed: 11/16/2018 10:44 AM Electronically Signed By:Shayy La"
--- NOTE | 2018-11-16 13:30 | GDS ---
[f rep st] DISCHARGE SUMMARY DISCHARGE DIAGNOSES: 1. Nausea, dizziness and upper respiratory viral symptoms, as well as diarrhea. 2. Generalized weakness. 3. Acute on chronic left knee pain, hip, and back pain. 4. Anxiety, depression, history of post-traumatic stress disorder. 5. Chronic kidney disease. 6. Chronic obstructive pulmonary disease. 7. Diabetes type 2. 8. Skin lesions. 9. Atrial fibrillation, in sinus. HISTORY OF PRESENT ILLNESS: Briefly, the patient is a 73-year-old male with past medical history inc luding chronic kidney disease, COPD, atrial fibrillation, diabetes type 2, chronic pain and left hip and knee, who presented to the emergency room with ongoing complaints of dizziness, weakness, nausea, headache, and continued severe left hip and knee pain. He was very distressed about his situation a t the [place]. He was admitted for further evaluation. He was seen and evaluated by Physical Therapy and Occupational Therapy. Recommendation was for him to go to a halfway facility. He is feelin g quite a bit better today. He has declined to go to any of the halfway facilities even th gh they can bring him to his [facility] appointment on Saturday. He feels that he can take care of himself in his home. He will be discharged home with close followup at the [place] this coming Saturday. HOSPITAL COURSE PER PROBLEM: 1. Nausea, dizziness, upper respiratory symptoms as well as diarrhea. Respiratory PCR is negative. His blood culture showed no growth. What has helped with his dizziness is meclizine. 2. Generalized weakness. Overall, he is wheelchair bound, and he is able to drive to and from his a [facility]. He says that he is falling frequently at home, but has declined a halfway facil ity. He had an echocardiogram performed, which showed nothing acute. 3. Curer-je-qiitqqa left knee, hip, and back pain. His sedimentation rate and CRP are stable. He i s able to ambulate with a walker. He will get surgery at the [place] for this. 4. Anxiety, depression, history of PTSD, stable. 5. Chronic kidney disease. Most recent creatinine is 2.2. This was close to his baseline. 6. COPD. No signs or symptoms of exacerbation. 7. Diabetes type 2, diet controlled. 8. Skin lesions. These have been going on for years. 9. Atrial fibrillation, in sinus. He is not on any type of oral anticoagulation. DISCHARGE CONDITION: Stable. Blood pressure is 137/74, heart rate 60, respiratory rate 14, O2 sats on room air 94%, temperature is 36.3 Celsius. DISCHARGE MEDICATIONS: Please see the EMR. DISCHARGE INSTRUCTIONS: 1. To [facility] with the [facility] as scheduled. 2. To take meclizine p.r.n. for dizziness. 3. He has been given a number for [facility] to call on Saturday afternoon or Saturday morning. This is a referral for spine surgery. Greater than 30 minutes discharging and coordinating the patient's care. /[id number]/MODL
== END 2018-11-16 10:59 | disposition home or self-care (01) | DRG 948 ==
LOC: OBSVTOIN 15:14 → F3E 16:19
PROVIDERS: ADMIT Internal Medicine; ATTEND Internal Medicine
DX: R53.1 Weakness (principal); R42 Dizziness and giddiness; J06.9 Acute upper respiratory infection, unspecified; M25.559 Pain in unspecified hip; M25.569 Pain in unspecified knee; M54.9 Dorsalgia, unspecified; E11.9 Type 2 diabetes mellitus without complications; I12.9 Hypertensive chronic kidney disease with stage 1 through stage 4 chronic kidney disease, or unspecified chronic kidney disease; N18.9 Chronic kidney disease, unspecified; I48.91 Unspecified atrial fibrillation; J44.9 Chronic obstructive pulmonary disease, unspecified; M10.9 Gout, unspecified; F43.10 Post-traumatic stress disorder, unspecified; F41.8 Other specified anxiety disorders; E78.5 Hyperlipidemia, unspecified; N40.0 Benign prostatic hyperplasia without lower urinary tract symptoms; I25.10 Atherosclerotic heart disease of native coronary artery without angina pectoris; Z87.891 Personal history of nicotine dependence; Z86.73 Personal history of transient ischemic attack (TIA), and cerebral infarction without residual deficits; Z99.3 Dependence on wheelchair; Z91.81 History of falling
CPT/HCPCS: 92523-GN; 97116-GP; 97162-GP; 97166-GO; 97530-GP; 97535-GO; J2060

== ENCOUNTER 2019-01-07 06:52 | Day surgery (SDC) | payer OTHER ==
[2019-01-07] MEDS ORDERED: ceFAZolin 2 GM/DEXTROSE 100 ML IV ONE (06:58)
[2019-01-07] MEDS ORDERED: ACETAMINOPHEN 500 MG TAB PO ONE (06:58)
[2019-01-07] MEDS ORDERED: SURGIFLO MATRIX KIT WITH THROMBIN 8 ML TP ONE (07:19)
[2019-01-07] MEDS ORDERED: CHLORHEXIDINE GLUC HIBICLENS 118 ML BTL TP ONE (07:19)
[2019-01-07] MEDS ORDERED: BACITRACIN 50,000 UNITS/10 ML SYR IRR ONE (07:20)
[2019-01-07] MEDS ORDERED: THROMBIN (BOVINE) 5,000 UNIT VIAL TP ONE (07:20)
[2019-01-07] MEDS ORDERED: BUPIVACAINE/EPI 0.25% 30 ML SDV ONE (07:20)
[2019-01-07] MEDS ORDERED: DEXMEDETOMIDINE HCL 400 MCG in NS 100 ML IV SCH (07:30)
[2019-01-07] MEDS ORDERED: PROPOFOL/EMULSION 500 MG/50 ML BOTTLE IV ONE (07:46)
[2019-01-07] MEDS ORDERED: PROPOFOL 200 MG/20 ML VIAL ONE (07:46)
[2019-01-07] MEDS ORDERED: fentaNYL 250 MCG/5 ML INJ ONE (07:46)
[2019-01-07] MEDS ORDERED: DEXAMETHASONE 4 MG/ML VIAL ONE ×3 (07:55)
[2019-01-07] MEDS ORDERED: SUCCINYLCHOLINE CHLORIDE 200 MG/10 ML SYR IVP ONE (07:55)
[2019-01-07] MEDS ORDERED: METOPROLOL TARTRATE 5 MG/5 ML INJ ONE (07:56)
[2019-01-07 08:17] VITALS: BP 169/123
== END 2019-01-07 08:40 | disposition home or self-care (01) ==
LOC: UNDOADMIN 06:52 → F1N 06:52 → FSGY 06:52 → EDSTATUS 08:30 → FSGY 08:40 → UNDODISIN 08:40
PROVIDERS: ATTEND Neurological Surgery
DX: M47.12 Other spondylosis with myelopathy, cervical region (principal); M48.02 Spinal stenosis, cervical region; Z53.09 Procedure and treatment not carried out because of other contraindication
CPT/HCPCS: J0330; J0690; J1100; J2704; J3010

== ENCOUNTER 2019-01-09 05:56 | Inpatient (IN) | payer OTHER ==
--- NOTE | 2019-01-08 16:21 | GHP ---
[f rep st] PREOP HISTORY AND PHYSICAL DATE OF ADMISSION: 01/09/2019 HISTORY OF PRESENT ILLNESS: The patient is a 73-year-old male with neck and back pain. He has neck pain that is constant and has worsened over the last 2 to 3 weeks. Gabapentin seems to improve his n abby pain. Neck movement increases his pain. He reports left deltoid pain and denies numbness, tingl ing, weakness in the upper extremities. He admits to urinary urgency and frequency. He notes balanc e difficulties, but also has severe left hip and knee pain. Denies issues with fine motor skills. Bettie aguilar has a history of diabetes and a myocardial infarction in January of 2016, for which he had a stent plac ed. He is on Eliquis and aspirin. PAST MEDICAL HISTORY: 1. COPD. 2. Coronary artery disease. 3. Pneumonia. 4. Renal insufficiency. 5. Asthma. 6. Lightheadedness. 7. Dizziness. 8. Left hip pain. 9. Bronchitis. 10. Gastrointestinal bleed. 11. Hyponatremia. 12. Chest pain. 13. Dyspnea. PAST SURGICAL HISTORY: Denies. SOCIAL HISTORY: Patient lives alone and is a former smoker. He quit approximately 40 years ago. De nies alcohol use. FAMILY HISTORY: No pertinent neurosurgical family history. ALLERGIES: Glipizide and lisinopril. MEDICATIONS: Current home medications are: 1. Hydroxyzine. 2. Natural tears. 3. Flomax. 4. Paxil. 5. Metoprolol. 6. Gabapentin. 7. Flonase. 8. Vitamin B12. 9. Vitamin D3. 10. Symbicort. 11. Lipitor. 12. Aspirin. 13. Eliquis. 14. Albuterol. PHYSICAL EXAM: GENERAL: Patient seen and examined, appears to be in no apparent distress. Mood and affect are appropriate. Alert and oriented. HEENT: Extraocular movements are intact. Pupils are equal and reactive. Facial expression is symmetrical. Speech is fluent without dysarthria. Hearing is grossly intact. EXTREMITIES: Muscle strength is well preserved in his upper and lower extremiti es at 5/5. Sensation is intact to light touch. ASSESSMENT AND PLAN: In summary, the patient is a 73-year-old with neck pain. He has had an MRI of the cervical spine demonstrating severe, left greater than right, foraminal narrowing and moderate th ecal sac narrowing at C3-4 with myelomalacia. The myelomalacia has been present on MRI since 2016. At C4-5, there is severe right foraminal lateral recess narrowing, at C5-6 there is moderate right fo raminal narrowing, at C6-7 there is moderate right foraminal narrowing and moderate thecal sac narrow ing. In reviewing his MRI of the cervical spine, he has severe stenosis at C3-4 and C4-5 with eviden ce of myelomalacia at C3-4. On exam, he has a positive Adriane's and clonus on the left. We recomm end proceeding with surgical intervention with an anterior cervical diskectomy and fusion at C3-4 and C4-5. The risks, benefits, procedure, and recovery process were discussed in detail. The patient h as agreed and has consented to proceed with surgery. The patient's questions and concerns were addre ssed and answered. /[id number]/MODL
[2019-01-09] MEDS ORDERED: LR 1,000 ML IV ONE (06:22)
[2019-01-09] MEDS ORDERED: ceFAZolin 2 GM/DEXTROSE 100 ML IV ONE (06:22)
[2019-01-09] MEDS ORDERED: ACETAMINOPHEN 500 MG TAB PO ONE (06:22)
[2019-01-09] MEDS ORDERED: BACITRACIN 50,000 UNITS/10 ML SYR IRR ONE (06:48)
[2019-01-09] MEDS ORDERED: THROMBIN (BOVINE) 5,000 UNIT VIAL TP ONE (06:48)
[2019-01-09] MEDS ORDERED: CHLORHEXIDINE GLUC HIBICLENS 118 ML BTL TP ONE (06:49)
[2019-01-09] MEDS ORDERED: BUPIVACAINE/EPI 0.25% 30 ML SDV ONE (06:49)
[2019-01-09] MEDS ORDERED: SURGIFLO MATRIX KIT WITH THROMBIN 8 ML TP ONE ×2 (06:49→09:11)
--- NOTE | 2019-01-09 06:59 | PDANEPAE ---
ANE History of Present Illness cervical disc disease with radiculopathy, here for anterior C3-C5 fusion ANE Past Medical History - Cardiovascular History Hx Hypertension: Yes Hx Arrhythmias: Yes Hx Chest Pain: No Hx Coronary Artery / Peripheral Vascular Disease: Yes Hx CHF / Valvular Disease: No Hx Palpitations: No Cardiovascular History Comment: CARDIAC STENT. ANNABELLE CAROTID ARTERY STENOSIS - Pulmonary History Hx COPD: Yes Hx Asthma/Reactive Airway Disease: Yes Hx Recent Upper Respiratory Infection: No Hx Oxygen in Use at Home: No Hx Sleep Apnea: No Sleep Apnea Screening Result - Last Documented: Positive Pulmonary History Comment: INHALERS. radha triggers - Neurologic History Hx Cerebrovascular Accident: Yes Hx Seizures: No Hx Dementia: No Neurologic History Comment: CVA 14 YRS AGO. TIAs X3 - Endocrine History Hx Diabetes: Yes Endocrine History Comment: DIET CONTROLLED - Renal History Hx Renal Disorders: Yes Renal History Comment: CKD - KIDNEY CYSTS - Liver History Hx Hepatic Disorders: No - Neurological & Psychiatric Hx Hx Neurological and Psychiatric Disorders: Yes Neurological / Psychiatric History Comment: PTSD. ANXIETY - Cancer History Hx Cancer: No - Congenital Disorder History Hx Congenital Disorders: No - GI History Hx Gastrointestinal Disorders: No - Other Health History Other Health History: PRURIGO NODULARIS - Chronic Pain History Chronic Pain: Yes (HIP & KNEE L) - Surgical History Prior Surgeries: STENT CARDIAC PLACED 01/2016. CATARACT & DETACHED RETINA W/ BUCKLE PLACED ANE Review of Systems Review of Systems: - Exercise capacity METS (RN): 4 METS ANE Patient History - Allergies Allergies/Adverse Reactions: glipizide Allergy (Verified 01/08/19 09:38) dizziness, SOB lisinopril Allergy (Verified 01/08/19 09:38) dizziness, SOB - Home Medications Home Medications: Aspirin [Aspirin 81mg (*)] 81 mg PO DAILY 03/29/16 [Last Taken 01/02/19] Carboxymethylcellulose 1% [Refresh Celluvisc (*)] 1 drops EACHEYE QID PRN [Last Taken 01/09/19] Cholecalciferol Vit D3 [Vitamin D3 (*)] 1,000 units PO DAILY 03/29/16 [Last Taken 01/07/19] Cyanocobalamin [Vitamin B12 (*)] 1,000 mcg PO DAILY 03/29/16 [Last Taken ] Apixaban [Eliquis] 5 mg PO BID 04/13/17 [Last Taken 01/02/19] Atorvastatin Calcium [Lipitor 80 mg] 80 mg PO DAILY 09/21/17 [Last Taken ] Metoprolol Succinate Xr [Toprol Xl 25 mg (*)] 25 mg PO DAILY 09/21/17 [Last Taken 01/05/19] Gabapentin [Neurontin 300 MG (*)] 300 mg PO BID PRN 10/19/17 [Last Taken ] Tamsulosin HCl [Flomax 0.4 MG (*)] 0.4 mg PO BID 08/25/18 [Last Taken 01/08/19] Albuterol [Proventil Inhaler HFA (*)] 1 - 2 puffs IH Q4H PRN 12/31/18 [Last Taken 12/26/18] Budesonide/Formoterol 160/4.5 [Symbicort 160-4.5 Mcg Inh (*)] 2 puffs IH BID [Last Taken 01/08/19] Fluticasone Nasal [Flonase Nasal [place] (RX)] 1 sprays NASAL DAILY 12/31/18 [ Last Taken 01/08/19] PARoxetine HCL [Paxil] 40 mg PO DAILY 12/31/18 [Last Taken 01/08/19] Tears/Dextran 70/Hypromellose [Natural Balance Tears (*)] 1 drop EACHEYE Q2 PRN 12/31/18 [Last Taken 01/09/19] hydrOXYzine HCL [hydrOXYzine HCL (RX)] 25 mg PO BID PRN 12/31/18 [Last Taken ] - NPO status NPO Since - Liquids (Date): 01/09/19 NPO Since - Liquids (Time): 02:30 NPO Since - Solids (Date): 01/08/19 NPO Since - Solids (Time): 20:00 - Smoking Hx Smoking Status: Former smoker - Family Anes Hx Family Hx Anesthesia Complications: none ANE Labs/Vital Signs - Vital Signs Blood Pressure: 160/104 Heart Rate: 81 Respiratory Rate: 22 O2 Sat (%): 98 Height: 175.26 cm Weight: 99.79 kg ANE Physical Exam - Airway Neck exam: decreased ROM Mallampati Score: Class 3 Mouth exam: normal dental/mouth exam - Pulmonary Pulmonary: no respiratory distress, no rales or rhonchi - Cardiovascular Cardiovascular: regular rate and rhythym, no murmur, rub, or gallop - ASA Status ASA Status: III ANE Anesthesia Plan Anesthesia Plan: general endotracheal anesthesia Lines/Monitors: arterial line Total IV Anesthesia: No
[2019-01-09] MEDS ORDERED: MIDAZOLAM 2 MG/2 ML VIAL IVP ONE (07:01)
--- NOTE | 2019-01-09 07:04 | PDHPUP ---
History & Physical Update H&P update statement: This history and physical update is based on an assessment of the patient which was completed after admission or registration (within 24 hours), but prior to the surgery/procedure. H&P update: H&P reviewed & patient examined, no change in patient's condition since H&P completed
[2019-01-09] MEDS ORDERED: REMIFENTANIL HCL 1 MG VIAL ONE ×2 (07:10→08:43)
[2019-01-09] MEDS ORDERED: LIDOCAINE HCL 160 MG/4 ML LTA KIT TP ONE (07:10)
[2019-01-09] MEDS ORDERED: ROCURONIUM 50 MG/5 ML VIAL ONE (07:10)
[2019-01-09] MEDS ORDERED: LIDOCAINE 2% 100 MG/5 ML SYR ONE (07:10)
[2019-01-09] MEDS ORDERED: PROPOFOL/EMULSION 500 MG/50 ML BOTTLE IV ONE ×5 (07:10→09:08)
[2019-01-09] MEDS ORDERED: PROPOFOL 200 MG/20 ML VIAL ONE (07:10)
[2019-01-09] MEDS ORDERED: ONDANSETRON 4 MG/2 ML VIAL ONE (10:02)
[2019-01-09] MEDS ORDERED: HYDROmorphONE/DILAUDID 2 MG/ML INJ ONE (10:10)
[2019-01-09] MEDS ORDERED: DIAZEPAM 10 MG/2 ML SYR IVP PRN (10:24)
[2019-01-09] MEDS ORDERED: METOCLOPRAMIDE 10 MG/2 ML VIAL IVP PRN (10:24)
[2019-01-09] MEDS ORDERED: LR 500 ML IV PRN (10:24)
[2019-01-09] MEDS ORDERED: NALOXONE HCL 0.4 MG/ML INJ IVP PRN (10:24)
[2019-01-09] MEDS ORDERED: HYDROmorphONE/DILAUDID 1 MG/ML INJ IVP PRN (10:24)
[2019-01-09] MEDS ORDERED: MEPERIDINE 25 MG/0.5 ML AMP IVP PRN (10:24)
[2019-01-09] MEDS ORDERED: oxyCODONE IR 5 MG TAB PO PRN (10:24)
[2019-01-09] MEDS ORDERED: PROMETHAZINE HCL 25 MG/ML INJ IVP PRN (10:24)
[2019-01-09] MEDS ORDERED: PHENYLEPHRINE HCL 100 MCG/ML SYR IVP PRN (10:24)
[2019-01-09] MEDS ORDERED: fentaNYL 100 MCG/2 ML INJ IVP PRN (10:24)
[2019-01-09] MEDS ORDERED: CARBOXYMETHYLCELLULOSE 1% 0.4 ML DROPERETTE EACHEYE PRN (10:26)
[2019-01-09] MEDS ORDERED: TEARS/DEXTRAN 70/HYPROMELLOSE 15 ML OPHT.BTL EACHEYE PRN (10:26)
[2019-01-09] MEDS ORDERED: hydrOXYzine HCL 25 MG TAB PO PRN (10:26)
[2019-01-09] MEDS ORDERED: ALBUTEROL 60 PUFFS/8 GM MDI IH PRN (10:26)
[2019-01-09] MEDS ORDERED: diphenhydrAMINE 25 MG CAP PO PRN (10:29)
[2019-01-09] MEDS ORDERED: LACTULOSE 20 GM/30 ML UDCUP PO PRN (10:29)
[2019-01-09] MEDS ORDERED: ONDANSETRON 4 MG/2 ML VIAL IVP PRN (10:29)
[2019-01-09] MEDS ORDERED: ONDANSETRON DISINTEGRATING 4 MG TAB PO PRN (10:29)
[2019-01-09] MEDS ORDERED: MAGNESIUM HYDROXIDE 30 ML UDCUP PO PRN (10:29)
[2019-01-09] MEDS ORDERED: BISACODYL 10 MG SUPP PR PRN (10:29)
--- NOTE | 2019-01-09 10:41 | POSTANESTH ---
Post Anesthetic Evaluation Cardiovascular Status: Normal, Stable Respiratory Status: Normal, Stable Level of Consciousness/Mental Status: Can Participate in Eval, Moderately Sleepy Pain Control: Adequate, Prn Tx Ordered Nausea/Vomiting Control: Adequate, Prn Tx Ordered Complications Possibly Related to Anesthesia: None Noted
--- NOTE | 2019-01-09 10:44 | GOP ---
[f rep st] OPERATIVE REPORT DATE OF OPERATION: 01/09/2019 SURGEON: Leni Xiong DO NEUROSURGEON: Leni Xiong DO. COUNTER MANAGER: Adela John PA-C. PREOPERATIVE DIAGNOSIS: Cervical spondylitic myelopathy. POSTOPERATIVE DIAGNOSIS: Cervical spondylitic myelopathy. PROCEDURE PERFORMED: 1. C3-C4 and C4-C5 anterior cervical diskectomy, C3-C4 interbody fusion with LDR DMOINICK-C 9 x 12 x 14 m m graft. 2. C4-C5 interbody fusion with LDR DOMINICK-C 8 x 12 x 14 mm graft. 3. Autograft to allograft. 4. Microscope. FINDINGS: SPECIMENS: None. ESTIMATED BLOOD LOSS: 30 mL. INDICATIONS: This is a 73-year-old male with cervical spondylitic myelopathy, with progressive myelo jose, who has severe and critical stenosis at C3-C4 with a right eccentric disk and yeditptv-hm-rogc re stenosis at C4-C5, who elected to move forward with anterior cervical diskectomy and fusion. DESCRIPTION OF PROCEDURE: He was identified and consented. Sites were marked. Brought to the [facility] room. Anesthetized under general endotracheal tube anesthesia. Pre and post-positioning baseli sherman were performed. Interscapular roll was placed. Head was placed in a Walters waiter/waitress head to a n eutral position. Incision site was marked. Taping a blunt needle to the skin and taking an x-ray, w jeff marked the incision. He was prepped and draped in the usual sterile fashion. Incision was anesthe tized with 0.5% Marcaine with epinephrine. Incision was made with a 10 blade. Hemostasis was obtain ed with Bovie and bipolar cautery. Dissecting through the platysma with Metzenbaum scissors, taking handheld Cloward, moving along the medial border of the SCM and the avascular plane. Retracted the t rachea and esophagus medially. Palpating the carotid laterally and coming down onto the prevertebral space. Prevertebral fascia was cleared with Kittners. He had very large, almost kissing longus col li at these levels; however, we were able to place a Bayoneted spinal needle at C3-C4 and took an x-r ay, verifying we were at the appropriate position. We marked this level with the Bovie and then moved down and marked the level with a Bayonet spinal needle under x-ray at C4-C5. We then measured and p laced a Shadow-Line retractor. Placed Kanaranzi pins at C3 and C4. Took an x-ray and verified they wer e in the appropriate position. We placed the patient under distraction. Checked motors throughout. Brought in the microscope. Using a high-speed drill, we removed the disk and cartilaginous endplate from the superior and inferior endplates, coming down to the posterior longitudinal ligam ent, opened this with a micro-upgoing curette, and then extended this with a 1 Kerrison. Then used 2 Koros to remove disk and cartilage, disk and osteophyte from the superior and inferior endplates out bilateral lateral foramen until we were well decompressed. Harvested autograft from this level marlin ured 9 x 12 x 14 mm graft at this level. Tacked some graft on DBX and then some of the patient's own bone and tamped into place. Verified it was in the appropriate position under x-ray. Removed the C aspar pin superiorly. Placed a long wing superiorly, tamped with the 1, and verified it was in the r ight position, cold welded with the 1 impactor, cold welded with the 2 impactor. Placed a short wing inferiorly, tamped it into place, and verified it was in the appropriate position. Cold welded with the 1 impactor and cold welded with the 2 impactor. We then moved the Kanaranzi pin down to the C5 lev el, took an x-ray, and verified it was the appropriate position. Placed the patient under distractio n again. Using the high-speed drill, removed the disk and cartilaginous endplate from the superior a nd inferior endplates. Opened the posterior longitudinal ligament with Micro upgoing curette, extend ing this with 1 Kerrison and then used the 2 Koros to remove disk and osteophyte from the superior an d inferior endplates, out bilateral lateral foramen until they were well decompressed. We then harve frankied autograft. Measured an 8 x 12 x 14 mm graft at this level. Packed it with DBX and the patient' s own bone, tamped it into place. Removed the Kanaranzi pins. Took an x-ray and verified it was in the appropriate position. Placed the 1 impactor, the short wing and superiorly, tamped it into place wi th the 1 impactor. Verified the wing was in the appropriate position. Cold welded with the 1 and co ld welded with the 2 impactors. Placed the long wing inferiorly and tamped it into place. Verified it was in good position. Cold welded with the 1 impactor and cold welded with the 2 impactor. We th en took a final x-ray. Motors remained stable throughout, with no complications. Meticulous hemosta sis was obtained with bipolar cautery. Then, trocar to drain out inferiorly prevertebral space. Copiously irrigated with over a liter of gentamicin-infused saline. Closed the platysma with 2-0 Vicryl pop offs, subcutaneous layer with 3-0 Vicryl pop-offs. The skin was closed with a 4-0 ru nning Monocryl and Steri-Strips. Drain was sutured in with a 2-0 Vicryl pop-off. Placed to bulb suc tion. Again, there were no complications. Neuromonitoring remained stable. FLUIDS: 1 L of crystalloid. URINE OUTPUT: None. DRAINS: One LISA in the prevertebral space to bulb suction. COMPLICATIONS: None. /[id number]/MODL
[2019-01-09] MEDS ORDERED: fentaNYL 100 MCG/2 ML INJ ONE (12:00)
[2019-01-09] MEDS ORDERED: DIAZEPAM 10 MG/2 ML SYR ONE (12:00)
--- NOTE | 2019-01-09 12:54 | POSTOPPROG ---
Post Op Note Date of Operation: 01/09/19 Surgeon: Leni Xiong Aircraft Systems Repairer: Adela John PAChynaC Anesthesia: GET(General Endotracheal), Local (Specify) Pre-op Diagnosis: Cervical stenosis Post-op Diagnosis: Cervical stenosis Procedure: ACDF C3-5 Inf/Abcess present in the surg proc area at time of surgery?: No EBL: Minimal Plan Plan: 73 yo male s/p ACDF C3-5 - neuro checks - pain control - hard collar - LISA drain x 1 - postop C-spine x-rays in am - Medicine consulted - PT/OT/FACULTY I ON CALL MEDICAL ASSISTANT Exam Incision with dressing c/d/i Moving all extremities
[2019-01-09] MEDS: oxyCODONE IR 5 MG TAB PO PRN ×4 (13:32→22:40)
[2019-01-09] MEDS ORDERED: PET HY PHL TP PRN (14:27)
[2019-01-09] MEDS ORDERED: MINERAL OIL TP PRN (14:27)
[2019-01-09] MEDS: ACETAMINOPHEN 500 MG TAB PO SCH ×2 (14:37→21:30)
[2019-01-09] MEDS: ceFAZolin 2 GM/DEXTROSE 100 ML IV SCH ×2 (14:37→21:31)
[2019-01-09] MEDS: METHOCARBAMOL 750 MG TAB PO PRN ×2 (14:43→22:40)
[2019-01-09] MEDS: PARoxetine HCL 20 MG TAB PO SCH (14:55)
--- NOTE | 2019-01-09 15:02 | PDCONSULT ---
Tonnage Compilation Clerk Note: The patient is a 73-year-old male with past medical history of CKD, COPD, AFib, diabetes type 2, chronic pain, hypertension, hyperlipidemia, PTSD, TIA who was admitted for a C3-C4 anterior cervical diskectomy with a C3-C4 interbody fusion and a C4-C5 interbody fusion with autograft to allograft. He is currently postop and lethargic. He developed does have some discomfort in his neck but he feels that the pain is well managed with the current medication regimen. He denies any numbness or tingling in his extremities, loss of bowel or bladder, weakness or other concerning alarm symptoms. He denies any shortness of breath , orthopnea, chest pain, cough or other symptoms. Past medical history As mentioned above including chronic pain, CKD stage 4, COPD, atrial fibrillation, type 2 diabetes,, hypertension, hyperlipidemia, history of TIA, CAD Past surgical history History of a coronary stent. Family history Non pertinent Mother with type 2 diabetes, hypertension and coronary artery disease A son with bipolar disorder Social history Former smoker does smoke marijuana but rare alcohol use Allergies include glipizide and lisinopril Medications Eliquis 5 mg twice a day 81 mg aspirin Albuterol Lipitor 80 mg Symbicort Vitamin-D Vitamin B12 Flonase For stasis drop Toprol-XL 25 mg Paxil 40 mg Flomax 0.4 twice a day Review of systems Ten point review systems is negative except as listed in the HPI Examination Vitals Blood pressure is 179/97, heart rate is 85, respirations 18, oxygen sat is 93% on 2 L nasal cannula, temperature is 36.7 degrees C General chronically ill-appearing male in no acute distress, obese HEENT PERRLA mucous membranes are moist pink and acyanotic head is atraumatic normocephalic anterior neck incision was clean dry and intact Lungs are clear to auscultation bilaterally Cardiovascular regular rhythm and rate no murmurs rubs or gallops Abdomen soft nontender nondistended in all 4 quadrants no organomegaly positive bowel sounds -no CVA tenderness Extremities no clubbing cyanosis edema or calf pain Neuro cranial nerves 2-12 are grossly intact no focal neurologic deficits patient is alert and oriented x3 Psych mood and affect are appropriate Skin no lesions rashes or ecchymosis Lymph no lymphadenopathy Assessment plan 73-year-old male with multiple medical problems admitted for anterior fusion due to spinal stenosis 1. Cervical spinal stenosis- patient is postop day 0 status post C3-C4 anterior cervical diskectomy with a C3-C4 interbody fusion and a C4-C5 interbody fusion with autograft allograft. Management per Neurosurgery. PT OT and control and DVT prophylaxis along with bowel regimen AFib- on aspirin and Eliquis. Would hold these until cleared to restart by Neurosurgery. Monitor on telemetry and restart Toprol-XL CKD stage 4-avoid NSAIDs and other nephrotoxin medications. Check renal function in the morning Hypertension- takes Toprol-XL 25 mg. Would restart this and if needed add p.r.n. Hydralazine for systolic over 160. Type 2 diabetes-diet controlled. Will order sliding scale insulin with glucose checks in case his blood sugar rises COPD- on Symbicort and Proventil which should be continued. PTSD/depression on Prozac and Paxil both of which should be fine to continue Chronic pain- takes gabapentin 300 mg twice daily which I have restarted BPH- continue Flomax Prophylaxis- SCDs and low molecular weight heparin per Neurosurgery. Fluids- oral Electrolytes-pending recheck Nutrition-regular diet I have reviewed the patients, chart, imaging and labs as the patient is new to me. Thank you for allowing up to participate in the care of this patient. Medicine will continue to follow.
[2019-01-09] MEDS ORDERED: D50W 25 GM/50 ML SYR IVP PRN (15:12)
[2019-01-09] MEDS: GABAPENTIN 300 MG CAP PO PRN (15:14)
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
[2019-01-09] MEDS ORDERED: CEPACOL LOZENGE PO PRN (18:03)
[2019-01-09] MEDS: FLUTICASONE NASAL 120 SPRAYS/16 GM MDI EACHNARE SCH (18:07)
[2019-01-09] MEDS: INSULIN LISPRO 100 UNIT/ML SC SCH (18:17)
[2019-01-09] MEDS ORDERED: hydrALAZINE 20 MG/ML VIAL IVP PRN (19:19)
[2019-01-09] MEDS: SENNOSIDES/DOCUSATE SODIUM TAB PO SCH (21:30)
[2019-01-09] MEDS: TAMSULOSIN HCL 0.4 MG CAP PO SCH (21:31)
[2019-01-09] MEDS: FAMOTIDINE 20 MG TAB PO SCH (21:31)
[2019-01-09] MEDS: BUDESONIDE/FORMOTEROL 160/4.5 60 PUFFS/MDI IH SCH (22:52)
[2019-01-10] MEDS: cycloSPORINE 0.05% 30 DROPERETTE/BOX EACHEYE SCH ×3 (00:43→22:02)
[2019-01-10] MEDS: oxyCODONE IR 5 MG TAB PO PRN ×3 (03:03→20:28)
[2019-01-10] MEDS: GABAPENTIN 300 MG CAP PO PRN (03:34)
[2019-01-10 05:00] LABS: PLATELET COUNT 146 10^3/uL (150-400)
[2019-01-10] MEDS: ACETAMINOPHEN 500 MG TAB PO SCH ×3 (06:59→22:03)
[2019-01-10] MEDS: CHOLECALCIFEROL VIT D3 1,000 UNITS TAB PO SCH (08:28)
[2019-01-10] MEDS: ATORVASTATIN CALCIUM 40 MG TAB PO SCH (08:28)
[2019-01-10] MEDS: FAMOTIDINE 20 MG TAB PO SCH ×2 (08:29→22:03)
[2019-01-10] MEDS: PARoxetine HCL 20 MG TAB PO SCH (08:29)
[2019-01-10] MEDS: CYANO/VITAMIN B12 1000 MCG TAB PO SCH (08:29)
[2019-01-10] MEDS: SENNOSIDES/DOCUSATE SODIUM TAB PO SCH ×2 (08:30→22:03)
[2019-01-10] MEDS: METOPROLOL SUCCINATE XR 25 MG TAB PO SCH (08:30)
[2019-01-10] MEDS: INSULIN LISPRO 100 UNIT/ML SC SCH ×3 (08:34→19:11)
[2019-01-10] MEDS: BUDESONIDE/FORMOTEROL 160/4.5 60 PUFFS/MDI IH SCH ×2 (08:40→21:35)
[2019-01-10] MEDS ORDERED: PARoxetine HCL 20 MG TAB PO SCH (09:00)
[2019-01-10] MEDS: METHOCARBAMOL 750 MG TAB PO PRN (10:15)
[2019-01-10] MEDS: TAMSULOSIN HCL 0.4 MG CAP PO SCH ×2 (10:15→22:03)
[2019-01-10] MEDS: FLUTICASONE NASAL 120 SPRAYS/16 GM MDI EACHNARE SCH (10:18)
--- NOTE | 2019-01-10 10:20 | NEUSURGPN ---
Date of Surgery: 01/09/19 Post Op Day: 1 Assessment/Plan: Assessment: 73 yo male that is s/p ACDF C3-5 POD #1 Plan: -s/p ACDF: doing well with regards to symptoms in the arms that he had prior to surgery. Pt with post op neck pain -swallowing ok -continue with neuro checks -pain control-pt with some continued pain control issues will trial Dilaudid -continue with a hard collar -LISA drain x [address] -postop C-spine x-rays pending this am -Medicine consulted-appreciate their care -PT/OT/PIPE BOWL PAINT TRIMMER-CPM -call with any questions or concerns -pt understands and agrees Subjective: Awake and alert. NAD. Eating/drinking and voiding. Pt with continued neck pain. No mendez/cp/sob/abd or gu complaints. No f/c/n/v/d. Objective: AAO x 3, PERRLA/EOMI no droop CN 2-12 grossly intact +lt touch 5/5 BUE/BLE = CDI Neck soft and supple Neuro Check Frequency: per routine Urinary Catheter in Place: No - Physician Discussed Patient with : Tyrese Neurosurgery Physical Exam - Vitals, I&O, Labs I and O 01/09/19 01/10/19 01/11/19 05:59 05:59 05:59 Intake Total 975 Output Total 400 20 Balance 575 -20 Weight 99.79 kg 99.79 kg Intake: Oral (ml) 800 IV Intake (ml) 75 IV Infused (ml) 100 ceFAZolin 2 GM/DEXTROSE 100 100 ml @ 200 mls/hr IV ONCALL ONE Rx#:[id number] Output: Urine (ml) 400 Catheter 400 LISA Drain Output (ml) 20 #1 Anterior Neck 20 Other: Intake Quantity Yes Sufficient Vital Signs Temp Pulse Resp BP Pulse Ox 36.3 C 72 18 155/88 H 95 01/10/19 07:26 01/10/19 08:30 01/10/19 07:26 01/10/19 08:30 01/10/19 07:26 Laboratory Results 01/10/19 04:45 01/10/19 04:45 ICD10 Worksheet Patient Problems: Problems Problem Status Onset Acute bronchitis Acute Chest pain Acute Chronic Disease Mgmt/Transitional Care Acute Chronic pain Acute Dehydration Acute Dizziness Acute Dyspnea Acute Elevated d-dimer Acute Exacerbation of asthma Acute Failure to thrive in adult Acute GIB (gastrointestinal bleeding) Acute Generalized weakness Acute History of coronary artery disease Acute Hyponatremia Acute Left hip pain Acute Lightheaded Acute Pneumonia Acute Renal insufficiency Acute Skin excoriation Acute
[2019-01-10] MEDS: HYDROmorphONE/DILAUDID 2 MG TAB PO PRN ×2 (11:46→15:56)
--- NOTE | 2019-01-10 13:37 | HOSPPROG ---
Hospitalist Progress Note Assessment/Plan: 73-year-old admitted for C-spine surgery. He has a complex past medical history with multiple medical issues that we are being consulted for. Overall he has done well postop. # chronic kidney disease with baseline creatinine around 2, seems stable. * Continue to monitor # COPD, sating normally on room air # atrial fibrillation on Eliquis for anticoagulation and Toprol for rate control. * Discussed with Neurosurgery okay to resume aspirin and Eliquis postop day 3. * Stable # type 2 diabetes, continue to monitor blood sugars. # hypertension stable # dyslipidemia on Lipitor # coronary artery disease currently asymptomatic # history of TIA # BPH Subjective: Doing well postop. Denies any significant neck pain. Shortness of breath is stable per patient no chest pain. He has a chronic rash over the last year and half which is unchanged Objective: Vital Signs Temp Pulse Resp BP Pulse Ox 36.5 C 75 18 118/73 92 01/10/19 11:13 01/10/19 11:13 01/10/19 11:13 01/10/19 11:13 01/10/19 11:13 Laboratory Results 01/10/19 04:45 01/10/19 04:45 01/09/19 01/10/19 01/11/19 05:59 05:59 05:59 Intake Total 975 Output Total 400 20 Balance 575 -20 - Physical Exam Constitutional: chronically ill appearing, uncomfortable Eyes: PERRL Ears, Nose, Mouth, Throat: moist mucous membranes Cardiovascular: irregularly irregular Respiratory: no respiratory distress, reduced air movement, No inspiratory crackles Gastrointestinal: soft, non-tender abdomen Genitourinary: no bladder fullness Skin: normal color Musculoskeletal: generalized weakness Neurologic: AAOx3 Psychiatric: interacting appropriately, not anxious ICD10 Worksheet Patient Problems: Problems Problem Status Onset Chest pain Acute Dyspnea Acute History of coronary artery disease Acute Pneumonia Acute Renal insufficiency Acute Chronic Disease Mgmt/Transitional Care Acute Exacerbation of asthma Acute Lightheaded Acute Dizziness Acute Elevated d-dimer Acute Failure to thrive in adult Acute Left hip pain Acute Acute bronchitis Acute Dehydration Acute GIB (gastrointestinal bleeding) Acute Chronic pain Acute Skin excoriation Acute Generalized weakness Acute Hyponatremia Acute
[2019-01-11] MEDS: oxyCODONE IR 5 MG TAB PO PRN ×2 (00:28→17:08)
[2019-01-11] MEDS: HYDROmorphONE/DILAUDID 1 MG/ML INJ IVP PRN ×2 (01:37→02:44)
--- NOTE | 2019-01-11 06:35 | NEUSURGPN ---
Date of Surgery: 01/09/19 Post Op Day: 2 Assessment/Plan: Assessment: 73 yo male that is s/p ACDF C3-5 POD #2 Plan: -s/p ACDF: doing well with regards to symptoms in the arms that he had prior to surgery. Pt with post op neck pain that he is struggling with managing-better with Dilaudid -post op xrays yesterday look good-pt then slumped over in bed and had neck pain -repeat C spine xrays look stable -swallowing ok-better than POD #1 per pt -will trial an [place] Collar-[place] J appears too small -continue with neuro checks -pain control-pt with some continued pain control issues we trialed Dilaudid and this seemed to work better -continue with a hard collar -LISA drain x [address]-will remove today -Medicine consulted-appreciate their care -PT/OT/HEEL BUFFER-CPM -call with any questions or concerns -pt understands and agrees -potential dc tomorrow Subjective: Awake and alert. NAD. Eating/drinking and voiding. No f/c/n/v/d. No mendez/cp/ sob/abd or gu complaints. Pt with continued neck pain-posterior Objective: AAO x 3, PERRLA/EOMI no droop CN 2-12 grossly intact +lt touch 5/5 BUE/BLE = CDI Neck soft and supple Neuro Check Frequency: per routine Urinary Catheter in Place: No - Physician Discussed Patient with : Tyrese Neurosurgery Physical Exam - Vitals, I&O, Labs I and O 01/10/19 01/11/19 01/12/19 05:59 05:59 05:59 Intake Total 975 Output Total 400 330 Balance 575 -330 Weight 99.79 kg Intake: Oral (ml) 800 IV Intake (ml) 75 IV Infused (ml) 100 ceFAZolin 2 GM/DEXTROSE 100 100 ml @ 200 mls/hr IV ONCALL ONE Rx#:[id number] Output: Urine (ml) 400 300 Catheter 400 Urinal 300 LISA Drain Output (ml) 30 #1 Anterior Neck 30 Other: Intake Quantity Yes Yes Sufficient Number of Voids Urinal 1 Vital Signs Temp Pulse Resp BP Pulse Ox 36.8 C 64 17 144/78 H 97 01/10/19 23:12 01/10/19 23:12 01/10/19 23:12 01/10/19 23:12 01/10/19 23:12 Laboratory Results 01/10/19 04:45 01/11/19 04:39 ICD10 Worksheet Patient Problems: Problems Problem Status Onset Acute bronchitis Acute Chest pain Acute Chronic Disease Mgmt/Transitional Care Acute Chronic pain Acute Dehydration Acute Dizziness Acute Dyspnea Acute Elevated d-dimer Acute Exacerbation of asthma Acute Failure to thrive in adult Acute GIB (gastrointestinal bleeding) Acute Generalized weakness Acute History of coronary artery disease Acute Hyponatremia Acute Left hip pain Acute Lightheaded Acute Pneumonia Acute Renal insufficiency Acute Skin excoriation Acute
[2019-01-11] MEDS: SENNOSIDES/DOCUSATE SODIUM TAB PO SCH ×2 (09:19→21:34)
[2019-01-11] MEDS: ATORVASTATIN CALCIUM 40 MG TAB PO SCH (09:19)
[2019-01-11] MEDS: CYANO/VITAMIN B12 1000 MCG TAB PO SCH (09:19)
[2019-01-11] MEDS: CHOLECALCIFEROL VIT D3 1,000 UNITS TAB PO SCH (09:19)
[2019-01-11] MEDS: PARoxetine HCL 20 MG TAB PO SCH (09:19)
[2019-01-11] MEDS: FAMOTIDINE 20 MG TAB PO SCH (09:19)
[2019-01-11] MEDS: METOPROLOL SUCCINATE XR 25 MG TAB PO SCH (09:19)
[2019-01-11] MEDS: TAMSULOSIN HCL 0.4 MG CAP PO SCH ×2 (09:20→21:34)
[2019-01-11] MEDS: HYDROmorphONE/DILAUDID 2 MG TAB PO PRN ×3 (09:20→20:00)
[2019-01-11] MEDS: BUDESONIDE/FORMOTEROL 160/4.5 60 PUFFS/MDI IH SCH ×2 (09:23→21:30)
--- NOTE | 2019-01-11 10:11 | ASMTCASEMG ---
Living Arrangements What is your living Answers: Alone arrangement? Who do you live with? Type Of Residence What kind of residence do Answers: Apartment you live in? Discharge Plan Comments Coordination Status Comments Notes: Patient is a 73yo single male with neck and back pain who comes to [facility] for an anterior cervical diskectomy and fusion at C3-4 and C4-5. PT/OT/RING MAKER evals have been ordered for the patient. D/C plan TBD. CM will follow. Date Signed: 01/11/2019 10:10 AM Electronically Signed By:Breanna Marie LCSW
[2019-01-11] MEDS: ACETAMINOPHEN 500 MG TAB PO SCH ×3 (10:12→21:33)
[2019-01-11] MEDS: cycloSPORINE 0.05% 30 DROPERETTE/BOX EACHEYE SCH ×2 (10:12→21:31)
[2019-01-11] MEDS: INSULIN LISPRO 100 UNIT/ML SC SCH ×3 (10:13→17:20)
[2019-01-11] MEDS: FLUTICASONE NASAL 120 SPRAYS/16 GM MDI EACHNARE SCH (10:13)
--- NOTE | 2019-01-11 10:13 | ASMTCMCOM ---
CM Note CM Note Notes: PT/OT are recommending inpatient rehab for the patient. Will request an order for the eval be placed. CM will follow. Date Signed: 01/11/2019 10:12 AM Electronically Signed By:Breanna Marie LCSW
--- NOTE | 2019-01-11 10:26 | HOSPPROG ---
Hospitalist Progress Note Assessment/Plan: 73-year-old admitted for C-spine surgery. He has a complex past medical history with multiple medical issues that we are being consulted for. Overall he has done well postop. He does complain of increased pain in his neck primarily in at the back of his throat. He also has some mild abdominal discomfort # status post C-spine surgery with ongoing neck pain. * Change Gabapentin to scheduled, will not increase dose due to renal issues * Increase Dilaudid from 2-4 mg every 4 hr # chronic kidney disease with baseline creatinine around 2, seems stable. * Continue to monitor * Appears to be at baseline # COPD, sating normally on room air # atrial fibrillation on Eliquis for anticoagulation and Toprol for rate control. * Discussed with Neurosurgery okay to resume aspirin and Eliquis postop day 3. * Stable # type 2 diabetes, continue to monitor blood sugars. # hypertension stable # dyslipidemia on Lipitor # coronary artery disease currently asymptomatic # history of TIA # BPH Subjective: Patient complaining of increasing pain in his neck and the back of his throat. Mental status appears good. Has a little bit of abdominal upset but exam is normal. Objective: Vital Signs Temp Pulse Resp BP Pulse Ox 36.4 C 61 17 143/83 H 98 01/11/19 08:00 01/11/19 09:19 01/11/19 08:00 01/11/19 09:19 01/11/19 08:00 Laboratory Results 01/10/19 04:45 01/11/19 04:39 01/10/19 01/11/19 01/12/19 05:59 05:59 05:59 Intake Total 975 Output Total 400 330 200 Balance 575 -330 -200 - Physical Exam Constitutional: obese Eyes: PERRL, anicteric sclera Ears, Nose, Mouth, Throat: moist mucous membranes, other (C collar on) Cardiovascular: irregularly irregular Respiratory: no respiratory distress, clear to auscultation Gastrointestinal: soft, non-tender abdomen Genitourinary: no bladder fullness Skin: normal color Musculoskeletal: abnormal gait Neurologic: AAOx3 Psychiatric: interacting appropriately ICD10 Worksheet Patient Problems: Problems Problem Status Onset Chest pain Acute Dyspnea Acute History of coronary artery disease Acute Pneumonia Acute Renal insufficiency Acute Chronic Disease Mgmt/Transitional Care Acute Exacerbation of asthma Acute Lightheaded Acute Dizziness Acute Elevated d-dimer Acute Failure to thrive in adult Acute Left hip pain Acute Acute bronchitis Acute Dehydration Acute GIB (gastrointestinal bleeding) Acute Chronic pain Acute Skin excoriation Acute Generalized weakness Acute Hyponatremia Acute
--- NOTE | 2019-01-11 11:16 | PDMN ---
Medical Necessity Medical necessity[place] [facility] [facility] Cervical Fusion, Anterior, A-1 day: 73 yo s/p ACDF, initially OBS but requiring additional MN for ongoing neck pain needing IV dilaudid and cont neuro checks in setting of active, multiple comorbidities and advanced age. Change to IP status @1532 per MD order. Hx CKD, COPD, AFib , diabetes type 2, chronic pain, hypertension, hyperlipidemia, PTSD, TIA
[2019-01-11] MEDS: NS 1,000 ML IV SCH (21:29)
[2019-01-11] MEDS: GABAPENTIN 300 MG CAP PO SCH (21:33)
[2019-01-12] MEDS: oxyCODONE IR 5 MG TAB PO PRN ×5 (01:31→23:58)
[2019-01-12] MEDS: ACETAMINOPHEN 500 MG TAB PO SCH ×3 (05:08→21:17)
[2019-01-12] MEDS: NS 1,000 ML IV SCH (05:43)
--- NOTE | 2019-01-12 07:24 | NEUSURGPN ---
Date of Surgery: 01/09/19 Post Op Day: 3 Assessment/Plan: Assessment: 73 yo male that is s/p ACDF C3-5 POD #3 Plan: -neuro stable -post op xrays yesterday look good-pt then slumped over in bed and had neck pain -repeat C spine xrays look stable -swallowing ok-better than POD #1 per pt -hard collar at all times, except may remove for showering -pain controlled -Medicine consulted-appreciate their care -PT/OT/BREAD SLICER MACHINE-CPM -call with any questions or concerns -recommend rehab upon discharge, patient is not interested at this time but will discuss further today with showcase trimmer and PT/OT. We are concerned about his fall risk should he be discharged home Patient seen by myself and Dr. Xiong. Subjective: Having pain located at the tops of the shoulders and posterior neck. Pain will radiate into the upper arm to the elbow. Objective: Awake. Alert. PERRL. EOMI Hard collar in place Incision with dressing c/d/i Muscle strength full at 5/5 - Physician Patient Seen by : Tyrese Neurosurgery Physical Exam - Vitals, I&O, Labs I and O 01/11/19 01/12/19 01/13/19 05:59 05:59 05:59 Intake Total 900 Output Total 330 500 Balance -330 400 Intake: IV Infused (ml) 900 Ns 1,000 ml @ 75 mls/hr 900 IV .CONT INO Rx#: [id number] Output: Urine (ml) 300 500 Urinal 300 500 LISA Drain Output (ml) 30 #1 Anterior Neck 30 Other: Intake Quantity Yes Yes Sufficient Number of Voids Toilet 1 Urinal 1 1 Vital Signs Temp Pulse Resp BP Pulse Ox 36.6 C 65 16 102/68 94 01/11/19 22:39 01/11/19 22:39 01/11/19 22:39 01/11/19 22:39 01/11/19 22:39 Laboratory Results 01/10/19 04:45 01/12/19 04:41 ICD10 Worksheet Patient Problems: Problems Problem Status Onset Acute bronchitis Acute Chest pain Acute Chronic Disease Mgmt/Transitional Care Acute Chronic pain Acute Dehydration Acute Dizziness Acute Dyspnea Acute Elevated d-dimer Acute Exacerbation of asthma Acute Failure to thrive in adult Acute GIB (gastrointestinal bleeding) Acute Generalized weakness Acute History of coronary artery disease Acute Hyponatremia Acute Left hip pain Acute Lightheaded Acute Pneumonia Acute Renal insufficiency Acute Skin excoriation Acute
[2019-01-12] MEDS: BUDESONIDE/FORMOTEROL 160/4.5 60 PUFFS/MDI IH SCH ×2 (09:28→19:59)
[2019-01-12] MEDS: METOPROLOL SUCCINATE XR 25 MG TAB PO SCH (10:30)
[2019-01-12] MEDS: CHOLECALCIFEROL VIT D3 1,000 UNITS TAB PO SCH (10:30)
[2019-01-12] MEDS: CYANO/VITAMIN B12 1000 MCG TAB PO SCH (10:30)
[2019-01-12] MEDS: TAMSULOSIN HCL 0.4 MG CAP PO SCH ×2 (10:30→21:00)
[2019-01-12] MEDS: ATORVASTATIN CALCIUM 40 MG TAB PO SCH (10:30)
[2019-01-12] MEDS: SENNOSIDES/DOCUSATE SODIUM TAB PO SCH ×2 (10:31→21:00)
[2019-01-12] MEDS: GABAPENTIN 300 MG CAP PO SCH ×2 (10:31→21:00)
[2019-01-12] MEDS: FAMOTIDINE 20 MG TAB PO SCH (10:31)
[2019-01-12] MEDS: PARoxetine HCL 20 MG TAB PO SCH (10:32)
[2019-01-12] MEDS: ENOXAPARIN 40 MG/0.4 ML SYR SC SCH (10:32)
[2019-01-12] MEDS: POLYETHYLENE GLYCOL 3350 17 GM PKT PO PRN (10:42)
--- NOTE | 2019-01-12 11:02 | HOSPPROG ---
Hospitalist Progress Note Assessment/Plan: 73-year-old admitted for C-spine surgery. He has a complex past medical history with multiple medical issues that we are being consulted for. Overall he has done well postop. Neck pain is better today. He also feels like his swallow is better and is encouraged by that. He is not willing to go to rehab on discharge at this time because he has a dental appointment next week and has been waiting a year and half through the ID for this appointment # status post C-spine surgery with ongoing neck pain. Improved today * Change Gabapentin to scheduled, will not increase dose due to renal issues # chronic kidney disease with baseline creatinine around 2, seems stable. * Continue to monitor * Appears to be at baseline # COPD, sating normally on room air # atrial fibrillation on Eliquis for anticoagulation and Toprol for rate control. * Discussed with Neurosurgery okay to resume aspirin and Eliquis postop day 3. * Stable # type 2 diabetes, continue to monitor blood sugars. # hypertension stable # dyslipidemia on Lipitor # coronary artery disease currently asymptomatic # history of TIA # BPH Subjective: Feels better today, neck pain is better Objective: Vital Signs Temp Pulse Resp BP Pulse Ox 36.6 C 67 16 150/80 H 89 L 01/12/19 07:53 01/12/19 10:30 01/12/19 09:29 01/12/19 10:30 01/12/19 09:29 Laboratory Results 01/10/19 04:45 01/12/19 04:41 01/11/19 01/12/19 01/13/19 05:59 05:59 05:59 Intake Total 900 Output Total 330 500 525 Balance -330 400 -525 - Physical Exam Constitutional: no apparent distress, not in pain Eyes: PERRL Ears, Nose, Mouth, Throat: moist mucous membranes Cardiovascular: regular rate and rhythym Respiratory: no respiratory distress, clear to auscultation Gastrointestinal: normoactive bowel sounds, soft, non-tender abdomen Genitourinary: no bladder fullness Skin: warm, normal color Neurologic: AAOx3 Psychiatric: interacting appropriately ICD10 Worksheet Patient Problems: Problems Problem Status Onset Chest pain Acute Dyspnea Acute History of coronary artery disease Acute Pneumonia Acute Renal insufficiency Acute Chronic Disease [facility]/Transitional Care Acute Exacerbation of asthma Acute Lightheaded Acute Dizziness Acute Elevated d-dimer Acute Failure to thrive in adult Acute Left hip pain Acute Acute bronchitis Acute Dehydration Acute GIB (gastrointestinal bleeding) Acute Chronic pain Acute Skin excoriation Acute Generalized weakness Acute Hyponatremia Acute
[2019-01-12] MEDS: cycloSPORINE 0.05% 30 DROPERETTE/BOX EACHEYE SCH ×2 (11:41→21:01)
[2019-01-12] MEDS: FLUTICASONE NASAL 120 SPRAYS/16 GM MDI EACHNARE SCH (11:41)
[2019-01-12] MEDS: INSULIN LISPRO 100 UNIT/ML SC SCH ×2 (11:41→19:12)
--- NOTE | 2019-01-12 14:44 | ASMTCMCOM ---
CM Note CM Note Notes: OT/PT continue to rec inpatient rehab. A [facility]. Spoke at length with pt, he is adamantly declining inpatient rehab or SNF. Pt verbalizes several reasons for declining placement, including an upcoming [place] dental appointment he has been waiting a year and a half for and the fact he has been at four rehab facilities and does not want to go. Pt has private duty care with [facility] three days/wk and has arranged for increase in care to 5 days per week. Pt does want home care and agrees to [facility] which was pre-arranged by MD office. Payton with [facility] met with pt today. D/c plan of care: Home with [facility] and [facility] private duty unskilled care Date Signed: 01/12/2019 02:43 PM Electronically Signed By:KORI Martinez
[2019-01-12] MEDS: HYDROmorphONE/DILAUDID 2 MG TAB PO PRN (15:30)
[2019-01-13] MEDS: ACETAMINOPHEN 500 MG TAB PO SCH ×3 (00:16→22:41)
[2019-01-13] MEDS: HYDROmorphONE/DILAUDID 2 MG TAB PO PRN (05:54)
[2019-01-13] MEDS: BUDESONIDE/FORMOTEROL 160/4.5 60 PUFFS/MDI IH SCH ×2 (08:14→20:26)
[2019-01-13] MEDS ORDERED: DEXAMETHASONE 10 MG/ML VIAL IM ONE (08:41)
--- NOTE | 2019-01-13 08:45 | NEUSURGPN ---
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 Xiong. Subjective: Increasing difficulty with swallowing. Pain tolerable Objective: A&Ox3 MAEx4 Hard collar in place Incision with dressing c/d/i Muscle strength full at 01/11 - Physician Discussed Patient with : Tyrese Neurosurgery Physical Exam - Vitals, I&O, Labs I and O 01/12/19 01/13/19 01/14/19 05:59 05:59 05:59 Intake Total 900 300 Output Total 500 1650 Balance 400 -1350 Intake: Oral (ml) 300 IV Infused (ml) 900 Ns 1,000 ml @ 75 mls/hr 900 IV .CONT INO Rx#: [id number] Output: Urine (ml) 500 1650 Urinal 500 1650 Other: Intake Quantity Yes Sufficient Number of Voids Toilet 1 Urinal 1 1 Vital Signs Temp Pulse Resp BP Pulse Ox 36.6 C 61 12 140/65 H 92 01/13/19 07:22 01/13/19 08:14 01/13/19 08:14 01/13/19 07:22 01/13/19 08:14 Laboratory Results 01/10/19 04:45 01/12/19 04:41 ICD10 Worksheet Patient Problems: Problems Problem Status Onset Acute bronchitis Acute Chest pain Acute Chronic Disease Mgmt/Transitional Care Acute Chronic pain Acute Dehydration Acute Dizziness Acute Dyspnea Acute Elevated d-dimer Acute Exacerbation of asthma Acute Failure to thrive in adult Acute GIB (gastrointestinal bleeding) Acute Generalized weakness Acute History of coronary artery disease Acute Hyponatremia Acute Left hip pain Acute Lightheaded Acute Pneumonia Acute Renal insufficiency Acute Skin excoriation Acute
[2019-01-13] MEDS: INSULIN LISPRO 100 UNIT/ML SC SCH ×3 (08:48→18:43)
[2019-01-13] MEDS: FAMOTIDINE 20 MG TAB PO SCH (09:00)
[2019-01-13] MEDS: oxyCODONE IR 5 MG TAB PO PRN ×2 (09:44→20:46)
[2019-01-13] MEDS: GABAPENTIN 300 MG CAP PO SCH ×2 (09:44→20:46)
[2019-01-13] MEDS ORDERED: DEXAMETHASONE 4 MG/ML VIAL IVP ONE (10:15)
[2019-01-13] MEDS: SENNOSIDES/DOCUSATE SODIUM TAB PO SCH ×2 (11:52→20:46)
[2019-01-13] MEDS: CHOLECALCIFEROL VIT D3 1,000 UNITS TAB PO SCH (11:52)
[2019-01-13] MEDS: TAMSULOSIN HCL 0.4 MG CAP PO SCH ×2 (11:53→20:46)
[2019-01-13] MEDS: METOPROLOL SUCCINATE XR 25 MG TAB PO SCH (11:53)
[2019-01-13] MEDS: CYANO/VITAMIN B12 1000 MCG TAB PO SCH (11:53)
[2019-01-13] MEDS: ATORVASTATIN CALCIUM 40 MG TAB PO SCH (11:55)
[2019-01-13] MEDS: POLYETHYLENE GLYCOL 3350 17 GM PKT PO PRN (11:57)
[2019-01-13] MEDS: ENOXAPARIN 40 MG/0.4 ML SYR SC SCH (11:57)
[2019-01-13] MEDS: PARoxetine HCL 20 MG TAB PO SCH (11:57)
[2019-01-13] MEDS: cycloSPORINE 0.05% 30 DROPERETTE/BOX EACHEYE SCH ×2 (12:35→22:41)
[2019-01-13] MEDS: FLUTICASONE NASAL 120 SPRAYS/16 GM MDI EACHNARE SCH (12:36)
--- NOTE | 2019-01-13 14:12 | HOSPPROG ---
Hospitalist Progress Note Assessment/Plan: 73-year-old admitted for C-spine surgery. He has a complex past medical history with multiple medical issues that we are being consulted for. Overall he has done well postop. Neck pain is better today. He also feels like his swallow is better and is encouraged by that. He is not willing to go to rehab on discharge at this time because he has a dental appointment next week and [facility]. Complains with odynophagia today, but unclear if the same or worse then yesterday. # Odynophagia; monitor, encouraged to drink and follow. # status post C-spine surgery with ongoing neck pain. Improved today * Change Gabapentin to scheduled, will not increase dose due to renal issues # chronic kidney disease with baseline creatinine around 2, seems stable. * Continue to monitor * Appears to be at baseline # COPD, sating normally on room air # atrial fibrillation on Eliquis for anticoagulation and Toprol for rate control. * Discussed with Neurosurgery okay to resume aspirin and Eliquis postop day 3. * Stable # type 2 diabetes, continue to monitor blood sugars. # hypertension stable # dyslipidemia on Lipitor # coronary artery disease currently asymptomatic # history of TIA # BPH Medically stable, ok for dc when ready from post surgical standpoint. Subjective: Main complaints are pain in his surgical site and odynophagia after questioning him for several minutes and seems to be the same as yesterday and better than 2 days ago the patient poor historian today. I think he just woke up. Objective: Vital Signs Temp Pulse Resp BP Pulse Ox 36.6 C 67 12 151/78 H 92 01/13/19 07:22 01/13/19 11:53 01/13/19 08:14 01/13/19 11:53 01/13/19 08:14 Laboratory Results 01/10/19 04:45 01/12/19 04:41 01/12/19 01/13/19 01/14/19 05:59 05:59 05:59 Intake Total 900 300 Output Total 500 1650 500 Balance 400 -1350 -500 - Physical Exam Constitutional: chronically ill appearing Eyes: PERRL Ears, Nose, Mouth, Throat: moist mucous membranes, other (Hard collar on) Cardiovascular: regular rate and rhythym Respiratory: no respiratory distress, clear to auscultation Gastrointestinal: soft, non-tender abdomen, no palpable masses Skin: normal color Neurologic: AAOx3 Psychiatric: interacting appropriately ICD10 Worksheet Patient Problems: Problems Problem Status Onset Chest pain Acute Dyspnea Acute History of coronary artery disease Acute Pneumonia Acute Renal insufficiency Acute Chronic Disease Mgmt/Transitional Care Acute Exacerbation of asthma Acute Lightheaded Acute Dizziness Acute Elevated d-dimer Acute Failure to thrive in adult Acute Left hip pain Acute Acute bronchitis Acute Dehydration Acute GIB (gastrointestinal bleeding) Acute Chronic pain Acute Skin excoriation Acute Generalized weakness Acute Hyponatremia Acute
[2019-01-14] MEDS: oxyCODONE IR 5 MG TAB PO PRN ×4 (00:48→14:57)
[2019-01-14] MEDS: ACETAMINOPHEN 500 MG TAB PO SCH ×2 (05:50→14:58)
--- NOTE | 2019-01-14 07:58 | SOAPPROG ---
SOAP Progress Note Assessment/Plan: Assessment: 73 yo male that is s/p ACDF C3-5 POD #5 Swallowing better after Decadron post op xrays look good but had to get repeat C spine xrays after he slumped over in bed. Those look fine as well. Plan: -hard collar at all times, except may remove for showering -Medicine consulted-appreciate their care -PT/OT/MACHINIST TOOL AND DIE-CPM -call with any questions or concerns -recommend rehab upon discharge, patient is not interested. He is being set up to go home with [facility]. Subjective: lying in bed, feeling good. States he is swallowing better today. He denies numbness, tingling or weakness Objective: Vital Signs Temp Pulse Resp BP Pulse Ox 36.4 C 68 17 154/85 H 92 01/14/19 07:42 01/14/19 07:42 01/14/19 07:42 01/14/19 07:42 01/14/19 07:42 Laboratory Results 01/10/19 04:45 01/12/19 04:41 01/13/19 01/14/19 01/15/19 05:59 05:59 05:59 Intake Total 300 350 Output Total 1650 1999 Balance -1350 -1650 Neuro: A+Ox 4 CORCORAN, Sens +LT 5/5 bilateral upper ext Dressing: CDI no LISA ICD10 Worksheet Patient Problems: Problems Problem Status Onset Acute bronchitis Acute Chest pain Acute Chronic Disease Mgmt/Transitional Care Acute Chronic pain Acute Dehydration Acute Dizziness Acute Dyspnea Acute Elevated d-dimer Acute Exacerbation of asthma Acute Failure to thrive in adult Acute GIB (gastrointestinal bleeding) Acute Generalized weakness Acute History of coronary artery disease Acute Hyponatremia Acute Left hip pain Acute Lightheaded Acute Pneumonia Acute Renal insufficiency Acute Skin excoriation Acute
[2019-01-14] MEDS: INSULIN LISPRO 100 UNIT/ML SC SCH ×2 (09:12→14:00)
[2019-01-14] MEDS: BUDESONIDE/FORMOTEROL 160/4.5 60 PUFFS/MDI IH SCH (09:23)
[2019-01-14] MEDS: ATORVASTATIN CALCIUM 40 MG TAB PO SCH (10:03)
[2019-01-14] MEDS: GABAPENTIN 300 MG CAP PO SCH (10:03)
[2019-01-14] MEDS: CYANO/VITAMIN B12 1000 MCG TAB PO SCH (10:03)
[2019-01-14] MEDS: METOPROLOL SUCCINATE XR 25 MG TAB PO SCH (10:04)
[2019-01-14] MEDS: cycloSPORINE 0.05% 30 DROPERETTE/BOX EACHEYE SCH (10:04)
[2019-01-14] MEDS: CHOLECALCIFEROL VIT D3 1,000 UNITS TAB PO SCH (10:04)
[2019-01-14] MEDS: FAMOTIDINE 20 MG TAB PO SCH (10:05)
[2019-01-14] MEDS: TAMSULOSIN HCL 0.4 MG CAP PO SCH (10:06)
[2019-01-14] MEDS: SENNOSIDES/DOCUSATE SODIUM TAB PO SCH (10:06)
[2019-01-14] MEDS: POLYETHYLENE GLYCOL 3350 17 GM PKT PO PRN (10:07)
[2019-01-14] MEDS: FLUTICASONE NASAL 120 SPRAYS/16 GM MDI EACHNARE SCH (10:07)
[2019-01-14] MEDS: ENOXAPARIN 40 MG/0.4 ML SYR SC SCH (10:07)
[2019-01-14] MEDS: PARoxetine HCL 20 MG TAB PO SCH (10:12)
[2019-01-14 10:14] VITALS: BP 135/81
--- NOTE | 2019-01-14 11:14 | PDIAF ---
- Diagnosis Diagnosis: Cervical DJD/Stenosis status post C3-5 ACDF Code Status: Full Code - Medication Management Discharge Medications: electronically signed and located in the Home Medication List. - Orders Services needed: Home Care, Certified Stone Setter, Physical Therapy, Occupational Therapy, Speech Language Pathologist Home Care Face to Face: I certify that this patient was under my care and that I had the required [id number] encounter meeting the encounter requirements on the discharge day. My findings support the fact that the patient is homebound as defined in Home Care Face to Face Continued: CMS Chapter 7 Medicare Benefits Manual 30.1.1 , The condition of the patient is such that there exists a normal inability to leave home and consequently, leaving home would require a considerable and taxing effort. Isolation Type: None Diet Recommendation: other (soft texture diet) Diet Texture: Dysphagia 3 - Advanced - Moist, Bite-Size, Thin Liquids, Meds Whole w/Liquids Griggs: Not applicable Wound Care Instructions: check incision daily Additional Instructions: 1. Follow up with Dr. Xiong in 2 weeks. [phone] 2. Wear hard collar at all times, except may remove for showering. 3. Refrain from lifting more than 10 pounds. 4. Avoid Ibuprofen, Motrin, Aleve, Advil as these can inhibit the fusion process and bone growth. Ok to take Tylenol. 5. Ok to shower and get the incision wet starting 01/12/[address] Xiong's office with any questions/concerns. - Follow Up Care Current Providers and Referrals: Leni Xiong, [Doctor of Osteopathy] - follow up in 2 weeks NONE *PRIMARY CARE P,. [Primary Care Provider] -
--- NOTE | 2019-01-14 15:05 | HOSPPROG ---
Hospitalist Progress Note Assessment/Plan: 73-year-old admitted for C-spine surgery. He has a complex past medical history with multiple medical issues that we are being consulted for. Overall he has done well postop. Neck pain is better today. He also feels like his swallow is better and is encouraged by that. He is not willing to go to rehab on discharge at this time because he has a dental appointment next week and has been waiting a year and half through the MD for this appointment. # Odynophagia; Improving, monitor, encouraged to drink and follow. # status post C-spine surgery with ongoing neck pain. Improved today * Change Gabapentin to scheduled, will not increase dose due to renal issues # chronic kidney disease with baseline creatinine around 2, seems stable. * Continue to monitor * Appears to be at baseline # COPD, sating normally on room air # atrial fibrillation on Eliquis for anticoagulation and Toprol for rate control. * Neurosurgery okay to resume aspirin and Eliquis postop day 3. * Stable # type 2 diabetes, continue to monitor blood sugars. # hypertension stable # dyslipidemia on Lipitor # coronary artery disease currently asymptomatic # history of TIA # BPH Medically stable, ok for dc when ready from post surgical standpoint. Subjective: Pt reports no complaints this AM Objective: Vital Signs Temp Pulse Resp BP Pulse Ox 36.4 C 67 14 135/81 H 94 01/14/19 07:42 01/14/19 10:04 01/14/19 09:23 01/14/19 10:04 01/14/19 09:23 Laboratory Results 01/10/19 04:45 01/12/19 04:41 01/13/19 01/14/19 01/15/19 05:59 05:59 05:59 Intake Total 300 350 Output Total 1650 1999 250 Balance -1350 -1650 -250 - Physical Exam Constitutional: chronically ill appearing Eyes: PERRL Ears, Nose, Mouth, Throat: moist mucous membranes Cardiovascular: regular rate and rhythym Respiratory: no respiratory distress Gastrointestinal: soft, non-tender abdomen Skin: normal color Neurologic: AAOx3 Psychiatric: interacting appropriately ICD10 Worksheet Patient Problems: Problems Problem Status Onset Acute bronchitis Acute Chest pain Acute Chronic Disease Mgmt/Transitional Care Acute Chronic pain Acute Dehydration Acute Dizziness Acute Dyspnea Acute Elevated d-dimer Acute Exacerbation of asthma Acute Failure to thrive in adult Acute GIB (gastrointestinal bleeding) Acute Generalized weakness Acute History of coronary artery disease Acute Hyponatremia Acute Left hip pain Acute Lightheaded Acute Pneumonia Acute Renal insufficiency Acute Skin excoriation Acute
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
--- NOTE | 2019-01-14 15:49 | ASMTCMCOM ---
CM Note CM Note Notes: Pt medically stable for d/c home with [facility] and [facility] unskilled care. Orders/dc meds sent to [facility] in [employer]. Pt still declining any type of physical rehab placement. Pt initially stated he had transportation home, then wanted to drive himself. ISADORA Francis confirmed with nsjaydon Murguia pt is not safe to drive himself home. Pt has pratt for a cab and CM called ri. Pt reports he has medications at home, declining to have any scripts filled at [facility] or the need to stop at a pharmacy. Pt was provided his scripts. Payton with [facility] met again with pt today and [facility] PT is scheduled to be at pt home tomorrow. [facility], pt declines the need for assistance scheduling a PCP appointment. Date Signed: 01/14/2019 03:48 PM Electronically Signed By:KOIR Martinez
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
--- NOTE | 2019-01-16 16:18 | GDS ---
[f rep st] DISCHARGE SUMMARY ADMISSION DIAGNOSES: Cervical stenosis with myelopathy, chronic kidney disease , chronic obstructive pulmonary disease, atrial fibrillation, type 2 diabetes, hypertension, dyslipidemia, coronary artery disease. DISCHARGE DIAGNOSES: Cervical stenosis with myelopathy, chronic kidney disease , chronic obstructive pulmonary disease, atrial fibrillation, type 2 diabetes, hypertension, dyslipidemia, coronary artery disease. PROCEDURE PERFORMED: Anterior cervical diskectomy and fusion at C3-4 and C4-5. CONSULTS: Medicine; physical, Occupational, and Speech Therapy. HOSPITAL COURSE: The patient is a 73-year-old male who presented to the hospital to undergo anterior cervical diskectomy and fusion at C3-4 and C4-5 due to severe cervical stenosis with myelopathy. The patient tolerated the surgery well without any complications and was transferred to the floor. He was fitted in a cervical hard collar. LISA drain was removed once output was reduced. He was seen and evaluated by Physical, Occupational, and Speech Therapy. He was also seen by Internal Medicine due to his multiple medical comorbidities. Postop cervical spine x-ray demonstrated hardware in good placement. Once the patient was tolerating a diet, voiding without difficulty, pain controlled, and medically stable, he was deemed suitable. DISCHARGE: He was discharged to home with home health care on January 14, 2019. DISCHARGE MEDICATIONS: Please refer to the MAR. DISCHARGE INSTRUCTIONS: Patient is to wear a cervical hard collar at all times , except may remove when showering. He is to refrain from lifting more than 10 pounds, avoid taking any NSAIDs as these inhibit bone growth and the fusion process. /[id number]/MODL MTDD
== END 2019-01-14 15:45 | disposition home health service (06) | DRG 472 ==
LOC: F3N 05:56 → INTOOBSV 05:56 → F3N 13:06 → OBSVTOIN 01-10 15:32
PROVIDERS: ADMIT Neurological Surgery; ATTEND Neurological Surgery
DX: M47.12 Other spondylosis with myelopathy, cervical region (principal); G89.29 Other chronic pain; N18.4 Chronic kidney disease, stage 4 (severe); J44.9 Chronic obstructive pulmonary disease, unspecified; I48.91 Unspecified atrial fibrillation; E11.22 Type 2 diabetes mellitus with diabetic chronic kidney disease; I12.9 Hypertensive chronic kidney disease with stage 1 through stage 4 chronic kidney disease, or unspecified chronic kidney disease; E78.5 Hyperlipidemia, unspecified; N40.0 Benign prostatic hyperplasia without lower urinary tract symptoms; I25.10 Atherosclerotic heart disease of native coronary artery without angina pectoris; Z98.1 Arthrodesis status; Z79.82 Long term (current) use of aspirin; Z79.01 Long term (current) use of anticoagulants; Z79.51 Long term (current) use of inhaled steroids; Z86.73 Personal history of transient ischemic attack (TIA), and cerebral infarction without residual deficits; Z95.5 Presence of coronary angioplasty implant and graft
CPT/HCPCS: 92526-GN; 92610-GN; 97116-GP; 97161-GP; 97166-GO; 97530-GO; 97530-GP; 97535-GO; C1713; J0690; J1100; J1170; J1650; J1815; J2001; J2250; J2405; J2704; J3010; J3360

== ENCOUNTER 2019-01-29 14:11 | Observation (INO) | payer OTHER ==
--- NOTE | 2019-01-29 15:17 | EDPHY ---
H & P Time Seen by Provider: 01/29/19 14:55 HPI/ROS: CHIEF COMPLAINT: Shortness of breath HISTORY OF PRESENT ILLNESS: The patient is a 73-year-old male on Eliquis with recent cervical spine surgery 3 weeks ago who presents with shortness of breath. The patient states that 3 weeks ago he had C3-C4-C5 disc surgery by Dr. Xiong. He is currently wearing a cervical collar. Patient states he has had ongoing neck pain since the surgery. He has not recently worsen. He has no new numbness or weakness. The patient is here because at 8:00 a.m. This morning he began to developed shortness of breath. He denies any chest tightness or pain. No cough. No fevers or chills. No leg pain or swelling. REVIEW OF SYSTEMS: 10 systems were reveiwed and are negative with the exception of the elements mentioned in the history of present illness. Past Medical/Surgical History: Includes hypertension, atrial fibrillation, disc herniation Past surgical history: Cervical surgery Social history: Patient does not smoke Smoking Status: Former smoker Physical Exam: Vitals noted. GENERAL: Well-appearing, in no acute distress, alert. HEENT: Eyes normal to inspection, normal pharynx, no signs of dehydration. NECK: Normal, supple. RESPIRATORY: Clear to auscultation bilaterally, no rales, rhonchi or wheezing. CVS: Regular rate and rhythm, no rubs, murmurs, or gallops. ABDOMEN: Soft, nontender, nondistended, no organomegaly. BACK: Normal to inspection, no CVA tenderness. SKIN: Normal color, no rash, warm, dry. No pallor. EXTREMITIES: Mild bilateral pedal edema, no calf tenderness, no Homans sign or cords, no joint swelling. NEURO/PSYCH: Alert and oriented, normal mood and affect, normal motor sensory exam. No obvious cranial nerve deficit. Constitutional: Initial Vital Signs Temperature (C) 36.4 C 01/29/19 14:13 Heart Rate 73 01/29/19 14:13 Respiratory Rate 23 H 01/29/19 14:13 Blood Pressure 173/87 H 01/29/19 14:13 O2 Sat (%) 98 01/29/19 14:13 O2 Delivery Mode Room Air Allergies/Adverse Reactions: glipizide Allergy (Verified 01/29/19 14:12) dizziness, SOB lisinopril Allergy (Verified 01/29/19 14:12) dizziness, SOB Home Medications: Medication Instructions Recorded Carboxymethylcellulose 1% [Refresh 1 drops EACHEYE QID PRN 03/29/16 Celluvisc (*)] Cholecalciferol Vit D3 [Vitamin D3 1,000 units PO DAILY 03/29/16 (*)] Cyanocobalamin [Vitamin B12 (*)] 1,000 mcg PO DAILY 03/29/16 Apixaban [Eliquis] 5 mg PO BID 04/13/17 Atorvastatin Calcium [Lipitor 80 80 mg PO DAILY 09/21/17 mg] Metoprolol Succinate Xr [Toprol Xl 25 mg PO DAILY 09/21/17 25 mg (*)] Gabapentin [Neurontin 300 MG (*)] 300 mg PO BID PRN 10/19/17 Tamsulosin HCl [Flomax 0.4 MG (*)] 0.4 mg PO BID 08/25/18 Albuterol [Proventil Inhaler HFA 1 - 2 puffs IH Q4H PRN 12/31/18 (*)] Budesonide/Formoterol 160/4.5 2 puffs IH BID 12/31/18 [Symbicort 160-4.5 Mcg Inh (*)] Fluticasone Nasal [Flonase Nasal 1 sprays NASAL DAILY 12/31/18 [place]] PARoxetine HCL [Paxil] 40 mg PO DAILY 12/31/18 Tears/Dextran 70/Hypromellose 1 drop EACHEYE Q2 PRN 12/31/18 [Natural Balance Tears (*)] hydrOXYzine HCL [hydrOXYzine HCL 25 mg PO BID PRN 12/31/18 (RX)] Mineral Oil/Pet Hy-Phl [Aquaphor 1 angelika TP TID PRN 01/09/19 Ointment (*)] cycloSPORINE 0.05% [Restasis Opht 1 drop EACHEYE BID 01/09/19 Drops(*)] Acetaminophen [Tylenol ES 500 mg 1,000 mg PO Q8HRS tab 01/14/19 (*)] Benzocaine/Menthol 15/4 [Cepacol 1 ea PO PRN PRN lozenge 01/14/19 Lozenge] Methocarbamol [Robaxin 750 mg (*)] 750 mg PO TID PRN #50 tab 01/14/19 Polyethylene Glycol 3350 [Miralax 17 gm PO DAILY PRN pkt 01/14/19 17 gm (*)] Sennosides/Docusate Sodium 1 - 2 tab PO BID tab 01/14/19 [Senokot-S] oxyCODONE IR [Oxycodone Ir (*)] 5 - 10 mg PO Q4HRS PRN #60 tab 01/14/19 Medical Decision Making - Diagnostics Imaging Results: Imaging Impressions Chest X-Ray 01/29/19 15:18 Impression: 1. Decreased inspiration with associated compressive changes at the lung bases. Extremity Venous Study 01/29/19 16:30 Impression: No deep venous thrombosis bilateral legs. Findings and recommendations discussed with Emergency Department physician, ALTHEA BEY at 17:13 hour, 01/29/2019. Final report concurs with initial preliminary interpretation. ED Course/Re-evaluation: In the emergency department discussed possible etiologies with the patient. I answered all his questions. IV was placed. Laboratory studies, EKG and chest x -ray were obtained. Do not feel the patient needs nebulizer treatment. I did not hear any wheeze or signs of airway distress. EKG: Sinus rhythm at 59. Left axis deviation. No ST or T-wave abnormalities. Reviewed the patient's laboratory studies. White count was mildly elevated at 12. Patient's chemistry panel is notable for an elevated creatinine of 2.1. His D-dimer was elevated at 0.79. The patient is currently taking Eliquis. The patient had a mildly elevated D- dimer. Patient also had elevated creatinine. I was concern with performing a CT angiogram in this situation. V/Q scan is immediately unavailable. Because of this bilateral lower extremity ultrasounds were ordered. I discussed this with the hospitalist service. THE ULTRASOUND OF BILATERAL LOWER EXTREMITIES: PLEASE REFER THE DICTATED REPORT. NO ACUTE DISEASE NOTED. I discussed the results with Dr. Soria. I also discussed case with the patient. Dr. Soria will come to the emergency department to evaluate the patient. Differential Diagnosis: My differential includes but is not limited to pneumonia, bronchitis, pulmonary embolus, CHF, ACS, acute AK - Data Points Laboratory Results: Laboratory Results 01/29/19 15:49 01/29/19 15:49 01/29/19 01/29/19 01/29/19 16:01 15:49 15:49 WBC RBC Hgb Hct MCV MCH MCHC RDW Plt Count MPV Neut % (Auto) Lymph % (Auto) [place] % (Auto) Eos % (Auto) Baso % (Auto) Nucleat RBC Rel Count Absolute Neuts (auto) Absolute Lymphs (auto) Absolute Monos (auto) Absolute Eos (auto) Absolute Basos (auto) Absolute Nucleated RBC Immature Gran % Immature Gran # D-Dimer 0.79 ug/mLFEU H ug/mLFEU (0.00-0.50) Sodium 135 mEq/L mEq/L (135-145) Potassium 4.5 mEq/L mEq/L (3.5-5.2) Chloride 101 mEq/L mEq/L (97-110) Carbon Dioxide 24 mEq/l mEq/l (22-31) Anion Gap 10 mEq/L mEq/L (6-14) BUN 25 mg/dL H mg/dL (7-23) Creatinine 2.1 mg/dL H mg/dL (0.7-1.3) Estimated GFR 31 Glucose 177 mg/dL H mg/dL (70-100) Calcium 9.3 mg/dL mg/dL (8.5-10.4) POC Troponin I 0.04 ng/mL ng/mL (0.00-0.08) NT-Pro-B Natriuret Pep 597 pg/mL H pg/mL (0-125) 01/29/19 15:49 WBC 12.07 10^3/uL H 10^3/uL (3.80-9.50) RBC 5.24 10^6/uL 10^6/uL (4.40-6.38) Hgb 15.3 g/dL g/dL (13.7-17.5) Hct 45.3 % % (40.0-51.0) MCV 86.5 fL fL (81.5-99.8) MCH 29.2 pg pg (27.9-34.1) MCHC 33.8 g/dL g/dL (32.4-36.7) RDW 13.6 % % (11.5-15.2) Plt Count 201 10^3/uL 10^3/uL (150-400) MPV 10.9 fL fL (8.7-11.7) Neut % (Auto) 78.5 % H % (39.3-74.2) Lymph % (Auto) 12.4 % L % (15.0-45.0) [place] % (Auto) 6.0 % % (4.5-13.0) Eos % (Auto) 2.0 % % (0.6-7.6) Baso % (Auto) 0.7 % % (0.3-1.7) Nucleat RBC Rel Count 0.0 % % (0.0-0.2) Absolute Neuts (auto) 9.47 10^3/uL H 10^3/uL (1.70-6.50) Absolute Lymphs (auto) 1.50 10^3/uL 10^3/uL (1.00-3.00) Absolute Monos (auto) 0.72 10^3/uL 10^3/uL (0.30-0.80) Absolute Eos (auto) 0.24 10^3/uL 10^3/uL (0.03-0.40) Absolute Basos (auto) 0.09 10^3/uL 10^3/uL (0.02-0.10) Absolute Nucleated RBC 0.00 10^3/uL 10^3/uL (0-0.01) Immature Gran % 0.4 % % (0.0-1.1) Immature Gran # 0.05 10^3/uL 10^3/uL (0.00-0.10) D-Dimer Sodium Potassium Chloride Carbon Dioxide Anion Gap BUN Creatinine Estimated GFR Glucose Calcium POC Troponin I NT-Pro-B Natriuret Pep Point of Care Test Results: Chemistry 01/29/19 16:01 POC Troponin I 0.04 ng/mL ng/mL (0.00-0.08) Departure - Departure Disposition: Home, Routine, Self-Care Clinical Impression: Shortness of breath Condition: Good Referrals: SHOWELL,DOCTOR [Other] - As per Instructions
[2019-01-29 16:01] LABS: PLATELET COUNT 201 10^3/uL (150-400)
[2019-01-29] MEDS ORDERED: ZOLPIDEM TARTRATE 5 MG TAB PO PRN (19:52)
[2019-01-29] MEDS ORDERED: ACETAMINOPHEN 325 MG TAB PO PRN (19:52)
[2019-01-29] MEDS ORDERED: ONDANSETRON 4 MG/2 ML VIAL IVP PRN (19:52)
[2019-01-29] MEDS ORDERED: OXYCODONE/APAP 5/325 TAB ONE (20:00)
[2019-01-29] MEDS ORDERED: MINERAL OIL TP PRN (20:23)
[2019-01-29] MEDS ORDERED: POLYETHYLENE GLYCOL 3350 17 GM PKT PO PRN (20:23)
[2019-01-29] MEDS ORDERED: ALBUTEROL 60 PUFFS/8 GM MDI IH PRN (20:23)
[2019-01-29] MEDS ORDERED: TEARS/DEXTRAN 70/HYPROMELLOSE 15 ML OPHT.BTL EACHEYE PRN (20:23)
[2019-01-29] MEDS ORDERED: CARBOXYMETHYLCELLULOSE 1% 0.4 ML DROPERETTE EACHEYE PRN (20:23)
[2019-01-29] MEDS ORDERED: CEPACOL LOZENGE PO PRN (20:23)
[2019-01-29] MEDS ORDERED: PET HY PHL TP PRN (20:23)
[2019-01-29] MEDS: OXYCODONE/APAP 5/325 TAB PO PRN (20:25)
--- NOTE | 2019-01-29 20:32 | PDGENHP ---
History and Physical History and Physical: CC: Shortness of breath HISTORY: This patient says that he woke up this morning with shortness of breath and diaphoresis, no pain, no cough, no nausea, no leg discomfort other than chronic hip pain. This shortness of breath lasted probably 6 or 7 hr and has resolved spontaneously during his time here in the ER. He called for an ambulance because of this dyspnea. He did use his usual Symbicort this morning but did not use his albuterol to try and treat the dyspnea. (he did not understand how to use albuterol and that he should use it for acute dyspnea, even though this has been prescribed for him for years) He denies symptoms of upper respiratory infection. Notably he is on Eliquis 5 mg twice daily for AFib The patient does have history of coronary disease with stents, COPD, and has had some episodes of pneumonia ROS: The patient had cervical spine surgery here was discharged on January 14 after that. He went directly home but describes as having ongoing fairly severe neck pain after the surgery along with his usual chronic left shoulder and arm pain, left hip and knee pain. In terms of mobility he is often quite limited by these chronic pains in his hip and knee, says that he has been getting about at home mostly using cane and walker but he does also have a wheelchair that he has been using somewhat in the past week. 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 I have reviewed the list and ordered appropriate medicines. PHYSICAL EXAMINATION: Vital Signs: Hypertensive on a presentation to the ER but spontaneously resolved, initial respiratory rate 23 but now down spontaneously to 17, stable pulse and no fever. Room air oxygen saturation 98% Pilot: Sinus Examination: General: alert, oriented, good mentation, somewhat anxious; he is breathing room air comfortably at the time I examine him. He is fairly obese Skin: He has numerous areas of excoriation that are fairly recent from scratching on his limbs and trunk, with no sign of infection at this time. 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, no focal weakness IV site: looks normal LABORATORY DATA: 12,000 WBC with predominance neutrophils, otherwise normal CBC D-dimer 0.79 Creatinine 2.1 which is his baseline with baseline BUN at 25, normal electrolytes [id number] troponin normal BNP 597 RADIOLOGY STUDIES: I reviewed chest x-ray which shows no CHF, no pneumonia, no effusions, some bibasilar atelectasis which is mild 12 LEAD EKG: I reviewed 12 lead EKG tracing from ER which shows sinus rhythm with some nonspecific T-wave flattening, nothing ischemic no arrhythmia ASSESSMENT: * Acute episode of dyspnea with diaphoresis upon awakening which lasted hours but is now spontaneously resolved; not hypoxemic despite COPD * Elevated white blood cell count * Elevated D-dimer may be related to his recent cervical spine surgery, he is on Eliquis twice daily, and I have low clinical suspicion for PE and he has a negative ultrasound for DVT in the ER tonight * Patient with poor knowledge of management of COPD (actually states he has never been told he had COPD even though he listed as a diagnosis at his 1st hospital admission here in 2016 and has chronic inhalers using Symbicort twice daily) * Multiple acute skin excoriations from scratching from pruritus and anxiety * Obesity BMI 32.5 * Chronic kidney disease at his baseline * Chronic anticoagulation with Eliquis for AFib * COPD * Coronary disease with stents; on statin but it looks like he may not be on aspirin, not listed by reconciliation pharmacy * PTSD and anxiety disorder differential diagnosis for this morning's episode could be sleep apnea, angina equivalent, dyspnea from atelectasis and COPD; at present I do not expect PE given his resolution of symptoms and his twice daily 5 mg Eliquis, D- dimer likely from his recent surgery PLANS: * Observe overnight on groundwater monitoring technician for stability * Continue twice daily long-acting inhaler * Scheduled albuterol here * Check troponins repeat with EKG, if no other findings to explain his episode would do a Lexiscan stress in the morning * I educated him on appropriate use of albuterol but he will probably need more education and care follow-up * If no findings otherwise to explain his episode he should be potentially considered for sleep apnea testing * Wound care assessment for his skin lesions * Physical occupational therapy assessments, assess that he is actually safe for going back to home as opposed to intermediate I have reviewed the patient's case in detail with Dr. Jaqui Castillo I have reviewed the patient's past medical records as part of this assessment, including multiple previous hospital admission records
[2019-01-29] MEDS: BUDESONIDE/FORMOTEROL 160/4.5 60 PUFFS/MDI IH SCH (21:46)
[2019-01-29] MEDS: ALBUTEROL 60 PUFFS/8 GM MDI IH SCH (21:51)
--- NOTE | 2019-01-29 22:34 | CPEKG ---
Test Reason : OPEN Blood Pressure : / mmHG Vent. Rate : 059 BPM Atrial Rate : 059 BPM P-R Int : 163 ms QRS Dur : 082 ms QT Int : 420 ms P-R-T Axes : -24 -30 -05 degrees QTc Int : 416 ms Sinus rhythm Left axis deviation Low voltage, precordial leads Posterior infarct, old Borderline T abnormalities, inferior leads Confirmed by Althea Castillo ([id number]) on 01/29/2019 10:33:40 PM Referred By: ALTHEA CASTILLO Confirmed By:Althea Castillo
[2019-01-29] MEDS: SENNOSIDES/DOCUSATE SODIUM TAB PO SCH (22:36)
[2019-01-29] MEDS: APIXABAN 5 MG TAB PO SCH (22:37)
[2019-01-29] MEDS: GABAPENTIN 300 MG CAP PO SCH (22:37)
[2019-01-29] MEDS: MELATONIN 3 MG TAB PO SCH ×2 (22:37→22:39)
[2019-01-29] MEDS: TAMSULOSIN HCL 0.4 MG CAP PO SCH (22:37)
[2019-01-29] MEDS: cycloSPORINE 0.05% 30 DROPERETTE/BOX EACHEYE SCH (22:38)
[2019-01-30] MEDS: ALBUTEROL 60 PUFFS/8 GM MDI IH SCH ×6 (01:14→21:14)
[2019-01-30 05:21] LABS: PLATELET COUNT 176 10^3/uL (150-400)
[2019-01-30] MEDS: OXYCODONE/APAP 5/325 TAB PO PRN ×2 (08:49→18:14)
--- NOTE | 2019-01-30 08:53 | ASMTLACE ---
FRANCOISE Comorbidities - select Answers: Cerebrovascular disease all that apply (CVA, TIA, aneurysms, vasc ular dementia) Chronic pulmonary disease Coronary Artery Disease Diabetes (uncontrolled or controlled) Moderate or severe liver or renal disease Opioid dependence / Chronic pain Other Notes: HTN; AFib; HLD # of Emergency department Answers: 3-4 visits in the last 6 months Social determinants Answers: Mental health diagnosis (anxiety, depression, pers onality disorders, etc.) Score: 21 Date Signed: 01/30/2019 08:52 AM Electronically Signed By:Tammi Shah
[2019-01-30] MEDS ORDERED: REGADENOSON 0.4 MG/5 ML SYR IVP ONE (09:39)
[2019-01-30] MEDS: BUDESONIDE/FORMOTEROL 160/4.5 60 PUFFS/MDI IH SCH ×2 (09:57→21:15)
[2019-01-30] MEDS: SENNOSIDES/DOCUSATE SODIUM TAB PO SCH ×2 (10:49→21:45)
[2019-01-30] MEDS: CYANO/VITAMIN B12 1000 MCG TAB PO SCH (10:50)
[2019-01-30] MEDS: ATORVASTATIN CALCIUM 40 MG TAB PO SCH (10:50)
[2019-01-30] MEDS: APIXABAN 5 MG TAB PO SCH ×2 (10:50→21:45)
[2019-01-30] MEDS: METOPROLOL SUCCINATE XR 25 MG TAB PO SCH (10:50)
[2019-01-30] MEDS: GABAPENTIN 300 MG CAP PO SCH ×2 (10:50→21:45)
[2019-01-30] MEDS: TAMSULOSIN HCL 0.4 MG CAP PO SCH ×2 (10:50→21:45)
[2019-01-30] MEDS: PARoxetine HCL 20 MG TAB PO SCH (10:51)
[2019-01-30] MEDS: CHOLECALCIFEROL VIT D3 1,000 UNITS TAB PO SCH (10:51)
[2019-01-30] MEDS: FLUTICASONE NASAL 120 SPRAYS/16 GM MDI EACHNARE SCH (10:58)
[2019-01-30] MEDS: cycloSPORINE 0.05% 30 DROPERETTE/BOX EACHEYE SCH ×2 (10:58→21:46)
--- NOTE | 2019-01-30 11:06 | CPR ---
[f rep st] NONINVASIVE CARDIAC PROCEDURE REPORT DATE OF PROCEDURE: 01/30/2019 REPORT TITLE: NUCLEAR LEXISCAN STRESS TEST REASON FOR TEST: Shortness of breath, diaphoresis, history of coronary artery disease. Resting EKG shows a regular sinus rhythm with a rate of 73, late progression of anterior lead. No ar rhythmias noted. Resting blood pressure 122/78, resting heart rate 68, oxygen saturation 92. Prior to initiation of the test, he feels mild dizziness with mild shortness of breath. STRESS PORTION: Lexiscan nuclear stress test: Lexiscan injected, followed by saline flush, Cardioli te then injected, followed by saline flush. He did note increased shortness of breath with a mild in crease in his dizziness after the injection. Peak blood pressure 136/70, peak heart rate 89, oxygen saturation 96%. Occasional PVC was noted post-injection. RECOVERY: He spontaneously recovered. Recovery blood pressure 120/76, heart rate 80, oxygen saturat ion 93%. Shortness of breath and dizziness resolving. Caffeine was given. Rare PVC noted in recove ry. At this time, he currently is stable for imaging. /[id number]/MODL
[2019-01-30] MEDS: oxyCODONE IR 5 MG TAB PO PRN ×2 (11:17→21:45)
--- NOTE | 2019-01-30 15:27 | ASMTCMCOM ---
CM Note CM Note Notes: Patient plan of care reviewed in am rounds. Patient has had recent cervical surgery and was at home with [facility]. He reported sudden onset of SOB at home and was sent to the ER. Per therapy SNF recommended at this time. Dr. Taveras discussed with patient who is agreeable. Referrals in allscripts. Plan: To SNF when medically cleared for discharge. Date Signed: 01/30/2019 03:26 PM Electronically Signed By:Soni Santillan RN
--- NOTE | 2019-01-30 15:40 | WOCRNPDOC ---
JOSE Advanced Assessment Note - Skin Integrity Problem, Advanced Assess Right Lower Leg Scab Dressing Type: Open to Air Closure Description: Approximated, Not Approximated Exudate Amount: Scant Exudate Color: Red Exudate Characteristic(s): Bloody Mona Wound Tissue: Erythema, Intact Wound Bed Color: Brown, Red Wound Bed Constitution: Scab Skin Integrity Problem Comment: Patient with scattered wounds across bilateral lower extremities, right worse than left. Patient reports this began long ago when he was in [place] and it "comes back" periodically. He reports that this episode has been ongoing for about a year now, and is different than he has experienced in the past. He reports extreme itching to the legs causing him to scratch and continually open up the areas on his legs. He states that "nothing helps" and that he has endured a lot of testing to determine a diagnosis but still doesn't have one. During my conversation with the patient, he begins itching, causing some of his small wounds to bleed. ISADORA Harris walks in and notes that the right leg in particular is more red and open than when she had first seen it. ISADORA Harris to medicate with an anti-histamine to see if majo helps to relieve the itch. After that, we can moisturize to see if we can provide some topical relief as the patient doesn't have the cream that he normally uses on his legs. Wound care will not continue to round.
[2019-01-30] MEDS: hydrOXYzine HCL 25 MG TAB PO PRN (15:47)
--- NOTE | 2019-01-30 16:13 | HOSPPROG ---
Hospitalist Progress Note Assessment/Plan: ASSESSMENT & PLAN : * Acute episode of dyspnea with diaphoresis * Upon awakening which lasted hours but is now spontaneously resolved; not hypoxemic despite COPD * Not requiring 02 this morning, not tachycardic, elevated D-dimer on admission , currently on Eliquis BID, low clinical suspicion for PE, negative b/l US on admission for DVT * MPS performed this AM which was negative for ischemia * COPD management with Symbicort and PRN Albuterol (discussed with pharmacy to provide education and how and when to use inhalers) * Continue to monitor * Recent Cervical Surgery * Collar in place * Continue pain medications PRN * Obesity BMI 32.5 * Chronic kidney disease at his baseline * Chronic anticoagulation with Eliquis for AFib * COPD * Continue Symbicort and PRN Albuterol as above * Does not appear to be acute exacerbation * Coronary disease with stents; on statin * MPS negative as above * PTSD and anxiety disorder FEN: Cardiac DVT PPx: Home Eliquis Code: FULL Dispo: Pending clinical course, PT/OT recommending SNF, CM consulted Subjective: Patient reports neck pain this AM Objective: Vital Signs Temp Pulse Resp BP Pulse Ox 36.8 C 68 18 123/73 H 96 01/30/19 16:04 01/30/19 16:04 01/30/19 16:04 01/30/19 16:04 01/30/19 16:04 Laboratory Results 01/30/19 05:08 01/29/19 01/30/19 01/31/19 05:59 05:59 05:59 Intake Total 220 Output Total 450 200 Balance -230 -200 - Physical Exam Constitutional: chronically ill appearing Eyes: PERRL Ears, Nose, Mouth, Throat: moist mucous membranes Cardiovascular: regular rate and rhythym Respiratory: no respiratory distress Gastrointestinal: soft, non-tender abdomen Skin: warm Musculoskeletal: pain with ROM Neurologic: AAOx3 Psychiatric: interacting appropriately ICD10 Worksheet Patient Problems: Problems Problem Status Onset Shortness of breath Acute Acute bronchitis Acute Chest pain Acute Chronic Disease Mgmt/Transitional Care Acute Chronic pain Acute Dehydration Acute Dizziness Acute Dyspnea Acute Elevated d-dimer Acute Exacerbation of asthma Acute Failure to thrive in adult Acute GIB (gastrointestinal bleeding) Acute Generalized weakness Acute History of coronary artery disease Acute Hyponatremia Acute Left hip pain Acute Lightheaded Acute Pneumonia Acute Renal insufficiency Acute Skin excoriation Acute
[2019-01-30] MEDS: MELATONIN 3 MG TAB PO SCH (21:45)
[2019-01-31] MEDS: ALBUTEROL 60 PUFFS/8 GM MDI IH SCH ×3 (00:30→09:01)
[2019-01-31] MEDS: BUDESONIDE/FORMOTEROL 160/4.5 60 PUFFS/MDI IH SCH ×2 (09:01→21:31)
[2019-01-31] MEDS: PARoxetine HCL 20 MG TAB PO SCH (09:59)
[2019-01-31] MEDS: CYANO/VITAMIN B12 1000 MCG TAB PO SCH (10:00)
[2019-01-31] MEDS: METOPROLOL SUCCINATE XR 25 MG TAB PO SCH (10:00)
[2019-01-31] MEDS: SENNOSIDES/DOCUSATE SODIUM TAB PO SCH ×2 (10:00→19:35)
[2019-01-31] MEDS: ATORVASTATIN CALCIUM 40 MG TAB PO SCH (10:00)
[2019-01-31] MEDS: CHOLECALCIFEROL VIT D3 1,000 UNITS TAB PO SCH (10:00)
[2019-01-31] MEDS: TAMSULOSIN HCL 0.4 MG CAP PO SCH ×2 (10:00→19:35)
[2019-01-31] MEDS: cycloSPORINE 0.05% 30 DROPERETTE/BOX EACHEYE SCH (10:01)
[2019-01-31] MEDS: APIXABAN 5 MG TAB PO SCH ×2 (10:01→19:35)
[2019-01-31] MEDS: GABAPENTIN 300 MG CAP PO SCH ×2 (10:01→19:35)
[2019-01-31] MEDS: FLUTICASONE NASAL 120 SPRAYS/16 GM MDI EACHNARE SCH (10:02)
[2019-01-31] MEDS: oxyCODONE IR 5 MG TAB PO PRN ×3 (10:19→19:35)
--- NOTE | 2019-01-31 12:47 | HOSPPROG ---
Hospitalist Progress Note Assessment/Plan: ASSESSMENT & PLAN : * Acute episode of dyspnea with diaphoresis * Upon awakening which lasted hours but is now spontaneously resolved; not hypoxemic despite COPD * Not requiring 02 this morning, not tachycardic, elevated D-dimer on admission , currently on Eliquis BID, low clinical suspicion for PE, negative b/l US on admission for DVT * MPS performedon 01/30 which was negative for ischemia * COPD management with Symbicort and PRN Albuterol (discussed with pharmacy to provide education and how and when to use inhalers) * Continue to monitor * Recent Cervical Surgery * Collar in place * Continue pain medications PRN * Obesity BMI 32.5 * Chronic kidney disease at his baseline * Chronic anticoagulation with Eliquis for AFib * COPD * Continue Symbicort and PRN Albuterol as above * Does not appear to be acute exacerbation * Coronary disease with stents; on statin * MPS negative as above * PTSD and anxiety disorder FEN: Cardiac DVT PPx: Home Eliquis Code: FULL Dispo: Pending clinical course, PT/OT recommending SNF, CM consulted Subjective: Patient reports neck pain this AM Objective: Vital Signs Temp Pulse Resp BP Pulse Ox 36.6 C 64 18 112/63 93 01/31/19 12:00 01/31/19 12:00 01/31/19 12:00 01/31/19 12:00 01/31/19 12:00 Laboratory Results 01/30/19 05:08 01/30/19 01/31/19 02/01/19 05:59 05:59 05:59 Intake Total 220 1400 Output Total 450 750 325 Balance -230 650 -325 - Physical Exam Constitutional: chronically ill appearing Eyes: PERRL Ears, Nose, Mouth, Throat: moist mucous membranes, other (hardc ollar in place) Cardiovascular: regular rate and rhythym Respiratory: no respiratory distress Gastrointestinal: soft, non-tender abdomen Skin: warm Musculoskeletal: pain with ROM Neurologic: AAOx3 Psychiatric: interacting appropriately ICD10 Worksheet Patient Problems: Problems Problem Status Onset Shortness of breath Acute Acute bronchitis Acute Chest pain Acute Chronic Disease Mgmt/Transitional Care Acute Chronic pain Acute Dehydration Acute Dizziness Acute Dyspnea Acute Elevated d-dimer Acute Exacerbation of asthma Acute Failure to thrive in adult Acute GIB (gastrointestinal bleeding) Acute Generalized weakness Acute History of coronary artery disease Acute Hyponatremia Acute Left hip pain Acute Lightheaded Acute Pneumonia Acute Renal insufficiency Acute Skin excoriation Acute
--- NOTE | 2019-01-31 15:29 | ASMTCMCOM ---
CM Note CM Note Notes: CM met with pt in his room and discussed with Dr. Daniele Taveras. Pt is medically cleared to D/C to SNF; however, he obtained new Veterans insurance and SNF needs Veterans approval. [facility] call [facility]; [facility] for the weekend and the holiday on Saturday. CM spoke to pt; he is willing to use other insurance (Medicare or private) which he thinks is still active but he says he doesn't have insurance cards with him. CM left message for Sandrita at [facility] to see if she has this other insurance information from a previous referral. Also left message for his daughter for same. If Mediare, he could potentially D/C tomorrow after 3 midnights. CM awaiting calls back. CM D/C plan: [facility], continue with [facility] Date Signed: 01/31/2019 03:28 PM Electronically Signed By:Sandrita Watkins
[2019-01-31] MEDS: CYCLOBENZAPRINE 10 MG TAB PO PRN (16:46)
[2019-01-31] MEDS: hydrOXYzine HCL 25 MG TAB PO PRN (16:46)
[2019-02-01] MEDS: oxyCODONE IR 5 MG TAB PO PRN ×5 (00:02→22:00)
[2019-02-01] MEDS: MELATONIN 3 MG TAB PO SCH ×2 (00:02→22:01)
[2019-02-01] MEDS: CYCLOBENZAPRINE 10 MG TAB PO PRN ×3 (00:02→18:38)
[2019-02-01] MEDS: cycloSPORINE 0.05% 30 DROPERETTE/BOX EACHEYE SCH ×3 (00:08→22:04)
[2019-02-01] MEDS: PARoxetine HCL 20 MG TAB PO SCH (09:33)
[2019-02-01] MEDS: METOPROLOL SUCCINATE XR 25 MG TAB PO SCH (09:33)
[2019-02-01] MEDS: GABAPENTIN 300 MG CAP PO SCH ×2 (09:33→22:01)
[2019-02-01] MEDS: SENNOSIDES/DOCUSATE SODIUM TAB PO SCH ×2 (09:33→22:01)
[2019-02-01] MEDS: CHOLECALCIFEROL VIT D3 1,000 UNITS TAB PO SCH (09:33)
[2019-02-01] MEDS: CYANO/VITAMIN B12 1000 MCG TAB PO SCH (09:34)
[2019-02-01] MEDS: TAMSULOSIN HCL 0.4 MG CAP PO SCH ×2 (09:34→22:01)
[2019-02-01] MEDS: ATORVASTATIN CALCIUM 40 MG TAB PO SCH (09:34)
[2019-02-01] MEDS: BUDESONIDE/FORMOTEROL 160/4.5 60 PUFFS/MDI IH SCH ×2 (09:35→19:35)
[2019-02-01] MEDS: ALBUTEROL 60 PUFFS/8 GM MDI IH PRN ×2 (09:35→19:35)
[2019-02-01] MEDS: APIXABAN 5 MG TAB PO SCH ×2 (09:35→22:01)
[2019-02-01] MEDS: FLUTICASONE NASAL 120 SPRAYS/16 GM MDI EACHNARE SCH (10:16)
--- NOTE | 2019-02-01 13:27 | HOSPPROG ---
Hospitalist Progress Note Assessment/Plan: ASSESSMENT & PLAN : * Acute episode of dyspnea with diaphoresis * Upon awakening which lasted hours but is now spontaneously resolved; not hypoxemic despite COPD * Not requiring 02 this morning, not tachycardic, elevated D-dimer on admission , currently on Eliquis BID, low clinical suspicion for PE, negative b/l US on admission for DVT * MPS performedon 01/30 which was negative for ischemia * COPD management with Symbicort and PRN Albuterol (discussed with pharmacy to provide education and how and when to use inhalers) * Continue to monitor * Recent Cervical Surgery * Collar in place * Continue pain medications PRN * Obesity BMI 32.5 * Chronic kidney disease at his baseline * Chronic anticoagulation with Eliquis for AFib * COPD * Continue Symbicort and PRN Albuterol as above * Does not appear to be acute exacerbation * Coronary disease with stents; on statin * MPS negative as above * PTSD and anxiety disorder FEN: Cardiac DVT PPx: Home Eliquis Code: FULL Dispo: Pending clinical course, PT/OT recommending SNF, CM consulted Subjective: Pt reports pain in neck this AM, unchanged from previous Objective: Vital Signs Temp Pulse Resp BP Pulse Ox 36.8 C 61 13 138/79 H 92 02/01/19 12:00 02/01/19 12:00 02/01/19 12:00 02/01/19 12:00 02/01/19 12:00 Laboratory Results 01/30/19 05:08 01/31/19 02/01/19 02/02/19 05:59 05:59 05:59 Intake Total 1400 1865 Output Total 750 1475 325 Balance 650 390 -325 - Physical Exam Constitutional: chronically ill appearing, uncomfortable Eyes: PERRL Ears, Nose, Mouth, Throat: moist mucous membranes Cardiovascular: regular rate and rhythym Respiratory: no respiratory distress Gastrointestinal: soft, non-tender abdomen Skin: warm Musculoskeletal: pain with ROM Neurologic: AAOx3 Psychiatric: interacting appropriately ICD10 Worksheet Patient Problems: Problems Problem Status Onset Shortness of breath Acute Acute bronchitis Acute Chest pain Acute Chronic Disease Mgmt/Transitional Care Acute Chronic pain Acute Dehydration Acute Dizziness Acute Dyspnea Acute Elevated d-dimer Acute Exacerbation of asthma Acute Failure to thrive in adult Acute GIB (gastrointestinal bleeding) Acute Generalized weakness Acute History of coronary artery disease Acute Hyponatremia Acute Left hip pain Acute Lightheaded Acute Pneumonia Acute Renal insufficiency Acute Skin excoriation Acute
[2019-02-02] MEDS: oxyCODONE IR 5 MG TAB PO PRN ×3 (02:54→22:25)
[2019-02-02] MEDS: CYCLOBENZAPRINE 10 MG TAB PO PRN (09:17)
[2019-02-02] MEDS: PARoxetine HCL 20 MG TAB PO SCH (09:18)
[2019-02-02] MEDS: METOPROLOL SUCCINATE XR 25 MG TAB PO SCH (09:19)
[2019-02-02] MEDS: TAMSULOSIN HCL 0.4 MG CAP PO SCH ×2 (09:19→21:10)
[2019-02-02] MEDS: APIXABAN 5 MG TAB PO SCH ×2 (09:19→21:10)
[2019-02-02] MEDS: CHOLECALCIFEROL VIT D3 1,000 UNITS TAB PO SCH (09:19)
[2019-02-02] MEDS: GABAPENTIN 300 MG CAP PO SCH ×2 (09:19→21:10)
[2019-02-02] MEDS: ATORVASTATIN CALCIUM 40 MG TAB PO SCH (09:19)
[2019-02-02] MEDS: SENNOSIDES/DOCUSATE SODIUM TAB PO SCH ×2 (09:19→21:10)
[2019-02-02] MEDS: CYANO/VITAMIN B12 1000 MCG TAB PO SCH (09:20)
[2019-02-02] MEDS: FLUTICASONE NASAL 120 SPRAYS/16 GM MDI EACHNARE SCH (09:22)
[2019-02-02] MEDS: BUDESONIDE/FORMOTEROL 160/4.5 60 PUFFS/MDI IH SCH ×2 (09:22→21:25)
[2019-02-02] MEDS: cycloSPORINE 0.05% 30 DROPERETTE/BOX EACHEYE SCH ×2 (09:22→22:25)
--- NOTE | 2019-02-02 13:40 | ASMTCMCOM ---
CM Note CM Note Notes: Patient plan of care reviewed with . [facility] for [facility] unable to pursue obtaining authorization for SNF at this point. Tomorrow offices will resume operations as per routine schedule. Contact for [facility] [phone] per records. CM to follow. Plan: To SNF when authorization obtained. Date Signed: 02/02/2019 01:39 PM Electronically Signed By:Soni Santillan RN
--- NOTE | 2019-02-02 15:52 | HOSPPROG ---
Hospitalist Progress Note Assessment/Plan: ASSESSMENT & PLAN : * Acute episode of dyspnea with diaphoresis * Upon awakening which lasted hours but is now spontaneously resolved; not hypoxemic despite COPD * Not requiring 02, not tachycardic, elevated D-dimer on admission, currently on Eliquis BID, low clinical suspicion for PE, negative b/l US on admission for DVT * MPS performed on 01/30 which was negative for ischemia * COPD management with Symbicort and PRN Albuterol (discussed with pharmacy to provide education and how and when to use inhalers) * Continue to monitor * Recent Cervical Surgery * Collar in place * Continue pain medications PRN * Obesity BMI 32.5 * Chronic kidney disease at his baseline * Chronic anticoagulation with Eliquis for AFib * COPD * Continue Symbicort and PRN Albuterol as above * Does not appear to be acute exacerbation * Coronary disease with stents; on statin * MPS negative as above * PTSD and anxiety disorder FEN: Cardiac DVT PPx: Home Eliquis Code: FULL Dispo: Pending clinical course, PT/OT recommending SNF, CM consulted Subjective: Pt reports pain in neck this AM Objective: Vital Signs Temp Pulse Resp BP Pulse Ox 36.5 C 65 14 110/62 93 02/02/19 11:32 02/02/19 11:32 02/02/19 11:32 02/02/19 11:32 02/02/19 11:32 Laboratory Results 01/30/19 05:08 02/01/19 02/02/19 02/03/19 05:59 05:59 05:59 Intake Total 1865 800 Output Total 5944 068 8596 Balance 390 125 -1300 - Physical Exam Constitutional: uncomfortable Eyes: PERRL Ears, Nose, Mouth, Throat: moist mucous membranes Cardiovascular: regular rate and rhythym Respiratory: no respiratory distress Gastrointestinal: soft, non-tender abdomen Skin: warm Musculoskeletal: pain with ROM Neurologic: AAOx3 Psychiatric: interacting appropriately ICD10 Worksheet Patient Problems: Problems Problem Status Onset Shortness of breath Acute Acute bronchitis Acute Chest pain Acute Chronic Disease Mgmt/Transitional Care Acute Chronic pain Acute Dehydration Acute Dizziness Acute Dyspnea Acute Elevated d-dimer Acute Exacerbation of asthma Acute Failure to thrive in adult Acute GIB (gastrointestinal bleeding) Acute Generalized weakness Acute History of coronary artery disease Acute Hyponatremia Acute Left hip pain Acute Lightheaded Acute Pneumonia Acute Renal insufficiency Acute Skin excoriation Acute
[2019-02-02] MEDS: MELATONIN 3 MG TAB PO SCH (22:24)
[2019-02-03] MEDS: oxyCODONE IR 5 MG TAB PO PRN ×4 (02:50→21:05)
[2019-02-03] MEDS: CHOLECALCIFEROL VIT D3 1,000 UNITS TAB PO SCH (09:08)
[2019-02-03] MEDS: PARoxetine HCL 20 MG TAB PO SCH (09:08)
[2019-02-03] MEDS: CYANO/VITAMIN B12 1000 MCG TAB PO SCH (09:08)
[2019-02-03] MEDS: METOPROLOL SUCCINATE XR 25 MG TAB PO SCH (09:08)
[2019-02-03] MEDS: TAMSULOSIN HCL 0.4 MG CAP PO SCH ×2 (09:09→21:07)
[2019-02-03] MEDS: cycloSPORINE 0.05% 30 DROPERETTE/BOX EACHEYE SCH ×2 (09:09→21:05)
[2019-02-03] MEDS: SENNOSIDES/DOCUSATE SODIUM TAB PO SCH ×2 (09:09→21:07)
[2019-02-03] MEDS: GABAPENTIN 300 MG CAP PO SCH ×2 (09:09→21:07)
[2019-02-03] MEDS: ATORVASTATIN CALCIUM 40 MG TAB PO SCH (09:09)
[2019-02-03] MEDS: BUDESONIDE/FORMOTEROL 160/4.5 60 PUFFS/MDI IH SCH ×2 (09:09→20:01)
[2019-02-03] MEDS: APIXABAN 5 MG TAB PO SCH ×2 (09:09→21:06)
[2019-02-03] MEDS: FLUTICASONE NASAL 120 SPRAYS/16 GM MDI EACHNARE SCH (09:09)
--- NOTE | 2019-02-03 13:31 | HOSPPROG ---
Hospitalist Progress Note Assessment/Plan: ASSESSMENT & PLAN : * Acute episode of dyspnea with diaphoresis * Upon awakening which lasted hours but is now spontaneously resolved; not hypoxemic despite COPD * Not requiring 02, not tachycardic, elevated D-dimer on admission, currently on Eliquis BID, low clinical suspicion for PE, negative b/l US on admission for DVT * MPS performed on 01/30 which was negative for ischemia * COPD management with Symbicort and PRN Albuterol (discussed with pharmacy to provide education and how and when to use inhalers) * Continue to monitor * Recent Cervical Surgery * Collar in place * Continue pain medications PRN * Obesity BMI 32.5 * Chronic kidney disease at his baseline * Chronic anticoagulation with Eliquis for AFib * COPD * Continue Symbicort and PRN Albuterol as above * Does not appear to be acute exacerbation * Coronary disease with stents; on statin * MPS negative as above * PTSD and anxiety disorder FEN: Cardiac DVT PPx: Home Eliquis Code: FULL Dispo: Pending clinical course, PT/OT recommending SNF, CM consulted Subjective: Pt reports improvement in neck pain this aM, feeling overall improved Objective: Vital Signs Temp Pulse Resp BP Pulse Ox 36.3 C 56 L 16 118/69 94 02/03/19 11:53 02/03/19 11:53 02/03/19 11:53 02/03/19 11:53 02/03/19 11:53 Laboratory Results 01/30/19 05:08 02/02/19 02/03/19 02/04/19 05:59 05:59 05:59 Intake Total 800 820 Output Total 112 8554 325 Balance 125 -7760 -325 - Physical Exam Constitutional: chronically ill appearing Eyes: PERRL Ears, Nose, Mouth, Throat: moist mucous membranes Cardiovascular: regular rate and rhythym Respiratory: no respiratory distress Gastrointestinal: soft, non-tender abdomen Genitourinary: No bueno in urethra Skin: warm Musculoskeletal: pain with ROM Neurologic: AAOx3 Psychiatric: interacting appropriately ICD10 Worksheet Patient Problems: Problems Problem Status Onset Shortness of breath Acute Acute bronchitis Acute Chest pain Acute Chronic Disease Mgmt/Transitional Care Acute Chronic pain Acute Dehydration Acute Dizziness Acute Dyspnea Acute Elevated d-dimer Acute Exacerbation of asthma Acute Failure to thrive in adult Acute GIB (gastrointestinal bleeding) Acute Generalized weakness Acute History of coronary artery disease Acute Hyponatremia Acute Left hip pain Acute Lightheaded Acute Pneumonia Acute Renal insufficiency Acute Skin excoriation Acute
[2019-02-03] MEDS: MELATONIN 3 MG TAB PO SCH (21:07)
[2019-02-04] MEDS: oxyCODONE IR 5 MG TAB PO PRN ×3 (03:29→14:26)
[2019-02-04] MEDS: SENNOSIDES/DOCUSATE SODIUM TAB PO SCH ×2 (09:12→20:09)
[2019-02-04] MEDS: APIXABAN 5 MG TAB PO SCH ×2 (09:12→20:09)
[2019-02-04] MEDS: ATORVASTATIN CALCIUM 40 MG TAB PO SCH (09:13)
[2019-02-04] MEDS: PARoxetine HCL 20 MG TAB PO SCH (09:13)
[2019-02-04] MEDS: CHOLECALCIFEROL VIT D3 1,000 UNITS TAB PO SCH (09:13)
[2019-02-04] MEDS: GABAPENTIN 300 MG CAP PO SCH ×2 (09:13→20:08)
[2019-02-04] MEDS: METOPROLOL SUCCINATE XR 25 MG TAB PO SCH (09:13)
[2019-02-04] MEDS: CYANO/VITAMIN B12 1000 MCG TAB PO SCH (09:14)
[2019-02-04] MEDS: cycloSPORINE 0.05% 30 DROPERETTE/BOX EACHEYE SCH ×2 (09:15→20:10)
[2019-02-04] MEDS: FLUTICASONE NASAL 120 SPRAYS/16 GM MDI EACHNARE SCH (09:15)
[2019-02-04] MEDS: TAMSULOSIN HCL 0.4 MG CAP PO SCH ×2 (09:18→20:08)
--- NOTE | 2019-02-04 09:21 | ASMTCMCOM ---
CM Note CM Note Notes: CM obtained Veterans Referral for Community Intermediate [facility] form and contact name Stella Miranda [phone] from [facility]. CM has filled out form and printed out necessary paperwork and is awaiting pt's RN portion of form to be filled out. Also left msg with Stella re: some questions about the form and where to fax when completed. CM will continue to follow. CM D/C plan: [facility] SN[facility] Date Signed: 02/04/2019 09:20 AM Electronically Signed By:Sandrita Rosa.ISADORA
[2019-02-04] MEDS: BUDESONIDE/FORMOTEROL 160/4.5 60 PUFFS/MDI IH SCH ×2 (09:53→20:10)
--- NOTE | 2019-02-04 14:41 | HOSPPROG ---
Hospitalist Progress Note Assessment/Plan: * Acute episode of dyspnea with diaphoresis * Upon awakening which lasted hours but is now spontaneously resolved; not hypoxemic despite COPD * Not requiring 02, not tachycardic, elevated D-dimer on admission, currently on Eliquis BID, low clinical suspicion for PE, negative b/l US on admission for DVT * MPS performed on 01/30 which was negative for ischemia * COPD management with Symbicort and PRN Albuterol (discussed with pharmacy to provide education and how and when to use inhalers) * Continue to monitor * Recent Cervical Surgery * Collar in place * Continue pain medications PRN * Obesity BMI 32.5 * Chronic kidney disease at his baseline * Chronic anticoagulation with Eliquis for AFib * COPD * Continue Symbicort and PRN Albuterol as above * Does not appear to be acute exacerbation * Coronary disease with stents; on statin * MPS negative as above * PTSD and anxiety disorder FEN: Cardiac DVT PPx: Home Eliquis Code: FULL Dispo: Pending clinical course, PT/OT recommending SNF, CM consulted pt new to my care. no changes. awaiting placement Subjective: working with PT. no cp or sob. Objective: Vital Signs Temp Pulse Resp BP Pulse Ox 36.6 C 53 L 14 114/65 94 02/04/19 11:51 02/04/19 11:51 02/04/19 11:51 02/04/19 11:51 02/04/19 11:51 Laboratory Results 01/30/19 05:08 02/03/19 02/04/19 02/05/19 05:59 05:59 05:59 Intake Total 820 520 Output Total 2525 1050 Balance -1705 -530 - Physical Exam Constitutional: chronically ill appearing Eyes: PERRL, EOMI Ears, Nose, Mouth, Throat: moist mucous membranes, hearing normal Cardiovascular: regular rate and rhythym, No edema Respiratory: no respiratory distress, no rales or rhonchi, clear to auscultation Gastrointestinal: normoactive bowel sounds, soft, non-tender abdomen Skin: warm Neurologic: AAOx3 Psychiatric: interacting appropriately, not anxious, not encephalopathic Lymph, Heme, Immunologic: No petechiae ICD10 Worksheet Patient Problems: Problems Problem Status Onset Shortness of breath Acute Acute bronchitis Acute Chest pain Acute Chronic Disease Mgmt/Transitional Care Acute Chronic pain Acute Dehydration Acute Dizziness Acute Dyspnea Acute Elevated d-dimer Acute Exacerbation of asthma Acute Failure to thrive in adult Acute GIB (gastrointestinal bleeding) Acute Generalized weakness Acute History of coronary artery disease Acute Hyponatremia Acute Left hip pain Acute Lightheaded Acute Pneumonia Acute Renal insufficiency Acute Skin excoriation Acute
[2019-02-04] MEDS: MELATONIN 3 MG TAB PO SCH (20:09)
[2019-02-05] MEDS: oxyCODONE IR 5 MG TAB PO PRN ×2 (04:18→09:58)
[2019-02-05] MEDS: SENNOSIDES/DOCUSATE SODIUM TAB PO SCH (09:53)
[2019-02-05] MEDS: TAMSULOSIN HCL 0.4 MG CAP PO SCH (09:53)
[2019-02-05] MEDS: ATORVASTATIN CALCIUM 40 MG TAB PO SCH (09:53)
[2019-02-05] MEDS: CHOLECALCIFEROL VIT D3 1,000 UNITS TAB PO SCH (09:53)
[2019-02-05] MEDS: PARoxetine HCL 20 MG TAB PO SCH (09:53)
[2019-02-05] MEDS: APIXABAN 5 MG TAB PO SCH (09:54)
[2019-02-05] MEDS: GABAPENTIN 300 MG CAP PO SCH (09:54)
[2019-02-05] MEDS: METOPROLOL SUCCINATE XR 25 MG TAB PO SCH (09:54)
[2019-02-05] MEDS: CYANO/VITAMIN B12 1000 MCG TAB PO SCH (09:54)
[2019-02-05] MEDS: cycloSPORINE 0.05% 30 DROPERETTE/BOX EACHEYE SCH (09:58)
[2019-02-05] MEDS: FLUTICASONE NASAL 120 SPRAYS/16 GM MDI EACHNARE SCH (09:58)
[2019-02-05] MEDS: BUDESONIDE/FORMOTEROL 160/4.5 60 PUFFS/MDI IH SCH (10:14)
[2019-02-05 12:22] VITALS: BP 107/74
--- NOTE | 2019-02-05 13:24 | PDDCSUM ---
Discharge Summary Discharge Summary: The patient is a 73 yo male who was admitted with SOB and CP. CV rule out was negative. Now back to baseline. See below. We attempted placement into a SNF but the pt refuses at this time. He will return home with [facility]. #Acute episode of dyspnea with diaphoresis * no hypoxemia * Not requiring 02, not tachycardic, elevated D-dimer on admission, currently on Eliquis BID, low clinical suspicion for PE, negative b/l US on admission for DVT * MPS performed on 01/30 which was negative for ischemia * COPD management with Symbicort and PRN Albuterol (discussed with pharmacy to provide education and how and when to use inhalers) #Recent Cervical Surgery * Collar in place * Continue pain medications PRN #Obesity BMI 32.5 #Chronic kidney disease at his baseline #Chronic anticoagulation with Eliquis for AFib #COPD * Continue Symbicort and PRN Albuterol as above * Does not appear to be acute exacerbation #Coronary disease with stents; on statin * MPS negative as above #PTSD and anxiety disorder Exam NAD AAO RRR CTA B S/NT/ND MEDS: SEE MED REC F/U: WITH PCP NEXT WEEK TOTAL TIME SPENT ON D/C IS 35 MIN
--- NOTE | 2019-02-05 13:25 | PDIAF ---
- Diagnosis Diagnosis: copd Code Status: Full Code - Medication Management Discharge Medications: electronically signed and located in the Home Medication List. - Orders Services needed: Home Care, Physical Therapy, Occupational Therapy Home Care Face to Face: I certify that this patient was under my care and that I had the required [id number] encounter meeting the encounter requirements on the discharge day. My findings support the fact that the patient is homebound as defined in Home Care Face to Face Continued: CMS Chapter 7 Medicare Benefits Manual 30.1.1 , The condition of the patient is such that there exists a normal inability to leave home and consequently, leaving home would require a considerable and taxing effort. Isolation Type: None Diet Recommendation: no restrictions on diet Diet Texture: Regular Texture Diet Additional Instructions: Wound Care Moisturizing cream to bilateral lower extremities BID and PRN. Activity: as tolerated F/U: with PCP next week - Follow Up Care Current Providers and Referrals: PARASDOCTOR [Other] - As per Instructions
--- NOTE | 2019-02-05 15:12 | ASMTLACE ---
MARIOE Length of stay for Answers: 7-13 days current admission Comorbidities - select Answers: Cerebrovascular disease all that apply (CVA, TIA, aneurysms, vasc ular dementia) Chronic pulmonary disease Coronary Artery Disease Diabetes (uncontrolled or controlled) Moderate or severe liver or renal disease Opioid dependence / Chronic pain # of Emergency department Answers: 3-4 visits in the last 6 months Social determinants Answers: Mental health diagnosis (anxiety, depression, pers onality disorders, etc.) Score: 25 Date Signed: 02/05/2019 03:11 PM Electronically Signed By:Sandrita Watkins
--- NOTE | 2019-02-05 15:18 | ASDISCHSUM ---
Discharge Information Plan Status:Home with Home Health Medically Cleared to Leave: Discharge Date:02/05/2019 03:05 PM D/C Disposition: [facility] D/C Disposition:[id number] Projected Discharge Date:02/01/2019 11:00 AM Transportation at D/C: Discharge Delay Reason: Follow-Up Date:02/01/2019 11:00 AM Discharge Slot: Final Diagnosis: Placement Information Referral Type:*Detention/SNF Referral ID:[id number] Provider Name: Address 1: Phone Number: Address 2: Fax Number: City: Selection Factors: State: Referral Type:*Detention/SNF Referral ID:[id number] Provider Name: Address 1: Phone Number: Address 2: Fax Number: City: Selection Factors: State: Patient Contact Information Contact Name:SINA Relationship:Daughter Address: Work Phone: City:[place] Alternate Phone: [facility]/Zip Code:[place] Email: Financial Information Financial Class:HMO and PPO Plans Primary Plan Desc:Veterans Primary Plan Number:[id number] Secondary Plan Desc: Secondary Plan Number: Assessment Information LACE LACE Comorbidities - select Answers: Cerebrovascular disease all that apply (CVA, TIA, aneurysms, vasc ular dementia) Chronic pulmonary disease Coronary Artery Disease Diabetes (uncontrolled or controlled) Moderate or severe liver or renal disease Opioid dependence / Chronic pain Other Notes: HTN; AFib; HLD # of Emergency department Answers: 3-4 visits in the last 6 months Social determinants Answers: Mental health diagnosis (anxiety, depression, pers onality disorders, etc.) Score: 21 Date Signed: 01/30/2019 08:52 AM Electronically Signed By:Tammi Shah [facility] CM Progress Note CM Note CM Note Notes: Patient plan of care reviewed in am rounds. Patient has had recent cervical surgery and was at home with [facility]. He reported sudden onset of SOB at home and was sent to the ER. Per therapy SNF recommended at this time. Dr. Taveras discussed with patient who is agreeable. Referrals in allscripts. Plan: To SNF when medically cleared for discharge. Date Signed: 01/30/2019 03:26 PM Electronically Signed By:Soni Santillan RN [facility] [place] Progress Note CM Note CM Note Notes: CM met with pt in his room and discussed with Dr. Daniele Taveras. Pt is medically cleared to D/C to SNF; however, he obtained new Veterans insurance and SNF needs Veterans approval. CM [facility] to call [facility]; they are [facility] for the weekend and the holiday on Saturday. CM spoke to pt; he is willing to use other insurance (Medicare or private) which he thinks is still active but he says he doesn't have insurance cards with him. CM left message for Sandrita at [facility] to see if she has this other insurance information from a previous referral. Also left message for his daughter for same. If Media[facility], he could potentially D/C tomorrow after 3 midnights. CM awaiting calls back. CM D/C plan: [facility] continue with [facility] Date Signed: 01/31/2019 03:28 PM Electronically Signed By:Sandrita Rosa.ISADORA [facility] [place] Progress Note CM Note CM Note Notes: Patient plan of care reviewed with . He is primary with [place]. Offices closed for holiday unable to pursue obtaining authorization for SNF at this point. Tomorrow offices will resume operations as per routine schedule. Contact for [facility] [phone] per records. CM to follow. Plan: To SNF when authorization obtained. Date Signed: 02/02/2019 01:39 PM Electronically Signed By:Soni Santillan RN [facility] Progress Note CM Note CM Note Notes: CM obtained Veterans Referral for Community Detention Care form and contact name Stella Miranda [phone] from [facility]. CM has filled out form and printed out necessary paperwork and is awaiting pt's RN portion of form to be filled out. Also left msg with Stella pearson: some questions about the form and where to fax when completed. CM will continue to follow. CM D/C plan: [facility] SN[facility] Date Signed: 02/04/2019 09:20 AM Electronically Signed By:Sandrita Watkins LACE LACE Length of stay for Answers: 7-13 days current admission Comorbidities - select Answers: Cerebrovascular disease all that apply (CVA, TIA, aneurysms, vasc ular dementia) Chronic pulmonary disease Coronary Artery Disease Diabetes (uncontrolled or controlled) Moderate or severe liver or renal disease Opioid dependence / Chronic pain # of Emergency department Answers: 3-4 visits in the last 6 months Social determinants Answers: Mental health diagnosis (anxiety, depression, pers onality disorders, etc.) Score: 25 Date Signed: 02/05/2019 03:11 PM Electronically Signed By:Sandrita Watkins Case Management Discharge Plan Note Case Management Discharge Discharge Order Complete? Answers: Yes Patient to Obtain Answers: Other Notes: caregiver Medications Transportation Arranged Answers: Family/Friends Family Notified Answers: Yes Notes: CM left msg for daughte r Discharge Comments Notes: Pt is being D/Cd home today. He will resume services he had in place with [facility]: caregivers 3 days a week. He is arranging this. Pt has refused to go to a SNF as recommended by PT and OT. CM spoke to PT; they say he would be safer in a SNF but understand that he has caregivers. Hospitalist Dr. Dinero is aware of situation and in agreement that pt can go home. Pt called a friend to give him a ride home. Date Signed: 02/05/2019 03:17 PM Electronically Signed By:Sandrita Rosa.ISADORA Intervention Information
--- NOTE | 2019-02-06 10:54 | CPEKG ---
Test Reason : OPEN Blood Pressure : / mmHG Vent. Rate : 068 BPM Atrial Rate : 069 BPM P-R Int : 156 ms QRS Dur : 082 ms QT Int : 394 ms P-R-T Axes : 005 -26 -09 degrees QTc Int : 420 ms Sinus rhythm Borderline left axis deviation Low voltage, precordial leads Borderline T abnormalities, inferior leads Confirmed by Sandeep Traore ([id number]) on 02/06/2019 10:54:15 AM Referred By: Ramu Soria Confirmed By:Sandeep Traore
== END 2019-02-05 15:05 | disposition home health service (06) ==
LOC: F2W 20:45
PROVIDERS: ADMIT Internal Medicine; ATTEND Family Medicine
DX: R06.09 Other forms of dyspnea (principal); J44.9 Chronic obstructive pulmonary disease, unspecified; R61 Generalized hyperhidrosis; I25.10 Atherosclerotic heart disease of native coronary artery without angina pectoris; I48.91 Unspecified atrial fibrillation; M54.2 Cervicalgia; G89.29 Other chronic pain; S80.811A Abrasion, right lower leg, initial encounter; X50.9XXA Other and unspecified overexertion or strenuous movements or postures, initial encounter; E66.9 Obesity, unspecified; Z68.32 Body mass index [BMI] 32.0-32.9, adult; F43.10 Post-traumatic stress disorder, unspecified; F41.9 Anxiety disorder, unspecified; N18.4 Chronic kidney disease, stage 4 (severe); E11.22 Type 2 diabetes mellitus with diabetic chronic kidney disease; I12.9 Hypertensive chronic kidney disease with stage 1 through stage 4 chronic kidney disease, or unspecified chronic kidney disease; E78.5 Hyperlipidemia, unspecified; N40.0 Benign prostatic hyperplasia without lower urinary tract symptoms; Z79.82 Long term (current) use of aspirin; Z79.51 Long term (current) use of inhaled steroids; Z86.73 Personal history of transient ischemic attack (TIA), and cerebral infarction without residual deficits; Z79.01 Long term (current) use of anticoagulants; Z95.5 Presence of coronary angioplasty implant and graft
CPT/HCPCS: 71046; 78452; 93005; 93017; 93970; 97110; 97116; 97162; 97165; 97530; 97535; 99285; A9500; G0378; 84484-ER; J2785

== ENCOUNTER 2019-02-19 22:26 | Inpatient (IN) | payer OTHER | END 2019-02-25 11:11 | disposition home or self-care (01) | LOC: F3N 02-20 00:59 ==